=== PATIENT | male | born 1940 | race Caucasian/White ===

== ENCOUNTER 2016-04-11 11:06 | Observation (INO) | payer MEDICARE, BC ==
[2016-04-11 12:36] LABS: ABSOLUTE EOSINOPHILS # (AUTO) 0.1 10^3/uL (0.0-0.6); ABSOLUTE LYMPHOCYTES (AUTO) 0.9 10^3/uL (0.5-4.7); ABSOLUTE MONOCYTES (AUTO) 0.4 10^3/uL (0.1-1.4); ABSOLUTE NEUT (AUTO) 7.4 10^3/uL (1.7-8.2); BASOPHILS % (AUTO) 0.4 % (0-2); EOSINOPHILS % (AUTO) 1.6 % (0-6); HEMATOCRIT 35.1 % (37.9-51.0); HEMOGLOBIN 12.1 g/dL (13.5-17.0); HGB HCT DIFFERENCE 1.2; LYMPHOCYTES % (AUTO) 10.6 % (13-45); MEAN CORPUSCULAR HEMOGLOBIN 33.1 pg (27.0-33.4); MEAN CORPUSCULAR HGB CONC 34.4 g/dL (32.0-36.0); MEAN CORPUSCULAR VOLUME 96 fl (80-97); MONOCYTES % (AUTO) 4.6 % (3-13); RED BLOOD COUNT 3.65 10^6/uL (4.35-5.55); RED CELL DISTRIBUTION WIDTH 14.1 % (11.5-14.0); SEGMENTED NEUTROPHILS % (AUTO) 82.8 % (42-78); WHITE BLOOD COUNT 8.9 10^3/uL (4.0-10.5)
[2016-04-11 12:39] LABS: VENOUS BLOOD BASE EXCESS -2.5 mmol/L; VENOUS BLOOD HCO3 23.7 mmol/L (20-32); VENOUS BLOOD PCO2 46.8 mmHg (35-63); VENOUS BLOOD PH 7.32 (7.30-7.42)
[2016-04-11] MEDS ORDERED: NORMAL SALINE 1000 ML 1,000 ML IV ONE (12:55)
[2016-04-11 13:01] LABS: ALANINE AMINOTRANSFERASE 23 U/L (21-72); ALBUMIN 3.6 g/dL (3.5-5.0); ALKALINE PHOSPHATASE 88 U/L (38-126); ANION GAP 14 (5-19); ASPARTATE AMINO TRANSFERASE 25 U/L (17-59); BILIRUBIN,TOTAL 0.5 mg/dL (0.2-1.3); BLOOD UREA NITROGEN 21 mg/dL (7-20); CALCIUM 9.8 mg/dL (8.4-10.2); CARBON DIOXIDE 22 mmol/L (22-30); CHLORIDE 106 mmol/L (98-107); CREATINE KINASE 54 U/L (55-170); CREATININE RESULT 1.11 mg/dL (0.52-1.25); GLUCOSE 161 mg/dL (75-110); POTASSIUM 4.3 mmol/L (3.6-5.0); SODIUM 142.4 mmol/L (137-145); TOTAL PROTEIN 7.1 g/dL (6.3-8.2)
[2016-04-11 13:25] LABS: TROPONIN I < 0.012 ng/mL
[2016-04-11 13:38] LABS: APPEARANCE,URINE CLOUDY; BILIRUBIN,URINE NEGATIVE (NEGATIVE); GLUCOSE, URINE NEGATIVE (NEGATIVE); KETONES,URINE NEGATIVE (NEGATIVE); LEUKOCYTE ESTERASE,URINE TRACE (NEGATIVE); NITRITE,URINE NEGATIVE (NEGATIVE); PROTEIN,URINE 100 mg/dL (NEGATIVE); URINE SPECIFIC GRAVITY 1.021; UROBILINOGEN,URINE NEGATIVE mg/dL (<2.0)
--- NOTE | 2016-04-11 13:46 | EKG REPORT ---
SEVERITY:- OTHERWISE NORMAL ECG - SINUS RHYTHM BORDERLINE LEFT AXIS DEVIATION : Confirmed by: Anabella Shi 11-Apr-2016 13:22:11
[2016-04-11 13:55] LABS: URINE BARBITURATES SCREEN NEGATIVE; URINE METHADONE SCREEN NEGATIVE; URINE PHENCYCLIDINE SCREEN NEGATIVE
[2016-04-11] MEDS ORDERED: CEFTRIAXONE 1 GM/D5W RTU 50 ML IV ONE (14:09)
[2016-04-11] MEDS ORDERED: NORMAL SALINE 1000 ML 1,000 ML IV PRN (15:19)
[2016-04-11] MEDS ORDERED: LABETALOL HCL INJ 20 MG/4 ML DISP.SYRIN IV PRN (15:19)
[2016-04-11] MEDS ORDERED: TRAMADOL HCL 50 MG TABLET PO PRN (15:19)
[2016-04-11] MEDS ORDERED: MAGNESIUM HYDROXIDE SUSP 30 ML UDCUP PO ONE (15:26)
[2016-04-11] MEDS ORDERED: ACETAMINOPHEN 325 MG TABLET PO PRN (15:26)
[2016-04-11] MEDS ORDERED: ONDANSETRON HCL INJ/PF 4 MG/2 ML SDV IV PRN (15:26)
[2016-04-11] MEDS ORDERED: METOPROLOL SUCCINATE 25 MG TAB.SR.24H PO ONE (16:00)
[2016-04-11] MEDS ORDERED: ASPIRIN 81 MG TABLET, ENT COATED PO ONE (16:00)
--- NOTE | 2016-04-11 16:16 | ER Document Report ---
ED General - General Chief Complaint: Fall Stated Complaint: FALL TRAVEL OUTSIDE OF THE [place] IN LAST 30 DAYS: No - HPI Patient complains to provider of: syncope seizure dehydration fall Notes: Patient coming in today for evaluation of a syncopal episode of fall and seizure. 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 Patient states today that he was walking out of the bathroom and he tripped and fell no loss of consciousness states remember hitting for however he was unable to get up with the assistance of his . EMS was called EMS states upon sitting patient obviously has syncopal episode. Patient to be up so was a brief been patient did have seizure-like activity 2. Patient was given Versed seizure activity was followed by a short period of confusion however patient is ANO 3 at this time. confirms that patient is on carbamazepine for his seizures. also conferred patient has not been eating or drinking appropriately for the last 3 days. - Related Data Allergies/Adverse Reactions: No Known Allergies Allergy (Unverified 02/08/12 21:15) Past Medical History - Social History Smoking Status: Unknown if Ever Smoked Family History: Reviewed & Not Pertinent - Past Medical History Cardiac Medical History: Reports: Hx Hypercholesterolemia, Hx Hypertension Malignancy Medical History: Reports Hx Prostate Cancer Past Surgical History: Reports: Hx Orthopedic Surgery - Immunizations Immunizations up to date: Yes Hx Diphtheria, Pertussis, Tetanus Vaccination: Yes Review of Systems - Review of Systems Constitutional: No symptoms reported EENT: No symptoms reported Cardiovascular: Syncope Respiratory: No symptoms reported Gastrointestinal: No symptoms reported Genitourinary: No symptoms reported Male Genitourinary: No symptoms reported Musculoskeletal: No symptoms reported Skin: No symptoms reported Hematologic/Lymphatic: No symptoms reported Neurological/Psychological: Seizure -: Yes All other systems reviewed and negative Physical Exam - Vital signs Vitals: Temp Pulse Resp BP Pulse Ox 97.2 F 94 18 143/81 H 97 04/11/16 11:15 04/11/16 11:15 04/11/16 11:15 04/11/16 11:15 04/11/16 11:15 Interpretation: Normal - General General appearance: Appears well, Alert - HEENT Head: Normocephalic, Atraumatic Eyes: Normal Pupils: PERRL - Respiratory Respiratory status: No respiratory distress Chest status: Nontender Breath sounds: Normal Chest palpation: Normal - Cardiovascular Rhythm: Regular Heart sounds: Normal auscultation Murmur: No - Abdominal Inspection: Normal Distension: No distension Bowel sounds: Normal Tenderness: Nontender Organomegaly: No organomegaly - Back Back: Normal, Nontender - Extremities General upper extremity: Normal inspection, Nontender, Normal color, Normal ROM , Normal temperature General lower extremity: Normal inspection, Nontender, Normal color, Normal ROM , Normal temperature, Normal weight bearing. No: Katja's sign - Neurological Neuro grossly intact: Yes Cognition: Normal Orientation: AAOx4 [place] Coma Scale Eye Opening: Spontaneous [place] Coma Scale Verbal: Oriented [place] Coma Scale Motor: Obeys Commands Alexis Coma Scale Total: 15 Speech: Normal Motor strength normal: LUE, RUE, LLE, RLE Sensory: Normal - Psychological Associated symptoms: Normal affect, Normal mood - Skin Skin Temperature: Warm Skin Moisture: Dry Skin Color: Normal Course - Re-evaluation Re-evalutation: 04/11/16 16:15 Patient's urine shows signs of infection we'll give her dose of Rocephin. Patient's orthostatics were positive with symptoms patient states upon standing still feeling weak in the feet. Discussion with hospitalist will admit patient for further evaluation - Vital Signs Vital signs: Temp Pulse Resp BP Pulse Ox 97.2 F 101 H 12 124/79 95 04/11/16 11:15 04/11/16 15:00 04/11/16 15:00 04/11/16 15:00 04/11/16 15:00 - Laboratory Result Diagrams: 04/11/16 12:10 04/11/16 12:10 Laboratory results interpreted by me: 04/11/16 04/11/16 04/11/16 12:10 12:10 12:10 RBC 3.65 L Hgb 12.1 L Hct 35.1 L RDW 14.1 H Seg Neutrophils % 82.8 H Lymphocytes % 10.6 L BUN 21 H Glucose 161 H Lactic Acid 4.5 H Ammonia Creatine Kinase 54 L Urine Protein Urine Blood Ur Leukocyte Esterase 04/11/16 04/11/16 12:10 13:15 RBC Hgb Hct RDW Seg Neutrophils % Lymphocytes % BUN Glucose Lactic Acid Ammonia < 8.7 L Creatine Kinase Urine Protein 100 H Urine Blood SMALL H Ur Leukocyte Esterase TRACE H Discharge - Discharge Clinical Impression: Seizure, Dehydration Syncope Qualifiers: Syncope type: unspecified Qualified Code(s): R55 - Syncope and collapse Condition: Good Disposition: ADMITTED INPATIENT Admitting Provider: [facility] Unit Admitted: [facility]U Referrals: TEJINDER LUKE MD [Primary Care Provider] - Follow up as needed
[2016-04-11 16:46] LABS: ALCOHOL < 10 mg/dL (NONE DETECTED); CARBAMAZEPINE < 2.4 ug/mL (4.0-12.0)
[2016-04-11 16:55] LABS: CREATINE KINASE MB 0.77 ng/mL (<4.55)
[2016-04-11 16:56] LABS: TROPONIN I < 0.012 ng/mL
[2016-04-11] MEDS ORDERED: (PENDING PHARMACY ID) (Enzalutamide [Xtandi] 160 MG) PO SCH (17:30)
[2016-04-11] MEDS ORDERED: (PENDING PHARMACY ID) (Carbamazepine [Carbamazepine Er] 200 MG) PO SCH (18:00)
[2016-04-11] MEDS ORDERED: DULOXETINE HCL 30 MG CAPSULE.DR PO ONE (18:30)
[2016-04-11] MEDS ORDERED: XTANDI 40 MG PO ONE ×2 (19:00→21:00)
[2016-04-11] MEDS: DOCUSATE SODIUM 100 MG CAPSULE PO SCH (19:46)
--- NOTE | 2016-04-11 19:56 | PDOC H&P ---
History of Present Illness Admission Date/PCP: TEJINDER LUKE History of Present Illness: TIMOTHY GARCIA is a 75 year old male with a history of prior TBI and subsequent seizure disorder who reports he went to. [employer] for work and when he was getting out of the bathroom his legs felt weak and he felt on the doorway. He reports that when EMS came up he had a seizure. Family reported transient facial weakness after seizure. He reports that yesterday he had a subjective fever but no chills. He has been constipated as of late. Patient is found to be orthostatic and have a urinary tract infection. He is referred to hospital service for evaluation for mentioned complaints. Past Medical History Cardiac Medical History: Reports: Hyperlipidema, Hypertension Neurological Medical History: Reports: Seizures, Other - History of TBI Endocrine Medical History: Reports: Obesity Malignancy Medical History: Reports: Other - Prostate cancer Traumatic Medical History: Reports: Traumatic Brain Injury Past Surgical History Past Surgical History: Back surgery 3, prostatectomy, craniotomy Past Surgical History: Reports: Orthopedic Surgery Social History Information Source: Patient Smoking Status: Never Smoker Frequency of Alcohol Use: None Hx Recreational Drug Use: No Hx Prescription Drug Abuse: No - Advance Directive Resuscitation Status: Full Code Surrogate healthcare decision maker:: , Nora Garcia Family History Family History: CAD - Mother postoperatively of acute [place], CVA, Other - Brother and father both dried of AAA's, one living brother with AAA Parental Family History Reviewed: Yes Children Family History Reviewed: Yes Sibling(s) Family History Reviewed.: Yes Medication/Allergy Home Medications: Amlodipine Besylate 5 mg PO BID 04/11/16 Aspirin 81 mg PO DAILY 04/11/16 Calcium Carbonate/Vitamin D3 [Calcium 500 + Vit D Caplet] 500 mg PO MO@1000 08/21 Carbamazepine [Carbamazepine ER] 200 mg PO BID 04/11/16 Cyanocobalamin (Vitamin B-12) [B-12] 500 mg PO DAILY 04/11/16 Duloxetine HCl 60 mg PO DAILY 04/11/16 Enzalutamide [Xtandi] 160 mg PO DAILY 04/11/16 Losartan Potassium 100 mg PO DAILY 04/11/16 Metoprolol Succinate 25 mg PO DAILY 04/11/16 Pravastatin Sodium 40 mg PO DAILY 04/11/16 Allergies/Adverse Reactions: No Known Allergies Allergy (Unverified 11/03/12 21:15) Review of Systems Constitutional: PRESENT: fever(s). ABSENT: anorexia, chills, fatigue, headache( s), night sweats, weight gain, weight loss Eyes: ABSENT: visual disturbances Ears: ABSENT: hearing changes Cardiovascular: ABSENT: chest pain, dyspnea on exertion, edema, orthropnea, palpitations Respiratory: ABSENT: cough, dyspnea, hemoptysis, sputum Gastrointestinal: PRESENT: constipation. ABSENT: abdominal pain, diarrhea, hematemesis, hematochezia, melena, nausea, vomiting Genitourinary: PRESENT: dysuria. ABSENT: difficulty urinating, hematuria Musculoskeletal: PRESENT: back pain - Chronic. ABSENT: joint swelling Integumentary: ABSENT: lesions, rash, wounds Neurological: PRESENT: convulsions. ABSENT: abnormal gait, abnormal speech, confusion, dizziness, focal weakness, syncope Psychiatric: ABSENT: anxiety, depression, homidical ideation, suicidal ideation Endocrine: ABSENT: cold intolerance, heat intolerance, polydipsia, polyuria Hematologic/Lymphatic: ABSENT: easy bleeding, easy bruising Physical Exam Vital Signs: Temp Pulse Resp BP Pulse Ox 97.2 F 101 H 12 124/79 95 04/11/16 11:15 04/11/16 15:00 04/11/16 15:00 04/11/16 15:00 04/11/16 15:00 General appearance: PRESENT: no acute distress, obese, well-developed, well- nourished Head exam: PRESENT: normocephalic Eye exam: PRESENT: conjunctiva pink, EOMI, nystagmus - Horizontal, PERRLA. ABSENT: conjunctival injection, scleral icterus Ear exam: PRESENT: normal external ear exam Mouth exam: PRESENT: moist, tongue midline Neck exam: PRESENT: full ROM. ABSENT: carotid bruit, JVD, lymphadenopathy, meningismus, tenderness, thyromegaly, tracheal deviation Respiratory exam: PRESENT: clear to auscultation jenelle, symmetrical, unlabored. ABSENT: crackles, rales, retraction, rhonchi, tachypnea, wheezes Cardiovascular exam: PRESENT: RRR, +S1, +S2, systolic murmur. ABSENT: clicks, diastolic murmur, gallop, rubs Pulses: PRESENT: normal dorsalis pedis pul Vascular exam: PRESENT: normal capillary refill GI/Abdominal exam: PRESENT: hypoactive bowel sounds, soft. ABSENT: distended, firm, guarding, mass, Medina's sign, organolmegaly, rebound, rigid, tenderness Rectal exam: PRESENT: deferred Extremities exam: PRESENT: full ROM. ABSENT: calf tenderness, clubbing, pedal edema Neurological exam: PRESENT: alert, awake, oriented to person, oriented to place , oriented to time, oriented to situation, CN II-XII grossly intact. ABSENT: motor sensory deficit Psychiatric exam: PRESENT: appropriate affect, normal mood. ABSENT: homicidal ideation, suicidal ideation Skin exam: PRESENT: dry, intact, warm. ABSENT: cyanosis, rash Results Laboratory Results: 04/11/16 12:10 04/11/16 12:10 04/11/16 04/11/16 04/11/16 12:10 12:10 12:10 WBC 8.9 RBC 3.65 L Hgb 12.1 L Hct 35.1 L MCV 96 MCH 33.1 MCHC 34.4 RDW 14.1 H Plt Count 190 Seg Neutrophils % 82.8 H Lymphocytes % 10.6 L Monocytes % 4.6 Eosinophils % 1.6 Basophils % 0.4 Absolute Neutrophils 7.4 Absolute Lymphocytes 0.9 Absolute Monocytes 0.4 Absolute Eosinophils 0.1 Absolute Basophils 0.0 VBG pH VBG pCO2 VBG HCO3 VBG Base Excess Sodium 142.4 Potassium 4.3 Chloride 106 Carbon Dioxide 22 Anion Gap 14 BUN 21 H Creatinine 1.11 Est GFR ( Amer) > 60 Est GFR (Non-Af Amer) > 60 Glucose 161 H Lactic Acid 4.5 H Calcium 9.8 Total Bilirubin 0.5 AST 25 ALT 23 Alkaline Phosphatase 88 Ammonia Total Protein 7.1 Albumin 3.6 Urine Color Urine Appearance Urine pH Ur Specific [place] Urine Protein Urine Glucose (UA) Urine Ketones Urine Blood Urine Nitrite Ur Leukocyte Esterase Urine WBC (Auto) Urine RBC (Auto) 04/11/16 04/11/16 04/11/16 12:10 12:10 13:15 WBC RBC Hgb Hct MCV MCH MCHC RDW Plt Count Seg Neutrophils % Lymphocytes % Monocytes % Eosinophils % Basophils % Absolute Neutrophils Absolute Lymphocytes Absolute Monocytes Absolute Eosinophils Absolute Basophils VBG pH 7.32 VBG pCO2 46.8 VBG HCO3 23.7 VBG Base Excess -2.5 Sodium Potassium Chloride Carbon Dioxide Anion Gap BUN Creatinine Est GFR ( Amer) Est GFR (Non-Af Amer) Glucose Lactic Acid Calcium Total Bilirubin AST ALT Alkaline Phosphatase Ammonia < 8.7 L Total Protein Albumin Urine Color DARK YELLOW Urine Appearance CLOUDY Urine pH 5.0 Ur Specific [place] 1.021 Urine Protein 100 H Urine Glucose (UA) NEGATIVE Urine Ketones NEGATIVE Urine Blood SMALL H Urine Nitrite NEGATIVE Ur Leukocyte Esterase TRACE H Urine WBC (Auto) 14 Urine RBC (Auto) 6 04/11/16 04/11/16 12:10 12:10 Creatine Kinase 54 L CK-MB (CK-2) 0.60 Troponin I < 0.012 Impressions: Chest X-Ray 04/11/16 00:00 IMPRESSION: NO ACUTE RADIOGRAPHIC FINDING IN THE CHEST. Head CT 04/11/16 00:00 IMPRESSION: No acute findings. 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 Place on carbamazepine and seizure precautions. Consider Dilantin or Keppra. (2) Dehydration Is this a current diagnosis for this admission?: YesPlan: Patient has received 1 L but appears to need at least one more. Will give patient IV fluids and encourage by mouth intake of fluid. (3) Hypertension Qualifiers: Hypertension type: essential hypertension Qualified Code(s): I10 - Essential (primary) hypertension Is this a current diagnosis for this admission?: YesPlan: Resume home medications but hold losartan at this time due to orthostasis. (4) History of prostate cancer Is this a current diagnosis for this admission?: YesPlan: We'll keep patient until we have a result on his urine culture. Patient has had prior prostatectomy. (5) Constipation Qualifiers: Constipation type: unspecified constipation type Qualified Code(s): K59.00 - Constipation, unspecified Is this a current diagnosis for this admission?: YesPlan: We'll give patient milk of magnesia, Colace and miralax. Titrate to effect (6) Hyperlipidemia Qualifiers: Hyperlipidemia type: unspecified Qualified Code(s): E78.5 - Hyperlipidemia, unspecified Is this a current diagnosis for this admission?: YesPlan: Check FLP and continue statin (7) Syncope Qualifiers: Syncope type: vasovagal syncope Qualified Code(s): R55 - Syncope and collapse Is this a current diagnosis for this admission?: YesPlan: Most likely represents vasovagal syncope due to dehydration and UTI. Patient is orthostatic. 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 However given patient's other risk factors which include hyperlipidemia and hypertension, will obtain MRI and carotid Doppler study. Mental examinations. PT OT consult. Continue to monitor on telemetry as I do believe patient likely has a prior history of atrial fibrillation. - Time Time Spent: 50 to 70 Minutes Medications reviewed and adjusted accordingly: Yes - Inpatient Certification Based on my medical assessment, after consideration of the patient's comorbidities, presenting symptoms, or acuity I expect that the services needed warrant INPATIENT care.: No I certify that my determination is in accordance with my understanding of Medicare's requirements for reasonable and necessary INPATIENT services [42 CFR 412.3e].: No Medical Necessity: Need For IV Fluids, Need For Continuous Telemetry Monitoring , Need for Neurological Checks Post Hospital Care: D/C Forensic Investigator Documentation
[2016-04-11] MEDS: AMLODIPINE BESYLATE 5 MG TABLET PO SCH (21:26)
[2016-04-11] MEDS: CARBAMAZEPINE 200 MG TAB.SR.12H PO SCH (21:32)
[2016-04-11] MEDS ORDERED: CARBAMAZEPINE 200 MG TABLET PO SCH (22:00)
[2016-04-11] MEDS ORDERED: ATORVASTATIN CALCIUM 40 MG TABLET PO SCH (22:00)
[2016-04-11 22:01] LABS: CREATINE KINASE MB 0.59 ng/mL (<4.55); TROPONIN I 0.012 ng/mL
[2016-04-12] MEDS ORDERED: AMLODIPINE BESYLATE 5 MG TABLET PO ONE (01:15)
[2016-04-12 04:13] LABS: ABSOLUTE EOSINOPHILS # (AUTO) 0.3 10^3/uL (0.0-0.6); ABSOLUTE LYMPHOCYTES (AUTO) 1.5 10^3/uL (0.5-4.7); ABSOLUTE MONOCYTES (AUTO) 0.7 10^3/uL (0.1-1.4); BASOPHILS % (AUTO) 0.3 % (0-2); EOSINOPHILS % (AUTO) 3.4 % (0-6); HEMOGLOBIN 10.8 g/dL (13.5-17.0); HGB HCT DIFFERENCE 0.4; LYMPHOCYTES % (AUTO) 17.7 % (13-45); MEAN CORPUSCULAR HEMOGLOBIN 32.4 pg (27.0-33.4); MEAN CORPUSCULAR HGB CONC 33.7 g/dL (32.0-36.0); MEAN CORPUSCULAR VOLUME 96 fl (80-97); MONOCYTES % (AUTO) 7.9 % (3-13); RED BLOOD COUNT 3.33 10^6/uL (4.35-5.55); RED CELL DISTRIBUTION WIDTH 13.8 % (11.5-14.0); SEGMENTED NEUTROPHILS % (AUTO) 70.7 % (42-78); WHITE BLOOD COUNT 8.5 10^3/uL (4.0-10.5)
[2016-04-12 04:39] LABS: ANION GAP 8 (5-19); BLOOD UREA NITROGEN 19 mg/dL (7-20); CALCIUM 9.2 mg/dL (8.4-10.2); CARBON DIOXIDE 28 mmol/L (22-30); CHLORIDE 107 mmol/L (98-107); CHOLESTEROL 218.52 mg/dL (0-200); CREATINE KINASE 64 U/L (55-170); CREATININE RESULT 1.01 mg/dL (0.52-1.25); Direct HDL 43 mg/dL (>40); GLUCOSE 104 mg/dL (75-110); POTASSIUM 4.3 mmol/L (3.6-5.0); SODIUM 142.6 mmol/L (137-145); TRIGLYCERIDES 188 mg/dL (<150)
[2016-04-12 04:50] LABS: CREATINE KINASE MB 0.67 ng/mL (<4.55); DIRECT LDL 123 mg/dL (<100); TROPONIN I 0.013 ng/mL
[2016-04-12 04:57] LABS: VLDL CHOLESTEROL 37.6 mg/dL (10-31)
[2016-04-12] MEDS: AMLODIPINE BESYLATE 5 MG TABLET PO SCH (09:50)
[2016-04-12] MEDS: DOCUSATE SODIUM 100 MG CAPSULE PO SCH (09:51)
[2016-04-12] MEDS: CARBAMAZEPINE 200 MG TAB.SR.12H PO SCH (09:51)
[2016-04-12] MEDS ORDERED: METOPROLOL SUCCINATE 25 MG TAB.SR.24H PO SCH (10:00)
[2016-04-12] MEDS ORDERED: LOSARTAN POTASSIUM 50 MG TABLET PO SCH (10:00)
[2016-04-12] MEDS ORDERED: ASPIRIN 81 MG TABLET, ENT COATED PO SCH (10:00)
[2016-04-12] MEDS ORDERED: (PENDING PHARMACY ID) (Duloxetine Hcl [Duloxetine Hcl] 60 MG) PO SCH (10:00)
[2016-04-12] MEDS ORDERED: CEFTRIAXONE 1 GM/D5W RTU 50 ML IV SCH (10:00)
[2016-04-12] MEDS ORDERED: DULOXETINE HCL 30 MG CAPSULE.DR PO SCH (10:00)
[2016-04-12] MEDS ORDERED: XTANDI 40 MG PO SCH (10:00)
[2016-04-12] MEDS ORDERED: CYANOCOBALAMIN (VITAMIN B-12) 1,000 MCG TABLET PO SCH (10:00)
[2016-04-12 11:47] VITALS: BP 143/81
[2016-04-12] MEDS ORDERED: MEGESTROL ACETATE SUSP 400 MG/10 ML UDCUP PO ONE (12:00)
[2016-04-13] MEDS ORDERED: MEGESTROL ACETATE SUSP 400 MG/10 ML UDCUP PO SCH (10:00)
--- NOTE | 2016-04-13 15:15 | PDOC DISCHARGE SUMMARY ---
General - Admit/Disc Date/PCP Admission Date/Primary Care Provider: 04/11/16 15:20 TEJINDER LUKE Discharge Date: 04/12/16 - Discharge Diagnosis (1) Seizure Is this a current diagnosis for this admission?: Yes (2) Dehydration Is this a current diagnosis for this admission?: Yes (3) Hypertension Is this a current diagnosis for this admission?: Yes (4) History of prostate cancer Is this a current diagnosis for this admission?: Yes (5) Constipation Is this a current diagnosis for this admission?: Yes (6) Hyperlipidemia Is this a current diagnosis for this admission?: Yes (7) Syncope Is this a current diagnosis for this admission?: Yes (8) Urinary tract infection Is this a current diagnosis for this admission?: Yes (9) TIA (transient ischemic attack) Is this a current diagnosis for this admission?: Yes - Additional Information Resuscitation Status: Full Code Discharge Diet: Cardiac Discharge Activity: Activity As Tolerated, Slowly Increase Activity, Walk Frequently Home Medications: Amlodipine Besylate 5 mg PO BID 04/11/16 Aspirin 81 mg PO DAILY 04/11/16 Calcium Carbonate/Vitamin D3 [Calcium 500 + Vit D Caplet] 500 mg PO MO@1000 08/21 Carbamazepine [Carbamazepine ER] 200 mg PO BID 04/11/16 Cyanocobalamin (Vitamin B-12) [B-12] 500 mg PO DAILY 04/11/16 Duloxetine HCl 60 mg PO DAILY 04/11/16 Enzalutamide [Xtandi] 160 mg PO DAILY 04/11/16 Losartan Potassium 100 mg PO DAILY 04/11/16 Pravastatin Sodium 40 mg PO DAILY 04/11/16 Docusate Sodium [Colace 100 mg Capsule] 100 mg PO BID #60 capsule 04/12/16 Levofloxacin [Levaquin 500 mg Tablet] 500 mg PO DAILY #4 tablet 04/12/16 Metoprolol Succinate [Toprol Xl 25 mg Tab.sr] 25 mg PO BID #60 tab.sr.24h Sennosides [Senna Laxative] 1 - 2 mg PO QHS #60 tablet 04/12/16 History of Present Illness History of Present Illness: TIMOTHY WALTERS is a 75 year old male with a history of prior TBI and subsequent seizure disorder who reports he went to[employer] for work and when he was getting out of the bathroom his legs felt weak and he felt on the doorway. He reports that when EMS came up he had a seizure. Family reported transient facial weakness after seizure. He reports that yesterday he had a subjective fever but no chills. He has been constipated as of late. Patient is found to be orthostatic and have a urinary tract infection. He is referred to hospital service for evaluation for mentioned complaints. Hospital Course Hospital Course: Patient was ruled out for acute CVA with serial CTs. 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 Patient was advised that this will need to be monitored by his vision impaired teacher. Patient does have intermittent episodes of A. fib none with RVR here in the hospital. Patient is not a candidate for anticoagulation secondary to previous intracranial hemorrhage. Patient admits to not taking his medication as instructed and his reports that he has had a very poor appetite and been very lethargic. We discussed taking medications appropriately and place patient on Megace. I did discuss with patient that his carbamazepine level was not detectable and he needed to take this medication to prevent seizures. Patient also had a seizure while on Xtandi and I discussed with him and his bringing this to the attention of their oncologist in light of its history with seizures. Patient was found to be orthostatic and had improved with hydration and the hospital. Patient was found have a slight UTI and culture was pending at the time of discharge. Patient was asymptomatic from this point of view. Patient did suffer from constipation which was improved. Patient was advised to follow bowel regimen which was set up for him, including increasing fiber and water and adding Colace and senna. Patient had no new complaints on day of discharge. All questions were answered to the best of my ability. Physical Exam Vital Signs: Temp Pulse Resp BP Pulse Ox 98.0 F 62 18 143/81 H 98 04/12/16 11:43 04/12/16 11:43 04/12/16 11:43 04/12/16 11:43 04/12/16 11:43 Intake & Output 04/12/16 04/13/16 04/14/16 06:59 06:59 06:59 Intake Total 1018 222 Output Total 575 1160 Balance 443 -938 Weight 76 kg Exam: General: Awake alert and oriented x3, no acute respiratory distress HEENT: AT/NC, PERRL, EOMI, oropharynx is moist, pink, no scleral icterus, no conjunctival injection Neck: No JVD, trachea midline Chest: Clear to auscultation bilaterally, no wheezes rhonchi or rales CV: Regular rate and rhythm, normal S1 and S2, no murmur, rub, or gallop Abdomen: Soft, nontender to palpation, nondistended, active bowel sounds; no rebound, rigidity, or guarding Extremities: No cyanosis, clubbing or edema Neuro: Cranial nerves II through XII are grossly intact without focal deficits; awake alert and oriented x3 Psych: Normal mood and affect Results Laboratory Results: 04/12/16 03:28 04/12/16 03:28 04/11/16 04/11/16 04/11/16 15:55 15:55 21:25 Creatine Kinase 48 L 41 L CK-MB (CK-2) 0.77 Troponin I < 0.012 04/11/16 04/12/16 04/12/16 21:25 03:28 03:28 Creatine Kinase 64 CK-MB (CK-2) 0.59 0.67 Troponin I 0.012 0.013 Impressions: Chest X-Ray 04/11/16 00:00 IMPRESSION: NO ACUTE RADIOGRAPHIC FINDING IN THE CHEST. Carotid Doppler Study 04/11/16 15:24 IMPRESSION: NO HEMODYNAMICALLY SIGNIFICANT STENOSIS. Head CT 04/12/16 00:00 IMPRESSION: No acute findings Qualifiers PATEINT BEING DISCHARGED WITH ANY OF THE FOLLOWING DIAGNOSIS?: No Plan Time Spent: Greater than 30 Minutes
[2016-04-15] MEDS ORDERED: VITAMIN D3 PO SCH (10:00)
[2016-04-15] MEDS ORDERED: CALCIUM CARBONATE 250 MG/VITAMIN D3 125 UNIT TABLET PO SCH (10:00)
[2016-04-15] MEDS ORDERED: [UNRECOGNIZED DRUG - OTHER] PO SCH (10:00)
[2016-04-15] MEDS ORDERED: CALCIUM CARBONATE PO SCH (10:00)
== END 2016-04-12 13:52 | disposition home or self-care (01) ==
LOC: ER 11:06 → EH 15:20 → UNDOADMOB 16:09 → EH 16:09 → 3N 17:36
PROVIDERS: ADMIT Family Medicine; ATTEND Family Medicine
DX: I69.398 Other sequelae of cerebral infarction (principal); R56.9 Unspecified convulsions; E86.0 Dehydration; R55 Syncope and collapse; I10 Essential (primary) hypertension; Z85.46 Personal history of malignant neoplasm of prostate; K59.00 Constipation, unspecified; E78.5 Hyperlipidemia, unspecified; N39.0 Urinary tract infection, site not specified; E66.9 Obesity, unspecified; Z68.30 Body mass index [BMI] 30.0-30.9, adult
CPT/HCPCS: 93005; 99285; 96361; 96365; 36415 ×2; 87040; 87086; 82553 ×2; 80307 ×2; 82140; 82550 ×2; 83605; 80156; 85025 ×2; 85610; 80048; 80053; 81001; 84484 ×2; 83036; 82803; 80061; 93880; 71010; 70450 ×2; 93010; 97163; 97167; G0378 ×3; A9270 ×14; J3490 ×2; J7030; J0696 ×2; G8978; G8979; G8987; G8988

== ENCOUNTER 2016-04-13 18:09 | Emergency (ER) | payer MEDICARE, BC ==
[2016-04-13] MEDS ORDERED: NORMAL SALINE 1000 ML 1,000 ML IV ONE (18:24)
--- NOTE | 2016-04-13 18:31 | ER Document Report ---
[id number] PRESSURE CONCERNS Mode of Arrival: Medic Information source: Patient, Emergency Med Personnel Notes: 75-year-old male presents with lightheadedness dizziness weakness this prior to arrival. Patient was seen by his primary care physician 3 days prior had his metoprolol increased, he had similar episode on the first day. Yesterday and again had that issue today. Denies any weakness numbness, denies any chest pain shortness of breath Patient found by EMS hypotensive was given a fluid bolus and notes significant improvement TRAVEL OUTSIDE OF THE [place] IN LAST 30 DAYS: No - HPI Onset: Just prior to arrival Onset/Duration: Sudden Quality of pain: No pain Severity: Moderate Pain Level: Denies Associated symptoms: Weakness Exacerbated by: Denies Relieved by: Denies Similar symptoms previously: Yes Recently seen / treated by doctor: No - Related Data Allergies/Adverse Reactions: Hectorigon Adverse Reaction (Severe, Uncoded 04/13/16 18:15) Hives Past Medical History - Social History Smoking Status: Never Smoker Cigarette use (# per day): No Chew tobacco use (# tins/day): No Smoking Education Provided: No Family History: CAD - Mother postoperatively of acute [place], CVA, Other - Brother and father both dried of AAA's, one living brother with AAA - Past Medical History Cardiac Medical History: Reports: Hx Hypercholesterolemia, Hx Hypertension Neurological Medical History: Reports: Hx Seizures Malignancy Medical History: Reports Hx Prostate Cancer Psychiatric Medical History: Denies: Hx Depression Traumatic Medical History: Reports: Hx Traumatic Brain Injury Past Surgical History: Reports: Hx Orthopedic Surgery - Immunizations Immunizations up to date: Yes Hx Diphtheria, Pertussis, Tetanus Vaccination: Yes Review of Systems - Review of Systems Notes: REVIEW OF SYSTEMS: CONSTITUTIONAL : Denies fever, chills, or sweats. Denies recent illness. EENT: Denies eye, ear, throat, or mouth pain or symptoms. Denies nasal or sinus congestion or discharge. Denies throat, tongue, or mouth swelling or difficulty swallowing. CARDIOVASCULAR: Denies chest pain. Denies palpitations or racing or irregular heart beat. Denies ankle edema. RESPIRATORY: Denies cough, cold, or chest congestion. Denies shortness of breath, difficulty breathing, or wheezing. GASTROINTESTINAL: Denies abdominal pain or distention. Denies nausea, vomiting , or diarrhea. Denies blood in vomitus, stools, or per rectum. Denies black, tarry stools. Denies constipation. GENITOURINARY: Denies difficulty urinating, painful urination, burning, frequency, blood in urine, or discharge. MUSCULOSKELETAL: Denies back or neck pain or stiffness. Denies joint pain or swelling. SKIN: Denies rash, lesions or sores. HEMATOLOGIC : Denies easy bruising or bleeding. LYMPHATIC: Denies swollen, enlarged glands. NEUROLOGICAL: Admits to dizziness lightheadedness weakness PSYCHIATRIC: Denies anxiety or stress. Denies depression, suicidal ideation, or homicidal ideation. ALL OTHER SYSTEMS REVIEWED AND NEGATIVE. Dictation was performed using [employer] voice recognition software PHYSICAL EXAMINATION: GENERAL: Well-appearing, well-nourished and in no acute distress. HEAD: Atraumatic, normocephalic. EYES: Pupils equal round and reactive to light, extraocular movements intact, sclera anicteric, conjunctiva are normal. ENT: Nares patent, oropharynx clear without exudates. Moist mucous membranes. NECK: Normal range of motion, supple without lymphadenopathy LUNGS: Breath sounds clear to auscultation bilaterally and equal. No wheezes rales or rhonchi. HEART: Regular rate and rhythm without murmurs ABDOMEN: Soft, nontender, nondistended abdomen. No guarding, no rebound. No masses appreciated. Musculoskeletal: Normal range of motion, no pitting or edema. No cyanosis. NEUROLOGICAL: Cranial nerves grossly intact. Normal speech, normal gait. Normal sensory, motor exams PSYCH: Normal mood, normal affect. SKIN: Warm, Dry, normal turgor, no rashes or lesions noted. Physical Exam - Vital signs Vitals: Resp 14 04/13/16 18:16 Course - Re-evaluation Re-evalutation: 04/13/16 18:31 Patient blood pressure is improved significantly with fluid bolus, I will wash patient emergency department and I have ordered lab work as well to rule out any other life-threatening issues but it appears to be secondary to his metoprolol causing hypotension 04/13/16 20:43 Patient is on losartan and amlodipine and metoprolol, I have asked the to check his blood pressure prior to taking any medications. I have instructed them to stop the metoprolol for next few days until they see the coil maker to reevaluate which medications he is was be on As I have reviewed the patient's previous presentations to the ED and I will discharge home at this time as he is stable and his blood pressure has improved significantly After performing a Medical Screening Examination, I estimate there is LOW risk for INTRACRANIAL HEMORRHAGE, ISCHEMIC CVA, MALIGNANT DYSRHYTHMIA, ACUTE CORONARY SYNDROME, MENINGITIS, PULMONARY EMBOLISM, or SEPSIS thus I consider the discharge disposition reasonable. The patient and I have discussed the diagnosis and risks, and we agree with discharging home with close follow-up with the understanding that symptoms and presentations can change. We also discussed returning to the Emergency Department immediately if new or worsening symptoms occur. We have discussed the symptoms which are most concerning (e.g., changing or worsening pain, weakness, vomiting, fever) that necessitate immediate return. - Vital Signs Vital signs: Temp Pulse Resp BP Pulse Ox 97.6 F 67 12 139/82 H 97 04/13/16 18:21 04/13/16 18:21 04/13/16 20:01 04/13/16 20:01 04/13/16 20:01 - Laboratory Result Diagrams: 04/13/16 18:30 04/13/16 18:30 Laboratory results interpreted by me: 04/13/16 04/13/16 18:30 18:30 RBC 3.49 L Hgb 11.5 L Hct 33.7 L BUN 22 H Albumin 3.4 L - Diagnostic Test Radiology reviewed: Image reviewed, Reports reviewed Discharge - Discharge Clinical Impression: Weakness Hypotension Qualifiers: Hypotension type: unspecified hypotension type Qualified Code(s): I95.9 - Hypotension, unspecified Condition: Stable Disposition: HOME, SELF-CARE Additional Instructions: Hypotension Your blood pressure is low. Low blood pressure can make you feel weak, lightheaded, and even make you pass out. Low blood pressure can be caused by dehydration or blood loss. Problems with the heart, kidneys, or blood vessels can cause hypotension. Certain medications can make your blood pressure abnormally low. Infection can lower blood pressure. In many cases, the person is totally healthy, but for unknown reasons, the blood pressure falls when they stand up. This is called benign orthostatic hypotension. The treatment of low blood pressure depends on the severity of the symptoms , and on the underlying cause. Sometimes it's not possible to identify a cause. At this time, it doesn't appear that the problem is serious enough to require hospitalization. Medicines that could be contributing to the problem can be withheld or reduced in dosage if your doctor approves. Get plenty of fluids. Eat a healthy diet. Be careful to stand up slowly. If you feel suddenly lightheaded or if your vision goes huang, sit or lie down at once. Don't drive or operate machinery until the symptoms are under control. Return or call the doctor if you develop fainting or severe dizziness, severe weakness, problems with vision, chest pain, shortness of breath, fever, or confusion. Referrals: TEJINDER LUKE MD [Primary Care Provider] - Follow up tomorrow
[2016-04-13 18:52] LABS: ABSOLUTE EOSINOPHILS # (AUTO) 0.1 10^3/uL (0.0-0.6); ABSOLUTE LYMPHOCYTES (AUTO) 1.3 10^3/uL (0.5-4.7); ABSOLUTE MONOCYTES (AUTO) 0.5 10^3/uL (0.1-1.4); ABSOLUTE NEUT (AUTO) 4.9 10^3/uL (1.7-8.2); BASOPHILS % (AUTO) 0.2 % (0-2); EOSINOPHILS % (AUTO) 1.8 % (0-6); HEMATOCRIT 33.7 % (37.9-51.0); HEMOGLOBIN 11.5 g/dL (13.5-17.0); HGB HCT DIFFERENCE 0.8; LYMPHOCYTES % (AUTO) 19.1 % (13-45); MEAN CORPUSCULAR HEMOGLOBIN 32.8 pg (27.0-33.4); MEAN CORPUSCULAR VOLUME 97 fl (80-97); MONOCYTES % (AUTO) 7.8 % (3-13); RED BLOOD COUNT 3.49 10^6/uL (4.35-5.55); SEGMENTED NEUTROPHILS % (AUTO) 71.1 % (42-78)
[2016-04-13 19:03] LABS: ALANINE AMINOTRANSFERASE 31 U/L (21-72); ALBUMIN 3.4 g/dL (3.5-5.0); ALKALINE PHOSPHATASE 85 U/L (38-126); ANION GAP 12 (5-19); ASPARTATE AMINO TRANSFERASE 21 U/L (17-59); BILIRUBIN,TOTAL 0.3 mg/dL (0.2-1.3); BLOOD UREA NITROGEN 22 mg/dL (7-20); CALCIUM 9.3 mg/dL (8.4-10.2); CARBON DIOXIDE 25 mmol/L (22-30); CHLORIDE 105 mmol/L (98-107); CREATINE KINASE 63 U/L (55-170); GLUCOSE 103 mg/dL (75-110); SODIUM 141.7 mmol/L (137-145); TOTAL PROTEIN 6.7 g/dL (6.3-8.2)
[2016-04-13 19:15] LABS: CREATINE KINASE MB 0.44 ng/mL (<4.55)
[2016-04-13 19:16] LABS: TROPONIN I < 0.012 ng/mL
[2016-04-13 21:22] VITALS: BP 142/71
--- NOTE | 2016-04-14 08:28 | EKG REPORT ---
SEVERITY:- BORDERLINE ECG - SINUS RHYTHM ATRIAL PREMATURE COMPLEX BORDERLINE LEFT AXIS DEVIATION BORDERLINE T ABNORMALITIES, INFERIOR LEADS : Confirmed by: Anabella Shi 14-Apr-2016 08:28:35
== END 2016-04-13 21:20 | disposition home or self-care (01) ==
LOC: ER 18:09
DX: R53.1 Weakness (principal); I95.9 Hypotension, unspecified; R42 Dizziness and giddiness; E78.00 Pure hypercholesterolemia, unspecified
CPT/HCPCS: 93005; 99285; 96360; 36415; 82553; 82550; 85025; 80053; 84484; 71010; 93010; J7030

== ENCOUNTER 2017-07-05 23:18 | Emergency (ER) | payer MEDICARE, BC ==
[2017-07-05 23:41] LABS: ABSOLUTE EOSINOPHILS # (AUTO) 0.3 10^3/uL (0.0-0.6); ABSOLUTE LYMPHOCYTES (AUTO) 2.1 10^3/uL (0.5-4.7); ABSOLUTE MONOCYTES (AUTO) 0.6 10^3/uL (0.1-1.4); ABSOLUTE NEUT (AUTO) 4.7 10^3/uL (1.7-8.2); BASOPHILS % (AUTO) 0.3 % (0-2); EOSINOPHILS % (AUTO) 3.6 % (0-6); HEMATOCRIT 35.6 % (37.9-51.0); LYMPHOCYTES % (AUTO) 27.1 % (13-45); MEAN CORPUSCULAR HEMOGLOBIN 32.6 pg (27.0-33.4); MEAN CORPUSCULAR HGB CONC 33.8 g/dL (32.0-36.0); MEAN CORPUSCULAR VOLUME 96 fl (80-97); MONOCYTES % (AUTO) 8.1 % (3-13); PLATELET COUNT 185 10^3/uL (150-450); RED BLOOD COUNT 3.69 10^6/uL (4.35-5.55); RED CELL DISTRIBUTION WIDTH 14.2 % (11.5-14.0); SEGMENTED NEUTROPHILS % (AUTO) 60.9 % (42-78); TOTAL CELLS COUNTED % (AUTO) 100 %; WHITE BLOOD COUNT 7.7 10^3/uL (4.0-10.5)
--- NOTE | 2017-07-05 23:45 | ER Document Report ---
ED General - General Stated Complaint: POSSIBLE SYNCOPY Time Seen by Provider: 07/05/17 23:31 Mode of Arrival: Medic Information source: Patient, Relative, Emergency Med Personnel TRAVEL OUTSIDE OF THE [place] IN LAST 30 DAYS: No - HPI Notes: Patient is a 76-year-old white male history of previous syncopal events presents to the emergency department with report of a witnessed syncopal event by family. Patient recalls EMS showing up and he had systolic blood pressure of 106 with a normal sinus rhythm of about 70, then in front of the EMS he dropped his blood pressure down to 77 systolic and is pulse rate went down to 38 and he had is another witnessed syncopal event. Patient was given atropine 0.5 mg IV and his blood pressure and pulse recovered and he quickly awakened. During the bradycardic hypotensive episode, the patient was observed initially to have a sinus bradycardia and then went to a idioventricular rhythm. The patient was incontinent during the event, but had no seizure activity and no postictal phase. Patient has a history of a previous syncopal event wh patient ere he fell on pavement 2013 and had a intracranial hemorrhage with subsequent seizures. Patient takes metoprolol XR 12.5 mg twice daily. The patient denies any recent medication changes. He states he has felt fine recently, denying any dysuria, chest pain, headache, numbness, weakness. He acknowledges having incontinence but he cannot recall it. Patient states he felt like he just went to sleep. No tongue biting. No fall or injury. Pt was in a chair during first syncopal event. According to the patient's , the patient has had 5 or 6 witnessed syncopal events over the last 2 years, and she has caught him several times. The patient usually refuses EMS transport with the previous syncopal events. [employer] Dr. Mina in [place]. Patient is also followed by Dr. Frankel for his Prostate Cancer. - Related Data Allergies/Adverse Reactions: Farigon Adverse Reaction (Severe, Uncoded 04/13/16 18:15) Hives Past Medical History - General Information source: Patient - Social History Smoking Status: Never Smoker Frequency of alcohol use: None Drug Abuse: None - Is Lives with: Family Family History: CAD - Mother postoperatively of acute [place], CVA, Other - Brother and father both dried of AAA's, one living brother with AAA - Past Medical History Cardiac Medical History: Reports: Hx Hypercholesterolemia, Hx Hypertension Neurological Medical History: Reports: Hx Seizures Malignancy Medical History: Reports Hx Prostate Cancer Psychiatric Medical History: Denies: Hx Depression Traumatic Medical History: Reports: Hx Traumatic Brain Injury Past Surgical History: Reports: Hx Orthopedic Surgery - Immunizations Immunizations up to date: Yes Hx Diphtheria, Pertussis, Tetanus Vaccination: Yes Review of Systems - Review of Systems Notes: REVIEW OF SYSTEMS: CONSTITUTIONAL : Denies fever, chills. Denies recent illness. Patient became diaphoretic during the event. EENT: Denies eye, ear, throat, or mouth pain or symptoms. Denies nasal or sinus congestion or discharge. Denies throat, tongue, or mouth swelling or difficulty swallowing. CARDIOVASCULAR: Denies chest pain. Denies palpitations or racing or irregular heart beat. Denies ankle edema. RESPIRATORY: Denies cough, cold, or chest congestion. Denies shortness of breath, difficulty breathing, or wheezing. GASTROINTESTINAL: Denies abdominal pain or distention. Denies nausea, vomiting , or diarrhea. Denies blood in vomitus, stools, or per rectum. Denies black, tarry stools. Denies constipation. GENITOURINARY: Denies difficulty urinating, painful urination, burning, frequency, blood in urine, or discharge. MUSCULOSKELETAL: Denies back or neck pain or stiffness. Denies joint pain or swelling. SKIN: Denies rash, lesions or sores. HEMATOLOGIC : Denies easy bruising or bleeding. LYMPHATIC: Denies swollen, enlarged glands. NEUROLOGICAL: patient recalls feeling lightheaded And sleepy. Denies headache. Denies weakness or paralysis or loss of use of either side. Denies problems with gait or speech. Denies sensory loss, numbness, or tingling. Denies seizures. PSYCHIATRIC: Denies anxiety or stress. Denies depression, suicidal ideation, or homicidal ideation. ALL OTHER SYSTEMS REVIEWED AND NEGATIVE. Dictation was performed using [employer] voice recognition software Physical Exam - Vital signs Vitals: Resp 16 07/05/17 23:21 - Notes Notes: PHYSICAL EXAMINATION: GENERAL: Diaphoretic, well-nourished and in no acute distress. HEAD: Atraumatic, normocephalic. EYES: Pupils equal round and reactive to light, extraocular movements intact, sclera anicteric, conjunctiva are normal. ENT: Nares patent, oropharynx clear without exudates. Moist mucous membranes. NECK: Normal range of motion, supple without lymphadenopathy. No gross carotid bruits. LUNGS: Breath sounds clear to auscultation bilaterally and equal. No wheezes rales or rhonchi. HEART: Regular rate and rhythm without murmurs ABDOMEN: Soft, nontender, nondistended abdomen. No guarding, no rebound. No masses appreciated. Musculoskeletal: Normal range of motion, no pitting or edema. No cyanosis. NEUROLOGICAL: Cranial nerves grossly intact. Normal speech, normal gait. Normal sensory, motor exams PSYCH: Normal mood, normal affect. SKIN: Cool, pale, diaphoretic, normal turgor, no rashes or lesions noted. Course - Re-evaluation Re-evalutation: 07/06/17 00:11 Patient maintained normal sinus rhythm with stable blood pressures and had no complaints. Discussion was undertaken with the patient's family and with the patient and they were in agreement with the patient being admitted for further evaluation and management most likely he would need a pacemaker to prevent subsequent bradycardic events. Discussion was undertaken with Dr. Arzola, covering for patient's regular kettle hand Dr. Hassan, and he accepted the patient in transfer to [facility]. No evidence for significant electrolyte imbalance or congestive heart failure or pneumonia or anemia or GI bleed or acute CT or ischemia. Troponin is negative. 07/06/17 03:53 Repeat exam, patient was stable for transfer to [facility]. Vital signs were stable and he was without complaint. No chest pain or difficulty breathing. Normal sinus rhythm rate 78. - Vital Signs Vital signs: Temp Pulse Resp BP Pulse Ox 97.7 F 14 175/91 H 100 07/05/17 23:45 07/06/17 00:01 07/06/17 00:01 07/06/17 00:01 - Laboratory Result Diagrams: 07/05/17 23:30 07/05/17 23:30 Laboratory results interpreted by me: 07/05/17 07/05/17 23:30 23:30 RBC 3.69 L Hgb 12.0 L Hct 35.6 L RDW 14.2 H Glucose 138 H ALT 13 L - EKG Interpretation by Ut EKG shows normal: Sinus rhythm Additional EKG results interpreted by me: 07/05/17 23:54 EKG as interpreted by me showed normal sinus rhythm heart rate of 83. There is no gross evidence for acute CT or ischemia there is normal [place] interval. There is a borderline prolonged QT interval 420. Critical Care Note - Critical Care Note Total time excluding time spent on procedures (mins): 48 Discharge - Discharge Clinical Impression: Bradycardia, Idioventricular rhythm Syncope Qualifiers: Syncope type: unspecified Qualified Code(s): R55 - Syncope and collapse Disposition: [facility] Referrals: TEJINDER LUKE MD [Primary Care Provider] - Follow up as needed
[2017-07-05 23:56] LABS: INTERNATIONAL RATION (INR) 0.98; PROTHROMBIN TIME 13.7 SEC (11.4-15.4)
[2017-07-06 00:09] LABS: ALANINE AMINOTRANSFERASE 13 U/L (21-72); ALKALINE PHOSPHATASE 115 U/L (38-126); ANION GAP 9 (5-19); ASPARTATE AMINO TRANSFERASE 23 U/L (17-59); BILIRUBIN,DIRECT 0.1 mg/dL (0.0-0.4); BILIRUBIN,TOTAL 0.2 mg/dL (0.2-1.3); BLOOD UREA NITROGEN 19 mg/dL (7-20); CALCIUM 9.2 mg/dL (8.4-10.2); CARBON DIOXIDE 28 mmol/L (22-30); CHLORIDE 105 mmol/L (98-107); GLUCOSE 138 mg/dL (75-110); POTASSIUM 4.1 mmol/L (3.6-5.0); SODIUM 141.6 mmol/L (137-145); TOTAL PROTEIN 6.9 g/dL (6.3-8.2)
[2017-07-06 00:25] LABS: FREE T4 (FREE THYROXINE) 0.84 ng/dL (0.78-2.19)
--- NOTE | 2017-07-06 00:29 | RADIOLOGY REPORT (SQ) ---
EXAM DESCRIPTION: CHEST SINGLE VIEW CLINICAL HISTORY: 76 years Male, syncope with bradycardia 7.7.17 NUMBER OF VIEWS/TECHNIQUE: 1/AP LIMITATIONS: None. FINDINGS: Normal lung volume, minimal left basilar atelectasis or scar, normal cardiac silhouette, and intact bony thorax. IMPRESSION: No acute cardiopulmonary findings.
[2017-07-06 00:39] LABS: THYROID STIMULATING HORMONE 5.93 uIU/mL (0.47-4.68)
[2017-07-06 05:26] VITALS: BP 138/75
--- NOTE | 2017-07-06 19:11 | EKG REPORT ---
SEVERITY:- BORDERLINE ECG - SINUS RHYTHM BORDERLINE LEFT AXIS DEVIATION BORDERLINE PROLONGED QT INTERVAL : Confirmed by: Tyler Whitley MD 06-Jul-2017 19:10:37
== END 2017-07-06 04:50 | disposition short-term general hospital (02) ==
LOC: ER 23:18
DX: R00.1 Bradycardia, unspecified (principal); R55 Syncope and collapse; R32 Unspecified urinary incontinence; R61 Generalized hyperhidrosis; R23.1 Pallor; Z79.899 Other long term (current) drug therapy; Z85.46 Personal history of malignant neoplasm of prostate; Z87.820 Personal history of traumatic brain injury; Z82.49 Family history of ischemic heart disease and other diseases of the circulatory system
CPT/HCPCS: 36415; 71045; 80053; 80156; 83735; 84439; 84443; 84484; 85025; 85610; 93005; 93010; 99291

== ENCOUNTER 2019-08-09 16:59 | Emergency (ER) | payer MEDICARE, BC ==
[2019-08-09] MEDS ORDERED: NORMAL SALINE 1000 ML 1,000 ML IV ONE (17:34)
--- NOTE | 2019-08-09 18:51 | RADIOLOGY REPORT (SQ) ---
EXAM DESCRIPTION: CT HEAD WITHOUT IMAGES COMPLETED DATE/TIME: 08/09/2019 6:36 pm REASON FOR STUDY: syncope COMPARISON: 04/12/2016. TECHNIQUE: Axial images acquired through the brain without intravenous contrast. Images reviewed wi th bone, brain and subdural windows. Additional sagittal and coronal reconstructions were generated. Images stored on PACS. All CT scanners at this facility use dose modulation, iterative reconstruction, and/or weight based d osing when appropriate to reduce radiation dose to as low as reasonably achievable (ALARA). [facility]: Dose Right [facility]: CareDose [facility]: Dose Right [facility]: Teradose 4D [facility]: [employer] RADIATION DOSE: CT Rad equipment meets quality standard of care and radiation dose reduction techniq ues were employed. CTDIvol: 53.2 mGy. DLP: 1017 mGy-cm. mGy. LIMITATIONS: None. FINDINGS: VENTRICLES: Normal size and contour. CEREBRUM: No masses. No hemorrhage. No midline shift. No evidence for acute infarction. Again seen is chronic encephalomalacia in the right and left frontal lobes. CEREBELLUM: No masses. No hemorrhage. No alteration of density. No evidence for acute infarction. EXTRAAXIAL SPACES: No fluid collections. No masses. ORBITS AND GLOBE: No intra- or extraconal masses. Normal contour of globe without masses. CALVARIUM: No fracture. PARANASAL SINUSES: No fluid or mucosal thickening. SOFT TISSUES: No mass or hematoma. OTHER: No other significant finding. 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 NO ACUTE FINDINGS. EVIDENCE OF ACUTE STROKE: NO. COMMENT: Quality ID # [id number]: Final reports with documentation of one or more dose reduction techniques (e.g., Automated exposure control, adjustment of the mA and/or kV according to patient size, use of iterative reconstruction technique) TECHNICAL DOCUMENTATION: JOB ID: [id number] 2010 [employer]- All Rights Reserved Reading location - IP/workstation name: [email or web address]
[2019-08-09 19:03] LABS: ABSOLUTE EOSINOPHILS # (AUTO) 0.1 10^3/uL (0.0-0.6); ABSOLUTE LYMPHOCYTES (AUTO) 2.2 10^3/uL (0.5-4.7); ABSOLUTE MONOCYTES (AUTO) 0.6 10^3/uL (0.1-1.4); BASOPHILS % (AUTO) 0.1 % (0-2); EOSINOPHILS % (AUTO) 1.3 % (0-6); HEMATOCRIT 36.8 % (37.9-51.0); HEMOGLOBIN 13.1 g/dL (13.5-17.0); LYMPHOCYTES % (AUTO) 19.8 % (13-45); MEAN CORPUSCULAR HEMOGLOBIN 32.9 pg (27.0-33.4); MEAN CORPUSCULAR HGB CONC 35.4 g/dL (32.0-36.0); MEAN CORPUSCULAR VOLUME 93 fl (80-97); MONOCYTES % (AUTO) 5.7 % (3-13); PLATELET COUNT 213 10^3/uL (150-450); RED BLOOD COUNT 3.96 10^6/uL (4.35-5.55); RED CELL DISTRIBUTION WIDTH 14.1 % (11.5-14.0); SEGMENTED NEUTROPHILS % (AUTO) 73.1 % (42-78); TOTAL CELLS COUNTED % (AUTO) 100 %; WHITE BLOOD COUNT 10.9 10^3/uL (4.0-10.5)
--- NOTE | 2019-08-09 19:11 | ER Document Report ---
ED Dizziness/Weakness - General Chief Complaint: Syncope Stated Complaint: POSSIBLE SYNCOPE Time Seen by Provider: 08/09/19 17:17 Primary Care Provider: TEJINDER LUKE MD [Primary Care Provider] - Follow up as needed Mode of Arrival: Medic Information source: Patient TRAVEL OUTSIDE OF THE [place] IN LAST 30 DAYS: No - HPI Notes: Patient presents with complaints of feeling lightheaded and passing out. Patient states that he got out of bed and went to the bathroom when he passed out while sitting on the toilet. He states that he remembers the ambulance being called and he could hear them talking but he was not able to see. He states once he was in the ambulance he appeared to feel better and the dizziness and vision changes were less. He states currently he still feels slightly lightheaded but has no vision changes. He denies any pain or shortness of breath at any time. No vomiting or diarrhea. He states he has had this episode once before but is unsure what the cause was. No recent vomiting or diarrhea. No cough cold or congestion. No chest pain. - Related Data Allergies/Adverse Reactions: Nelson Adverse Reaction (Severe, Uncoded 04/13/16 18:15) Hives Past Medical History - General Information source: Patient - Social History Smoking Status: Never Smoker Chew tobacco use (# tins/day): No Frequency of alcohol use: None Drug Abuse: None Family History: CAD - Mother postoperatively of acute [place], CVA, Other - Brother and father both dried of AAA's, one living brother with AAA Patient has homicidal ideation: No - Past Medical History Cardiac Medical History: Reports: Hx Hypercholesterolemia, Hx Hypertension Neurological Medical History: Reports: Hx Seizures Renal/ Medical History: Denies: Hx Peritoneal Dialysis Malignancy Medical History: Reports Hx Prostate Cancer Psychiatric Medical History: Denies: Hx Depression Traumatic Medical History: Reports: Hx Traumatic Brain Injury Past Surgical History: Reports: Hx Orthopedic Surgery - Immunizations Immunizations up to date: Yes Hx Diphtheria, Pertussis, Tetanus Vaccination: Yes Review of Systems - Review of Systems Constitutional: Malaise, Weakness. denies: Chills, Fever Cardiovascular: denies: Chest pain, Palpitations Respiratory: denies: Cough, Short of breath -: Yes All other systems reviewed and negative Physical Exam - Vital signs Vitals: Temp Pulse Resp BP Pulse Ox 97.7 F 70 22 H 155/81 H 98 08/09/19 17:12 08/09/19 17:12 08/09/19 17:12 08/09/19 17:12 08/09/19 17:12 Interpretation: Normal - General General appearance: Appears well, Alert - HEENT Head: Normocephalic, Atraumatic Eyes: Normal Pupils: PERRL - Respiratory Respiratory status: No respiratory distress Chest status: Nontender Breath sounds: Normal Chest palpation: Normal - Cardiovascular Rhythm: Regular Heart sounds: Normal auscultation Murmur: No - Abdominal Inspection: Normal Distension: No distension Bowel sounds: Normal Tenderness: Nontender Organomegaly: No organomegaly - Back Back: Normal, Nontender - Extremities General upper extremity: Normal inspection, Nontender, Normal color, Normal ROM, Normal temperature General lower extremity: Normal inspection, Nontender, Normal color, Normal ROM, Normal temperature, Normal weight bearing. No: Katja's sign - Neurological Neuro grossly intact: Yes Cognition: Normal Orientation: AAOx4 Alexis Coma Scale Eye Opening: Spontaneous Branch Coma Scale Verbal: Oriented Branch Coma Scale Motor: Obeys Commands Alexis Coma Scale Total: 15 Speech: Normal Motor strength normal: LUE, RUE, LLE, RLE Sensory: Normal - Psychological Associated symptoms: Normal affect, Normal mood - Skin Skin Temperature: Warm Skin Moisture: Dry Skin Color: Normal Course - Re-evaluation Re-evalutation: 08/09/19 20:24 Patient presents with syncope. He had a documented 22 beat run of V. tach here. Currently he is in sinus rhythm and asymptomatic. I have discussed the case with the hospitalist and with the recoating machine operator. They both feel that the patient requires cardiac catheterization and possible intervention that cannot be performed here. At this time I am attempting to transfer the patient to [facility]. - Vital Signs Vital signs: Temp Pulse Resp BP Pulse Ox 97.7 F 68 22 H 201/96 H 98 08/09/19 17:16 08/09/19 19:40 08/09/19 17:12 08/09/19 19:40 08/09/19 17:12 - Laboratory Result Diagrams: 08/09/19 18:51 08/09/19 18:51 Laboratory results interpreted by me: 08/09/19 18:51 WBC 10.9 H RBC 3.96 L Hgb 13.1 L Hct 36.8 L RDW 14.1 H - Diagnostic Test Radiology reviewed: Image reviewed, Reports reviewed - EKG Interpretation by Me EKG shows normal: Sinus rhythm Rate: Normal - 70 Rhythm: NSR [place]/QRS: Left axis deviation Critical Care Note - Critical Care Note Total time excluding time spent on procedures (mins): 45 Comments: I spent approximately 45 minutes of critical care time taking care of this patient's ventricular tachycardia and syncope. This time was spent reviewing old records. Spent reviewing imaging and x-rays. It was spent talking to multiple consultants. Discharge - Discharge Clinical Impression: Ventricular tachycardia, Syncope and collapse Condition: Serious Disposition: [facility] Referrals: TEJINDER LUKE MD [Primary Care Provider] - Follow up as needed
--- NOTE | 2019-08-09 19:13 | EKG REPORT ---
SEVERITY:- ABNORMAL ECG - ATRIAL-PACED COMPLEXES BORDERLINE LEFT AXIS DEVIATION : Confirmed by: Tyler Whitley MD 09-Aug-2019 19:12:35
[2019-08-09 19:20] LABS: ALBUMIN 3.8 g/dL (3.5-5.0); ALKALINE PHOSPHATASE 106 U/L (38-126); ASPARTATE AMINO TRANSFERASE 21 U/L (17-59); BILIRUBIN,TOTAL 0.5 mg/dL (0.2-1.3); BLOOD UREA NITROGEN 17 mg/dL (7-20); CALCIUM 9.4 mg/dL (8.4-10.2); GLUCOSE 95 mg/dL (75-110); TOTAL PROTEIN 7.1 g/dL (6.3-8.2)
[2019-08-09 19:35] LABS: CHLORIDE 104 mmol/L (98-107); POTASSIUM 3.7 mmol/L (3.6-5.0)
[2019-08-09 19:36] LABS: ANION GAP 6 (5-19); CARBON DIOXIDE 30 mmol/L (22-30)
[2019-08-09] MEDS ORDERED: METOPROLOL TARTRATE 25 MG TABLET PO ONE (19:39)
[2019-08-09 20:51] LABS: APPEARANCE,URINE CLEAR; BILIRUBIN,URINE NEGATIVE (NEGATIVE); COLOR,URINE STRAW; GLUCOSE, URINE NEGATIVE (NEGATIVE); KETONES,URINE NEGATIVE (NEGATIVE); LEUKOCYTE ESTERASE,URINE NEGATIVE (NEGATIVE); NITRITE,URINE NEGATIVE (NEGATIVE); PROTEIN,URINE NEGATIVE (NEGATIVE); UROBILINOGEN,URINE NEGATIVE mg/dL (<2.0)
[2019-08-09 22:05] VITALS: BP 151/98
== END 2019-08-09 22:45 | disposition short-term general hospital (02) ==
LOC: ER 16:59
DX: I47.2 Ventricular tachycardia (principal); R55 Syncope and collapse; R42 Dizziness and giddiness; R53.1 Weakness; E78.00 Pure hypercholesterolemia, unspecified; I10 Essential (primary) hypertension; Z85.46 Personal history of malignant neoplasm of prostate; Z87.820 Personal history of traumatic brain injury
CPT/HCPCS: 93005; 99285; 96360; 36415; 85025; 80053; 81001; 84484; 70450; 93010; J7030; A9270

== ENCOUNTER 2020-04-03 12:27 | Inpatient (IN) | payer MEDICARE, BC ==
--- NOTE | 2020-04-03 14:22 | ER Document Report ---
Entered by THEO ROSAS SCRIBE 04/03/20 [id number] Acting as scribe for:ROMEO MCCOLLUM MD ED General - General Chief Complaint: Fever Stated Complaint: FEVER, COUGH Time Seen by Provider: 04/03/20 13:52 Primary Care Provider: TEJINDER LUKE MD [Primary Care Provider] - Follow up as needed Mode of Arrival: Medic Information source: Patient, Relative - , Emergency Med Personnel Notes: This 79 year old male patient brought in by EMS presents to the ED today with complaint of nonproductive cough that developed x1.5 days ago. at bedside reports that she has been sick this last week, but the patient didn't begin to have symptoms until x1.5 days ago. She states that the patient felt warm this morning and his temperature was 102. Per nursing note, patient had a temperature of 101.2 with EMS and they administered Tylenol 975 mg. When he got here, his temperature was 99.1. Patient does not have any complaints at this time and stat es "I feel good." denies any recent travel or visitors, stating that the patient has not left the house in weeks. She mentions that the patient did have an appointment with his PCP Dr. Luke today, but she couldn't get him out of the bed by herself, so she called EMS. TRAVEL OUTSIDE OF THE [place] IN LAST 30 DAYS: No - Related Data Allergies/Adverse Reactions: Farigon Adverse Reaction (Severe, Uncoded 04/13/16 18:15) Hives Past Medical History - General Information source: Patient, Relative, [facility] Records - Social History Smoking Status: Former Smoker Cigarette use (# per day): No Chew tobacco use (# tins/day): No Smoking Education Provided: No Frequency of alcohol use: None Drug Abuse: None Occupation: Retired Lives with: Spouse/Significant other Family History: Reviewed & Not Pertinent, CAD - Mother postoperatively of acute [place], CVA, Other - Brother and father both dried of AAA's, one living brother with AAA Patient has homicidal ideation: No - Past Medical History Cardiac Medical History: Reports: Hx Hypercholesterolemia, Hx Hypertension Neurological Medical History: Reports: Hx Seizures Malignancy Medical History: Reports Hx Prostate Cancer Traumatic Medical History: Reports: 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 denies: Sputum Gastrointestinal: No symptoms reported Genitourinary: No symptoms reported Male Genitourinary: No symptoms reported Musculoskeletal: No symptoms reported Skin: No symptoms reported Hematologic/Lymphatic: No symptoms reported Neurological/Psychological: No symptoms reported -: Yes All other systems reviewed and negative Physical Exam - Vital signs Vitals: Temp 99.1 F 04/03/20 12:28 - General General appearance: Alert - and oriented In distress: None - HEENT Head: Normocephalic, Atraumatic Eyes: Normal Pupils: PERRL - Respiratory Respiratory status: No respiratory distress Chest status: Nontender Breath sounds: Rhonchi - Rhonchi when he takes a big breath and coughs Chest palpation: Normal - Cardiovascular Rhythm: Regular Heart sounds: Normal auscultation Murmur: No Friction rub: No Gallop: None auscultated - Abdominal Inspection: Other - There is an area of ecchymosis noted on the left side of the abdomen. reports that EMS had trouble getting the patient out of the bed. This is most likely from his skin rubbing against something. Distension: No distension Bowel sounds: Normal Tenderness: Nontender - Abdomen soft Organomegaly: No organomegaly - Extremities General upper extremity: Normal inspection General lower extremity: Normal inspection. No: Edema - Neurological Neuro grossly intact: Yes Orientation: AAOx4 [place] Coma Scale Eye Opening: Spontaneous Alexis Coma Scale Verbal: Oriented Alexis Coma Scale Motor: Obeys Commands [place] Coma Scale Total: 15 - Psychological Associated symptoms: Normal affect, Normal mood - Skin Skin Temperature: Warm Skin Moisture: Diaphoretic Skin Color: Normal Course - Re-evaluation Re-evalutation: 04/03/20 15:19 The patient was evaluated during the global COVID-19 pandemic and that diagnosis was suspected/considered upon their initial presentation. Their evaluation, treatment and testing was consistent with current guidelines for patients who present with complaints or symptoms that may be related to COVID-19. 04/03/20 17:13 The patient's D-dimer is elevated, he has fever and cough consistent with a viral illness. He will be tested for the Covid infection. - Vital Signs Vital signs: Temp Pulse Resp BP Pulse Ox 99.1 F 73 15 117/62 96 04/03/20 13:06 04/03/20 13:06 04/03/20 13:06 04/03/20 13:06 04/03/20 13:06 - Laboratory Results Result Diagrams: 04/03/20 15:00 04/03/20 15:00 Laboratory Results Interpreted: 04/03/20 04/03/20 04/03/20 15:00 15:00 15:00 WBC 3.3 L RBC 3.35 L Hgb 10.6 L Hct 30.5 L RDW 14.1 H Plt Count 117 L D-Dimer 1.45 H Potassium 3.0 L* Creatinine 1.28 H Est GFR (MDRD) Non-Af 54 L Glucose 113 H Albumin 3.2 L Urine Protein Urine Blood Urine Bilirubin Urine Urobilinogen 04/03/20 16:43 WBC RBC Hgb Hct RDW Plt Count D-Dimer Potassium Creatinine Est GFR (MDRD) Non-Af Glucose Albumin Urine Protein 100 H Urine Blood SMALL H Urine Bilirubin SMALL H Urine Urobilinogen 2.0 H Critical Laboratory Results Reviewed: Yes Attending or Supervising Physician who Reviewed Labs: ROMEO MCCOLLUM - Low potassium level - Radiology Results Radiology Results Interpreted: 04/03/20 15:15 Chest x-ray shows a left subclavian pacemaker, a loop recorder over the left chest, no acute cardiopulmonary process. Critical Radiology Results Reviewed: No Critical Results - EKG Interpretation by Nh EKG shows normal: [place], Intervals, QRS Complexes. abnormal: ST-T Waves - Diffuse borderline T abnormalities Dr. Chan Rate: Normal - 68 Rhythm: Other - Atrial paced complexes [place]/QRS: Left axis deviation When compared to previous EKG there are: No significant change - okay Discharge - Discharge Clinical Impression: Dehydration, Hypokalemia, Viral upper respiratory tract infection with cough, Generalized weakness Fever Qualifiers: Fever type: unspecified Qualified Code(s): R50.9 - Fever, unspecified Condition: Good Disposition: ADMITTED INPATIENT Admitting Provider: Aster (Hospitalist) Unit Admitted: IMCU Referrals: TEJINDER LUKE MD [Primary Care Provider] - Follow up as needed I personally performed the services described in the documentation, reviewed and edited the documentation which was dictated to the scribe in my presence, and it accurately records my words and actions.
--- NOTE | 2020-04-03 14:34 | RADIOLOGY REPORT (SQ) ---
EXAM DESCRIPTION: CHEST SINGLE VIEW IMAGES COMPLETED DATE/TIME: 04/03/2020 2:21 pm REASON FOR STUDY: Fever, cough, short of breath COMPARISON: 04/13/2016 EXAM PARAMETERS: NUMBER OF VIEWS: One view. TECHNIQUE: Single frontal radiographic view of the chest acquired. RADIATION DOSE: NA LIMITATIONS: None. FINDINGS: LUNGS AND PLEURA: No opacities, masses or pneumothorax. No pleural effusion. MEDIASTINUM AND HILAR STRUCTURES: No masses. Contour normal. HEART AND VASCULAR STRUCTURES: Heart normal in size. Normal vasculature. BONES: No acute findings. HARDWARE: Left-sided subclavian based cardiac pacer with leads overlying right atrium and right ventr icle. Loop recorder overlies left chest. OTHER: No other significant finding. IMPRESSION: No focal airspace disease or other evidence of acute intrathoracic process. TECHNICAL DOCUMENTATION: JOB ID: [id number] 2010 [employer]- All Rights Reserved Reading location - IP/workstation name: [email or web address]
[2020-04-03 15:19] LABS: VENOUS BLOOD BASE EXCESS -0.9 mmol/L; VENOUS BLOOD PCO2 40.8 mmHg (35-63); VENOUS BLOOD PH 7.39 (7.30-7.42)
[2020-04-03 15:21] LABS: ABSOLUTE LYMPHOCYTES (AUTO) 0.7 10^3/uL (0.5-4.7); ABSOLUTE MONOCYTES (AUTO) 0.2 10^3/uL (0.1-1.4); ABSOLUTE NEUT (AUTO) 2.3 10^3/uL (1.7-8.2); BASOPHILS % (AUTO) 0.1 % (0-2); EOSINOPHILS % (AUTO) 0.1 % (0-6); HEMATOCRIT 30.5 % (37.9-51.0); HEMOGLOBIN 10.6 g/dL (13.5-17.0); MEAN CORPUSCULAR HEMOGLOBIN 31.7 pg (27.0-33.4); MEAN CORPUSCULAR HGB CONC 34.8 g/dL (32.0-36.0); MEAN CORPUSCULAR VOLUME 91 fl (80-97); MONOCYTES % (AUTO) 6.2 % (3-13); PLATELET COUNT 117 10^3/uL (150-450); RED BLOOD COUNT 3.35 10^6/uL (4.35-5.55); RED CELL DISTRIBUTION WIDTH 14.1 % (11.5-14.0); SEGMENTED NEUTROPHILS % (AUTO) 70.6 % (42-78); TOTAL CELLS COUNTED % (AUTO) 100 %; WHITE BLOOD COUNT 3.3 10^3/uL (4.0-10.5)
[2020-04-03 15:38] LABS: ALBUMIN 3.2 g/dL (3.5-5.0); ALKALINE PHOSPHATASE 64 U/L (38-126); ANION GAP 8 (5-19); ASPARTATE AMINO TRANSFERASE 33 U/L (17-59); BILIRUBIN,DIRECT 0.2 mg/dL (0.0-0.4); BILIRUBIN,TOTAL 0.3 mg/dL (0.2-1.3); BLOOD UREA NITROGEN 17 mg/dL (7-20); CALCIUM 8.4 mg/dL (8.4-10.2); CARBON DIOXIDE 25 mmol/L (22-30); CHLORIDE 105 mmol/L (98-107); CREATINE KINASE 116 U/L (55-170); GLUCOSE 113 mg/dL (75-110); TOTAL PROTEIN 6.4 g/dL (6.3-8.2)
[2020-04-03] MEDS ORDERED: POTASSIUM CHLORIDE 20 MEQ PACKET PO ONE (15:55)
[2020-04-03] MEDS ORDERED: POTASSI CL 20 MEQ/50 ML RIDER 20 MEQ/50 ML RTUPB IV SCH (16:00)
[2020-04-03 16:31] LABS: A TYPE INFLUENZA AG NEGATIVE (NEGATIVE); B INFLUENZA AG NEGATIVE (NEGATIVE)
[2020-04-03 17:09] LABS: APPEARANCE,URINE CLOUDY; BILIRUBIN,URINE SMALL (NEGATIVE); GLUCOSE, URINE NEGATIVE (NEGATIVE); KETONES,URINE NEGATIVE (NEGATIVE); LEUKOCYTE ESTERASE,URINE NEGATIVE (NEGATIVE); NITRITE,URINE NEGATIVE (NEGATIVE); PROTEIN,URINE 100 mg/dL (NEGATIVE); URINE SPECIFIC GRAVITY 1.031
[2020-04-03 17:10] LABS: COLOR,URINE DARK YELLOW
[2020-04-03] MEDS ORDERED: RINGERS SOLUTION,LACTATED 1,000 ML IV ONE (17:12)
--- NOTE | 2020-04-03 18:48 | PDOC H&P ---
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 Most of the history taken from his because the patient has dementia from a head injury. According to the he started becoming weak and more lethargic 3 days prior with poor appetite. He has some minimal cough but no SOB. He developed a fever of 102 today and he was supposed to be taken to his PCP but he was very weak and could not get out of bed hence he was taken to the emergency room. In the ED, BP was 117/62, HR 77, RR 18, O2sat 96% on room air. CBC showed mild leukopenia. CMP showed a potassium of 3.0, crea of 1.28. CXR did not show any pneumonia. Rapid COVID test was positive. Patient was given LR bolus, potassium supplements and hospitalist service was called to admit the patient. I spoke to the patients and told her that he will be admitted to the COVID unit for observation and if he requires oxygen he will be started on remdesivir. However, she does not want to be away from him as she is concerned that he will get agitated and confused if she is not with him. She would like to take him home however she cannot take care of him by herself as she has no one to help her and she is old as well. Past Medical History Cardiac Medical History: Reports: Atrial Fibrillation, Hyperlipidema, Hypertension Pulmonary Medical History: Reports: Sleep Apnea EENT Medical History: Reports: None Neurological Medical History: Reports: Seizures Endocrine Medical History: Reports: None Renal/ Medical History: Reports: Nephrolithiasis Malignancy Medical History: Reports: Other - prostate cancer, bladder cancer Musculoskeltal Medical History: Reports: Arthritis Skin Medical History: Reports: None Psychiatric Medical History: Reports: None Denies: Depression Traumatic Medical History: Reports: Traumatic Brain Injury - With subdural hematoma Hematology: Reports: Anemia Infectious Medical History: Reports: None Past Surgical History Past Surgical History: Reports: Orthopedic Surgery, Pacemaker Social History Lives with: Spouse/Significant other Smoking Status: Former Smoker Frequency of Alcohol Use: None Hx Recreational Drug Use: No Drugs: None Hx Prescription Drug Abuse: No Family History Family History: Reviewed & Not Pertinent, CAD - Mother postoperatively of acute [place], CVA, Other - Brother and father both dried of AAA's, one living brother with AAA Parental Family History Reviewed: Yes Children Family History Reviewed: Yes Sibling(s) Family History Reviewed.: Yes Medication/Allergy Home Medications: Amlodipine Besylate 5 mg PO BID 04/11/16 Aspirin 81 mg PO DAILY 04/11/16 Calcium Carbonate/Vitamin D3 [Calcium 500 + Vit D Caplet] 500 mg PO MO@1000 04/11/16 Carbamazepine [Carbamazepine ER] 200 mg PO BID 04/11/16 Cyanocobalamin (Vitamin B-12) [B-12] 500 mg PO DAILY 04/11/16 Duloxetine HCl 60 mg PO DAILY 04/11/16 Enzalutamide [Xtandi] 160 mg PO DAILY 04/11/16 Losartan Potassium 100 mg PO DAILY 04/11/16 Pravastatin Sodium 40 mg PO DAILY 04/11/16 Docusate Sodium [Colace 100 mg Capsule] 100 mg PO BID #60 capsule 04/12/16 Levofloxacin [Levaquin 500 mg Tablet] 500 mg PO DAILY #4 tablet 04/12/16 Metoprolol Succinate [Toprol Xl 25 mg Tab.sr] 25 mg PO BID #60 tab.sr.24h 04/12/16 Sennosides [Senna Laxative] 1 - 2 mg PO QHS #60 tablet 04/12/16 Allergies/Adverse Reactions: Farigon Adverse Reaction (Severe, Uncoded 04/13/16 18:15) Hives Review of Systems ROS unobtainable: Due to mental status Physical Exam Vital Signs: Temp Pulse Resp BP Pulse Ox 99.1 F 73 15 117/62 96 04/03/20 13:06 04/03/20 13:06 04/03/20 13:06 04/03/20 13:06 04/03/20 13:06 Intake & Output 04/02/20 04/03/20 04/04/20 06:59 06:59 06:59 Intake Total 1000 Balance 1000 General appearance: PRESENT: no acute distress, cooperative, other - weak and frail looking Head exam: PRESENT: atraumatic, normocephalic Eye exam: PRESENT: EOMI, PERRLA Mouth exam: PRESENT: moist Neck exam: PRESENT: full ROM Respiratory exam: PRESENT: clear to auscultation jenelle, symmetrical, unlabored Cardiovascular exam: PRESENT: irregular rhythm, +S1, +S2 GI/Abdominal exam: PRESENT: normal bowel sounds, soft. ABSENT: rebound, tenderness Extremities exam: PRESENT: full ROM Musculoskeletal exam: PRESENT: full ROM Neurological exam: PRESENT: alert, awake. ABSENT: oriented to person, oriented to place, oriented to time Psychiatric exam: PRESENT: normal mood Skin exam: PRESENT: normal color Results Laboratory Results: 04/03/20 15:00 04/03/20 15:00 04/03/20 04/03/20 04/03/20 15:00 15:00 15:00 WBC 3.3 L RBC 3.35 L Hgb 10.6 L Hct 30.5 L MCV 91 MCH 31.7 MCHC 34.8 RDW 14.1 H Plt Count 117 L Seg Neutrophils % 70.6 VBG pH VBG pCO2 VBG HCO3 VBG Base Excess Sodium 137.9 Potassium 3.0 L* Chloride 105 Carbon Dioxide 25 Anion Gap 8 BUN 17 Creatinine 1.28 H Est GFR ( Amer) > 60 Glucose 113 H Lactic Acid 1.4 Calcium 8.4 Magnesium Total Bilirubin 0.3 AST 33 Alkaline Phosphatase 64 Total Protein 6.4 Albumin 3.2 L Urine Color Urine Appearance Urine pH Ur Specific [place] Urine Protein Urine Glucose (UA) Urine Ketones Urine Blood Urine Nitrite Ur Leukocyte Esterase Urine WBC (Auto) Urine RBC (Auto) 04/03/20 04/03/20 04/03/20 15:00 15:00 16:43 WBC RBC Hgb Hct MCV MCH MCHC RDW Plt Count Seg Neutrophils % VBG pH 7.39 VBG pCO2 40.8 VBG HCO3 24.0 VBG Base Excess -0.9 Sodium Potassium Chloride Carbon Dioxide Anion Gap BUN Creatinine Est GFR ( Amer) Glucose Lactic Acid Calcium Magnesium 2.0 Total Bilirubin AST Alkaline Phosphatase Total Protein Albumin Urine Color DARK YELLOW Urine Appearance CLOUDY Urine pH 5.0 Ur Specific [place] 1.031 Urine Protein 100 H Urine Glucose (UA) NEGATIVE Urine Ketones NEGATIVE Urine Blood SMALL H Urine Nitrite NEGATIVE Ur Leukocyte Esterase NEGATIVE Urine WBC (Auto) 5 Urine RBC (Auto) 4 04/03/20 04/03/20 15:00 15:00 Creatine Kinase 116 Troponin I 0.035 Impressions: Chest X-Ray 04/03/20 13:56 IMPRESSION: No focal airspace disease or other evidence of acute intrathoracic process. Assessment and Plan - Diagnosis (1) COVID-19 virus detected Is this a current diagnosis for this admission?: Yes Plan: - came in due to fever and generalized weakness, minimal cough, no SOB - not requiring O2 - CXR normal - does not qualify for remdesivir - will give ivermectin and dexa 6 mg IV now - admit for obs if still not requiring O2 then can discharge tomorrow on with prescriptions for 2nd dose of ivermectin 12 mg, prednisone 40 mg for 2 weeks, vitamin c, zinc, vitamin d and follow up with PCP - I do not think he needs abx as he does not have any pneumonia (2) Hypokalemia Is this a current diagnosis for this admission?: Yes Plan: - given 40 meq PO in the ED - will continue to monitor (3) Dementia Qualifiers: Dementia type: other frontotemporal dementia Dementia behavioral disturbance: without behavioral disturbance Qualified Code(s): G31.09 - Other frontotemporal dementia; F02.80 - Dementia in other diseases classified elsewhere without behavioral disturbance Is this a current diagnosis for this admission?: Yes Plan: -after a Traumatic brain injury in 2013 - memory issues mainly, minimal behavioral changes - on duloxetine, donepizil (4) Fever Qualifiers: Fever type: unspecified Qualified Code(s): R50.9 - Fever, unspecified Is this a current diagnosis for this admission?: Yes Plan: - 2/2 COVID infection (5) Generalized weakness Is this a current diagnosis for this admission?: Yes Plan: - 2/2 COVID infection (6) History of prostate cancer Is this a current diagnosis for this admission?: Yes Plan: - on prednisone chronically and zytiga (7) Hyperlipidemia Qualifiers: Hyperlipidemia type: unspecified Qualified Code(s): E78.5 - Hyperlipidemia, unspecified Is this a current diagnosis for this admission?: Yes Plan: - on pravastatin (8) Seizure Is this a current diagnosis for this admission?: Yes Plan: - no recent episode - on carbamazepine - Plan Summary Summary: Patient came in due to fever and weakness no SOB, not requiring O2. The is hesitant to admit him because she does not want him to be alone and confused in the COVID unit, however she is also elderly and she is not sure if she can take care of him at home. I have ordered ivermectin and dexa to be given. - Time Time Spent with patient: 35 or more minutes Medications reviewed and adjusted accordingly: Yes Anticipated Discharge Disposition: Home, Self Care Anticipated Discharge Timeframe: tbd
[2020-04-03] MEDS ORDERED: DEXTROSE 5%-LACTATED RINGERS 1,000 ML IV PRN (18:49)
[2020-04-03] MEDS ORDERED: IPRATROPIUM/ALBUTEROL 0.5-2.5 MG/3 ML AMPUL NEB PRN (19:13)
[2020-04-03] MEDS ORDERED: ONDANSETRON HCL INJ/PF 4 MG/2 ML SDV IV PRN (19:13)
[2020-04-03] MEDS ORDERED: IVERMECTIN 3 MG TABLET PO ONE (19:30)
[2020-04-03] MEDS ORDERED: MELATONIN 5 MG TABLET PO ONE (20:00)
[2020-04-03] MEDS ORDERED: NORMAL SALINE 250 ML IV PRN (20:43)
[2020-04-03] MEDS: DEXAMETHASONE SOD PHOS INJ 10 MG/1 ML VIAL IV SCH (21:11)
--- NOTE | 2020-04-03 22:07 | RADIOLOGY REPORT (SQ) ---
US UPPER EXTREMITY VEINS HISTORY: Arm pain and swelling. COMPARISON: None. TECHNIQUE: Grayscale, color Doppler, and spectral Doppler images of the bilateral upper extremities were performed. FINDINGS: The internal jugular, subclavian, axillary, brachial, basilic, and cephalic veins are patent and compressible. Normal color Doppler blood flow and augmentation in the aforementioned veins. The distal veins are also patent. IMPRESSION: No evidence of deep venous thrombosis in the bilateral upper extremities.
[2020-04-04 06:50] LABS: ABSOLUTE LYMPHOCYTES (AUTO) 0.7 10^3/uL (0.5-4.7); ABSOLUTE MONOCYTES (AUTO) 0.2 10^3/uL (0.1-1.4); ABSOLUTE NEUT (AUTO) 2.3 10^3/uL (1.7-8.2); BASOPHILS % (AUTO) 0.1 % (0-2); HEMOGLOBIN 11.6 g/dL (13.5-17.0); LYMPHOCYTES % (AUTO) 22.2 % (13-45); MEAN CORPUSCULAR HEMOGLOBIN 32.1 pg (27.0-33.4); MEAN CORPUSCULAR VOLUME 92 fl (80-97); MONOCYTES % (AUTO) 6.1 % (3-13); PLATELET COUNT 115 10^3/uL (150-450); RED CELL DISTRIBUTION WIDTH 14.4 % (11.5-14.0); SEGMENTED NEUTROPHILS % (AUTO) 71.6 % (42-78); TOTAL CELLS COUNTED % (AUTO) 100 %; WHITE BLOOD COUNT 3.2 10^3/uL (4.0-10.5)
[2020-04-04 07:11] LABS: ALBUMIN 3.4 g/dL (3.5-5.0); ALKALINE PHOSPHATASE 75 U/L (38-126); ANION GAP 6 (5-19); ASPARTATE AMINO TRANSFERASE 37 U/L (17-59); BILIRUBIN,DIRECT 0.2 mg/dL (0.0-0.4); BILIRUBIN,TOTAL 0.4 mg/dL (0.2-1.3); BLOOD UREA NITROGEN 17 mg/dL (7-20); CALCIUM 8.6 mg/dL (8.4-10.2); CARBON DIOXIDE 28 mmol/L (22-30); CHLORIDE 106 mmol/L (98-107); GLUCOSE 105 mg/dL (75-110); TOTAL PROTEIN 6.7 g/dL (6.3-8.2)
[2020-04-04 07:55] LABS: POTASSIUM 4.4 mmol/L (3.6-5.0)
--- NOTE | 2020-04-04 09:07 | EKG REPORT ---
SEVERITY:- ABNORMAL ECG - ATRIAL-PACED COMPLEXES BORDERLINE LEFT AXIS DEVIATION CONSIDER POSTERIOR INFARCT BORDERLINE T ABNORMALITIES, DIFFUSE LEADS : Confirmed by: Francois Pyle MD 04-Apr-2020 09:06:46
[2020-04-04] MEDS ORDERED: CHOLECALCIFEROL (D3) 400 UNIT TABLET PO SCH (10:00)
[2020-04-04] MEDS: ENOXAPARIN SODIUM INJ 40 MG/0.4 ML DISP.SYRIN SUBCUT SCH (10:44)
[2020-04-04] MEDS: ASCORBIC ACID 500 MG TABLET PO SCH ×2 (10:44→18:12)
[2020-04-04] MEDS: ZINC SULFATE 220 MG CAPSULE PO SCH (10:44)
[2020-04-04] MEDS: DEXAMETHASONE SOD PHOS INJ 10 MG/1 ML VIAL IV SCH (10:44)
--- NOTE | 2020-04-04 15:29 | PDOC PROGRESS REPORT ---
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 Most of the history taken from his because the patient has dementia from a head injury. According to the he started becoming weak and more lethargic 3 days prior with poor appetite. He has some minimal cough but no SOB. He developed a fever of 102 today and he was supposed to be taken to his PCP but he was very weak and could not get out of bed hence he was taken to the emergency room. In the ED, BP was 117/62, HR 77, RR 18, O2sat 96% on room air. CBC showed mild leukopenia. CMP showed a potassium of 3.0, crea of 1.28. CXR did not show any pneumonia. Rapid COVID test was positive. Patient was given LR bolus, potassium supplements and hospitalist service was called to admit the patient. I spoke to the patients and told her that he will be admitted to the COVID unit for observation and if he requires oxygen he will be started on remdesivir. However, she does not want to be away from him as she is concerned that he will get agitated and confused if she is not with him. She would like to take him home however she cannot take care of him by herself as she has no one to help her and she is old as well. 04/04/2075-42-vswl-old male with history of A. fib with pacemaker, dementia, seizure disorder, prostate cancer, bladder cancer depression hyperlipidemia, hypertension admitted for fever found to have COVID-19 positive. Pulse ox is 97% to 98% room air. Patient's is hesitant to take him home because she is also feeling sick and probably has a Covid. Reason For Visit: COVID VIRUS INFECTION Physical Exam Vital Signs: Temp Pulse Resp BP Pulse Ox 99.1 F 73 19 129/79 H 93 04/03/20 13:06 04/03/20 13:06 04/04/20 12:01 04/04/20 12:01 04/04/20 12:01 Intake & Output 04/03/20 04/04/20 04/05/20 06:59 06:59 06:59 Intake Total 1000 Balance 1000 General appearance: PRESENT: no acute distress, cooperative, well-developed Head exam: PRESENT: atraumatic Eye exam: PRESENT: PERRLA Mouth exam: PRESENT: moist, tongue midline Teeth exam: PRESENT: poor dentation Neck exam: ABSENT: carotid bruit, JVD, lymphadenopathy, thyromegaly Respiratory exam: PRESENT: decreased breath sounds Cardiovascular exam: PRESENT: RRR. ABSENT: diastolic murmur, rubs, systolic murmur GI/Abdominal exam: PRESENT: normal bowel sounds, soft. ABSENT: distended, guarding, mass, organolmegaly, rebound, tenderness Rectal exam: PRESENT: deferred Extremities exam: PRESENT: full ROM. ABSENT: calf tenderness, clubbing, pedal edema Neurological exam: PRESENT: alert, awake, oriented to person, oriented to place, oriented to time, oriented to situation, CN II-XII grossly intact. ABSENT: motor sensory deficit Psychiatric exam: PRESENT: appropriate affect, normal mood. ABSENT: homicidal ideation, suicidal ideation Results Laboratory Results: 04/04/20 06:35 04/04/20 06:35 04/03/20 04/03/20 04/03/20 15:00 15:00 15:00 WBC RBC Hgb Hct MCV MCH MCHC RDW Plt Count Seg Neutrophils % Sodium 137.9 Potassium 3.0 L* Chloride 105 Carbon Dioxide 25 Anion Gap 8 BUN 17 Creatinine 1.28 H Est GFR ( Amer) > 60 Glucose 113 H Lactic Acid 1.4 Calcium 8.4 Magnesium 2.0 Total Bilirubin 0.3 AST 33 Alkaline Phosphatase 64 Total Protein 6.4 Albumin 3.2 L Urine Color Urine Appearance Urine pH Ur Specific Aspen Urine Protein Urine Glucose (UA) Urine Ketones Urine Blood Urine Nitrite Ur Leukocyte Esterase Urine WBC (Auto) Urine RBC (Auto) Blood Type 04/03/20 04/03/20 04/04/20 16:43 21:16 06:35 WBC 3.2 L RBC 3.60 L Hgb 11.6 L Hct 33.0 L MCV 92 MCH 32.1 MCHC 35.0 RDW 14.4 H Plt Count 115 L Seg Neutrophils % 71.6 Sodium Potassium Chloride Carbon Dioxide Anion Gap BUN Creatinine Est GFR ( Amer) Glucose Lactic Acid Calcium Magnesium Total Bilirubin AST Alkaline Phosphatase Total Protein Albumin Urine Color DARK YELLOW Urine Appearance CLOUDY Urine pH 5.0 Ur Specific Aspen 1.031 Urine Protein 100 H Urine Glucose (UA) NEGATIVE Urine Ketones NEGATIVE Urine Blood SMALL H Urine Nitrite NEGATIVE Ur Leukocyte Esterase NEGATIVE Urine WBC (Auto) 5 Urine RBC (Auto) 4 Blood Type A POSITIVE 04/04/20 06:35 WBC RBC Hgb Hct MCV MCH MCHC RDW Plt Count Seg Neutrophils % Sodium 140.3 Potassium 4.4 D Chloride 106 Carbon Dioxide 28 Anion Gap 6 BUN 17 Creatinine 1.06 Est GFR ( Amer) > 60 Glucose 105 Lactic Acid Calcium 8.6 Magnesium Total Bilirubin 0.4 AST 37 Alkaline Phosphatase 75 Total Protein 6.7 Albumin 3.4 L Urine Color Urine Appearance Urine pH Ur Specific Aspen Urine Protein Urine Glucose (UA) Urine Ketones Urine Blood Urine Nitrite Ur Leukocyte Esterase Urine WBC (Auto) Urine RBC (Auto) Blood Type 04/03/20 04/03/20 15:00 15:00 Creatine Kinase 116 Troponin I 0.035 Impressions: Venous Doppler Study 04/03/20 00:00 IMPRESSION: No evidence of deep venous thrombosis in the bilateral upper extremities. Chest X-Ray 04/03/20 13:56 IMPRESSION: No focal airspace disease or other evidence of acute intrathoracic process. Assessment and Plan - Diagnosis (1) COVID-19 virus detected Is this a current diagnosis for this admission?: Yes Plan: - came in due to fever and generalized weakness, minimal cough, no SOB - not requiring O2 - CXR normal - does not qualify for remdesivir - will give ivermectin and dexa 6 mg IV now - admit for obs if still not requiring O2 then can discharge tomorrow on with prescriptions for 2nd dose of ivermectin 12 mg, prednisone 40 mg for 2 weeks, vitamin c, zinc, vitamin d and follow up with PCP - I do not think he needs abx as he does not have any pneumonia 04/04/[id number] positive. Not requiring oxygen supplementation. Chest x- ray was normal. Patient is going to receive dexamethasone, did not see any reason to have a convulsant plasma for this patient. Patient may be able to go home tomorrow. Plan is to discharge him with home health tomorrow. 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 - memory issues mainly, minimal behavioral changes - on duloxetine, donepizil (3) Fever Qualifiers: Fever type: unspecified Qualified Code(s): R50.9 - Fever, unspecified Is this a current diagnosis for this admission?: Yes Plan: - 2/2 COVID infection (4) Generalized weakness Is this a current diagnosis for this admission?: Yes Plan: - 2/2 COVID infection (5) History of prostate cancer Is this a current diagnosis for this admission?: No Plan: - on prednisone chronically and zytiga (6) Hypertension Qualifiers: Hypertension type: essential hypertension Qualified Code(s): I10 - Essential (primary) hypertension Is this a current diagnosis for this admission?: No Plan: 04/04/2020-patient blood pressure today's 145/99. Stable. Plan is to resume his home medications. (7) Seizure Is this a current diagnosis for this admission?: No Plan: - no recent episode - on carbamazepine - Plan Summary Summary: Patient came in due to fever and weakness no SOB, not requiring O2. The is hesitant to admit him because she does not want him to be alone and confused in the COVID unit, however she is also elderly and she is not sure if she can take care of him at home. I have ordered ivermectin and dexa to be given. - Time Anticipated Discharge Disposition: Home with Home Health Anticipated Discharge Timeframe: within 24 hours
[2020-04-04] MEDS ORDERED: FERROUS GLUCONATE 324 MG PO SCH (18:00)
[2020-04-04] MEDS ORDERED: CARBAMAZEPINE 200 MG PO SCH (18:00)
[2020-04-04] MEDS: DOCUSATE SODIUM 100 MG CAPSULE PO SCH (18:12)
[2020-04-04] MEDS: FLUTICASONE NASAL SPRAY 50 MCG/SPRY 120 SPRAY/16 GM NASL SCH (21:31)
[2020-04-04] MEDS: ATORVASTATIN CALCIUM 10 MG TABLET PO SCH (21:31)
[2020-04-04] MEDS: CARBAMAZEPINE 200 MG TAB.SR.12H PO SCH (21:31)
[2020-04-05 05:06] LABS: ABSOLUTE LYMPHOCYTES (AUTO) 1.5 10^3/uL (0.5-4.7); ABSOLUTE MONOCYTES (AUTO) 0.2 10^3/uL (0.1-1.4); ABSOLUTE NEUT (AUTO) 3.6 10^3/uL (1.7-8.2); BASOPHILS % (AUTO) 0.1 % (0-2); EOSINOPHILS % (AUTO) 0.2 % (0-6); HEMATOCRIT 29.8 % (37.9-51.0); HEMOGLOBIN 10.6 g/dL (13.5-17.0); LYMPHOCYTES % (AUTO) 28.6 % (13-45); MEAN CORPUSCULAR HEMOGLOBIN 32.2 pg (27.0-33.4); MEAN CORPUSCULAR HGB CONC 35.8 g/dL (32.0-36.0); MEAN CORPUSCULAR VOLUME 90 fl (80-97); PLATELET COUNT 104 10^3/uL (150-450); RED CELL DISTRIBUTION WIDTH 14.2 % (11.5-14.0); SEGMENTED NEUTROPHILS % (AUTO) 68.1 % (42-78); TOTAL CELLS COUNTED % (AUTO) 100 %; WHITE BLOOD COUNT 5.3 10^3/uL (4.0-10.5)
[2020-04-05 05:27] LABS: ALKALINE PHOSPHATASE 68 U/L (38-126); ANION GAP 6 (5-19); ASPARTATE AMINO TRANSFERASE 31 U/L (17-59); BILIRUBIN,DIRECT 0.2 mg/dL (0.0-0.4); BILIRUBIN,TOTAL 0.5 mg/dL (0.2-1.3); BLOOD UREA NITROGEN 14 mg/dL (7-20); CALCIUM 8.2 mg/dL (8.4-10.2); CARBON DIOXIDE 28 mmol/L (22-30); CHLORIDE 103 mmol/L (98-107); GLUCOSE 94 mg/dL (75-110); TOTAL PROTEIN 6.1 g/dL (6.3-8.2)
[2020-04-05 06:12] LABS: POTASSIUM 3.2 mmol/L (3.6-5.0)
[2020-04-05] MEDS ORDERED: POTASSIUM CHLORIDE 10 MEQ TABLET.ER PO ONE (08:00)
[2020-04-05] MEDS: ENOXAPARIN SODIUM INJ 40 MG/0.4 ML DISP.SYRIN SUBCUT SCH (09:46)
[2020-04-05] MEDS: CALCIUM CARBONATE 600 MG/VITAMIN D3 400 UNIT TABLET PO SCH (09:46)
[2020-04-05] MEDS: CARBAMAZEPINE 200 MG TAB.SR.12H PO SCH ×2 (09:46→22:31)
[2020-04-05] MEDS: CITALOPRAM HYDROBROMIDE 20 MG TABLET PO SCH (09:47)
[2020-04-05] MEDS: CHOLECALCIFEROL (D3) 1,000 UNIT (25 MCG) TABLET PO SCH (09:47)
[2020-04-05] MEDS: ACETAMINOPHEN 325 MG TABLET PO PRN (09:47)
[2020-04-05] MEDS: ASPIRIN 81 MG TABLET, CHEWABLE PO SCH (09:47)
[2020-04-05] MEDS: DONEPEZIL HCL 5 MG TABLET PO SCH (09:53)
[2020-04-05] MEDS: ZINC SULFATE 220 MG CAPSULE PO SCH (09:53)
[2020-04-05] MEDS: ASCORBIC ACID 500 MG TABLET PO SCH ×2 (09:53→18:26)
[2020-04-05] MEDS: CYANOCOBALAMIN (VITAMIN B-12) 1,000 MCG TABLET PO SCH (09:53)
[2020-04-05] MEDS: DULOXETINE HCL 30 MG CAPSULE.DR PO SCH (09:53)
[2020-04-05] MEDS: DOCUSATE SODIUM 100 MG CAPSULE PO SCH ×2 (09:53→18:26)
[2020-04-05] MEDS: FLUTICASONE NASAL SPRAY 50 MCG/SPRY 120 SPRAY/16 GM NASL SCH ×2 (09:54→22:22)
[2020-04-05] MEDS: DEXAMETHASONE SOD PHOS INJ 10 MG/1 ML VIAL IV SCH (09:54)
[2020-04-05] MEDS ORDERED: ABIRATERONE ACETATE 500 MG PO SCH (10:00)
[2020-04-05] MEDS ORDERED: (PENDING PHARMACY ID) (Pravastatin Sodium [Pravastatin Sodium] 40 MG Tablet) PO SCH (10:00)
[2020-04-05] MEDS ORDERED: DULOXETINE HCL 30 MG CAPSULE.DR PO SCH (10:00)
[2020-04-05] MEDS ORDERED: (PENDING PHARMACY ID) (Duloxetine Hcl [Duloxetine Hcl] 60 MG Capsule.Dr) PO SCH (10:00)
[2020-04-05] MEDS ORDERED: CITALOPRAM HYDROBROMIDE 10 MG PO SCH (10:00)
--- NOTE | 2020-04-05 15:08 | PDOC DISCHARGE SUMMARY ---
Impression - Admit/DC Date/PCP Admission Date/Primary Care Provider: 04/03/20 17:47 TEJINDER LUKE MD Discharge Date: 04/05/20 - Discharge Diagnosis (1) COVID-19 virus detected Is this a current diagnosis for this admission?: Yes (2) Dementia Is this a current diagnosis for this admission?: No (3) Fever Is this a current diagnosis for this admission?: Yes (4) Generalized weakness Is this a current diagnosis for this admission?: Yes (5) History of prostate cancer Is this a current diagnosis for this admission?: No (6) Hypertension Is this a current diagnosis for this admission?: No (7) Seizure Is this a current diagnosis for this admission?: No - Assessment Summary: Patient came in due to fever and weakness no SOB, not requiring O2. The is hesitant to admit him because she does not want him to be alone and confused in the COVID unit, however she is also elderly and she is not sure if she can take care of him at home. I have ordered ivermectin and dexa to be given. (1) COVID-19 virus detected Is this a current diagnosis for this admission?: Yes Plan: - came in due to fever and generalized weakness, minimal cough, no SOB - not requiring O2 - CXR normal - does not qualify for remdesivir - will give ivermectin and dexa 6 mg IV now - admit for obs if still not requiring O2 then can discharge tomorrow on with prescriptions for 2nd dose of ivermectin 12 mg, prednisone 40 mg for 2 weeks, vitamin c, zinc, vitamin d and follow up with PCP - I do not think he needs abx as he does not have any pneumonia 04/04/[id number] positive. Not requiring oxygen supplementation. Chest x- ray was normal. Patient is going to receive dexamethasone, did not see any reason to have a convulsant plasma for this patient. Patient may be able to go home tomorrow. Plan is to discharge him with home health tomorrow. 04/05/2020-patient was positive for COVID-19. Pulse ox is 92 to 94% room air. Chest x-ray was normal. No acute events during the hospital stay. Patient is stable to go home today and do the self quarantine. 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 (3) Fever Qualifiers: Fever type: unspecified Qualified Code(s): R50.9 - Fever, unspecified Is this a current diagnosis for this admission?: Yes Plan: - 2/2 COVID infection 04/05/2020-patient came with fever which was resolved. Blood cultures are negative. Not hypoxic. (4) Generalized weakness Is this a current diagnosis for this admission?: Yes Plan: - 2/2 COVID infection (5) History of prostate cancer Is this a current diagnosis for this admission?: No Plan: - on prednisone chronically and zytiga (6) Hypertension Qualifiers: Hypertension type: essential hypertension Qualified Code(s): I10 - Essential (primary) hypertension Is this a current diagnosis for this admission?: No Plan: 04/04/2020-patient blood pressure today's 145/99. Stable. Plan is to resume his home medications. 04/05/2020-blood pressure is 155/87. Stable. (7) Seizure Is this a current diagnosis for this admission?: No Plan: - no recent episode - on carbamazepine - Additional Information Discharge Diet: Cardiac Discharge Activity: Activity As Tolerated Referrals: SHRUTHI LUKE MD [NO LOCAL MD] - 05/03/20 11:15 am Prescriptions: Ascorbic Acid [Vitamin C 500 mg Tablet] 500 mg PO BID 30 Days #60 tablet Zinc Sulfate [Zinc-220 Capsule] 220 mg PO DAILY 30 Days #30 capsule Home Medications: Aspirin 81 mg PO DAILY 04/11/16 Carbamazepine [Carbamazepine ER] 200 mg PO BID 04/11/16 Cyanocobalamin (Vitamin B-12) [B-12] 500 mcg PO DAILY 04/11/16 Duloxetine HCl 60 mg PO DAILY 04/11/16 Pravastatin Sodium 40 mg PO DAILY 04/11/16 Docusate Sodium [Colace 100 mg Capsule] 100 mg PO BID #60 capsule 04/12/16 Abiraterone Acetate [Zytiga] 1,000 mg PO DAILY 04/03/20 Acetaminophen [Tylenol 325 mg Tablet] 650 mg PO Q6HP PRN 04/03/20 Calcium Carbonate/Vitamin D3 [Calcium 600-Vit D3 400 Tablet] 1 each PO DAILY 04/03/20 Cholecalciferol (Vitamin D3) [Vitamin D3 1000 Unit Tablet] 2,000 unit PO DAILY 04/03/20 Citalopram Hydrobromide [Citalopram HBr] 10 mg PO DAILY 04/03/20 Donepezil HCl [Aricept] 5 mg PO DAILY 04/03/20 Duloxetine HCl [Cymbalta 30 mg Capsule.dr] 30 mg PO DAILY 04/03/20 Epinephrine [Epipen 2-Felipe] 0.3 mg IM ASDIR PRN 04/03/20 Ferrous Gluconate 324 mg PO BID 04/03/20 Fluticasone Propionate [Flonase Nasal Brenham 50 Mcg/Brenham 16 gm] 1 spray NASL Q12 04/03/20 Leuprolide Acetate [Eligard] 45 mg SQ ASDIR PRN 04/03/20 Prednisone [Deltasone 5 mg Tablet] 5 mg PO BID 04/03/20 Ascorbic Acid [Vitamin C 500 mg Tablet] 500 mg PO BID 30 Days #60 tablet 04/05/20 Zinc Sulfate [Zinc-220 Capsule] 220 mg PO DAILY 30 Days #30 capsule 04/05/20 History of Present Illiness History of Present Illness: TIMOTHY WALTERS is a 79 year old male 79 year old male, PMH of Av with a pacemaker, dementia from frontal lobe injury, seizure disorder, prostate cancer, bladder cancer, depression, HLD, HTN who was brought to the ED due to weakness and fever. Most of the history taken from his because the patient has dementia from a head injury. According to the he started becoming weak and more lethargic 3 days prior with poor appetite. He has some minimal cough but no SOB. He developed a fever of 102 today and he was supposed to be taken to his PCP but he was very weak and could not get out of bed hence he was taken to the emergency room. In the ED, BP was 117/62, HR 77, RR 18, O2sat 96% on room air. CBC showed mild leukopenia. CMP showed a potassium of 3.0, crea of 1.28. CXR did not show any pneumonia. Rapid COVID test was positive. Patient was given LR bolus, potassium supplements and hospitalist service was called to admit the patient. I spoke to the patients and told her that he will be admitted to the COVID unit for observation and if he requires oxygen he will be started on remdesivir. However, she does not want to be away from him as she is concerned that he will get agitated and confused if she is not with him. She would like to take him home however she cannot take care of him by herself as she has no one to help her and she is old as well. Hospital Course Hospital Course: 79 year old male, PMH of A.fib with a pacemaker, dementia from frontal lobe injury, seizure disorder, prostate cancer, bladder cancer, depression, HLD, HTN who was brought to the ED due to weakness and fever. Most of the history taken from his because the patient has dementia from a head injury. According to the he started becoming weak and more lethargic 3 days prior with poor appetite. He has some minimal cough but no SOB. He developed a fever of 102 today and he was supposed to be taken to his PCP but he was very weak and could not get out of bed hence he was taken to the emergency room. In the ED, BP was 117/62, HR 77, RR 18, O2sat 96% on room air. CBC showed mild leukopenia. CMP showed a potassium of 3.0, crea of 1.28. CXR did not show any pneumonia. Rapid COVID test was positive. Patient was given LR bolus, potassium supplements and hospitalist service was called to admit the patient. I spoke to the patients and told her that he will be admitted to the COVID unit for observation and if he requires oxygen he will be started on remdesivir. However, she does not want to be away from him as she is concerned that he will get agitated and confused if she is not with him. She would like to take him home however she cannot take care of him by herself as she has no one to help her and she is old as well. 04/04/2005-73-rfjr-old male with history of A. fib with pacemaker, dementia, seizure disorder, prostate cancer, bladder cancer depression hyperlipidemia, hypertension admitted for fever found to have COVID-19 positive. Pulse ox is 97% to 98% room air. Patient's is hesitant to take him home because she is also feeling sick and probably has a Covid. 04/05/2020-no acute events in the last 24 hours. Patient is afebrile. Pulse ox is 92% room air. Comfortably in the bed not in distress. Patient is stable to go home due to self quarantine at home. Family is notified. Physical Exam Vital Signs: Temp Pulse Resp BP Pulse Ox 98.9 F 81 18 143/99 H 92 04/05/20 14:31 04/05/20 14:31 04/05/20 14:31 04/05/20 14:31 04/05/20 14:31 Intake & Output 04/04/20 04/05/20 04/06/20 06:59 06:59 06:59 Intake Total 1000 0 Output Total 100 Balance 1000 -100 Weight 74.7 kg General appearance: PRESENT: no acute distress, cooperative Eye exam: PRESENT: PERRLA Mouth exam: PRESENT: moist, tongue midline Teeth exam: PRESENT: poor dentation Neck exam: ABSENT: carotid bruit, JVD, lymphadenopathy, thyromegaly Respiratory exam: PRESENT: decreased breath sounds Cardiovascular exam: PRESENT: RRR. ABSENT: diastolic murmur, rubs, systolic murmur GI/Abdominal exam: PRESENT: normal bowel sounds, soft. ABSENT: distended, guarding, mass, organolmegaly, rebound, tenderness Rectal exam: PRESENT: deferred Extremities exam: PRESENT: full ROM. ABSENT: calf tenderness, clubbing, pedal edema Neurological exam: PRESENT: alert, awake, oriented to person, oriented to place, oriented to time, oriented to situation, CN II-XII grossly intact. ABSENT: motor sensory deficit Psychiatric exam: PRESENT: appropriate affect, normal mood. ABSENT: homicidal ideation, suicidal ideation Results Laboratory Results: WBC 5.3 10^3/uL (4.0-10.5) 04/05/20 04:33 RBC 3.30 10^6/uL (4.35-5.55) L 04/05/20 04:33 Hgb 10.6 g/dL (13.5-17.0) L 04/05/20 04:33 Hct 29.8 % (37.9-51.0) L 04/05/20 04:33 MCV 90 fl (80-97) 04/05/20 04:33 MCH 32.2 pg (27.0-33.4) 04/05/20 04:33 MCHC 35.8 g/dL (32.0-36.0) 04/05/20 04:33 RDW 14.2 % (11.5-14.0) H 04/05/20 04:33 Plt Count 104 10^3/uL (150-450) L 04/05/20 04:33 Lymph % (Auto) 28.6 % (13-45) 04/05/20 04:33 [place] % (Auto) 3.0 % (3-13) 04/05/20 04:33 Eos % (Auto) 0.2 % (0-6) 04/05/20 04:33 Baso % (Auto) 0.1 % (0-2) 04/05/20 04:33 Absolute Neuts (auto) 3.6 10^3/uL (1.7-8.2) 04/05/20 04:33 Absolute Lymphs (auto) 1.5 10^3/uL (0.5-4.7) 04/05/20 04:33 Absolute Monos (auto) 0.2 10^3/uL (0.1-1.4) 04/05/20 04:33 Absolute Eos (auto) 0.0 10^3/uL (0.0-0.6) 04/05/20 04:33 Absolute Basos (auto) 0.0 10^3/uL (0.0-0.2) 04/05/20 04:33 Seg Neutrophils % 68.1 % (42-78) 04/05/20 04:33 D-Dimer 1.45 ug/mL (0.00-0.50) H 04/03/20 15:00 VBG pH 7.39 (7.30-7.42) 04/03/20 15:00 VBG pCO2 40.8 mmHg (35-63) 04/03/20 15:00 VBG HCO3 24.0 mmol/L (20-32) 04/03/20 15:00 VBG Base Excess -0.9 mmol/L 04/03/20 15:00 Sodium 136.7 mmol/L (137-145) L 04/05/20 04:33 Potassium 3.2 mmol/L (3.6-5.0) L D 04/05/20 04:33 Chloride 103 mmol/L (98-107) 04/05/20 04:33 Carbon Dioxide 28 mmol/L (22-30) 04/05/20 04:33 Anion Gap 6 (5-19) 04/05/20 04:33 BUN 14 mg/dL (7-20) 04/05/20 04:33 Creatinine 0.95 mg/dL (0.52-1.25) 04/05/20 04:33 Est GFR ( Amer) > 60 (>60) 04/05/20 04:33 Est GFR (MDRD) Non-Af > 60 (>60) 04/05/20 04:33 Glucose 94 mg/dL (75-110) 04/05/20 04:33 Lactic Acid 1.4 mmol/L (0.7-2.1) 04/03/20 15:00 Calcium 8.2 mg/dL (8.4-10.2) L 04/05/20 04:33 Magnesium 1.8 mg/dL (1.6-2.3) 04/05/20 04:33 Total Bilirubin 0.5 mg/dL (0.2-1.3) 04/05/20 04:33 Direct Bilirubin 0.2 mg/dL (0.0-0.4) 04/05/20 04:33 Neonat Total Bilirubin Not Reportable 04/05/20 04:33 Neonat Direct Bilirubin Not Reportable 04/05/20 04:33 Neonat Indirect Bili Not Reportable 04/05/20 04:33 AST 31 U/L (17-59) 04/05/20 04:33 ALT 9 U/L (<50) 04/05/20 04:33 Alkaline Phosphatase 68 U/L (38-126) 04/05/20 04:33 Creatine Kinase 116 U/L (55-170) 04/03/20 15:00 Troponin I 0.035 ng/mL 04/03/20 15:00 Total Protein 6.1 g/dL (6.3-8.2) L 04/05/20 04:33 Albumin 3.0 g/dL (3.5-5.0) L 04/05/20 04:33 Urine Color DARK YELLOW 04/03/20 16:43 Urine Appearance CLOUDY 04/03/20 16:43 Urine pH 5.0 (5.0-9.0) 04/03/20 16:43 Ur Specific Thompson 1.031 04/03/20 16:43 Urine Protein 100 mg/dL (NEGATIVE) H 04/03/20 16:43 Urine Glucose (UA) NEGATIVE mg/dL (NEGATIVE) 04/03/20 16:43 Urine Ketones NEGATIVE mg/dL (NEGATIVE) 04/03/20 16:43 Urine Blood SMALL (NEGATIVE) H 04/03/20 16:43 Urine Nitrite NEGATIVE (NEGATIVE) 04/03/20 16:43 Urine Bilirubin SMALL (NEGATIVE) H 04/03/20 16:43 Urine Urobilinogen 2.0 mg/dL (<2.0) H 04/03/20 16:43 Ur Leukocyte Esterase NEGATIVE (NEGATIVE) 04/03/20 16:43 Urine WBC (Auto) 5 /HPF 04/03/20 16:43 Urine RBC (Auto) 4 /HPF 04/03/20 16:43 Squamous Epi Cells Auto 1 /HPF 04/03/20 16:43 Urine Mucus (Auto) MOD /LPF 04/03/20 16:43 Urine Ascorbic Acid NEGATIVE (NEGATIVE) 04/03/20 16:43 COVID-19 Source Cancelled 04/03/20 15:30 COVID-19 (SHERLY) Cancelled 04/03/20 15:30 Influenza A (Rapid) NEGATIVE (NEGATIVE) 04/03/20 15:30 Influenza A (RT-PCR) NEGATIVE (NEGATIVE) 04/03/20 15:30 Influenza B (Rapid) NEGATIVE (NEGATIVE) 04/03/20 15:30 Influenza B (RT-PCR) NEGATIVE (NEGATIVE) 04/03/20 15:30 RSV (RT-PCR) NEGATIVE (NEGATIVE) 04/03/20 15:30 SARS-CoV-2 Rap RNA(RT-PCR) POSITIVE (NEGATIVE) 04/03/20 15:30 Blood Type A POSITIVE 04/03/20 21:16 04/03/20 15:00 Troponin I 0.035 Impressions: Venous Doppler Study 04/03/20 00:00 IMPRESSION: No evidence of deep venous thrombosis in the bilateral upper extremities. Chest X-Ray 04/03/20 13:56 IMPRESSION: No focal airspace disease or other evidence of acute intrathoracic process. Plan Time Spent: Greater than 30 Minutes Stroke Is this a Stroke Patient?: No Acute Heart Failure Is this a Heart Failure Patient?: No
[2020-04-05] MEDS: ATORVASTATIN CALCIUM 10 MG TABLET PO SCH (22:21)
[2020-04-05] MEDS ORDERED: CARBAMAZEPINE SUSP 200 MG/10 ML UDCUP PO ONE (22:40)
[2020-04-06] MEDS: DULOXETINE HCL 30 MG CAPSULE.DR PO SCH (09:12)
[2020-04-06] MEDS: DONEPEZIL HCL 5 MG TABLET PO SCH (09:13)
[2020-04-06] MEDS: CALCIUM CARBONATE 600 MG/VITAMIN D3 400 UNIT TABLET PO SCH (09:13)
[2020-04-06] MEDS: CHOLECALCIFEROL (D3) 1,000 UNIT (25 MCG) TABLET PO SCH (09:14)
[2020-04-06] MEDS: CITALOPRAM HYDROBROMIDE 20 MG TABLET PO SCH (09:15)
[2020-04-06] MEDS: CYANOCOBALAMIN (VITAMIN B-12) 1,000 MCG TABLET PO SCH (09:15)
[2020-04-06] MEDS: DEXAMETHASONE SOD PHOS INJ 10 MG/1 ML VIAL IV SCH (09:16)
[2020-04-06] MEDS: ASCORBIC ACID 500 MG TABLET PO SCH ×2 (09:16→17:47)
[2020-04-06] MEDS: DOCUSATE SODIUM 100 MG CAPSULE PO SCH ×2 (09:16→17:47)
[2020-04-06] MEDS: ASPIRIN 81 MG TABLET, CHEWABLE PO SCH (09:16)
[2020-04-06] MEDS: ZINC SULFATE 220 MG CAPSULE PO SCH (09:16)
[2020-04-06] MEDS: ENOXAPARIN SODIUM INJ 40 MG/0.4 ML DISP.SYRIN SUBCUT SCH (09:17)
[2020-04-06] MEDS: FLUTICASONE NASAL SPRAY 50 MCG/SPRY 120 SPRAY/16 GM NASL SCH ×2 (09:17→22:24)
[2020-04-06] MEDS: CARBAMAZEPINE SUSP 200 MG/10 ML UDCUP PO SCH ×3 (09:18→22:29)
--- NOTE | 2020-04-06 09:35 | PDOC PROGRESS REPORT ---
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 Most of the history taken from his because the patient has dementia from a head injury. According to the he started becoming weak and more lethargic 3 days prior with poor appetite. He has some minimal cough but no SOB. He developed a fever of 102 today and he was supposed to be taken to his PCP but he was very weak and could not get out of bed hence he was taken to the emergency room. In the ED, BP was 117/62, HR 77, RR 18, O2sat 96% on room air. CBC showed mild leukopenia. CMP showed a potassium of 3.0, crea of 1.28. CXR did not show any pneumonia. Rapid COVID test was positive. Patient was given LR bolus, potassium supplements and hospitalist service was called to admit the patient. I spoke to the patients and told her that he will be admitted to the COVID unit for observation and if he requires oxygen he will be started on remdesivir. However, she does not want to be away from him as she is concerned that he will get agitated and confused if she is not with him. She would like to take him home however she cannot take care of him by herself as she has no one to help her and she is old as well. 04/04/2073-59-ctxe-old male with history of A. fib with pacemaker, dementia, seizure disorder, prostate cancer, bladder cancer depression hyperlipidemia, hypertension admitted for fever found to have COVID-19 positive. Pulse ox is 97% to 98% room air. Patient's is hesitant to take him home because she is also feeling sick and probably has a Covid. 04/06/2066-48-qwdt-old male admitted with COVID-19 pneumonia pulse ox is 92% room air. Comfortably in the bed communicating well. He also history of A. fib, has a pacemaker, history of dementia, seizure disorder, prostate cancer, bladder cancer. manager risk talking to the family members and i also spoke to the son, he is not agreement in taking his dad home. manager risk is going to get in touch with APS services. Reason For Visit: COVID VIRUS INFECTION Physical Exam Vital Signs: Temp Pulse Resp BP Pulse Ox 99.1 F 72 20 165/76 H 92 04/06/20 03:37 04/06/20 03:37 04/06/20 03:37 04/06/20 03:37 04/06/20 03:37 Intake & Output 04/05/20 04/06/20 04/07/20 06:59 06:59 06:59 Intake Total 0 774 Output Total 100 Balance -100 774 Weight 74.7 kg 70 kg General appearance: PRESENT: no acute distress, cooperative, well-developed Head exam: PRESENT: atraumatic Eye exam: PRESENT: conjunctiva pale, PERRLA Mouth exam: PRESENT: moist, tongue midline Teeth exam: PRESENT: poor dentation Neck exam: ABSENT: carotid bruit, JVD, lymphadenopathy, thyromegaly Respiratory exam: PRESENT: decreased breath sounds Cardiovascular exam: PRESENT: RRR. ABSENT: diastolic murmur, rubs, systolic murmur Pulses: PRESENT: normal dorsalis pedis pul Vascular exam: PRESENT: normal capillary refill GI/Abdominal exam: PRESENT: normal bowel sounds, soft. ABSENT: distended, guarding, mass, organolmegaly, rebound, tenderness Rectal exam: PRESENT: deferred Extremities exam: PRESENT: full ROM. ABSENT: calf tenderness, clubbing, pedal edema Neurological exam: PRESENT: alert, awake, oriented to person, oriented to place, oriented to time, oriented to situation, CN II-XII grossly intact. ABSENT: motor sensory deficit Psychiatric exam: PRESENT: appropriate affect, normal mood. ABSENT: homicidal ideation, suicidal ideation Results Laboratory Results: 04/05/20 04:33 04/05/20 04:33 04/03/20 04/03/20 15:00 15:00 Creatine Kinase 116 Troponin I 0.035 Impressions: Venous Doppler Study 04/03/20 00:00 IMPRESSION: No evidence of deep venous thrombosis in the bilateral upper extremities. Chest X-Ray 04/03/20 13:56 IMPRESSION: No focal airspace disease or other evidence of acute intrathoracic process. Assessment and Plan - Diagnosis (1) COVID-19 virus detected Is this a current diagnosis for this admission?: Yes Plan: - came in due to fever and generalized weakness, minimal cough, no SOB - not requiring O2 - CXR normal - does not qualify for remdesivir - will give ivermectin and dexa 6 mg IV now - admit for obs if still not requiring O2 then can discharge tomorrow on with prescriptions for 2nd dose of ivermectin 12 mg, prednisone 40 mg for 2 weeks, vitamin c, zinc, vitamin d and follow up with PCP - I do not think he needs abx as he does not have any pneumonia 04/04/[id number]-27 positive. Not requiring oxygen supplementation. Chest x-ray was normal. Patient is going to receive dexamethasone, did not see any reason to have a convulsant plasma for this patient. Patient may be able to go home tomorrow. Plan is to discharge him with home health tomorrow. 04/06/20-patient is COVID-19 positive. Pulse ox is 92% room air. Stable. To continue dexamethasone at this time. 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 T-max is 98.4. (4) Generalized weakness Is this a current diagnosis for this admission?: Yes Plan: - 2/2 COVID infection 04/06/2020-plan is to discharge him home with home health. (5) History of prostate cancer Is this a current diagnosis for this admission?: No Plan: - on prednisone chronically and zytiga (6) Hypertension Qualifiers: Hypertension type: essential hypertension Qualified Code(s): I10 - Essential (primary) hypertension Is this a current diagnosis for this admission?: No Plan: 04/04/2020-patient blood pressure today's 145/99. Stable. Plan is to resume his home medications. (7) Seizure Is this a current diagnosis for this admission?: No Plan: - no recent episode - on carbamazepine - Plan Summary Summary: Patient came in due to fever and weakness no SOB, not requiring O2. The is hesitant to admit him because she does not want him to be alone and confused in the COVID unit, however she is also elderly and she is not sure if she can take care of him at home. I have ordered ivermectin and dexa to be given. (1) COVID-19 virus detected Is this a current diagnosis for this admission?: Yes Plan: - came in due to fever and generalized weakness, minimal cough, no SOB - not requiring O2 - CXR normal - does not qualify for remdesivir - will give ivermectin and dexa 6 mg IV now - admit for obs if still not requiring O2 then can discharge tomorrow on with prescriptions for 2nd dose of ivermectin 12 mg, prednisone 40 mg for 2 weeks, vitamin c, zinc, vitamin d and follow up with PCP - I do not think he needs abx as he does not have any pneumonia 04/04/[id number] positive. Not requiring oxygen supplementation. Chest x- ray was normal. Patient is going to receive dexamethasone, did not see any reason to have a convulsant plasma for this patient. Patient may be able to go home tomorrow. Plan is to discharge him with home health tomorrow. 04/05/2020-patient was positive for COVID-19. Pulse ox is 92 to 94% room air. Chest x-ray was normal. No acute events during the hospital stay. Patient is stable to go home today and do the self quarantine. 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 (3) Fever Qualifiers: Fever type: unspecified Qualified Code(s): R50.9 - Fever, unspecified Is this a current diagnosis for this admission?: Yes Plan: - 2/2 COVID infection 04/05/2020-patient came with fever which was resolved. Blood cultures are negative. Not hypoxic. (4) Generalized weakness Is this a current diagnosis for this admission?: Yes Plan: - 2/2 COVID infection (5) History of prostate cancer Is this a current diagnosis for this admission?: No Plan: - on prednisone chronically and zytiga (6) Hypertension Qualifiers: Hypertension type: essential hypertension Qualified Code(s): I10 - Essential (primary) hypertension Is this a current diagnosis for this admission?: No Plan: 04/04/2020-patient blood pressure today's 145/99. Stable. Plan is to resume his home medications. 04/05/2020-blood pressure is 155/87. Stable. (7) Seizure Is this a current diagnosis for this admission?: No Plan: - no recent episode - on carbamazepine - Time Anticipated Discharge Disposition: Home with Home Health Anticipated Discharge Timeframe: within 24 hours
[2020-04-06] MEDS: ATORVASTATIN CALCIUM 10 MG TABLET PO SCH ×2 (22:24→22:29)
[2020-04-07 04:45] LABS: ABSOLUTE LYMPHOCYTES (AUTO) 0.9 10^3/uL (0.5-4.7); ABSOLUTE MONOCYTES (AUTO) 0.1 10^3/uL (0.1-1.4); ABSOLUTE NEUT (AUTO) 3.7 10^3/uL (1.7-8.2); BASOPHILS % (AUTO) 0.1 % (0-2); EOSINOPHILS % (AUTO) 0.2 % (0-6); HEMATOCRIT 30.8 % (37.9-51.0); LYMPHOCYTES % (AUTO) 19.1 % (13-45); MEAN CORPUSCULAR HEMOGLOBIN 31.6 pg (27.0-33.4); MEAN CORPUSCULAR HGB CONC 35.6 g/dL (32.0-36.0); MEAN CORPUSCULAR VOLUME 89 fl (80-97); MONOCYTES % (AUTO) 2.9 % (3-13); PLATELET COUNT 124 10^3/uL (150-450); RED BLOOD COUNT 3.47 10^6/uL (4.35-5.55); RED CELL DISTRIBUTION WIDTH 14.3 % (11.5-14.0); SEGMENTED NEUTROPHILS % (AUTO) 77.7 % (42-78); TOTAL CELLS COUNTED % (AUTO) 100 %; WHITE BLOOD COUNT 4.8 10^3/uL (4.0-10.5)
[2020-04-07 05:09] LABS: ALBUMIN 3.1 g/dL (3.5-5.0); ALKALINE PHOSPHATASE 69 U/L (38-126); ANION GAP 8 (5-19); ASPARTATE AMINO TRANSFERASE 38 U/L (17-59); BILIRUBIN,DIRECT 0.3 mg/dL (0.0-0.4); BILIRUBIN,TOTAL 0.5 mg/dL (0.2-1.3); BLOOD UREA NITROGEN 19 mg/dL (7-20); CALCIUM 8.4 mg/dL (8.4-10.2); CARBON DIOXIDE 28 mmol/L (22-30); CHLORIDE 101 mmol/L (98-107); GLUCOSE 89 mg/dL (75-110); POTASSIUM 3.6 mmol/L (3.6-5.0); TOTAL PROTEIN 6.4 g/dL (6.3-8.2)
[2020-04-07] MEDS: ACETAMINOPHEN 325 MG TABLET PO PRN (08:09)
--- NOTE | 2020-04-07 10:16 | PDOC PROGRESS REPORT ---
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 Most of the history taken from his because the patient has dementia from a head injury. According to the he started becoming weak and more lethargic 3 days prior with poor appetite. He has some minimal cough but no SOB. He developed a fever of 102 today and he was supposed to be taken to his PCP but he was very weak and could not get out of bed hence he was taken to the emergency room. In the ED, BP was 117/62, HR 77, RR 18, O2sat 96% on room air. CBC showed mild leukopenia. CMP showed a potassium of 3.0, crea of 1.28. CXR did not show any pneumonia. Rapid COVID test was positive. Patient was given LR bolus, potassium supplements and hospitalist service was called to admit the patient. I spoke to the patients and told her that he will be admitted to the COVID unit for observation and if he requires oxygen he will be started on remdesivir. However, she does not want to be away from him as she is concerned that he will get agitated and confused if she is not with him. She would like to take him home however she cannot take care of him by herself as she has no one to help her and she is old as well. 04/04/2016-23-huqf-old male with history of A. fib with pacemaker, dementia, seizure disorder, prostate cancer, bladder cancer depression hyperlipidemia, hypertension admitted for fever found to have COVID-19 positive. Pulse ox is 97% to 98% room air. Patient's is hesitant to take him home because she is also feeling sick and probably has a Covid. 04/06/2003-91-llrk-old male admitted with COVID-19 pneumonia pulse ox is 92% room air. Comfortably in the bed communicating well. He also history of A. fib, has a pacemaker, history of dementia, seizure disorder, prostate cancer, bladder cancer. 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 marketing production manager is going to get in touch with APS services. 04/07/[id number]-iwps-old male admitted with COVID-19 pneumonia comfortably in the bed pulse ox is 92% room air. Plan is to continue the present management. Bl ood cultures are negative. Requested the nurse to closely monitor the mental status because the patient was little bit confused this morning. Reason For Visit: COVID VIRUS INFECTION Physical Exam Vital Signs: Temp Pulse Resp BP Pulse Ox 101.6 F H 94 26 H 149/80 H 87 L 04/07/20 07:35 04/07/20 07:35 04/07/20 07:35 04/07/20 07:35 04/07/20 07:35 Intake & Output 04/06/20 04/07/20 04/08/20 06:59 06:59 06:59 Intake Total 774 370 Balance 774 370 Weight 70 kg 69.1 kg General appearance: PRESENT: no acute distress, cooperative, disheveled Head exam: PRESENT: normocephalic Eye exam: PRESENT: PERRLA Mouth exam: PRESENT: moist, tongue midline Teeth exam: PRESENT: poor dentation Neck exam: ABSENT: carotid bruit, JVD, lymphadenopathy, thyromegaly Respiratory exam: PRESENT: decreased breath sounds GI/Abdominal exam: PRESENT: normal bowel sounds, soft. ABSENT: distended, guarding, mass, organolmegaly, rebound, tenderness Rectal exam: PRESENT: deferred Extremities exam: PRESENT: full ROM. ABSENT: calf tenderness, clubbing, pedal edema Neurological exam: PRESENT: alert, awake Psychiatric exam: PRESENT: appropriate affect, normal mood. ABSENT: homicidal ideation, suicidal ideation Skin exam: PRESENT: dry, intact, warm. ABSENT: cyanosis, rash Results Laboratory Results: 04/07/20 04:19 04/07/20 04:19 04/07/20 04/07/20 04:19 04:19 WBC 4.8 RBC 3.47 L Hgb 11.0 L Hct 30.8 L MCV 89 MCH 31.6 MCHC 35.6 RDW 14.3 H Plt Count 124 L Seg Neutrophils % 77.7 Sodium 136.8 L Potassium 3.6 Chloride 101 Carbon Dioxide 28 Anion Gap 8 BUN 19 Creatinine 1.08 Est GFR ( Amer) > 60 Glucose 89 Calcium 8.4 Magnesium 1.8 Total Bilirubin 0.5 AST 38 Alkaline Phosphatase 69 Total Protein 6.4 Albumin 3.1 L 04/03/20 04/03/20 15:00 15:00 Creatine Kinase 116 Troponin I 0.035 Impressions: Venous Doppler Study 04/03/20 00:00 IMPRESSION: No evidence of deep venous thrombosis in the bilateral upper extremities. Chest X-Ray 04/03/20 13:56 IMPRESSION: No focal airspace disease or other evidence of acute intrathoracic process. Assessment and Plan - Diagnosis (1) COVID-19 virus detected Is this a current diagnosis for this admission?: Yes Plan: - came in due to fever and generalized weakness, minimal cough, no SOB - not requiring O2 - CXR normal - does not qualify for remdesivir - will give ivermectin and dexa 6 mg IV now - admit for obs if still not requiring O2 then can discharge tomorrow on with prescriptions for 2nd dose of ivermectin 12 mg, prednisone 40 mg for 2 weeks, vitamin c, zinc, vitamin d and follow up with PCP - I do not think he needs abx as he does not have any pneumonia 04/04/[id number]-80 positive. Not requiring oxygen supplementation. Chest x- ray was normal. Patient is going to receive dexamethasone, did not see any reason to have a convulsant plasma for this patient. Patient may be able to go home tomorrow. Plan is to discharge him with home health tomorrow. 04/06/20-patient is COVID-19 positive. Pulse ox is 92% room air. Stable. To c ontinue dexamethasone at this time. 04/07/2020-patient is COVID-19 positive. Pulse ox is 92% on room air. To continue dexamethasone at this time. 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 T-max is 98.4. 04/07/2020-patient has a fever of 101.6. To do the chest x-ray and repeat blood cultures, urine culture. (4) Generalized weakness Is this a current diagnosis for this admission?: Yes Plan: - 2/2 COVID infection 04/06/2020-plan is to discharge him home with home health. (5) History of prostate cancer Is this a current diagnosis for this admission?: No Plan: - on prednisone chronically and zytiga (6) Hypertension Qualifiers: Hypertension type: essential hypertension Qualified Code(s): I10 - Essential (primary) hypertension Is this a current diagnosis for this admission?: No Plan: 04/04/2020-patient blood pressure today's 145/99. Stable. Plan is to resume his home medications. (7) Seizure Is this a current diagnosis for this admission?: No Plan: - no recent episode - on carbamazepine - Plan Summary Summary: Patient came in due to fever and weakness no SOB, not requiring O2. The is hesitant to admit him because she does not want him to be alone and confused in the COVID unit, however she is also elderly and she is not sure if she can take care of him at home. I have ordered ivermectin and dexa to be given. (1) COVID-19 virus detected Is this a current diagnosis for this admission?: Yes Plan: - came in due to fever and generalized weakness, minimal cough, no SOB - not requiring O2 - CXR normal - does not qualify for remdesivir - will give ivermectin and dexa 6 mg IV now - admit for obs if still not requiring O2 then can discharge tomorrow on with prescriptions for 2nd dose of ivermectin 12 mg, prednisone 40 mg for 2 weeks, vitamin c, zinc, vitamin d and follow up with PCP - I do not think he needs abx as he does not have any pneumonia 04/04/[id number] positive. Not requiring oxygen supplementation. Chest x- ray was normal. Patient is going to receive dexamethasone, did not see any reason to have a convulsant plasma for this patient. Patient may be able to go home tomorrow. Plan is to discharge him with home health tomorrow. 04/05/2020-patient was positive for COVID-19. Pulse ox is 92 to 94% room air. Chest x-ray was normal. No acute events during the hospital stay. Patient is stable to go home today and do the self quarantine. 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 (3) Fever Qualifiers: Fever type: unspecified Qualified Code(s): R50.9 - Fever, unspecified Is this a current diagnosis for this admission?: Yes Plan: - 2/2 COVID infection 04/05/2020-patient came with fever which was resolved. Blood cultures are negative. Not hypoxic. (4) Generalized weakness Is this a current diagnosis for this admission?: Yes Plan: - 2/2 COVID infection (5) History of prostate cancer Is this a current diagnosis for this admission?: No Plan: - on prednisone chronically and zytiga (6) Hypertension Qualifiers: Hypertension type: essential hypertension Qualified Code(s): I10 - Essential (primary) hypertension Is this a current diagnosis for this admission?: No Plan: 04/04/2020-patient blood pressure today's 145/99. Stable. Plan is to resume his home medications. 04/05/2020-blood pressure is 155/87. Stable. (7) Seizure Is this a current diagnosis for this admission?: No Plan: - no recent episode - on carbamazepine - Time Anticipated Discharge Disposition: Home with Home Health Anticipated Discharge Timeframe: within 48 hours
[2020-04-07] MEDS ORDERED: PIPERACILLIN/TAZOBACTAM 3.375 GM VIAL IV SCH (10:30)
[2020-04-07] MEDS: ENOXAPARIN SODIUM INJ 40 MG/0.4 ML DISP.SYRIN SUBCUT SCH (11:40)
[2020-04-07] MEDS: CALCIUM CARBONATE 600 MG/VITAMIN D3 400 UNIT TABLET PO SCH (11:41)
[2020-04-07] MEDS: CHOLECALCIFEROL (D3) 1,000 UNIT (25 MCG) TABLET PO SCH (11:42)
[2020-04-07] MEDS: ASCORBIC ACID 500 MG TABLET PO SCH ×2 (11:42→17:56)
[2020-04-07] MEDS: CYANOCOBALAMIN (VITAMIN B-12) 1,000 MCG TABLET PO SCH (11:42)
[2020-04-07] MEDS: ZINC SULFATE 220 MG CAPSULE PO SCH (11:42)
[2020-04-07] MEDS: DULOXETINE HCL 30 MG CAPSULE.DR PO SCH (11:42)
[2020-04-07] MEDS: DEXAMETHASONE SOD PHOS INJ 10 MG/1 ML VIAL IV SCH (11:43)
[2020-04-07] MEDS: DONEPEZIL HCL 5 MG TABLET PO SCH (11:43)
[2020-04-07] MEDS: ASPIRIN 81 MG TABLET, CHEWABLE PO SCH (11:43)
[2020-04-07] MEDS: CITALOPRAM HYDROBROMIDE 20 MG TABLET PO SCH (11:43)
[2020-04-07] MEDS: DOCUSATE SODIUM 100 MG CAPSULE PO SCH ×2 (11:43→17:56)
[2020-04-07] MEDS: CARBAMAZEPINE SUSP 200 MG/10 ML UDCUP PO SCH ×2 (11:44→21:34)
[2020-04-07] MEDS: FLUTICASONE NASAL SPRAY 50 MCG/SPRY 120 SPRAY/16 GM NASL SCH ×2 (12:09→21:40)
[2020-04-07] MEDS: PIPERACILLIN SODIUM/TAZOBACTAM 3.375 GM in NORMAL SALINE 100 ML IV SCH ×2 (15:09→18:01)
[2020-04-07] MEDS: ATORVASTATIN CALCIUM 10 MG TABLET PO SCH (21:34)
[2020-04-08] MEDS: PIPERACILLIN SODIUM/TAZOBACTAM 3.375 GM in NORMAL SALINE 100 ML IV SCH ×3 (01:27→17:25)
[2020-04-08] MEDS ORDERED: IVERMECTIN 3 MG TABLET PO ONE (11:00)
[2020-04-08] MEDS: CARBAMAZEPINE SUSP 200 MG/10 ML UDCUP PO SCH ×2 (11:45→21:32)
[2020-04-08] MEDS: ENOXAPARIN SODIUM INJ 40 MG/0.4 ML DISP.SYRIN SUBCUT SCH (11:45)
[2020-04-08] MEDS: ZINC SULFATE 220 MG CAPSULE PO SCH (11:46)
[2020-04-08] MEDS: CITALOPRAM HYDROBROMIDE 20 MG TABLET PO SCH (11:46)
[2020-04-08] MEDS: ASCORBIC ACID 500 MG TABLET PO SCH ×2 (11:47→17:24)
[2020-04-08] MEDS: CALCIUM CARBONATE 600 MG/VITAMIN D3 400 UNIT TABLET PO SCH (11:47)
[2020-04-08] MEDS: DEXAMETHASONE SOD PHOS INJ 10 MG/1 ML VIAL IV SCH (11:47)
[2020-04-08] MEDS: ASPIRIN 81 MG TABLET, CHEWABLE PO SCH (11:47)
[2020-04-08] MEDS: CYANOCOBALAMIN (VITAMIN B-12) 1,000 MCG TABLET PO SCH (11:48)
[2020-04-08] MEDS: DOCUSATE SODIUM 100 MG CAPSULE PO SCH ×2 (11:48→17:25)
[2020-04-08] MEDS: CHOLECALCIFEROL (D3) 1,000 UNIT (25 MCG) TABLET PO SCH (11:48)
[2020-04-08] MEDS: DULOXETINE HCL 30 MG CAPSULE.DR PO SCH (11:48)
[2020-04-08] MEDS: DONEPEZIL HCL 5 MG TABLET PO SCH (11:48)
[2020-04-08] MEDS: FLUTICASONE NASAL SPRAY 50 MCG/SPRY 120 SPRAY/16 GM NASL SCH ×2 (12:22→21:33)
--- NOTE | 2020-04-08 17:24 | PDOC PROGRESS REPORT ---
Subjective Date:: 04/08/20 Subjective:: No adverse events overnight. No new complaints. Vital signs been stable. He i s on 2 L and looks very comfortable with an SPO2 in the low 90s. Reason For Visit: COVID 19 VIRUS INFECTION Physical Exam Vital Signs: Temp Pulse Resp BP Pulse Ox 98.8 F 89 22 H 133/83 H 95 04/08/20 11:33 04/08/20 14:00 04/08/20 11:33 04/08/20 11:33 04/08/20 11:33 Intake & Output 04/07/20 04/08/20 04/09/20 06:59 06:59 06:59 Intake Total 370 720 Balance 370 720 Weight 69.1 kg 69.1 kg General appearance: PRESENT: no acute distress, cooperative, disheveled Respiratory exam: PRESENT: decreased breath sounds GI/Abdominal exam: PRESENT: normal bowel sounds, soft. ABSENT: distended, guarding, mass, organolmegaly, rebound, tenderness Extremities exam: PRESENT: full ROM. ABSENT: calf tenderness, clubbing, pedal edema Neurological exam: PRESENT: alert, awake Psychiatric exam: PRESENT: appropriate affect, normal mood. Skin exam: PRESENT: dry, intact, warm. ABSENT: cyanosis, rash Results Laboratory Results: 04/07/20 04:19 04/07/20 04:19 04/03/20 16:11 Blood Blood Culture - Final NO GROWTH IN 5 DAYS 04/03/20 15:00 Blood Blood Culture - Final NO GROWTH IN 5 DAYS 04/03/20 04/03/20 15:00 15:00 Creatine Kinase 116 Troponin I 0.035 Impressions: Venous Doppler Study 04/03/20 00:00 IMPRESSION: No evidence of deep venous thrombosis in the bilateral upper extremities. Chest X-Ray 04/03/20 13:56 IMPRESSION: No focal airspace disease or other evidence of acute intrathoracic process. Assessment and Plan - Diagnosis (1) Acute hypoxemic respiratory failure Is this a current diagnosis for this admission?: Yes (2) Pneumonia due to COVID-19 virus Is this a current diagnosis for this admission?: Yes (3) Dehydration Is this a current diagnosis for this admission?: Yes (4) Dementia Qualifiers: Dementia type: other frontotemporal dementia Dementia behavioral disturbance: without behavioral disturbance Qualified Code(s): G31.09 - Other frontotemporal dementia; F02.80 - Dementia in other diseases classified elsewhere without behavioral disturbance Is this a current diagnosis for this admission?: Yes - Plan Summary Summary: He was already on all of the other stuff on the MATH+ protocol, so I added ivermectin. He is stable on 2 L per nasal cannula. His family was not comfortable with the idea of bringing him home. Case management has been consulted. - Time Time Spent with patient: 15-24 minutes Anticipated Discharge Disposition: Unknown Anticipated Discharge Timeframe: Unknown
[2020-04-08] MEDS: ATORVASTATIN CALCIUM 10 MG TABLET PO SCH (21:32)
[2020-04-09] MEDS: PIPERACILLIN SODIUM/TAZOBACTAM 3.375 GM in NORMAL SALINE 100 ML IV SCH ×3 (01:04→18:50)
[2020-04-09] MEDS: ACETAMINOPHEN 325 MG TABLET PO PRN (05:31)
[2020-04-09] MEDS: METHYLPREDNISOLONE INJ 40 MG/1 ML SDV IV SCH ×2 (10:21→22:36)
[2020-04-09] MEDS: DOCUSATE SODIUM 100 MG CAPSULE PO SCH ×2 (10:21→18:50)
[2020-04-09] MEDS: DULOXETINE HCL 30 MG CAPSULE.DR PO SCH (10:21)
[2020-04-09] MEDS: DONEPEZIL HCL 5 MG TABLET PO SCH (10:22)
[2020-04-09] MEDS: CYANOCOBALAMIN (VITAMIN B-12) 1,000 MCG TABLET PO SCH (10:22)
[2020-04-09] MEDS: ZINC SULFATE 220 MG CAPSULE PO SCH (10:22)
[2020-04-09] MEDS: CHOLECALCIFEROL (D3) 1,000 UNIT (25 MCG) TABLET PO SCH (10:22)
[2020-04-09] MEDS: ASPIRIN 81 MG TABLET, CHEWABLE PO SCH (10:23)
[2020-04-09] MEDS: ASCORBIC ACID 500 MG TABLET PO SCH ×2 (10:23→18:50)
[2020-04-09] MEDS: CALCIUM CARBONATE 600 MG/VITAMIN D3 400 UNIT TABLET PO SCH (10:23)
[2020-04-09] MEDS: CITALOPRAM HYDROBROMIDE 20 MG TABLET PO SCH (10:23)
[2020-04-09] MEDS: CARBAMAZEPINE SUSP 200 MG/10 ML UDCUP PO SCH ×2 (10:24→22:36)
[2020-04-09] MEDS: FLUTICASONE NASAL SPRAY 50 MCG/SPRY 120 SPRAY/16 GM NASL SCH ×2 (10:25→22:37)
[2020-04-09] MEDS: ENOXAPARIN SODIUM INJ 40 MG/0.4 ML DISP.SYRIN SUBCUT SCH (10:28)
--- NOTE | 2020-04-09 16:03 | PDOC PROGRESS REPORT ---
Subjective Date:: 04/09/20 Subjective:: No adverse events overnight. No new complaints. He had another fever this morn ing. His oxygen saturations are excellent, he is in the low 90s on 1.5 L per nasal cannula. No complaints of cough or shortness of breath. Appetite has not been very good. Reason For Visit: COVID 19 VIRUS INFECTION Physical Exam Vital Signs: Temp Pulse Resp BP Pulse Ox 100.5 F H 76 21 H 128/64 H 91 L 04/09/20 11:12 04/09/20 11:12 04/09/20 11:12 04/09/20 11:12 04/09/20 11:12 Intake & Output 04/08/20 04/09/20 04/10/20 06:59 06:59 06:59 Intake Total 720 60 Balance 720 60 Weight 69.1 kg 69 kg General appearance: PRESENT: no acute distress, cooperative, disheveled Respiratory exam: PRESENT: decreased breath sounds GI/Abdominal exam: PRESENT: normal bowel sounds, soft. ABSENT: distended, guarding, mass, organolmegaly, rebound, tenderness Extremities exam: PRESENT: full ROM. ABSENT: calf tenderness, clubbing, pedal edema Neurological exam: PRESENT: alert, awake Psychiatric exam: PRESENT: appropriate affect, normal mood. Skin exam: PRESENT: dry, intact, warm. ABSENT: cyanosis, rash Results Laboratory Results: 04/07/20 04:19 04/07/20 04:19 04/03/20 16:11 Blood Blood Culture - Final NO GROWTH IN 5 DAYS 04/03/20 15:00 Blood Blood Culture - Final NO GROWTH IN 5 DAYS 04/03/20 04/03/20 15:00 15:00 Creatine Kinase 116 Troponin I 0.035 Impressions: Venous Doppler Study 04/03/20 00:00 IMPRESSION: No evidence of deep venous thrombosis in the bilateral upper extremities. Chest X-Ray 04/03/20 13:56 IMPRESSION: No focal airspace disease or other evidence of acute intrathoracic process. Assessment and Plan - Diagnosis (1) Acute hypoxemic respiratory failure Is this a current diagnosis for this admission?: Yes (2) Pneumonia due to COVID-19 virus Is this a current diagnosis for this admission?: Yes (3) Dehydration Is this a current diagnosis for this admission?: Yes (4) Dementia Qualifiers: Dementia type: other frontotemporal dementia Dementia behavioral disturb ance: without behavioral disturbance Qualified Code(s): G31.09 - Other frontotemporal dementia; F02.80 - Dementia in other diseases classified elsewhere without behavioral disturbance Is this a current diagnosis for this admission?: Yes - Plan Summary Summary: He was already on all of the other stuff on the MATH+ protocol, so I added ivermectin. He gets his second dose tomorrow. He is stable on 1.5 L per nasal cannula, will continue to wean as tolerated. We will continue to monitor his temperature curve. He is just having intermittent fevers at this time, no other obvious source of infection is noted. His family was not comfortable with the idea of bringing him home. Case management has been consulted. - Time Time Spent with patient: 15-24 minutes Anticipated Discharge Disposition: Unknown Anticipated Discharge Timeframe: Unknown
[2020-04-09] MEDS: ATORVASTATIN CALCIUM 10 MG TABLET PO SCH (22:36)
[2020-04-10] MEDS: PIPERACILLIN SODIUM/TAZOBACTAM 3.375 GM in NORMAL SALINE 100 ML IV SCH ×3 (02:53→18:07)
[2020-04-10] MEDS ORDERED: IVERMECTIN 3 MG TABLET PO ONE (10:00)
[2020-04-10] MEDS: DONEPEZIL HCL 5 MG TABLET PO SCH (10:50)
[2020-04-10] MEDS: CHOLECALCIFEROL (D3) 1,000 UNIT (25 MCG) TABLET PO SCH (10:50)
[2020-04-10] MEDS: DOCUSATE SODIUM 100 MG CAPSULE PO SCH ×2 (10:50→18:07)
[2020-04-10] MEDS: DULOXETINE HCL 30 MG CAPSULE.DR PO SCH (10:50)
[2020-04-10] MEDS: ASPIRIN 81 MG TABLET, CHEWABLE PO SCH (10:50)
[2020-04-10] MEDS: CYANOCOBALAMIN (VITAMIN B-12) 1,000 MCG TABLET PO SCH (10:51)
[2020-04-10] MEDS: CITALOPRAM HYDROBROMIDE 20 MG TABLET PO SCH (10:51)
[2020-04-10] MEDS: ASCORBIC ACID 500 MG TABLET PO SCH ×2 (10:51→18:07)
[2020-04-10] MEDS: ENOXAPARIN SODIUM INJ 40 MG/0.4 ML DISP.SYRIN SUBCUT SCH (10:51)
[2020-04-10] MEDS: CALCIUM CARBONATE 600 MG/VITAMIN D3 400 UNIT TABLET PO SCH (10:51)
[2020-04-10] MEDS: ZINC SULFATE 220 MG CAPSULE PO SCH (10:51)
[2020-04-10] MEDS: METHYLPREDNISOLONE INJ 40 MG/1 ML SDV IV SCH ×2 (10:51→22:43)
[2020-04-10] MEDS: FLUTICASONE NASAL SPRAY 50 MCG/SPRY 120 SPRAY/16 GM NASL SCH ×2 (10:52→22:43)
[2020-04-10] MEDS: CARBAMAZEPINE SUSP 200 MG/10 ML UDCUP PO SCH ×2 (10:53→22:43)
--- NOTE | 2020-04-10 16:00 | PDOC PROGRESS REPORT ---
Subjective Date:: 04/10/20 Subjective:: No adverse events overnight. He has had a couple of low-grade fevers. Still no t eating very much. Vital signs been stable. I asked him if he wanted to get out of bed today and he said no. Reason For Visit: COVID 19 VIRUS INFECTION Physical Exam Vital Signs: Temp Pulse Resp BP Pulse Ox 100.5 F H 70 18 131/63 H 88 L 04/10/20 11:40 04/10/20 14:00 04/10/20 11:40 04/10/20 11:40 04/10/20 11:40 Intake & Output 04/09/20 04/10/20 04/11/20 06:59 06:59 06:59 Intake Total 60 857 Balance 60 857 Weight 69 kg 68.8 kg 68.8 kg General appearance: PRESENT: no acute distress, cooperative, disheveled Respiratory exam: PRESENT: decreased breath sounds GI/Abdominal exam: PRESENT: normal bowel sounds, soft. ABSENT: distended, guarding, mass, organolmegaly, rebound, tenderness Extremities exam: PRESENT: full ROM. ABSENT: calf tenderness, clubbing, pedal edema Neurological exam: PRESENT: alert, awake Psychiatric exam: PRESENT: appropriate affect, normal mood. Skin exam: PRESENT: dry, intact, warm. ABSENT: cyanosis, rash Results Laboratory Results: 04/07/20 04:19 04/07/20 04:19 04/03/20 04/03/20 15:00 15:00 Creatine Kinase 116 Troponin I 0.035 Impressions: Venous Doppler Study 04/03/20 00:00 IMPRESSION: No evidence of deep venous thrombosis in the bilateral upper extremities. Chest X-Ray 04/03/20 13:56 IMPRESSION: No focal airspace disease or other evidence of acute intrathoracic process. Assessment and Plan - Diagnosis (1) Acute hypoxemic respiratory failure Is this a current diagnosis for this admission?: Yes (2) Pneumonia due to COVID-19 virus Is this a current diagnosis for this admission?: Yes (3) Dehydration Is this a current diagnosis for this admission?: Yes (4) Dementia Qualifiers: Dementia type: other frontotemporal dementia Dementia behavioral disturbance: without behavioral disturbance Qualified Code(s): G31.09 - Other frontotemporal dementia; F02.80 - Dementia in other diseases classified elsewhere without behavioral disturbance Is this a current diagnosis for this admission?: Yes - Plan Summary Summary: He was already on all of the other stuff on the MATH+ protocol, so I added iverm ectin. He got his second dose today. He is stable on 1.5 L per nasal cannula, will continue to wean as tolerated. We will continue to monitor his temperature curve. He is just having intermittent fevers at this time, no other obvious source of infection is noted. His family was not comfortable with the idea of bringing him home. Case management has been consulted. No changes to his plan today. - Time Time Spent with patient: 15-24 minutes Anticipated Discharge Disposition: Unknown Anticipated Discharge Timeframe: Unknown
[2020-04-10] MEDS: ATORVASTATIN CALCIUM 10 MG TABLET PO SCH (22:43)
[2020-04-11] MEDS: PIPERACILLIN SODIUM/TAZOBACTAM 3.375 GM in NORMAL SALINE 100 ML IV SCH ×3 (04:59→17:30)
[2020-04-11] MEDS: DOCUSATE SODIUM 100 MG CAPSULE PO SCH ×3 (09:48→17:30)
[2020-04-11] MEDS: CHOLECALCIFEROL (D3) 1,000 UNIT (25 MCG) TABLET PO SCH ×2 (09:48→10:55)
[2020-04-11] MEDS: CYANOCOBALAMIN (VITAMIN B-12) 1,000 MCG TABLET PO SCH (09:48)
[2020-04-11] MEDS: CALCIUM CARBONATE 600 MG/VITAMIN D3 400 UNIT TABLET PO SCH ×2 (09:49→10:54)
[2020-04-11] MEDS: ASPIRIN 81 MG TABLET, CHEWABLE PO SCH (09:49)
[2020-04-11] MEDS: DONEPEZIL HCL 5 MG TABLET PO SCH (09:49)
[2020-04-11] MEDS: FLUTICASONE NASAL SPRAY 50 MCG/SPRY 120 SPRAY/16 GM NASL SCH ×3 (09:49→22:42)
[2020-04-11] MEDS: ASCORBIC ACID 500 MG TABLET PO SCH ×3 (09:49→17:30)
[2020-04-11] MEDS: METHYLPREDNISOLONE INJ 40 MG/1 ML SDV IV SCH (09:49)
[2020-04-11] MEDS: CITALOPRAM HYDROBROMIDE 20 MG TABLET PO SCH (09:49)
[2020-04-11] MEDS: DULOXETINE HCL 30 MG CAPSULE.DR PO SCH ×2 (09:49→10:54)
[2020-04-11] MEDS: ZINC SULFATE 220 MG CAPSULE PO SCH (09:50)
[2020-04-11] MEDS: CARBAMAZEPINE SUSP 200 MG/10 ML UDCUP PO SCH ×3 (09:50→22:42)
[2020-04-11] MEDS: ENOXAPARIN SODIUM INJ 40 MG/0.4 ML DISP.SYRIN SUBCUT SCH (09:51)
--- NOTE | 2020-04-11 16:01 | PDOC PROGRESS REPORT ---
Subjective Date:: 04/11/20 Subjective:: He was put on a mask last night, ostensibly because he was mouth breathing. Thi s morning we were having trouble getting his oxygen levels back up and so he was temporarily put on nonrebreather and his saturations have recovered. At no point has he looked like he was in any sort of distress. He has been afebrile for over 24 hours. Reason For Visit: COVID 19 VIRUS INFECTION Physical Exam Vital Signs: Temp Pulse Resp BP Pulse Ox 99.3 F 81 22 H 154/77 H 97 04/11/20 13:12 04/11/20 13:12 04/11/20 13:12 04/11/20 13:12 04/11/20 13:12 Intake & Output 04/10/20 04/11/20 04/12/20 06:59 06:59 06:59 Intake Total 857 440 Balance 857 440 Weight 68.8 kg 68.9 kg General appearance: PRESENT: no acute distress, cooperative, disheveled Respiratory exam: PRESENT: decreased breath sounds GI/Abdominal exam: PRESENT: normal bowel sounds, soft. ABSENT: distended, guarding, mass, organolmegaly, rebound, tenderness Extremities exam: PRESENT: full ROM. ABSENT: calf tenderness, clubbing, pedal edema Neurological exam: PRESENT: alert, awake Psychiatric exam: PRESENT: appropriate affect, normal mood. Skin exam: PRESENT: dry, intact, warm. ABSENT: cyanosis, rash Results Laboratory Results: 04/07/20 04:19 04/07/20 04:19 04/03/20 04/03/20 15:00 15:00 Creatine Kinase 116 Troponin I 0.035 Impressions: Venous Doppler Study 04/03/20 00:00 IMPRESSION: No evidence of deep venous thrombosis in the bilateral upper extremities. Chest X-Ray 04/03/20 13:56 IMPRESSION: No focal airspace disease or other evidence of acute intrathoracic process. Assessment and Plan - Diagnosis (1) Acute hypoxemic respiratory failure Is this a current diagnosis for this admission?: Yes (2) Pneumonia due to COVID-19 virus Is this a current diagnosis for this admission?: Yes (3) Dehydration Is this a current diagnosis for this admission?: Yes (4) Dementia Qualifiers: Dementia type: other frontotemporal dementia Dementia behavioral disturbance: without behavioral disturbance Qualified Code(s): G31.09 - Other frontotemporal dementia; F02.80 - Dementia in other diseases classified elsewhere without behavioral disturbance Is this a current diagnosis for this admission?: Yes - Plan Summary Summary: He was already on all of the other stuff on the MATH+ protocol, so I added ivermectin. He has received 2 doses of ivermectin. He had been stable on a very low dose of oxygen on the nasal cannula that has been temporarily put back up to nonrebreather until we can transition him back to the nasal cannula. We will continue to monitor his temperature curve, but it seems to have improved. No other obvious source of infection is noted. I have increased his steroids in response to his respiratory status. Case management is working on placement. That will probably be a challenge considering his coronavirus infection. - Time Time Spent with patient: 15-24 minutes Anticipated Discharge Disposition: [facility] Anticipated Discharge Timeframe: Unknown
[2020-04-11] MEDS ORDERED: METHYLPREDNISOLONE INJ 40 MG/1 ML SDV IV SCH (22:00)
[2020-04-11] MEDS: ATORVASTATIN CALCIUM 10 MG TABLET PO SCH (22:42)
[2020-04-11] MEDS: METHYLPREDNISOLONE INJ 125 MG/2 ML SDV IV SCH (22:42)
[2020-04-12] MEDS: PIPERACILLIN SODIUM/TAZOBACTAM 3.375 GM in NORMAL SALINE 100 ML IV SCH ×3 (01:09→19:02)
[2020-04-12] MEDS: ACETAMINOPHEN 325 MG TABLET PO PRN (01:09)
--- NOTE | 2020-04-12 10:09 | RADIOLOGY REPORT (SQ) ---
EXAM DESCRIPTION: CHEST SINGLE VIEW IMAGES COMPLETED DATE/TIME: 04/12/2020 9:51 am REASON FOR STUDY: hypoxia COMPARISON: 04/03/2020 EXAM PARAMETERS: NUMBER OF VIEWS: One view. TECHNIQUE: Single frontal radiographic view of the chest acquired. RADIATION DOSE: NA LIMITATIONS: None. FINDINGS: LUNGS AND PLEURA: Interval development of patchy airspace opacities demonstrating a predom inantly peripheral distribution. Likely small bilateral pleural effusions. No pneumothorax. MEDIASTINUM AND HILAR STRUCTURES: No masses. Contour normal. HEART AND VASCULAR STRUCTURES: Heart normal in size. Normal vasculature. BONES: No acute findings. HARDWARE: Transvenous pacer and loop recorder, stable. OTHER: No other significant finding. IMPRESSION: Interval development of patchy airspace opacities suggests developing multi lobar pneumo carlos. Given distribution, recommend consideration for atypical etiologies to include viral/COVID in t reatment planning. TECHNICAL DOCUMENTATION: JOB ID: [id number] 2010 [employer]- All Rights Reserved Reading location - IP/workstation name: [email or web address]
[2020-04-12] MEDS: DOCUSATE SODIUM 100 MG CAPSULE PO SCH ×2 (11:18→11:30)
[2020-04-12] MEDS: CALCIUM CARBONATE 600 MG/VITAMIN D3 400 UNIT TABLET PO SCH ×2 (11:18→11:30)
[2020-04-12] MEDS: CHOLECALCIFEROL (D3) 1,000 UNIT (25 MCG) TABLET PO SCH ×2 (11:18)
[2020-04-12] MEDS: CITALOPRAM HYDROBROMIDE 20 MG TABLET PO SCH (11:18)
[2020-04-12] MEDS: ASCORBIC ACID 500 MG TABLET PO SCH ×2 (11:18)
[2020-04-12] MEDS: DULOXETINE HCL 30 MG CAPSULE.DR PO SCH (11:18)
[2020-04-12] MEDS: CYANOCOBALAMIN (VITAMIN B-12) 1,000 MCG TABLET PO SCH ×2 (11:20→11:30)
[2020-04-12] MEDS: ASPIRIN 81 MG TABLET, CHEWABLE PO SCH ×2 (11:22→11:30)
[2020-04-12] MEDS: DONEPEZIL HCL 5 MG TABLET PO SCH ×2 (11:22→11:30)
[2020-04-12] MEDS: METHYLPREDNISOLONE INJ 125 MG/2 ML SDV IV SCH ×2 (11:22→21:43)
[2020-04-12] MEDS: ENOXAPARIN SODIUM INJ 40 MG/0.4 ML DISP.SYRIN SUBCUT SCH (11:24)
[2020-04-12] MEDS: CARBAMAZEPINE SUSP 200 MG/10 ML UDCUP PO SCH (11:30)
[2020-04-12] MEDS: FLUTICASONE NASAL SPRAY 50 MCG/SPRY 120 SPRAY/16 GM NASL SCH ×2 (11:34→21:42)
[2020-04-12] MEDS: ZINC SULFATE 220 MG CAPSULE PO SCH (13:16)
--- NOTE | 2020-04-12 16:01 | PDOC PROGRESS REPORT ---
Subjective Date:: 04/12/20 Subjective:: No adverse events overnight. This morning while he was taking his pills he was choked and aspirated. His oxygen saturations drop but he did not like he was in any sort of respiratory distress. Nonrebreather was put back on him but his saturation still would not come up. Then he spontaneously had several hard coughs and his oxygen saturations improved back up in the low 90s and he looks comfortable. BiPAP was already ordered and we decided to put him on that for about half an hour and then reassess. He has been doing fine since then. He is on a nasal cannula at 12 L with an Oxymizer at this time. Reason For Visit: COVID 19 VIRUS INFECTION Physical Exam Vital Signs: Temp Pulse Resp BP Pulse Ox 97.7 F 95 26 H 165/98 H 94 04/12/20 07:56 04/12/20 12:13 04/12/20 12:13 04/12/20 07:56 04/12/20 13:27 Intake & Output 04/11/20 04/12/20 04/13/20 06:59 06:59 06:59 Intake Total 440 300 Balance 440 300 Weight 68.9 kg 67.9 kg General appearance: PRESENT: no acute distress, cooperative, disheveled Respiratory exam: PRESENT: decreased breath sounds GI/Abdominal exam: PRESENT: normal bowel sounds, soft. ABSENT: distended, guarding, mass, organolmegaly, rebound, tenderness Extremities exam: PRESENT: full ROM. ABSENT: calf tenderness, clubbing, pedal edema Neurological exam: PRESENT: alert, awake Psychiatric exam: PRESENT: appropriate affect, normal mood. Skin exam: PRESENT: dry, intact, warm. ABSENT: cyanosis, rash Results Laboratory Results: 04/07/20 04:19 04/07/20 04:19 04/07/20 11:24 Blood Blood Culture - Final NO GROWTH IN 5 DAYS 04/07/20 11:19 Blood Blood Culture - Final NO GROWTH IN 5 DAYS 04/03/20 04/03/20 15:00 15:00 Creatine Kinase 116 Troponin I 0.035 Impressions: Venous Doppler Study 04/03/20 00:00 IMPRESSION: No evidence of deep venous thrombosis in the bilateral upper extremities. Chest X-Ray 04/12/20 00:00 IMPRESSION: Interval development of patchy airspace opacities suggests developing multi lobar pneumonia. Given distribution, recommend consideration for atypical etiologies to include viral/COVID in treatment planning. Assessment and Plan - Diagnosis (1) Acute hypoxemic respiratory failure Is this a current diagnosis for this admission?: Yes (2) Pneumonia due to COVID-19 virus Is this a current diagnosis for this admission?: Yes (3) Dehydration Is this a current diagnosis for this admission?: Yes (4) Dementia Qualifiers: Dementia type: other frontotemporal dementia Dementia behavioral disturbance: without behavioral disturbance Qualified Code(s): G31.09 - Other frontotemporal dementia; F02.80 - Dementia in other diseases classified elsewhere without behavioral disturbance Is this a current diagnosis for this admission?: Yes - Plan Summary Summary: He was already on all of the other stuff on the MATH+ protocol, so I added ivermectin. He has received 2 doses of ivermectin. Fevers have resolved. Continue IV steroids. Considering he was on a nonrebreather yesterday, he is actually improved in the sense that he is now on 12 L on Oxymizer, despite the setback that he had this morning when he aspirated. Case management is working on placement. That will probably be a challenge considering his coronavirus infection. - Time Time Spent with patient: 25-34 minutes An[facility]ated [facility] Anticipated Discharge Timeframe: Unknown
[2020-04-13] MEDS: PIPERACILLIN SODIUM/TAZOBACTAM 3.375 GM in NORMAL SALINE 100 ML IV SCH ×3 (01:39→17:22)
[2020-04-13] MEDS: ENOXAPARIN SODIUM INJ 40 MG/0.4 ML DISP.SYRIN SUBCUT SCH (11:43)
[2020-04-13] MEDS: METHYLPREDNISOLONE INJ 125 MG/2 ML SDV IV SCH ×2 (11:44→22:36)
[2020-04-13] MEDS: FLUTICASONE NASAL SPRAY 50 MCG/SPRY 120 SPRAY/16 GM NASL SCH ×2 (11:45→22:42)
--- NOTE | 2020-04-13 17:16 | PDOC PROGRESS REPORT ---
Subjective Date:: 04/13/20 Subjective:: No adverse events overnight. Winds up needing either a nonrebreather or CPAP. He does not have a strong voluntary cough, but can cough involuntarily. When he coughed really hard and voluntarily yesterday his oxygen saturations improved. He does not take very deep breaths, even on CPAP. He slides down in the bed and his spine winds up in a flexed position and he makes no attempt to move himself up. He did fairly well for speech therapy today. Reason For Visit: COVID 19 VIRUS INFECTION Physical Exam Vital Signs: Temp Pulse Resp BP Pulse Ox 98.7 F 80 23 H 160/82 H 94 04/13/20 08:13 04/13/20 08:13 04/13/20 15:54 04/13/20 08:13 04/13/20 15:54 Intake & Output 04/12/20 04/13/20 04/14/20 06:59 06:59 06:59 Intake Total 300 0 Balance 300 0 Weight 67.9 kg 66.4 kg General appearance: PRESENT: no acute distress, cooperative, disheveled Respiratory exam: PRESENT: decreased breath sounds GI/Abdominal exam: PRESENT: normal bowel sounds, soft. ABSENT: distended, gua rding, mass, organolmegaly, rebound, tenderness Extremities exam: PRESENT: full ROM. ABSENT: calf tenderness, clubbing, pedal edema Neurological exam: PRESENT: alert, awake Psychiatric exam: PRESENT: appropriate affect, normal mood. Skin exam: PRESENT: dry, intact, warm. ABSENT: cyanosis, rash Results Laboratory Results: 04/07/20 04:19 04/07/20 04:19 04/03/20 04/03/20 15:00 15:00 Creatine Kinase 116 Troponin I 0.035 Impressions: Venous Doppler Study 04/03/20 00:00 IMPRESSION: No evidence of deep venous thrombosis in the bilateral upper extremities. Chest X-Ray 04/12/20 00:00 IMPRESSION: Interval development of patchy airspace opacities suggests developing multi lobar pneumonia. Given distribution, recommend consideration for atypical etiologies to include viral/COVID in treatment planning. Assessment and Plan - Diagnosis (1) Acute hypoxemic respiratory failure Is this a current diagnosis for this admission?: Yes (2) Pneumonia due to COVID-19 virus Is this a current diagnosis for this admission?: Yes (3) Dehydration Is this a current diagnosis for this admission?: Yes (4) Dementia Qualifiers: Dementia type: other frontotemporal dementia Dementia behavioral disturbance: without behavioral disturbance Qualified Code(s): G31.09 - Other frontotemporal dementia; F02.80 - Dementia in other diseases classified elsewhere without behavioral disturbance Is this a current diagnosis for this admission?: Yes - Plan Summary Summary: He has received 2 doses of ivermectin. Fevers have resolved. Continue IV steroids, but I am not convinced that further increasing his steroids are going to help him. Since he aspirated and decompensated, he has not rebounded to his previous level. Case management is working on placement. That will probably be a challenge considering his coronavirus infection. He does not seem to have the will to want to get better. I will attempt to contact his son this evening to discuss this matter. - Time Time Spent with patient: 15-24 minutes Anticipated Discharge Disposition: Unknown Anticipated Discharge Timeframe: Unknown
--- NOTE | 2020-04-13 18:42 | ADVANCED CARE ---
- Diagnosis (1) Acute hypoxemic respiratory failure Diagnosis Current: Yes (2) Pneumonia due to COVID-19 virus Diagnosis Current: Yes (3) Dehydration Diagnosis Current: Yes (4) Dementia Diagnosis Current: Yes Resuscitation Status: Full Code Discussion: I talked to the patient's and son on the phone for approximately 35 minutes. I discussed the case in depth and my concern over the patient's poor prognosis and his deterioration in overall general decline. They have elected to keep him as a full code. Time Spent: 35 minutes
[2020-04-13 20:16] LABS: ARTERIAL BLOOD BASE EXCESS 3.5 mmol/L; ARTERIAL BLOOD H2CO3 1.14 mmol/L (1.05-1.35); ARTERIAL BLOOD HCO3 27.2 mmol/L (20-24); ARTERIAL BLOOD O2 SATURATION 99.7 % (94-98); ARTERIAL BLOOD PCO2 37.8 mmHg (35-45); ARTERIAL BLOOD PH 7.48 (7.35-7.45); ARTERIAL BLOOD PO2 273.6 mmHg (80-100); ARTERIAL BLOOD TOTAL CO2 28.4 mmol/L (23-27)
[2020-04-13 20:35] LABS: ARTERIAL BLOOD FIO2 100%
[2020-04-13] MEDS: CARBAMAZEPINE SUSP 200 MG/10 ML UDCUP PO SCH (22:35)
[2020-04-13] MEDS: ATORVASTATIN CALCIUM 10 MG TABLET PO SCH (22:36)
[2020-04-14] MEDS: PIPERACILLIN SODIUM/TAZOBACTAM 3.375 GM in NORMAL SALINE 100 ML IV SCH ×2 (02:05→10:27)
[2020-04-14] MEDS: METHYLPREDNISOLONE INJ 125 MG/2 ML SDV IV SCH ×2 (10:14→21:49)
[2020-04-14] MEDS: FLUTICASONE NASAL SPRAY 50 MCG/SPRY 120 SPRAY/16 GM NASL SCH ×2 (10:15→22:13)
[2020-04-14] MEDS: CITALOPRAM HYDROBROMIDE 20 MG TABLET PO SCH ×2 (10:15→13:39)
[2020-04-14] MEDS: DULOXETINE HCL 30 MG CAPSULE.DR PO SCH ×2 (10:15→13:39)
[2020-04-14] MEDS: ASPIRIN 81 MG TABLET, CHEWABLE PO SCH ×2 (10:15→13:39)
[2020-04-14] MEDS: DONEPEZIL HCL 5 MG TABLET PO SCH (10:15)
[2020-04-14] MEDS: CALCIUM CARBONATE 600 MG/VITAMIN D3 400 UNIT TABLET PO SCH ×2 (10:15→13:39)
[2020-04-14] MEDS: CHOLECALCIFEROL (D3) 1,000 UNIT (25 MCG) TABLET PO SCH ×2 (10:16→13:39)
[2020-04-14] MEDS: CARBAMAZEPINE SUSP 200 MG/10 ML UDCUP PO SCH ×2 (10:16→21:50)
[2020-04-14] MEDS: CYANOCOBALAMIN (VITAMIN B-12) 1,000 MCG TABLET PO SCH ×2 (10:26→13:39)
[2020-04-14] MEDS: ENOXAPARIN SODIUM INJ 40 MG/0.4 ML DISP.SYRIN SUBCUT SCH (10:26)
[2020-04-14] MEDS: ZINC SULFATE 220 MG CAPSULE PO SCH (10:27)
--- NOTE | 2020-04-14 12:53 | PDOC PROGRESS REPORT ---
Subjective Date:: 04/14/20 Subjective:: The patient's blood pressure is increased. He thinks he may have been on antihypertensive medication but cannot remember what he was on. Otherwise he remains on CPAP his current FiO2 is 50%. Reason For Visit: COVID 19 VIRUS INFECTION Physical Exam Vital Signs: Temp Pulse Resp BP Pulse Ox 97.5 F 87 22 H 186/91 H 93 04/14/20 07:50 04/14/20 11:01 04/14/20 11:01 04/14/20 07:50 04/14/20 11:01 Intake & Output 04/13/20 04/14/20 04/15/20 06:59 06:59 06:59 Intake Total 0 0 Balance 0 0 Weight 66.4 kg 88.1 kg General appearance: PRESENT: no acute distress, cooperative, well-developed Head exam: PRESENT: atraumatic, normocephalic Ear exam: PRESENT: normal external ear exam. ABSENT: bleeding, drainage Mouth exam: PRESENT: moist, tongue midline Respiratory exam: PRESENT: clear to auscultation jenelle, decreased breath sounds - Low-volume inspiratory phase, symmetrical, unlabored. ABSENT: accessory muscle use, chest wall tenderness, prolonged expiratory phas, rales, rhonchi, tachypnea, wheezes Cardiovascular exam: PRESENT: RRR, +S1, +S2, systolic murmur - 2/6. ABSENT: bradycardia, diastolic murmur, irregular rhythm, tachycardia GI/Abdominal exam: PRESENT: normal bowel sounds, soft. ABSENT: distended, tenderness Rectal exam: PRESENT: deferred Gentrourinary exam: ABSENT: indwelling catheter Extremities exam: ABSENT: pedal edema Musculoskeletal exam: PRESENT: normal inspection. ABSENT: deformity, dislocation Neurological exam: PRESENT: awake. ABSENT: alert - Somewhat sluggish as I just woke him from sleeping Psychiatric exam: PRESENT: flat affect. ABSENT: agitated, anxious Focused psych exam: ABSENT: delusional, paranoid, restlessness Skin exam: PRESENT: dry, normal color, warm. ABSENT: rash Results Laboratory Results: 04/07/20 04:19 04/07/20 04:19 04/13/20 19:55 Carbonic Acid 1.14 HCO3/H2CO3 Ratio 23:1 ABG pH 7.48 H ABG pCO2 37.8 ABG pO2 273.6 H ABG HCO3 27.2 H ABG O2 Saturation 99.7 H ABG Base Excess 3.5 FiO2 100% 04/03/20 04/03/20 15:00 15:00 Creatine Kinase 116 Troponin I 0.035 Impressions: Venous Doppler Study 04/03/20 00:00 IMPRESSION: No evidence of deep venous thrombosis in the bilateral upper extremities. Chest X-Ray 04/12/20 00:00 IMPRESSION: Interval development of patchy airspace opacities suggests developing multi lobar pneumonia. Given distribution, recommend consideration for atypical etiologies to include viral/COVID in treatment planning. Assessment and Plan - Diagnosis (1) Acute hypoxemic respiratory failure Is this a current diagnosis for this admission?: Yes (2) Pneumonia due to COVID-19 virus Is this a current diagnosis for this admission?: Yes (3) Dehydration Is this a current diagnosis for this admission?: Yes (4) Dementia Qualifiers: Dementia type: other frontotemporal dementia Dementia behavioral disturbance: without behavioral disturbance Qualified Code(s): G31.09 - Other frontotemporal dementia; F02.80 - Dementia in other diseases classified elsewhere without behavioral disturbance Is this a current diagnosis for this admission?: Yes (5) Hypertension Qualifiers: Hypertension type: essential hypertension Qualified Code(s): I10 - Essential (primary) hypertension Is this a current diagnosis for this admission?: Yes (6) Anxiety and depression Is this a current diagnosis for this admission?: Yes (7) History of prostate cancer Is this a current diagnosis for this admission?: Yes - Plan Summary Summary: (1) Acute hypoxemic respiratory failure (2) Pneumonia due to COVID-19 virus (3) Dehydration (4) Dementia (5) Hypertension (6) Dysphagia (7) Anxiety/Depression (8) Hx Prostate Cancer 04/13/2020 He has received 2 doses of ivermectin. Fevers have resolved. Continue IV steroids, but I am not convinced that further increasing his steroids are going to help him. Since he aspirated and decompensated, he has not rebounded to his previous level. Case management is working on placement. That will probably be a challenge considering his coronavirus infection. He does not seem to have the will to want to get better. I will attempt to contact his son this evening to discuss this matter. 04/14/2020 Respiratory failure due to [id number] is down to 50%. He appears stable at this time. Still quite sleepy and fatigued. Hypertension-the patient has no history of hypertension. Blood pressure systolic was in the 180s earlier today. I did call [facility] pharmacy in [place] and spoke to the patient's and they do not report any evidence of antihypertensive medications in the past. I will start the patient on lisinopril initially and adjust medications based on his blood pressure. His did state that his pressure can fluctuate. Dehydration-BUN and creatinine are back to normal. Will monitor his intake and if necessary resume IV fluids. Dysphagia-the patient was cleared for thin liquids with soft mechanical diet and cut meats. Nursing reports that he was coughing on thin liquids earlier and so I put him back to nectar thick liquids temporarily. Dementia-continue Aricept Anxiety depression-continue duloxetine, Tegretol and citalopram. History prostate cancer-continue leuprolide Recheck labs tomorrow. Continue to taper oxygen as tolerated. Did have a chance to speak to the patient's as above. He is certainly stable. There was no decline since yesterday. Reviewed the hypertension diagnosis as above. She in fact has had Covid pneumonia herself and understands the likely lengthy recovery. - Time Time Spent with patient: 25-34 minutes Medications reviewed and adjusted accordingly: Yes Anticipated Discharge Disposition: Unknown Anticipated Discharge Timeframe: Unknown
[2020-04-14] MEDS: LISINOPRIL 5 MG TABLET PO SCH ×2 (17:53→21:49)
[2020-04-14] MEDS: ATORVASTATIN CALCIUM 10 MG TABLET PO SCH (21:50)
[2020-04-15 04:59] LABS: HEMATOCRIT 31.2 % (37.9-51.0); HEMOGLOBIN 10.4 g/dL (13.5-17.0); MEAN CORPUSCULAR HEMOGLOBIN 30.1 pg (27.0-33.4); MEAN CORPUSCULAR HGB CONC 33.4 g/dL (32.0-36.0); MEAN CORPUSCULAR VOLUME 90 fl (80-97); PLATELET COUNT 248 10^3/uL (150-450); RED BLOOD COUNT 3.46 10^6/uL (4.35-5.55); RED CELL DISTRIBUTION WIDTH 14.4 % (11.5-14.0)
[2020-04-15 05:24] LABS: ALBUMIN 3.1 g/dL (3.5-5.0); ALKALINE PHOSPHATASE 67 U/L (38-126); ANION GAP 7 (5-19); ASPARTATE AMINO TRANSFERASE 45 U/L (17-59); BILIRUBIN,DIRECT 0.5 mg/dL (0.0-0.4); BILIRUBIN,TOTAL 0.6 mg/dL (0.2-1.3); BLOOD UREA NITROGEN 34 mg/dL (7-20); C-REACTIVE PROTEIN 67.5 mg/L (<10.0); CALCIUM 9.1 mg/dL (8.4-10.2); CARBON DIOXIDE 31 mmol/L (22-30); CHLORIDE 109 mmol/L (98-107); GLUCOSE 135 mg/dL (75-110); POTASSIUM 3.6 mmol/L (3.6-5.0); TOTAL PROTEIN 6.8 g/dL (6.3-8.2)
[2020-04-15 05:39] LABS: ABSOLUTE LYMPHOCYTES# (MANUAL) 0.7 10^3/uL (0.5-4.7); ABSOLUTE MONOCYTES # (MANUAL) 0.2 10^3/uL (0.1-1.4); BASOPHILS % (MANUAL) 0 % (0-2); EOSINOPHILS % (MANUAL) 0 % (0-6); LYMPHOCYTES % (MANUAL) 8 % (13-45); MONOCYTES % (MANUAL) 2 % (3-13); SEGMENTED NEUTROPHILS % (MAN) 90 % (42-78); TOTAL CELLS COUNTED 100
[2020-04-15 05:40] LABS: ANISOCYTOSIS SLIGHT; OVALOCYTES 1+; PLATELET COMMENT ADEQUATE; POIKILOCYTOSIS SLIGHT; TEAR DROP CELLS SLIGHT; TOXIC GRANULATION 1+
[2020-04-15] MEDS: ENOXAPARIN SODIUM INJ 40 MG/0.4 ML DISP.SYRIN SUBCUT SCH (09:55)
[2020-04-15] MEDS: FLUTICASONE NASAL SPRAY 50 MCG/SPRY 120 SPRAY/16 GM NASL SCH ×2 (09:55→21:46)
[2020-04-15] MEDS: DULOXETINE HCL 30 MG CAPSULE.DR PO SCH (09:56)
[2020-04-15] MEDS: CITALOPRAM HYDROBROMIDE 20 MG TABLET PO SCH (09:56)
[2020-04-15] MEDS: METHYLPREDNISOLONE INJ 125 MG/2 ML SDV IV SCH ×2 (09:56→21:45)
[2020-04-15] MEDS: CHOLECALCIFEROL (D3) 1,000 UNIT (25 MCG) TABLET PO SCH (09:56)
[2020-04-15] MEDS: DONEPEZIL HCL 5 MG TABLET PO SCH (09:56)
[2020-04-15] MEDS: CARBAMAZEPINE SUSP 200 MG/10 ML UDCUP PO SCH ×2 (09:56→21:46)
[2020-04-15] MEDS: ASPIRIN 81 MG TABLET, CHEWABLE PO SCH (09:56)
[2020-04-15] MEDS: CYANOCOBALAMIN (VITAMIN B-12) 1,000 MCG TABLET PO SCH (09:57)
[2020-04-15] MEDS: CALCIUM CARBONATE 600 MG/VITAMIN D3 400 UNIT TABLET PO SCH (09:57)
[2020-04-15] MEDS: ASCORBIC ACID 500 MG TABLET PO SCH ×2 (09:57→17:39)
[2020-04-15] MEDS: LISINOPRIL 5 MG TABLET PO SCH ×2 (09:58→21:45)
[2020-04-15] MEDS: ZINC SULFATE 220 MG CAPSULE PO SCH (09:59)
--- NOTE | 2020-04-15 14:24 | PDOC PROGRESS REPORT ---
Subjective Date:: 04/15/20 Subjective:: Patient remains on CPAP with an FiO2 of 50%. He thinks that he may be feeling better. Reason For Visit: COVID 19 VIRUS INFECTION Physical Exam Vital Signs: Temp Pulse Resp BP Pulse Ox 97.3 F 79 16 168/92 H 95 04/15/20 07:30 04/15/20 07:30 04/15/20 11:15 04/15/20 07:30 04/15/20 11:15 Intake & Output 04/14/20 04/15/20 04/16/20 06:59 06:59 06:59 Intake Total 0 120 Balance 0 120 Weight 88.1 kg 87.7 kg General appearance: PRESENT: cooperative, mild distress, well-developed, other - CPAP mask in place Head exam: PRESENT: atraumatic, normocephalic Ear exam: PRESENT: normal external ear exam. ABSENT: bleeding, drainage Mouth exam: PRESENT: other - CPAP mask in place Respiratory exam: PRESENT: rales - Left upper lobe, symmetrical. ABSENT: accessory muscle use, rhonchi, tachypnea, wheezes Cardiovascular exam: PRESENT: RRR - With occasional irregular beats, +S1, +S2. ABSENT: bradycardia, diastolic murmur, irregular rhythm, systolic murmur, tachycardia GI/Abdominal exam: PRESENT: normal bowel sounds, soft. ABSENT: distended, guarding, tenderness Rectal exam: PRESENT: deferred Gentrourinary exam: ABSENT: indwelling catheter Extremities exam: ABSENT: pedal edema Musculoskeletal exam: PRESENT: normal inspection. ABSENT: deformity, dislocation Neurological exam: PRESENT: alert, awake, oriented to person, oriented to place. ABSENT: altered Psychiatric exam: PRESENT: flat affect. ABSENT: agitated, anxious Focused psych exam: ABSENT: delusional, paranoid, restlessness Skin exam: PRESENT: dry, normal color, warm. ABSENT: rash Results Laboratory Results: 04/15/20 04:22 04/15/20 04:22 04/14/20 04/15/20 04/15/20 14:06 04:22 04:22 WBC 9.0 RBC 3.46 L Hgb 10.4 L Hct 31.2 L MCV 90 MCH 30.1 MCHC 33.4 RDW 14.4 H Plt Count 248 Seg Neutrophils % Not Reportable Sodium 147.4 H Potassium 3.6 Chloride 109 H Carbon Dioxide 31 H Anion Gap 7 BUN 34 H Creatinine 0.96 Est GFR ( Amer) > 60 Glucose 135 H Calcium 9.1 Ferritin 669.00 H Total Bilirubin 0.6 AST 45 Alkaline Phosphatase 67 C-Reactive Protein 67.5 H Total Protein 6.8 Albumin 3.1 L 04/03/20 04/03/20 15:00 15:00 Creatine Kinase 116 Troponin I 0.035 Impressions: Venous Doppler Study 04/03/20 00:00 IMPRESSION: No evidence of deep venous thrombosis in the bilateral upper extremities. Chest X-Ray 04/12/20 00:00 IMPRESSION: Interval development of patchy airspace opacities suggests developing multi lobar pneumonia. Given distribution, recommend consideration for atypical etiologies to include viral/COVID in treatment planning. Assessment and Plan - Diagnosis (1) Acute hypoxemic respiratory failure Is this a current diagnosis for this admission?: Yes (2) Pneumonia due to COVID-19 virus Is this a current diagnosis for this admission?: Yes (3) Dehydration Is this a current diagnosis for this admission?: Yes (4) Dementia Qualifiers: Dementia type: other frontotemporal dementia Dementia behavioral disturbance: without behavioral disturbance Qualified Code(s): G31.09 - Other frontotemporal dementia; F02.80 - Dementia in other diseases classified elsewhere without behavioral disturbance Is this a current diagnosis for this admission?: Yes (5) Hypertension Qualifiers: Hypertension type: essential hypertension Qualified Code(s): I10 - Essential (primary) hypertension Is this a current diagnosis for this admission?: Yes (6) Anxiety and depression Is this a current diagnosis for this admission?: Yes (7) History of prostate cancer Is this a current diagnosis for this admission?: Yes - Plan Summary Summary: (1) Acute hypoxemic respiratory failure (2) Pneumonia due to COVID-19 virus (3) Dehydration (4) Dementia (5) Hypertension (6) Dysphagia (7) Anxiety/Depression (8) Hx Prostate Cancer 04/13/2020 He has received 2 doses of ivermectin. Fevers have resolved. Continue IV steroids, but I am not convinced that further increasing his steroids are going to help him. Since he aspirated and decompensated, he has not rebounded to his previous level. Case management is working on placement. That will probably be a challenge considering his coronavirus infection. He does not seem to have the will to want to get better. I will attempt to contact his son this evening to discuss this matter. 04/14/2020 Respiratory failure due to [id number] is down to 50%. He appears stable at this time. Still quite sleepy and fatigued. Hypertension-the patient has no history of hypertension. Blood pressure systolic was in the 180s earlier today. I did call [facility] pharmacy in [place] and spoke to the patient's and they do not report any evidence of antihypertensive medications in the past. I will start the patient on lisinopril initially and adjust medications based on his blood pressure. His did state that his pressure can fluctuate. Dehydration-BUN and creatinine are back to normal. Will monitor his intake and if necessary resume IV fluids. Dysphagia-the patient was cleared for thin liquids with soft mechanical diet and cut meats. Nursing reports that he was coughing on thin liquids earlier and so I put him back to nectar thick liquids temporarily. Dementia-continue Aricept Anxiety depression-continue duloxetine, Tegretol and citalopram. History prostate cancer-continue leuprolide Recheck labs tomorrow. Continue to taper oxygen as tolerated. Did have a chance to speak to the patient's as above. He is certainly stable. There was no decline since yesterday. Reviewed the hypertension diagnosis as above. She in fact has had Covid pneumonia herself and understands the likely lengthy recovery. 04/15/2020 Acute hypoxemic respiratory failure with COVID-19 pneumonia-patient still on CPAP almost continuously with FiO2 50%. Currently on Solu-Medrol 80 mg twice a day. Continues with vitamins and supplements. Consider increased dose of steroids. Hypertension-started the patient on lisinopril 5 mg every 12. Blood pressure still high today but I expect the lisinopril to start working later today or tomorrow. Continue to monitor on telemetry. Dehydration-the patient's BUN and creatinine have gone up since his last blood work. I will start lactated Ringer's solution and monitor metabolic panel. Dysphagia-still occasionally having trouble with thin liquids. Dementia-continue Aricept Depression-continue antidepressant regimen History of prostate cancer-no acute intervention at this time - Time Time Spent with patient: 15-24 minutes Medications reviewed and adjusted accordingly: Yes Anticipated Discharge Disposition: Home with Home Health Anticipated Discharge Timeframe: Unknown
[2020-04-15] MEDS: ENOXAPARIN SODIUM INJ 100 MG/1 ML DISP.SYRIN SUBCUT SCH (21:45)
[2020-04-15] MEDS: ATORVASTATIN CALCIUM 10 MG TABLET PO SCH (21:45)
[2020-04-16 05:40] LABS: HEMOGLOBIN 9.9 g/dL (13.5-17.0); MEAN CORPUSCULAR HEMOGLOBIN 30.3 pg (27.0-33.4); MEAN CORPUSCULAR VOLUME 89 fl (80-97); PLATELET COUNT 222 10^3/uL (150-450); RED BLOOD COUNT 3.25 10^6/uL (4.35-5.55); RED CELL DISTRIBUTION WIDTH 14.3 % (11.5-14.0); WHITE BLOOD COUNT 6.6 10^3/uL (4.0-10.5)
[2020-04-16 06:21] LABS: BLOOD UREA NITROGEN 33 mg/dL (7-20); CALCIUM 8.8 mg/dL (8.4-10.2); CARBON DIOXIDE 30 mmol/L (22-30); CHLORIDE 112 mmol/L (98-107); GLUCOSE 149 mg/dL (75-110); POTASSIUM 3.5 mmol/L (3.6-5.0)
[2020-04-16 06:50] LABS: ANION GAP 4 (5-19)
[2020-04-16 06:58] LABS: ABSOLUTE LYMPHOCYTES# (MANUAL) 0.5 10^3/uL (0.5-4.7); ABSOLUTE MONOCYTES # (MANUAL) 0.2 10^3/uL (0.1-1.4); ANISOCYTOSIS SLIGHT; BASOPHILS % (MANUAL) 0 % (0-2); EOSINOPHILS % (MANUAL) 0 % (0-6); LYMPHOCYTES % (MANUAL) 7 % (13-45); MONOCYTES % (MANUAL) 3 % (3-13); PLATELET COMMENT ADEQUATE; SEGMENTED NEUTROPHILS % (MAN) 90 % (42-78); TOTAL CELLS COUNTED 100
[2020-04-16 07:00] LABS: OVALOCYTES SLIGHT
[2020-04-16] MEDS: CHOLECALCIFEROL (D3) 1,000 UNIT (25 MCG) TABLET PO SCH (10:00)
[2020-04-16] MEDS: DULOXETINE HCL 30 MG CAPSULE.DR PO SCH (10:00)
[2020-04-16] MEDS: CYANOCOBALAMIN (VITAMIN B-12) 1,000 MCG TABLET PO SCH (10:00)
[2020-04-16] MEDS: ENOXAPARIN SODIUM INJ 100 MG/1 ML DISP.SYRIN SUBCUT SCH ×2 (10:00→21:27)
[2020-04-16] MEDS: ASPIRIN 81 MG TABLET, CHEWABLE PO SCH (10:00)
[2020-04-16] MEDS: ASCORBIC ACID 500 MG TABLET PO SCH ×2 (10:00→17:56)
[2020-04-16] MEDS: CALCIUM CARBONATE 600 MG/VITAMIN D3 400 UNIT TABLET PO SCH (10:00)
[2020-04-16] MEDS: FLUTICASONE NASAL SPRAY 50 MCG/SPRY 120 SPRAY/16 GM NASL SCH ×2 (10:00→21:36)
[2020-04-16] MEDS: ZINC SULFATE 220 MG CAPSULE PO SCH (10:00)
[2020-04-16] MEDS: DONEPEZIL HCL 5 MG TABLET PO SCH (10:00)
[2020-04-16] MEDS: CITALOPRAM HYDROBROMIDE 20 MG TABLET PO SCH (10:00)
[2020-04-16] MEDS: LISINOPRIL 5 MG TABLET PO SCH ×2 (10:00→21:31)
[2020-04-16] MEDS: CARBAMAZEPINE SUSP 200 MG/10 ML UDCUP PO SCH ×2 (10:00→21:27)
[2020-04-16] MEDS: RINGERS SOLUTION,LACTATED 1,000 ML IV PRN ×2 (11:00→19:50)
[2020-04-16] MEDS ORDERED: NORMAL SALINE 250 ML IV PRN (11:18)
--- NOTE | 2020-04-16 11:27 | PDOC PROGRESS REPORT ---
Subjective Date:: 04/16/20 Subjective:: Patient is still on BiPAP continuously. His saturations have been okay and we w ill do short trials of nasal cannula with an Oxymizer. Because of his sleep apnea he will still need CPAP at night. Once again he reports that he is not feeling much better today. Reason For Visit: COVID 19 VIRUS INFECTION Physical Exam Vital Signs: Temp Pulse Resp BP Pulse Ox 98.1 F 74 18 164/81 H 100 04/16/20 08:22 04/16/20 08:00 04/16/20 08:00 04/16/20 08:00 04/16/20 08:00 Intake & Output 04/15/20 04/16/20 04/17/20 06:59 06:59 06:59 Intake Total 120 290 Balance 120 290 Weight 87.7 kg 86.6 kg General appearance: PRESENT: mild distress, well-developed Head exam: PRESENT: atraumatic, normocephalic Respiratory exam: PRESENT: prolonged expiratory phas - Limited inspiratory phase, rales - Bilateral bases, symmetrical, unlabored. ABSENT: chest wall tenderness, rhonchi, tachypnea, wheezes Cardiovascular exam: PRESENT: RRR, +S1, +S2. ABSENT: bradycardia, diastolic murmur, irregular rhythm, systolic murmur, tachycardia GI/Abdominal exam: PRESENT: normal bowel sounds, soft. ABSENT: distended, guarding, tenderness Rectal exam: PRESENT: deferred Extremities exam: ABSENT: pedal edema Musculoskeletal exam: PRESENT: normal inspection. ABSENT: deformity, dislocation Neurological exam: PRESENT: awake, oriented to person, oriented to place, oriented to time, oriented to situation. ABSENT: alert - I woke him from his nap and he is groggy. Psychiatric exam: PRESENT: flat affect. ABSENT: agitated, anxious Focused psych exam: ABSENT: delusional, paranoid, restlessness Skin exam: PRESENT: dry, normal color, warm. ABSENT: rash Results Laboratory Results: 04/16/20 04:45 04/16/20 04:45 04/16/20 04/16/20 04:45 04:45 WBC 6.6 RBC 3.25 L Hgb 9.9 L Hct 29.0 L MCV 89 MCH 30.3 MCHC 34.0 RDW 14.3 H Plt Count 222 Seg Neutrophils % Not Reportable Sodium 146.2 H Potassium 3.5 L Chloride 112 H Carbon Dioxide 30 Anion Gap 4 L BUN 33 H Creatinine 0.79 Est GFR ( Amer) > 60 Glucose 149 H Calcium 8.8 Magnesium 2.3 04/03/20 04/03/20 15:00 15:00 Creatine Kinase 116 Troponin I 0.035 Impressions: Venous Doppler Study 04/03/20 00:00 IMPRESSION: No evidence of deep venous thrombosis in the bilateral upper extremities. Chest X-Ray 04/12/20 00:00 IMPRESSION: Interval development of patchy airspace opacities suggests developing multi lobar pneumonia. Given distribution, recommend consideration for atypical etiologies to include viral/COVID in treatment planning. Assessment and Plan - Diagnosis (1) Acute hypoxemic respiratory failure Is this a current diagnosis for this admission?: Yes (2) Pneumonia due to COVID-19 virus Is this a current diagnosis for this admission?: Yes (3) Dehydration Is this a current diagnosis for this admission?: Yes (4) Dementia Qualifiers: Dementia type: other frontotemporal dementia Dementia behavioral disturbance: without behavioral disturbance Qualified Code(s): G31.09 - Other frontotemporal dementia; F02.80 - Dementia in other diseases classified elsewhere without behavioral disturbance Is this a current diagnosis for this admission?: Yes (5) Hypertension Qualifiers: Hypertension type: essential hypertension Qualified Code(s): I10 - Essential (primary) hypertension Is this a current diagnosis for this admission?: Yes (6) Anxiety and depression Is this a current diagnosis for this admission?: Yes (7) History of prostate cancer Is this a current diagnosis for this admission?: Yes - Plan Summary Summary: (1) Acute hypoxemic respiratory failure (2) Pneumonia due to COVID-19 virus (3) Dehydration (4) Dementia (5) Hypertension (6) Dysphagia (7) Anxiety/Depression (8) Hx Prostate Cancer 04/13/2020 He has received 2 doses of ivermectin. Fevers have resolved. Continue IV steroids, but I am not convinced that further increasing his steroids are going to help him. Since he aspirated and decompensated, he has not rebounded to his previous level. Case management is working on placement. That will probably be a challenge considering his coronavirus infection. He does not seem to have the will to want to get better. I will attempt to contact his son this evening to discuss this matter. 04/14/2020 Respiratory failure due to [id number] is down to 50%. He appears stable at this time. Still quite sleepy and fatigued. Hypertension-the patient has no history of hypertension. Blood pressure systolic was in the 180s earlier today. I did call [facility] pharmacy in [place] and spoke to the patient's and they do not report any evidence of antihypertensive medications in the past. I will start the patient on lisinopril initially and adjust medications based on his blood pressure. His did state that his pressure can fluctuate. Dehydration-BUN and creatinine are back to normal. Will monitor his intake and if necessary resume IV fluids. Dysphagia-the patient was cleared for thin liquids with soft mechanical diet and cut meats. Nursing reports that he was coughing on thin liquids earlier and so I put him back to nectar thick liquids temporarily. Dementia-continue Aricept Anxiety depression-continue duloxetine, Tegretol and citalopram. History prostate cancer-continue leuprolide Recheck labs tomorrow. Continue to taper oxygen as tolerated. Did have a chance to speak to the patient's as above. He is certainly stable. There was no decline since yesterday. Reviewed the hypertension diagnosis as above. She in fact has had Covid pneumonia herself and understands the likely lengthy recovery. 04/15/2020 Acute hypoxemic respiratory failure with COVID-19 pneumonia-patient still on CPAP almost continuously with FiO2 50%. Currently on Solu-Medrol 80 mg twice a day. Continues with vitamins and supplements. Consider increased dose of steroids. Hypertension-started the patient on lisinopril 5 mg every 12. Blood pressure still high today but I expect the lisinopril to start working later today or tomorrow. Continue to monitor on telemetry. Dehydration-the patient's BUN and creatinine have gone up since his last blood work. I will start lactated Ringer's solution and monitor metabolic panel. Dysphagia-still occasionally having trouble with thin liquids. Dementia-continue Aricept Depression-continue antidepressant regimen History of prostate cancer-no acute intervention at this time 04/16/2020 No significant improvement in general. Hypoxemic respiratory failure due to Covid pneumonia-I have changed his steroids to 80 mg every 8 from every 12. I also have ordered 1 unit of convalescent plasma. Hopefully these changes will improve his condition. Also we are going to institute short trials of nasal cannula. We will start at mealtime and hopefully he will be able to eat more as he has expressed hunger. Hypertension - blood pressure is not significantly improved yet. We will give the lisinopril 5 mg twice daily dosing another day. If no better consider increasing lisinopril or changing to amlodipine. Dehydration-continue lactated Ringer's solution. Monitor for improvement in BUN. Dysphagia-continue mechanical soft nectar thick diet. Possibly if he is on nasal cannula for meals he might be able to go back to thin liquids. Dementia with depression-continue current regimen - Time Time Spent with patient: 15-24 minutes Medications reviewed and adjusted accordingly: Yes Anticipated Discharge Disposition: Unknown Anticipated Discharge Timeframe: Unknown
[2020-04-16] MEDS ORDERED: SODIUM CHLORIDE NASAL SPRAY 44 ML NASL PRN (11:49)
[2020-04-16] MEDS: GUAIFENESIN/D-METHORPHAN (200-20 MG) SYRUP 10 ML PO PRN (13:45)
[2020-04-16] MEDS: METHYLPREDNISOLONE INJ 125 MG/2 ML SDV IV SCH ×2 (14:00→21:30)
--- NOTE | 2020-04-16 18:19 | RADIOLOGY REPORT (SQ) ---
EXAM DESCRIPTION: KUB/ABDOMEN (SINGLE VIEW) IMAGES COMPLETED DATE/TIME: 04/16/2020 5:03 pm REASON FOR STUDY: Abdominal pain D46.4 REFRACTORY ANEMIA, UNSPECIFIED R50.9 FEVER, UNSPECIFIED COMPARISON: None. NUMBER OF VIEWS: One view. TECHNIQUE: Supine radiographic image of the abdomen acquired. LIMITATIONS: None. FINDINGS: BOWEL GAS PATTERN: Scattered non-dilated small bowel loops. No obstructive pattern. CALCIFICATIONS: No suspicious calcifications. SOFT TISSUES: No gross mass or suggestion of organomegaly. HARDWARE: None in the abdomen.. BONES: No acute fracture. No worrisome bone lesions. OTHER: No other significant finding. IMPRESSION: NON-SPECIFIC BOWEL GAS PATTERN WITHOUT EVIDENCE FOR OBSTRUCTION. TECHNICAL DOCUMENTATION: JOB ID: [id number] 2010 [employer]- All Rights Reserved Reading location - IP/workstation name: [email or web address]
[2020-04-16] MEDS ORDERED: BISACODYL 10 MG SUPP.RECT PR ONE (18:51)
[2020-04-16] MEDS: ATORVASTATIN CALCIUM 10 MG TABLET PO SCH (21:31)
[2020-04-17 05:20] LABS: HEMATOCRIT 25.8 % (37.9-51.0); HEMOGLOBIN 8.9 g/dL (13.5-17.0); MEAN CORPUSCULAR HEMOGLOBIN 31.2 pg (27.0-33.4); MEAN CORPUSCULAR HGB CONC 34.6 g/dL (32.0-36.0); MEAN CORPUSCULAR VOLUME 90 fl (80-97); PLATELET COUNT 189 10^3/uL (150-450); RED BLOOD COUNT 2.86 10^6/uL (4.35-5.55); RED CELL DISTRIBUTION WIDTH 14.4 % (11.5-14.0); WHITE BLOOD COUNT 6.7 10^3/uL (4.0-10.5)
[2020-04-17] MEDS: METHYLPREDNISOLONE INJ 125 MG/2 ML SDV IV SCH ×4 (05:42→21:18)
[2020-04-17 05:54] LABS: BLOOD UREA NITROGEN 28 mg/dL (7-20); C-REACTIVE PROTEIN 83.2 mg/L (<10.0); CALCIUM 8.3 mg/dL (8.4-10.2); GLUCOSE 132 mg/dL (75-110); POTASSIUM 3.5 mmol/L (3.6-5.0)
[2020-04-17 05:57] LABS: CARBON DIOXIDE 36 mmol/L (22-30); CHLORIDE 110 mmol/L (98-107)
[2020-04-17 06:02] LABS: ANION GAP 0 (5-19)
[2020-04-17] MEDS: METOCLOPRAMIDE HCL INJ/PF 10 MG/2 ML SDV IV SCH ×3 (08:14→16:12)
[2020-04-17] MEDS: ENOXAPARIN SODIUM INJ 100 MG/1 ML DISP.SYRIN SUBCUT SCH ×2 (09:36→21:17)
[2020-04-17] MEDS: ZINC SULFATE 220 MG CAPSULE PO SCH (09:37)
[2020-04-17] MEDS: CALCIUM CARBONATE 600 MG/VITAMIN D3 400 UNIT TABLET PO SCH (09:37)
[2020-04-17] MEDS: ASCORBIC ACID 500 MG TABLET PO SCH ×2 (09:37→17:16)
[2020-04-17] MEDS: CITALOPRAM HYDROBROMIDE 20 MG TABLET PO SCH (09:37)
[2020-04-17] MEDS: LISINOPRIL 5 MG TABLET PO SCH (09:37)
[2020-04-17] MEDS: ASPIRIN 81 MG TABLET, CHEWABLE PO SCH (09:38)
[2020-04-17] MEDS: CHOLECALCIFEROL (D3) 1,000 UNIT (25 MCG) TABLET PO SCH (09:38)
[2020-04-17] MEDS: CYANOCOBALAMIN (VITAMIN B-12) 1,000 MCG TABLET PO SCH (09:38)
[2020-04-17] MEDS: DULOXETINE HCL 30 MG CAPSULE.DR PO SCH (09:38)
[2020-04-17] MEDS: CARBAMAZEPINE SUSP 200 MG/10 ML UDCUP PO SCH ×2 (09:48→21:20)
[2020-04-17] MEDS: GUAIFENESIN/D-METHORPHAN (200-20 MG) SYRUP 10 ML PO PRN (09:48)
[2020-04-17] MEDS: DONEPEZIL HCL 5 MG TABLET PO SCH (09:48)
[2020-04-17] MEDS: FLUTICASONE NASAL SPRAY 50 MCG/SPRY 120 SPRAY/16 GM NASL SCH ×2 (10:11→21:19)
--- NOTE | 2020-04-17 13:52 | PDOC PROGRESS REPORT ---
Subjective Date:: 04/17/20 Subjective:: The patient was awakened from sleep. At this time the convalescent plasma is infusing. He is still requiring nectar thick liquids as he coughs with thin liquids intermittently. Serum potassium has been borderline low as well as serum sodium being elevated. Reason For Visit: COVID 19 VIRUS INFECTION Physical Exam Vital Signs: Temp Pulse Resp BP Pulse Ox 99.1 F 84 19 127/68 H 94 04/17/20 13:15 04/17/20 13:15 04/17/20 13:15 04/17/20 13:15 04/17/20 13:15 Intake & Output 04/16/20 04/17/20 04/18/20 06:59 06:59 06:59 Intake Total 290 1663 0 Output Total 475 Balance 290 1188 0 Weight 86.6 kg 87.7 kg General appearance: PRESENT: mild distress, well-developed Head exam: PRESENT: atraumatic, normocephalic Respiratory exam: PRESENT: rales - Faint diffuse, symmetrical, tachypnea. ABSENT: accessory muscle use, rhonchi, wheezes Cardiovascular exam: PRESENT: RRR, +S1, +S2. ABSENT: bradycardia, diastolic murmur, irregular rhythm, systolic murmur, tachycardia GI/Abdominal exam: PRESENT: normal bowel sounds, soft. ABSENT: tenderness Rectal exam: PRESENT: deferred Gentrourinary exam: PRESENT: indwelling catheter Neurological exam: PRESENT: awake, oriented to person, oriented to place. ABSENT: alert - Lethargic Psychiatric exam: PRESENT: flat affect. ABSENT: agitated, anxious Results Laboratory Results: 04/17/20 05:02 04/17/20 05:02 04/16/20 04/17/20 04/17/20 16:15 05:02 05:02 WBC 6.7 RBC 2.86 L Hgb 8.9 L Hct 25.8 L MCV 90 MCH 31.2 MCHC 34.6 RDW 14.4 H Plt Count 189 Sodium 146.0 H Potassium 3.5 L Chloride 110 H Carbon Dioxide 36 H Anion Gap 0 L BUN 28 H Creatinine 0.88 Est GFR ( Amer) > 60 Glucose 132 H Calcium 8.3 L Magnesium 2.0 Ferritin 414.00 C-Reactive Protein 83.2 H Blood Type A POSITIVE 12/28/20 12/28/20 15:00 15:00 Creatine Kinase 116 Troponin I 0.035 Impressions: Venous Doppler Study 04/03/20 00:00 IMPRESSION: No evidence of deep venous thrombosis in the bilateral upper extremities. Chest X-Ray 04/12/20 00:00 IMPRESSION: Interval development of patchy airspace opacities suggests developing multi lobar pneumonia. Given distribution, recommend consideration for atypical etiologies to include viral/COVID in treatment planning. KUB X-Ray 04/16/20 00:00 IMPRESSION: NON-SPECIFIC BOWEL GAS PATTERN WITHOUT EVIDENCE FOR OBSTRUCTION. Assessment and Plan - Diagnosis (1) Acute hypoxemic respiratory failure Is this a current diagnosis for this admission?: Yes (2) Pneumonia due to COVID-19 virus Is this a current diagnosis for this admission?: Yes (3) Dehydration Is this a current diagnosis for this admission?: Yes (4) Dementia Qualifiers: Dementia type: other frontotemporal dementia Dementia behavioral disturbance: without behavioral disturbance Qualified Code(s): G31.09 - Other frontotemporal dementia; F02.80 - Dementia in other diseases classified elsewhere without behavioral disturbance Is this a current diagnosis for this admission?: Yes (5) Hypertension Qualifiers: Hypertension type: essential hypertension Qualified Code(s): I10 - Essential (primary) hypertension Is this a current diagnosis for this admission?: Yes (6) Anxiety and depression Is this a current diagnosis for this admission?: Yes (7) History of prostate cancer Is this a current diagnosis for this admission?: Yes (8) Nausea and vomiting Qualifiers: Vomiting type: unspecified Vomiting Intractability: non-intractable Qualified Code(s): R11.2 - Nausea with vomiting, unspecified Is this a current diagnosis for this admission?: Yes - Plan Summary Summary: (1) Acute hypoxemic respiratory failure (2) Pneumonia due to COVID-19 virus (3) Dehydration (4) Dementia (5) Hypertension (6) Dysphagia (7) Anxiety/Depression (8) Hx Prostate Cancer (9) Nausea and vomiting 04/13/2020 He has received 2 doses of ivermectin. Fevers have resolved. Continue IV steroids, but I am not convinced that further increasing his steroids are going to help him. Since he aspirated and decompensated, he has not rebounded to his previous level. Case management is working on placement. That will probably be a challenge considering his coronavirus infection. He does not seem to have the will to want to get better. I will attempt to contact his son this evening to discuss this matter. 04/14/2020 Respiratory failure due to [id number] is down to 50%. He appears stable at this time. Still quite sleepy and fatigued. Hypertension-the patient has no history of hypertension. Blood pressure systolic was in the 180s earlier today. I did call [facility] pharmacy in [place] and spoke to the patient's and they do not report any evidence of antihypertensive medications in the past. I will start the patient on lisinopril initially and adjust medications based on his blood pressure. His did state that his pressure can fluctuate. Dehydration-BUN and creatinine are back to normal. Will monitor his intake and if necessary resume IV fluids. Dysphagia-the patient was cleared for thin liquids with soft mechanical diet and cut meats. Nursing reports that he was coughing on thin liquids earlier and so I put him back to nectar thick liquids temporarily. Dementia-continue Aricept Anxiety depression-continue duloxetine, Tegretol and citalopram. History prostate cancer-continue leuprolide Recheck labs tomorrow. Continue to taper oxygen as tolerated. Did have a chance to speak to the patient's as above. He is certainly stable. There was no decline since yesterday. Reviewed the hypertension diagnosis as above. She in fact has had Covid pneumonia herself and understands the likely lengthy recovery. 04/15/2020 Acute hypoxemic respiratory failure with COVID-19 pneumonia-patient still on CPAP almost continuously with FiO2 50%. Currently on Solu-Medrol 80 mg twice a day. Continues with vitamins and supplements. Consider increased dose of steroids. Hypertension-started the patient on lisinopril 5 mg every 12. Blood pressure still high today but I expect the lisinopril to start working later today or tomorrow. Continue to monitor on telemetry. Dehydration-the patient's BUN and creatinine have gone up since his last blood work. I will start lactated Ringer's solution and monitor metabolic panel. Dysphagia-still occasionally having trouble with thin liquids. Dementia-continue Aricept Depression-continue antidepressant regimen History of prostate cancer-no acute intervention at this time 04/16/2020 No significant improvement in general. Hypoxemic respiratory failure due to Covid pneumonia-I have changed his steroids to 80 mg every 8 from every 12. I also have ordered 1 unit of convalescent plasma. Hopefully these changes will improve his condition. Also we are going to institute short trials of nasal cannula. We will start at mealtime and hopefully he will be able to eat more as he has expressed hunger. Hypertension - blood pressure is not significantly improved yet. We will give the lisinopril 5 mg twice daily dosing another day. If no better consider increasing lisinopril or changing to amlodipine. Dehydration-continue lactated Ringer's solution. Monitor for improvement in BUN. Dysphagia-continue mechanical soft nectar thick diet. Possibly if he is on nasal cannula for meals he might be able to go back to thin liquids. Dementia with depression-continue current regimen Nausea and vomiting-patient has not had a significant bowel movement in several days. He has vomited several times. It is imperative that we be able to use BiPAP consistently. KUB x-ray showed nonspecific gas pattern. No obstruction. Will trial several doses of Reglan and give a Dulcolax suppository. I feel comfortable that with his bowels working more consistently the vomiting will desist. 04/17/2020 Hypoxic respiratory failure-still BiPAP dependent. Recent increase in his steroids has not had a significant effect. He is currently getting his convalescent plasma. May not see any change until tomorrow. Dysphagia-continue nectar thick at this time Dehydration-we will change to half-normal saline with 20 mEq of potassium diet as his sodium is just above the normal range and his potassium is borderline low. Hypertension-we will increase the lisinopril to 10 mg every 12 as his blood pressures have still not improved. Nausea and vomiting-the metoclopramide appears to be working. No complaints of nausea or vomiting today. Still has not had a significant bowel movement. - Time Time Spent with patient: 15-24 minutes Medications reviewed and adjusted accordingly: Yes Anticipated Discharge Disposition: Unknown Anticipated Discharge Timeframe: Unknown
[2020-04-17] MEDS: LISINOPRIL 10 MG TABLET PO SCH (21:18)
[2020-04-17] MEDS: ATORVASTATIN CALCIUM 10 MG TABLET PO SCH (21:19)
[2020-04-17] MEDS: POTASSI CL 20 MEQ/1/2NS 1L 20 MEQ/1,000 ML RTUINJ IV PRN (21:20)
[2020-04-18 05:35] LABS: HEMATOCRIT 25.2 % (37.9-51.0); HEMOGLOBIN 8.7 g/dL (13.5-17.0); MEAN CORPUSCULAR HGB CONC 34.4 g/dL (32.0-36.0); MEAN CORPUSCULAR VOLUME 90 fl (80-97); PLATELET COUNT 173 10^3/uL (150-450); RED CELL DISTRIBUTION WIDTH 14.5 % (11.5-14.0); WHITE BLOOD COUNT 7.4 10^3/uL (4.0-10.5)
[2020-04-18 05:53] LABS: ALBUMIN 2.5 g/dL (3.5-5.0); ALKALINE PHOSPHATASE 72 U/L (38-126); ASPARTATE AMINO TRANSFERASE 27 U/L (17-59); BILIRUBIN,DIRECT 0.2 mg/dL (0.0-0.4); BILIRUBIN,TOTAL 0.3 mg/dL (0.2-1.3); BLOOD UREA NITROGEN 23 mg/dL (7-20); C-REACTIVE PROTEIN 57.3 mg/L (<10.0); CALCIUM 8.6 mg/dL (8.4-10.2); GLUCOSE 130 mg/dL (75-110); POTASSIUM 3.9 mmol/L (3.6-5.0); TOTAL PROTEIN 5.7 g/dL (6.3-8.2)
[2020-04-18 05:57] LABS: CARBON DIOXIDE 33 mmol/L (22-30); CHLORIDE 110 mmol/L (98-107)
[2020-04-18 06:09] LABS: ANION GAP 1 (5-19)
[2020-04-18] MEDS: METHYLPREDNISOLONE INJ 125 MG/2 ML SDV IV SCH ×3 (06:23→22:59)
[2020-04-18 06:28] LABS: ABSOLUTE LYMPHOCYTES# (MANUAL) 0.4 10^3/uL (0.5-4.7); ABSOLUTE MONOCYTES # (MANUAL) 0.1 10^3/uL (0.1-1.4); BASOPHILS % (MANUAL) 0 % (0-2); EOSINOPHILS % (MANUAL) 0 % (0-6); LYMPHOCYTES % (MANUAL) 6 % (13-45); MONOCYTES % (MANUAL) 2 % (3-13); SEGMENTED NEUTROPHILS % (MAN) 92 % (42-78); TOTAL CELLS COUNTED 100
[2020-04-18 06:30] LABS: ANISOCYTOSIS SLIGHT; OVALOCYTES SLIGHT
[2020-04-18 06:31] LABS: PLATELET COMMENT ADEQUATE
[2020-04-18] MEDS: SENNOSIDES/DOCUSATE 8.6-50 MG 1 EACH TABLET PO SCH ×3 (09:31→19:52)
[2020-04-18] MEDS: ZINC SULFATE 220 MG CAPSULE PO SCH (09:31)
[2020-04-18] MEDS: CITALOPRAM HYDROBROMIDE 20 MG TABLET PO SCH (09:31)
[2020-04-18] MEDS: ASPIRIN 81 MG TABLET, CHEWABLE PO SCH (09:31)
[2020-04-18] MEDS: DULOXETINE HCL 30 MG CAPSULE.DR PO SCH (09:31)
[2020-04-18] MEDS: CALCIUM CARBONATE 600 MG/VITAMIN D3 400 UNIT TABLET PO SCH (09:31)
[2020-04-18] MEDS: DONEPEZIL HCL 5 MG TABLET PO SCH (09:33)
[2020-04-18] MEDS: CHOLECALCIFEROL (D3) 1,000 UNIT (25 MCG) TABLET PO SCH (09:33)
[2020-04-18] MEDS: CYANOCOBALAMIN (VITAMIN B-12) 1,000 MCG TABLET PO SCH (09:33)
[2020-04-18] MEDS: ASCORBIC ACID 500 MG TABLET PO SCH ×2 (09:33→17:56)
[2020-04-18] MEDS: CARBAMAZEPINE SUSP 200 MG/10 ML UDCUP PO SCH ×2 (09:34→23:00)
[2020-04-18] MEDS: LISINOPRIL 10 MG TABLET PO SCH ×2 (09:34→22:59)
[2020-04-18] MEDS: ENOXAPARIN SODIUM INJ 100 MG/1 ML DISP.SYRIN SUBCUT SCH ×2 (09:41→23:00)
[2020-04-18] MEDS: POTASSI CL 20 MEQ/1/2NS 1L 20 MEQ/1,000 ML RTUINJ IV PRN ×2 (09:55→18:15)
[2020-04-18] MEDS: FLUTICASONE NASAL SPRAY 50 MCG/SPRY 120 SPRAY/16 GM NASL SCH ×2 (10:00→23:00)
--- NOTE | 2020-04-18 19:02 | PDOC PROGRESS REPORT ---
Subjective Date:: 04/18/20 Subjective:: Disoriented/confused. ROS unobtainable. BIPAP FiO2 has been steadily weaned from 80% to 55% so far today and he is doing well, saturations remain >95%. Reason For Visit: COVID 19 VIRUS INFECTION Physical Exam Vital Signs: Temp Pulse Resp BP Pulse Ox 98.3 F 79 21 H 178/108 H 98 04/18/20 08:18 04/18/20 14:00 04/18/20 18:13 04/18/20 08:18 04/18/20 18:13 Intake & Output 04/17/20 04/18/20 04/19/20 06:59 06:59 06:59 Intake Total 1433 436 7533 Output Total 475 1 Balance 9186 972 9940 Weight 87.7 kg 88.5 kg General appearance: PRESENT: no acute distress, cooperative Eye exam: ABSENT: scleral icterus Mouth exam: PRESENT: dry mucosa Throat exam: ABSENT: post pharyngeal erythema Neck exam: ABSENT: JVD Respiratory exam: PRESENT: rhonchi, tachypnea, wheezes. ABSENT: crackles Cardiovascular exam: PRESENT: RRR GI/Abdominal exam: PRESENT: normal bowel sounds, soft. ABSENT: tenderness Neurological exam: PRESENT: altered Psychiatric exam: PRESENT: flat affect Skin exam: ABSENT: rash Results Laboratory Results: 04/18/20 05:02 04/18/20 05:02 04/18/20 04/18/20 05:02 05:02 WBC 7.4 RBC 2.80 L Hgb 8.7 L Hct 25.2 L MCV 90 MCH 31.0 MCHC 34.4 RDW 14.5 H Plt Count 173 Seg Neutrophils % Not Reportable Sodium 143.9 Potassium 3.9 Chloride 110 H Carbon Dioxide 33 H Anion Gap 1 L BUN 23 H Creatinine 0.74 Est GFR ( Amer) > 60 Glucose 130 H Calcium 8.6 Magnesium 2.0 Ferritin 363.00 Total Bilirubin 0.3 AST 27 Alkaline Phosphatase 72 C-Reactive Protein 57.3 H Total Protein 5.7 L Albumin 2.5 L 04/03/20 04/03/20 15:00 15:00 Creatine Kinase 116 Troponin I 0.035 Impressions: Venous Doppler Study 04/03/20 00:00 IMPRESSION: No evidence of deep venous thrombosis in the bilateral upper extremities. Chest X-Ray 04/12/20 00:00 IMPRESSION: Interval development of patchy airspace opacities suggests developing multi lobar pneumonia. Given distribution, recommend consideration for atypical etiologies to include viral/COVID in treatment planning. KUB X-Ray 04/16/20 00:00 IMPRESSION: NON-SPECIFIC BOWEL GAS PATTERN WITHOUT EVIDENCE FOR OBSTRUCTION. Assessment and Plan - Diagnosis (1) Pneumonia due to COVID-19 virus Is this a current diagnosis for this admission?: Yes (2) Acute hypoxemic respiratory failure Is this a current diagnosis for this admission?: Yes (3) Dementia Qualifiers: Dementia type: other frontotemporal dementia Dementia behavioral disturbance: without behavioral disturbance Qualified Code(s): G31.09 - Other frontotemporal dementia; F02.80 - Dementia in other diseases classified elsewhere without behavioral disturbance Is this a current diagnosis for this admission?: Yes (4) Generalized weakness Is this a current diagnosis for this admission?: Yes (5) Viral upper respiratory tract infection with cough Is this a current diagnosis for this admission?: Yes (6) Constipation Qualifiers: Constipation type: unspecified constipation type Qualified Code(s): K59.00 - Constipation, unspecified Is this a current diagnosis for this admission?: Yes (7) History of prostate cancer Is this a current diagnosis for this admission?: Yes (8) Hyperlipidemia Qualifiers: Hyperlipidemia type: unspecified Qualified Code(s): E78.5 - Hyperlipidemia, unspecified Is this a current diagnosis for this admission?: Yes (9) Hypertension Qualifiers: Hypertension type: essential hypertension Qualified Code(s): I10 - Es sential (primary) hypertension Is this a current diagnosis for this admission?: Yes (10) Dysphagia Is this a current diagnosis for this admission?: Yes - Plan Summary Summary: Acute hypoxemic respiratory failure Pneumonia due to COVID-19 virus s/p 2 doses of ivermectin, high dose steroids, and convalescent plasma Fevers have resolved D-dimer is trending down, but remains elevated, so he is on therapeutic Lovenox dose continue to wean down O2 as tolerated PRN goal >92% Labile BP very sensitive to medication adjustments Dehydration resolved with IV fluids Dysphagia: due to dementia and possibly worsened with in-hospital delirium the patient was cleared for thin liquids with soft mechanical diet and cut meats would benefit from ongoing ON AIR TALENT as outpatient Dementia-continue Aricept Anxiety depression-continue duloxetine, Tegretol and citalopram History prostate cancer-continue leuprolide Nausea and vomiting-was felt to be due to constipation. instituted bowel regimen and reglan. - Time Time Spent with patient: 35 or more minutes Anticipated Discharge Disposition: [facility] Facility Anticipated Discharge Timeframe: within 48 hours
[2020-04-18] MEDS ORDERED: BISACODYL 5 MG TABEC PO ONE (19:04)
[2020-04-18] MEDS: ATORVASTATIN CALCIUM 10 MG TABLET PO SCH (22:59)
[2020-04-18] MEDS: AMLODIPINE BESYLATE 5 MG TABLET PO SCH (22:59)
[2020-04-19] MEDS: POTASSI CL 20 MEQ/1/2NS 1L 20 MEQ/1,000 ML RTUINJ IV PRN ×2 (04:22→13:33)
[2020-04-19] MEDS: METHYLPREDNISOLONE INJ 125 MG/2 ML SDV IV SCH ×3 (06:16→22:27)
[2020-04-19 06:27] LABS: HEMATOCRIT 26.1 % (37.9-51.0); MEAN CORPUSCULAR HEMOGLOBIN 31.3 pg (27.0-33.4); MEAN CORPUSCULAR HGB CONC 34.6 g/dL (32.0-36.0); MEAN CORPUSCULAR VOLUME 90 fl (80-97); PLATELET COUNT 169 10^3/uL (150-450); RED BLOOD COUNT 2.89 10^6/uL (4.35-5.55); RED CELL DISTRIBUTION WIDTH 14.3 % (11.5-14.0); WHITE BLOOD COUNT 8.9 10^3/uL (4.0-10.5)
[2020-04-19 06:42] LABS: ANION GAP 7 (5-19); BLOOD UREA NITROGEN 19 mg/dL (7-20); CALCIUM 7.8 mg/dL (8.4-10.2); CARBON DIOXIDE 27 mmol/L (22-30); CHLORIDE 106 mmol/L (98-107); GLUCOSE 119 mg/dL (75-110); POTASSIUM 4.3 mmol/L (3.6-5.0)
[2020-04-19] MEDS: ENOXAPARIN SODIUM INJ 100 MG/1 ML DISP.SYRIN SUBCUT SCH ×2 (10:03→22:29)
[2020-04-19] MEDS: CYANOCOBALAMIN (VITAMIN B-12) 1,000 MCG TABLET PO SCH (10:04)
[2020-04-19] MEDS: ASPIRIN 81 MG TABLET, CHEWABLE PO SCH (10:04)
[2020-04-19] MEDS: SENNOSIDES/DOCUSATE 8.6-50 MG 1 EACH TABLET PO SCH ×2 (10:04→17:50)
[2020-04-19] MEDS: DULOXETINE HCL 30 MG CAPSULE.DR PO SCH (10:04)
[2020-04-19] MEDS: CHOLECALCIFEROL (D3) 1,000 UNIT (25 MCG) TABLET PO SCH (10:05)
[2020-04-19] MEDS: CALCIUM CARBONATE 600 MG/VITAMIN D3 400 UNIT TABLET PO SCH (10:09)
[2020-04-19] MEDS: LISINOPRIL 10 MG TABLET PO SCH ×2 (10:10→22:28)
[2020-04-19] MEDS: CITALOPRAM HYDROBROMIDE 20 MG TABLET PO SCH (10:10)
[2020-04-19] MEDS: DONEPEZIL HCL 5 MG TABLET PO SCH (10:11)
[2020-04-19] MEDS: ASCORBIC ACID 500 MG TABLET PO SCH ×2 (10:11→17:50)
[2020-04-19] MEDS: ZINC SULFATE 220 MG CAPSULE PO SCH (10:12)
[2020-04-19] MEDS: FLUTICASONE NASAL SPRAY 50 MCG/SPRY 120 SPRAY/16 GM NASL SCH ×2 (10:14→22:40)
[2020-04-19] MEDS: CARBAMAZEPINE SUSP 200 MG/10 ML UDCUP PO SCH ×2 (10:14→22:30)
--- NOTE | 2020-04-19 18:39 | PDOC PROGRESS REPORT ---
Subjective Date:: 04/19/20 Subjective:: NAEO. He is much more awake, alert today. Oxygen is being weaned down. He is off CPAP and doing well on 12 L O2. Reason For Visit: COVID 19 VIRUS INFECTION Physical Exam Vital Signs: Temp Pulse Resp BP Pulse Ox 98.3 F 84 22 H 164/87 H 88 L 04/19/20 12:33 04/19/20 14:00 04/19/20 12:33 04/19/20 12:33 04/19/20 12:33 Intake & Output 04/18/20 04/19/20 04/20/20 06:59 06:59 06:59 Intake Total 361 2933 918 Output Total 1 Balance 360 2933 918 Weight 88.5 kg 79.6 kg General appearance: PRESENT: no acute distress, cooperative Eye exam: ABSENT: scleral icterus Throat exam: ABSENT: post pharyngeal erythema Neck exam: ABSENT: JVD Respiratory exam: PRESENT: rhonchi, tachypnea. ABSENT: crackles, wheezes Cardiovascular exam: PRESENT: RRR GI/Abdominal exam: PRESENT: normal bowel sounds, soft. ABSENT: tenderness Extremities exam: ABSENT: pedal edema Neurological exam: PRESENT: alert, awake, oriented to person, oriented to place. ABSENT: oriented to time, oriented to situation Psychiatric exam: PRESENT: appropriate affect Skin exam: ABSENT: jaundice Results Laboratory Results: 04/19/20 04:54 04/19/20 04:54 04/19/20 04/19/20 04:54 04:54 WBC 8.9 RBC 2.89 L Hgb 9.0 L Hct 26.1 L MCV 90 MCH 31.3 MCHC 34.6 RDW 14.3 H Plt Count 169 Sodium 139.6 Potassium 4.3 Chloride 106 Carbon Dioxide 27 Anion Gap 7 BUN 19 Creatinine 0.67 Est GFR ( Amer) > 60 Glucose 119 H Calcium 7.8 L 04/03/20 04/03/20 15:00 15:00 Creatine Kinase 116 Troponin I 0.035 Impressions: Venous Doppler Study 04/03/20 00:00 IMPRESSION: No evidence of deep venous thrombosis in the bilateral upper extremities. Chest X-Ray 04/12/20 00:00 IMPRESSION: Interval development of patchy airspace opacities suggests developing multi lobar pneumonia. Given distribution, recommend consideration for atypical etiologies to include viral/COVID in treatment planning. KUB X-Ray 04/16/20 00:00 IMPRESSION: NON-SPECIFIC BOWEL GAS PATTERN WITHOUT EVIDENCE FOR OBSTRUCTION. Assessment and Plan - Diagnosis (1) Pneumonia due to COVID-19 virus Is this a current diagnosis for this admission?: Yes (2) Acute hypoxemic respiratory failure Is this a current diagnosis for this admission?: Yes (3) Dementia Qualifiers: Dementia type: other frontotemporal dementia Dementia behavioral disturbance: without behavioral disturbance Qualified Code(s): G31.09 - Other frontotemporal dementia; F02.80 - Dementia in other diseases classified elsewhere without behavioral disturbance Is this a current diagnosis for this admission?: Yes (4) Generalized weakness Is this a current diagnosis for this admission?: Yes (5) Viral upper respiratory tract infection with cough Is this a current diagnosis for this admission?: Yes (6) Constipation Qualifiers: Constipation type: unspecified constipation type Qualified Code(s): K59.00 - Constipation, unspecified Is this a current diagnosis for this admission?: Yes (7) History of prostate cancer Is this a current diagnosis for this admission?: Yes (8) Hyperlipidemia Qualifiers: Hyperlipidemia type: unspecified Qualified Code(s): E78.5 - Hyperlipidemia, unspecified Is this a current diagnosis for this admission?: Yes (9) Hypertension Qualifiers: Hypertension type: essential hypertension Qualified Code(s): I10 - Essential (primary) hypertension Is this a current diagnosis for this admission?: Yes (10) Dysphagia Is this a current diagnosis for this admission?: Yes - Plan Summary Summary: Acute hypoxemic respiratory failure Pneumonia due to COVID-19 virus s/p 2 doses of ivermectin, high dose steroids, and convalescent plasma Fevers have resolved and oxygen needs are decreasing steadily D-dimer is trending down, but remains elevated, so he is on therapeutic Lovenox dose continue to wean down O2 as tolerated PRN goal >92% Labile BP very sensitive to medication adjustments Dehydration resolved with IV fluids Dysphagia: due to dementia and possibly worsened with in-hospital delirium 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 Instituted bowel regimen and reglan. Now resolved. - Time Time Spent with patient: 35 or more minutes [facility]ticipated [facility] Anticipated Discharge Timeframe: within 72 hours
[2020-04-19] MEDS: AMLODIPINE BESYLATE 5 MG TABLET PO SCH (22:29)
[2020-04-19] MEDS: ATORVASTATIN CALCIUM 10 MG TABLET PO SCH (22:29)
[2020-04-20] MEDS: POTASSI CL 20 MEQ/1/2NS 1L 20 MEQ/1,000 ML RTUINJ IV PRN ×2 (04:37→17:30)
[2020-04-20 05:22] LABS: BLOOD UREA NITROGEN 18 mg/dL (7-20); CALCIUM 8.5 mg/dL (8.4-10.2); GLUCOSE 129 mg/dL (75-110); HEMATOCRIT 26.9 % (37.9-51.0); HEMOGLOBIN 9.2 g/dL (13.5-17.0); MEAN CORPUSCULAR HEMOGLOBIN 30.3 pg (27.0-33.4); MEAN CORPUSCULAR VOLUME 89 fl (80-97); PLATELET COUNT 155 10^3/uL (150-450); POTASSIUM 4.5 mmol/L (3.6-5.0); RED BLOOD COUNT 3.02 10^6/uL (4.35-5.55); RED CELL DISTRIBUTION WIDTH 14.5 % (11.5-14.0)
[2020-04-20] MEDS: METHYLPREDNISOLONE INJ 125 MG/2 ML SDV IV SCH ×3 (05:22→21:38)
[2020-04-20 05:29] LABS: CARBON DIOXIDE 32 mmol/L (22-30); CHLORIDE 102 mmol/L (98-107)
[2020-04-20 05:35] LABS: ANION GAP 1 (5-19)
[2020-04-20] MEDS: CARBAMAZEPINE SUSP 200 MG/10 ML UDCUP PO SCH ×2 (09:58→21:39)
[2020-04-20] MEDS: CYANOCOBALAMIN (VITAMIN B-12) 1,000 MCG TABLET PO SCH (09:59)
[2020-04-20] MEDS: DULOXETINE HCL 30 MG CAPSULE.DR PO SCH (09:59)
[2020-04-20] MEDS: ZINC SULFATE 220 MG CAPSULE PO SCH (09:59)
[2020-04-20] MEDS: SENNOSIDES/DOCUSATE 8.6-50 MG 1 EACH TABLET PO SCH ×2 (09:59→17:30)
[2020-04-20] MEDS: LISINOPRIL 10 MG TABLET PO SCH ×2 (10:00→21:37)
[2020-04-20] MEDS: CITALOPRAM HYDROBROMIDE 20 MG TABLET PO SCH (10:00)
[2020-04-20] MEDS: ASPIRIN 81 MG TABLET, CHEWABLE PO SCH (10:00)
[2020-04-20] MEDS: DONEPEZIL HCL 5 MG TABLET PO SCH (10:00)
[2020-04-20] MEDS: ASCORBIC ACID 500 MG TABLET PO SCH ×2 (10:00→17:29)
[2020-04-20] MEDS: CALCIUM CARBONATE 600 MG/VITAMIN D3 400 UNIT TABLET PO SCH (10:00)
[2020-04-20] MEDS: CHOLECALCIFEROL (D3) 1,000 UNIT (25 MCG) TABLET PO SCH (10:00)
[2020-04-20] MEDS: ENOXAPARIN SODIUM INJ 100 MG/1 ML DISP.SYRIN SUBCUT SCH ×2 (10:00→21:40)
[2020-04-20] MEDS: FLUTICASONE NASAL SPRAY 50 MCG/SPRY 120 SPRAY/16 GM NASL SCH ×2 (10:04→21:41)
[2020-04-20] MEDS ORDERED: ONDANSETRON HCL INJ/PF 4 MG/2 ML SDV IV PRN (13:30)
--- NOTE | 2020-04-20 14:15 | ST Inp Modified Barium Swallow ---
Medical Diagnosis - Medical Diagnoses Medical Diagnosis Description & ICD-10 Code(s): acute respiratory failure, pneumonia due to COVID-19 - ICD-10 Tx Diagnosis Coding (1) Dysphagia ICD-10 Code(s): R13.10 - DYSPHAGIA, UNSPECIFIED ST [place] [facility] [place] General Date: 04/20/20 Date of Onset: 04/12/20 - History Medical History: per EMR: patient admitted 04/03/20 with fever and weakness, found to have COVID-19. Prior medical history includes atrial fibrillation, dementia, frontal lobe injury 2013, seizure disorder, prostate cancer, bladder cancer, depression, HLD, HTN. Nursing note from 04/12/20 reports that the patient choked with pills with prolonged coughing and O2 drop. Patient also failed a nursing swallow screen performed around the same time. Chest x-ray does show multi-lobar pneumonia, atypical and likely due to COVID-19. Patient seen at bedside by speech pathology, inconsistent s/s of aspiration seen with PO, especially thin liquids. Medications: Medications Reviewed Allergies: Refer to medical record - Subjective Current Nutritional Means: PO Current PO Diet: Mechanical- ground, Thickened liquids - nectar Current Symptoms: Coughing, Pneumonia Pain: Patient reports, 0/5 - Objective Assessment: Upright, Left Lateral - Food Trials Food Trials Used: Thin liquids, [place] thick liquids, Pureed, Regular - Assessment Labial Function: Within Normal Limits Lingual Function: Within Normal Limits Mandibular Function: Within Normal Limits Dentition: Partial - dentures not present for study Velo-Pharyngeal Function: Unremarkable - Pharyngeal Stage Initiation of Pharyngeal Stage: Delayed Decreased Laryngeal Elevation: No Reduced Pressure Generation: No Reduced Tongue Base Retraction: No Pre-Swallowing Pooling in Valleculae: Moderate Pre-Swallowing Pooling in Pyriforms: Moderate Reduced Thyro-Hyiod Approximation: No Reduced Epiglottic Excursion: No Reduced Pharyngeal Peristalsis: No Post Swallow Residuals in Valleculae: Mild Post Swallow Residuals in Pyriforms: None - Esophageal Stage Cricophageal Function: Normal - Impression/Summary Laryngeal Penetration: Yes - penetration seen with thin and nectar liquids, silent, and cleared after the swallow Tracheal Aspiration: yes - aspiration seen on 2/6 thin liquid trials, silent x1 and with cough reflex x1, both presentations were with a straw Patient Presents With: Pharyngeal stage dysph. - mild to moderate Risk of Aspiration: Moderate - Recommendations Solid Diet Recommendations: Mechanical Soft Liquid Diet Recommendations: [place]-Thick Strict Aspitarion Precautions: Yes Dysphagia Therapy with MORNING SHOW PRODUCER: Yes Recommended Techniques: Fully Upright During Meal, Small Bites and Sips Other Recommendations: Recommend continuing dysphagia therapy. Aspiration was seen x2 with thin liquids using straw sips, not seen with cup sips. However, patient's underlying COVID-19 places him at higher respiratory risk. Primary reason for aspiration appeared to be delayed swallow initiation, as bolus was fully in pharynx for up to 2 seconds prior to swallow initiation with straw sips. - Time Total Time: 30 Total Timed Minutes: 30
--- NOTE | 2020-04-20 14:36 | ADVANCED CARE ---
- Diagnosis (1) Pneumonia due to COVID-19 virus Diagnosis Current: Yes (2) Acute hypoxemic respiratory failure Diagnosis Current: Yes (3) Dementia Diagnosis Current: Yes (4) Viral upper respiratory tract infection with cough Diagnosis Current: Yes (5) Generalized weakness Diagnosis Current: Yes (6) Constipation Diagnosis Current: Yes (7) History of prostate cancer Diagnosis Current: Yes (8) Hyperlipidemia Diagnosis Current: Yes (9) Hypertension Diagnosis Current: Yes (10) Dysphagia Diagnosis Current: Yes Attendance: Mrs. Nora Garcia () Resuscitation Status: Do Not Resuscitate Discussion: Discussed patient's baseline dementia and physical debility. states that, at baseline, he was quite weak, only being able to walk at most from the bedroom to the bathroom with a cane. At baseline, he is frequently disoriented and has known dementia. We discussed his long and difficult hospital course. He has been here for over 2 weeks now and is still requiring 15L O2 during the day and CPAP at night. He is unable to eat/drink without aspirating. He is at high risk for rapid respiratory decompensation due to aspiration pneumonia. Mrs. Garcia states that they have filled out a living will and Mr. Garcia has said that he does not want extraordinary measures or to be kept alive on "life support." We discussed what resuscitation and intubation would entail, and Mrs. Garcia was adamant that he would not have wanted CPR or intubation. She would like to change code status to DNR/DNI, but would like to continue to do all the medical interventions that we are currently pursuing, including NIPPV if he should need it. She hopes that he will be able to eventually go to a SNF and then return home. Time Spent: >30 minutes
--- NOTE | 2020-04-20 14:39 | PDOC PROGRESS REPORT ---
Subjective Date:: 04/20/20 Subjective:: NAEO. He remains on 15L O2 during the day and CPAP at night. Reason For Visit: COVID 19 VIRUS INFECTION Physical Exam Vital Signs: Temp Pulse Resp BP Pulse Ox 98.5 F 86 18 170/84 H 100 04/20/20 11:26 04/20/20 11:26 04/20/20 11:26 04/20/20 11:26 04/20/20 13:29 Intake & Output 04/19/20 04/20/20 04/21/20 06:59 06:59 06:59 Intake Total 2933 2138 30 Balance 2933 2138 30 Weight 79.6 kg 80.1 kg General appearance: PRESENT: no acute distress, cooperative, obese Eye exam: ABSENT: scleral icterus Mouth exam: PRESENT: moist Throat exam: ABSENT: post pharyngeal erythema Neck exam: ABSENT: JVD Respiratory exam: PRESENT: rhonchi, tachypnea Cardiovascular exam: PRESENT: RRR GI/Abdominal exam: PRESENT: normal bowel sounds, soft. ABSENT: tenderness Extremities exam: ABSENT: pedal edema Neurological exam: PRESENT: altered, awake Psychiatric exam: PRESENT: flat affect Skin exam: ABSENT: jaundice, rash Results Laboratory Results: 04/20/20 04:49 04/20/20 04:49 04/20/20 04/20/20 04:49 04:49 WBC 9.0 RBC 3.02 L Hgb 9.2 L Hct 26.9 L MCV 89 MCH 30.3 MCHC 34.0 RDW 14.5 H Plt Count 155 Sodium 135.0 L Potassium 4.5 Chloride 102 Carbon Dioxide 32 H Anion Gap 1 L BUN 18 Creatinine 0.76 Est GFR ( Amer) > 60 Glucose 129 H Calcium 8.5 04/03/20 04/03/20 15:00 15:00 Creatine Kinase 116 Troponin I 0.035 Impressions: Venous Doppler Study 04/03/20 00:00 IMPRESSION: No evidence of deep venous thrombosis in the bilateral upper extremities. Chest X-Ray 04/12/20 00:00 IMPRESSION: Interval development of patchy airspace opacities suggests developing multi lobar pneumonia. Given distribution, recommend consideration for atypical etiologies to include viral/COVID in treatment planning. KUB X-Ray 04/16/20 00:00 IMPRESSION: NON-SPECIFIC BOWEL GAS PATTERN WITHOUT EVIDENCE FOR OBSTRUCTION. Assessment and Plan - Diagnosis (1) Pneumonia due to COVID-19 virus Is this a current diagnosis for this admission?: Yes (2) Acute hypoxemic respiratory failure Is this a current diagnosis for this admission?: Yes (3) Dementia Qualifiers: Dementia type: other frontotemporal dementia Dementia behavioral disturbance: without behavioral disturbance Qualified Code(s): G31.09 - Other frontotemporal dementia; F02.80 - Dementia in other diseases classified elsewhere without behavioral disturbance Is this a current diagnosis for this admission?: Yes (4) Viral upper respiratory tract infection with cough Is this a current diagnosis for this admission?: Yes (5) Generalized weakness Is this a current diagnosis for this admission?: Yes (6) Constipation Qualifiers: Constipation type: unspecified constipation type Qualified Code(s): K59.00 - Constipation, unspecified Is this a current diagnosis for this admission?: Yes (7) History of prostate cancer Is this a current diagnosis for this admission?: Yes (8) Hyperlipidemia Qualifiers: Hyperlipidemia type: unspecified Qualified Code(s): E78.5 - Hyperlipidemia, unspecified Is this a current diagnosis for this admission?: Yes (9) Hypertension Qualifiers: Hypertension type: essential hypertension Qualified Code(s): I10 - Essential (primary) hypertension Is this a current diagnosis for this admission?: Yes (10) Dysphagia Is this a current diagnosis for this admission?: Yes - Plan Summary Summary: Acute hypoxemic respiratory failure Pneumonia due to COVID-19 virus s/p 2 doses of ivermectin, high dose steroids, and convalescent plasma Fevers have resolved and oxygen needs are stable D-dimer is trending down, but remains elevated, so he is on therapeutic Lovenox dose continue to wean down O2 as tolerated PRN goal >92% Labile BP-very sensitive to medication adjustments Dehydration-resolved with IV fluids Dysphagia-due to dementia and possibly worsened with in-hospital delirium. 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 Remains on nectar thick liquids as he failed MBBS on 04/20/2020. Dementia-continue Aricept Anxiety depression-continue duloxetine, Tegretol and citalopram History prostate cancer-continue leuprolide Nausea and vomiting-was felt to be due to constipation. Instituted bowel regimen and reglan. Now resolved. Constipation-resolved with bowel regimen. - Time Time Spent with patient: 35 or more minutes Anticipated Discharge Disposition: Senior Living Facility Anticipated Discharge Timeframe: unknown
--- NOTE | 2020-04-20 15:51 | RADIOLOGY REPORT (SQ) ---
EXAM DESCRIPTION: COOKIE SWALLOW IMAGES COMPLETED DATE/TIME: 04/20/2020 2:21 pm REASON FOR STUDY: s/s of aspiration D46.4 REFRACTORY ANEMIA, UNSPECIFIED R50.9 FEVER, UNSPECIFIED COMPARISON: None. TECHNIQUE: Videofluoroscopic swallowing examination was performed in conjunction with speech patholo gy. Videofluoroscopic imaging was obtained and reviewed and these are the findings: RADIATION DOSE: Fluoro time 3.09 minutes 2 images saved to PACS. LIMITATIONS: None FINDINGS: The patient was brought into the fluoro room and placed upright on a modified barium swall ow chair. The patient was then given multiple consistencies mixed with barium to swallow under live fluoroscopic video guidance. According to the Speech Pathologist there was intermittent tracheal asp iration seen with thin barium. Laryngeal penetration was seen with nectar thick consistency. Pureed and cookie consistencies were swallowed without incident. Please refer to the speech pathology repor t further details. IMPRESSION: INTERMITTENT TRACHEAL ASPIRATION WITH THIN BARIUM. LARYNGEAL PENETRATION WITH NECTAR TH ICK CONSISTENCY. PLEASE SEE SPEECH PATHOLOGIST REPORT FOR OTHER FINDINGS AND RECOMMENDATIONS. COMMENT: NONE Quality ID [id number]: Final reports for procedures using fluoroscopy that document radiation exposure lianne rodrigo, or exposure time and number of fluorographic images (if radiation exposure indices are not avail able) TECHNICAL DOCUMENTATION: JOB ID: [id number] 2010 [employer]- All Rights Reserved Reading location - IP/workstation name: [email or web address]
[2020-04-20] MEDS: ATORVASTATIN CALCIUM 10 MG TABLET PO SCH (21:37)
[2020-04-20] MEDS: AMLODIPINE BESYLATE 5 MG TABLET PO SCH (21:37)
[2020-04-21 05:29] LABS: MEAN CORPUSCULAR HEMOGLOBIN 30.7 pg (27.0-33.4); MEAN CORPUSCULAR HGB CONC 34.5 g/dL (32.0-36.0); MEAN CORPUSCULAR VOLUME 89 fl (80-97); PLATELET COUNT 156 10^3/uL (150-450); RED BLOOD COUNT 2.93 10^6/uL (4.35-5.55); RED CELL DISTRIBUTION WIDTH 14.3 % (11.5-14.0); WHITE BLOOD COUNT 8.1 10^3/uL (4.0-10.5)
[2020-04-21] MEDS: POTASSI CL 20 MEQ/1/2NS 1L 20 MEQ/1,000 ML RTUINJ IV PRN ×2 (05:32→16:19)
[2020-04-21] MEDS: METHYLPREDNISOLONE INJ 125 MG/2 ML SDV IV SCH ×3 (05:33→21:31)
[2020-04-21 05:47] LABS: BLOOD UREA NITROGEN 15 mg/dL (7-20); CALCIUM 8.3 mg/dL (8.4-10.2); GLUCOSE 121 mg/dL (75-110); POTASSIUM 4.1 mmol/L (3.6-5.0)
[2020-04-21 05:52] LABS: CARBON DIOXIDE 30 mmol/L (22-30); CHLORIDE 102 mmol/L (98-107)
[2020-04-21 06:00] LABS: ANION GAP 3 (5-19)
[2020-04-21] MEDS: ZINC SULFATE 220 MG CAPSULE PO SCH (09:20)
[2020-04-21] MEDS: SENNOSIDES/DOCUSATE 8.6-50 MG 1 EACH TABLET PO SCH ×2 (09:20→17:07)
[2020-04-21] MEDS: ASPIRIN 81 MG TABLET, CHEWABLE PO SCH (09:20)
[2020-04-21] MEDS: DULOXETINE HCL 30 MG CAPSULE.DR PO SCH (09:20)
[2020-04-21] MEDS: CALCIUM CARBONATE 600 MG/VITAMIN D3 400 UNIT TABLET PO SCH (09:20)
[2020-04-21] MEDS: DONEPEZIL HCL 5 MG TABLET PO SCH (09:20)
[2020-04-21] MEDS: LISINOPRIL 10 MG TABLET PO SCH ×2 (09:20→21:31)
[2020-04-21] MEDS: CHOLECALCIFEROL (D3) 1,000 UNIT (25 MCG) TABLET PO SCH (09:20)
[2020-04-21] MEDS: CYANOCOBALAMIN (VITAMIN B-12) 1,000 MCG TABLET PO SCH (09:21)
[2020-04-21] MEDS: ASCORBIC ACID 500 MG TABLET PO SCH ×2 (09:21→17:07)
[2020-04-21] MEDS: CITALOPRAM HYDROBROMIDE 20 MG TABLET PO SCH (09:21)
[2020-04-21] MEDS: CARBAMAZEPINE SUSP 200 MG/10 ML UDCUP PO SCH ×2 (09:21→21:32)
[2020-04-21] MEDS: ENOXAPARIN SODIUM INJ 100 MG/1 ML DISP.SYRIN SUBCUT SCH ×2 (09:22→21:30)
[2020-04-21] MEDS: FLUTICASONE NASAL SPRAY 50 MCG/SPRY 120 SPRAY/16 GM NASL SCH ×2 (09:22→21:39)
--- NOTE | 2020-04-21 17:58 | PDOC PROGRESS REPORT ---
Subjective Date:: 04/21/20 Subjective:: NAEO. Doing well today, oxygen is being steadily weaned down. Reason For Visit: COVID 19 VIRUS INFECTION Physical Exam Vital Signs: Temp Pulse Resp BP Pulse Ox 97.6 F 78 17 160/90 H 91 L 04/21/20 07:52 04/21/20 14:00 04/21/20 09:02 04/21/20 07:52 04/21/20 13:30 Intake & Output 04/20/20 04/21/20 04/22/20 06:59 06:59 06:59 Intake Total 2138 2148 1000 Balance 2137 2148 1000 Weight 80.1 kg 89.6 kg General appearance: PRESENT: no acute distress, cooperative Eye exam: ABSENT: scleral icterus Mouth exam: PRESENT: moist Throat exam: ABSENT: post pharyngeal erythema Neck exam: ABSENT: JVD Respiratory exam: PRESENT: rhonchi, unlabored. ABSENT: crackles Extremities exam: ABSENT: pedal edema Neurological exam: PRESENT: alert, awake Psychiatric exam: PRESENT: appropriate affect Skin exam: ABSENT: jaundice Results Laboratory Results: 04/21/20 05:08 04/21/20 05:08 04/21/20 04/21/20 05:08 05:08 WBC 8.1 RBC 2.93 L Hgb 9.0 L Hct 26.0 L MCV 89 MCH 30.7 MCHC 34.5 RDW 14.3 H Plt Count 156 Sodium 134.7 L Potassium 4.1 Chloride 102 Carbon Dioxide 30 Anion Gap 3 L BUN 15 Creatinine 0.71 Est GFR ( Amer) > 60 Glucose 121 H Calcium 8.3 L 04/03/20 04/03/20 15:00 15:00 Creatine Kinase 116 Troponin I 0.035 Impressions: Venous Doppler Study 04/03/20 00:00 IMPRESSION: No evidence of deep venous thrombosis in the bilateral upper extremities. Chest X-Ray 04/12/20 00:00 IMPRESSION: Interval development of patchy airspace opacities suggests developing multi lobar pneumonia. Given distribution, recommend consideration for atypical etiologies to include viral/COVID in treatment planning. KUB X-Ray 04/16/20 00:00 IMPRESSION: NON-SPECIFIC BOWEL GAS PATTERN WITHOUT EVIDENCE FOR OBSTRUCTION. Modified Barium Swallow 04/20/20 00:00 IMPRESSION: INTERMITTENT TRACHEAL ASPIRATION WITH THIN BARIUM. LARYNGEAL P ENETRATION WITH NECTAR THICK CONSISTENCY. PLEASE SEE SPEECH PATHOLOGIST REPORT FOR OTHER FINDINGS AND RECOMMENDATIONS. Assessment and Plan - Diagnosis (1) Pneumonia due to COVID-19 virus Is this a current diagnosis for this admission?: Yes (2) Acute hypoxemic respiratory failure Is this a current diagnosis for this admission?: Yes (3) Dementia Qualifiers: Dementia type: other frontotemporal dementia Dementia behavioral disturbance: without behavioral disturbance Qualified Code(s): G31.09 - Other frontotemporal dementia; F02.80 - Dementia in other diseases classified e lsewhere without behavioral disturbance Is this a current diagnosis for this admission?: Yes (4) Viral upper respiratory tract infection with cough Is this a current diagnosis for this admission?: Yes (5) Generalized weakness Is this a current diagnosis for this admission?: Yes (6) Constipation Qualifiers: Constipation type: unspecified constipation type Qualified Code(s): K59.00 - Constipation, unspecified Is this a current diagnosis for this admission?: Yes (7) History of prostate cancer Is this a current diagnosis for this admission?: Yes (8) Hyperlipidemia Qualifiers: Hyperlipidemia type: unspecified Qualified Code(s): E78.5 - Hyperlipidemia, unspecified Is this a current diagnosis for this admission?: Yes (9) Hypertension Qualifiers: Hypertension type: essential hypertension Qualified Code(s): I10 - Essential (primary) hypertension Is this a current diagnosis for this admission?: Yes (10) Dysphagia Is this a current diagnosis for this admission?: Yes (11) VLADISLAV (obstructive sleep apnea) Is this a current diagnosis for this admission?: Yes - Plan Summary Summary: Acute hypoxemic respiratory failure Pneumonia due to COVID-19 virus s/p 2 doses of ivermectin, high dose steroids, and convalescent plasma Fevers have resolved and oxygen needs are decreasing steadily D-dimer is trending down, but remains elevated, so he is on therapeutic Lovenox dose continue to wean down O2 as tolerated PRN goal >92% VLADISLAV-continue CPAP when sleeping Labile BP-very sensitive to medication adjustments Dehydration-resolved with IV fluids Dysphagia-due to dementia and possibly worsened with in-hospital delirium. 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 Remains on nectar thick liquids as he failed MBBS on 04/20/2020. Dementia-continue Aricept Anxiety depression-continue duloxetine, Tegretol and citalopram History prostate cancer-continue leuprolide Nausea and vomiting-was felt to be due to constipation. Instituted bowel regimen and reglan. Now resolved. Constipation-resolved with bowel regimen. - Time Time Spent with patient: 35 or more minutes Anticipated Discharge Disposition: [facility] Facility Anticipated Discharge Timeframe: within 48 hours
[2020-04-21] MEDS: ACETAMINOPHEN 325 MG TABLET PO PRN (21:30)
[2020-04-21] MEDS: AMLODIPINE BESYLATE 5 MG TABLET PO SCH (21:30)
[2020-04-21] MEDS: ATORVASTATIN CALCIUM 10 MG TABLET PO SCH (21:30)
[2020-04-22 05:40] LABS: ANION GAP 7 (5-19); BLOOD UREA NITROGEN 15 mg/dL (7-20); CALCIUM 8.5 mg/dL (8.4-10.2); CARBON DIOXIDE 28 mmol/L (22-30); CHLORIDE 101 mmol/L (98-107); GLUCOSE 123 mg/dL (75-110); POTASSIUM 4.4 mmol/L (3.6-5.0)
[2020-04-22] MEDS: METHYLPREDNISOLONE INJ 125 MG/2 ML SDV IV SCH ×3 (06:08→21:59)
[2020-04-22] MEDS: POTASSI CL 20 MEQ/1/2NS 1L 20 MEQ/1,000 ML RTUINJ IV PRN (06:08)
[2020-04-22 06:14] LABS: HEMATOCRIT 30.2 % (37.9-51.0); HEMOGLOBIN 10.4 g/dL (13.5-17.0); MEAN CORPUSCULAR HEMOGLOBIN 30.8 pg (27.0-33.4); MEAN CORPUSCULAR HGB CONC 34.6 g/dL (32.0-36.0); MEAN CORPUSCULAR VOLUME 89 fl (80-97); PLATELET COUNT 151 10^3/uL (150-450); RED BLOOD COUNT 3.39 10^6/uL (4.35-5.55); RED CELL DISTRIBUTION WIDTH 14.3 % (11.5-14.0); WHITE BLOOD COUNT 7.3 10^3/uL (4.0-10.5)
[2020-04-22] MEDS: CYANOCOBALAMIN (VITAMIN B-12) 1,000 MCG TABLET PO SCH (09:09)
[2020-04-22] MEDS: SENNOSIDES/DOCUSATE 8.6-50 MG 1 EACH TABLET PO SCH ×2 (09:09→17:30)
[2020-04-22] MEDS: ASPIRIN 81 MG TABLET, CHEWABLE PO SCH (09:09)
[2020-04-22] MEDS: ZINC SULFATE 220 MG CAPSULE PO SCH (09:10)
[2020-04-22] MEDS: LISINOPRIL 10 MG TABLET PO SCH ×2 (09:10→21:58)
[2020-04-22] MEDS: ASCORBIC ACID 500 MG TABLET PO SCH ×2 (09:10→17:30)
[2020-04-22] MEDS: DULOXETINE HCL 30 MG CAPSULE.DR PO SCH (09:10)
[2020-04-22] MEDS: CITALOPRAM HYDROBROMIDE 20 MG TABLET PO SCH (09:11)
[2020-04-22] MEDS: DONEPEZIL HCL 5 MG TABLET PO SCH (09:11)
[2020-04-22] MEDS: CHOLECALCIFEROL (D3) 1,000 UNIT (25 MCG) TABLET PO SCH (09:11)
[2020-04-22] MEDS: ENOXAPARIN SODIUM INJ 100 MG/1 ML DISP.SYRIN SUBCUT SCH ×2 (09:11→22:00)
[2020-04-22] MEDS: CARBAMAZEPINE SUSP 200 MG/10 ML UDCUP PO SCH ×2 (09:12→21:58)
[2020-04-22] MEDS: FLUTICASONE NASAL SPRAY 50 MCG/SPRY 120 SPRAY/16 GM NASL SCH ×2 (09:12→22:20)
[2020-04-22] MEDS: CALCIUM CARBONATE 600 MG/VITAMIN D3 400 UNIT TABLET PO SCH (09:13)
--- NOTE | 2020-04-22 12:31 | PDOC PROGRESS REPORT ---
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 Most of the history taken from his because the patient has dementia from a head injury. According to the he started becoming weak and more lethargic 3 days prior with poor appetite. He has some minimal cough but no SOB. He developed a fever of 102 today and he was supposed to be taken to his PCP but he was very weak and could not get out of bed hence he was taken to the emergency room. In the ED, BP was 117/62, HR 77, RR 18, O2sat 96% on room air. CBC showed mild leukopenia. CMP showed a potassium of 3 .0, crea of 1.28. CXR did not show any pneumonia. Rapid COVID test was positive. Patient was given LR bolus, potassium supplements and hospitalist service was called to admit the patient. I spoke to the patients and told her that he will be admitted to the COVID unit for observation and if he requires oxygen he will be started on remdesivir. However, she does not want to be away from him as she is concerned that he will get agitated and confused if she is not with him. She would like to take him home however she cannot take care of him by herself as she has no one to help her and she is old as well. 04/22/2020. No acute events overnight. Patient resting in bed, on supplemental oxygen, alert and oriented, pleasant and cooperative with physical examination. Complaining of generalized weakness, easily gets winded upon exertion, denies any fever, chills, nausea, vomiting. Reason For Visit: COVID 19 VIRUS INFECTION Physical Exam Vital Signs: Temp Pulse Resp BP Pulse Ox 98.1 F 78 20 125/64 95 04/22/20 11:44 04/22/20 11:44 04/22/20 11:44 04/22/20 11:44 04/22/20 11:44 Intake & Output 04/21/20 04/22/20 04/23/20 06:59 06:59 06:59 Intake Total 2148 2240 Balance 2148 2240 Weight 89.6 kg 88.7 kg 88.7 kg General appearance: PRESENT: no acute distress, well-developed, well-nourished Head exam: PRESENT: atraumatic, normocephalic Neck exam: ABSENT: carotid bruit, JVD, lymphadenopathy, thyromegaly Respiratory exam: PRESENT: clear to auscultation ejnelle. ABSENT: rales, rhonchi, wheezes Cardiovascular exam: PRESENT: RRR. ABSENT: diastolic murmur, rubs, systolic murmur Extremities exam: PRESENT: full ROM. ABSENT: calf tenderness, clubbing, pedal edema Neurological exam: PRESENT: alert, awake, oriented to person, oriented to place, CN II-XII grossly intact. ABSENT: motor sensory deficit Results Laboratory Results: 04/22/20 04:48 04/22/20 04:48 04/22/20 04/22/20 04:48 04:48 WBC 7.3 RBC 3.39 L Hgb 10.4 L Hct 30.2 L MCV 89 MCH 30.8 MCHC 34.6 RDW 14.3 H Plt Count 151 Sodium 135.6 L Potassium 4.4 Chloride 101 Carbon Dioxide 28 Anion Gap 7 BUN 15 Creatinine 0.70 Est GFR ( Amer) > 60 Glucose 123 H Calcium 8.5 04/03/20 04/03/20 15:00 15:00 Creatine Kinase 116 Troponin I 0.035 Impressions: Venous Doppler Study 04/03/20 00:00 IMPRESSION: No evidence of deep venous thrombosis in the bilateral upper extremities. Chest X-Ray 04/12/20 00:00 IMPRESSION: Interval development of patchy airspace opacities suggests developing multi lobar pneumonia. Given distribution, recommend consideration for atypical etiologies to include viral/COVID in treatment planning. KUB X-Ray 04/16/20 00:00 IMPRESSION: NON-SPECIFIC BOWEL GAS PATTERN WITHOUT EVIDENCE FOR OBSTRUCTION. Modified Barium Swallow 04/20/20 00:00 IMPRESSION: INTERMITTENT TRACHEAL ASPIRATION WITH THIN BARIUM. LARYNGEAL PENETRATION WITH NECTAR THICK CONSISTENCY. PLEASE SEE SPEECH PATHOLOGIST REPORT FOR OTHER FINDINGS AND RECOMMENDATIONS. Assessment and Plan - Diagnosis (1) Acute hypoxemic respiratory failure Is this a current diagnosis for this admission?: Yes Plan: Due to COVID-19 pneumonia. Oxygen demand decreasing, currently on Oxymizer 7 L. s/p 2 doses of ivermectin, high dose steroids, and convalescent plasma Fevers have resolved and oxygen needs are decreasing steadily D-dimer is trending down, but remains elevated, so he is on therapeutic Lovenox dose Continue to wean down O2 as tolerated PRN goal >92% At baseline patient uses supplemental oxygen 2 L per nasal cannula. (2) Pneumonia due to COVID-19 virus Is this a current diagnosis for this admission?: Yes Plan: Plan as per #1. (3) Constipation Qualifiers: Constipation type: unspecified constipation type Qualified Code(s): K59.00 - Constipation, unspecified Is this a current diagnosis for this admission?: Yes Plan: Had one bowel movement yesterday. Continue current bowel regimen. (4) Dehydration Is this a current diagnosis for this admission?: Yes Plan: Euvolemic. Monitor volume status. Encourage p.o. intake. (5) Dementia Qualifiers: Dementia type: other frontotemporal dementia Dementia behavioral disturbance: without behavioral disturbance Qualified Code(s): G31.09 - Other frontotemporal dementia; F02.80 - Dementia in other diseases classified elsewhere without behavioral disturbance Is this a current diagnosis for this admission?: Yes Plan: Alert and oriented, pleasant, cooperative with physical examination. 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 Supportive measures. (6) Dysphagia Is this a current diagnosis for this admission?: Yes Plan: Due to dementia and possibly worsened with in-hospital delirium. 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 Continue on nectar thick liquids as he failed MBBS on 04/20/2020. Aspiration precautions. (7) Generalized weakness Is this a current diagnosis for this admission?: Yes Plan: Due to COVID-19 pneumonia. PT/OT. Outpatient PT. (8) History of prostate cancer Is this a current diagnosis for this admission?: Yes Plan: Resume home meds. Outpatient PCP and oncology follow-up. (9) Hyperlipidemia Qualifiers: Hyperlipidemia type: unspecified Qualified Code(s): E78.5 - Hyperlipidemia, unspecified Is this a current diagnosis for this admission?: Yes Plan: Continue statins. (10) Hypertension Qualifiers: Hypertension type: essential hypertension Qualified Code(s): I10 - Essential (primary) hypertension Is this a current diagnosis for this admission?: Yes Plan: Euvolemic. Normotensive. Continue current meds. Adjust meds as needed. Monitor vitals. - Plan Summary Summary: Acute hypoxemic respiratory failure Pneumonia due to COVID-19 virus s/p 2 doses of ivermectin, high dose steroids, and convalescent plasma Fevers have resolved and oxygen needs are decreasing steadily D-dimer is trending down, but remains elevated, so he is on therapeutic Lovenox dose continue to wean down O2 as tolerated PRN goal >92% VLADISLAV-continue CPAP when sleeping Labile BP-very sensitive to medication adjustments Dehydration-resolved with IV fluids Dysphagia-due to dementia and possibly worsened with in-hospital delirium. 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 Remains on nectar thick liquids as he failed MBBS on 04/20/2020. Dementia-continue Aricept Anxiety depression-continue duloxetine, Tegretol and citalopram History prostate cancer-continue leuprolide Nausea and vomiting-was felt to be due to constipation. Instituted bowel regimen and reglan. Now resolved. Constipation-resolved with bowel regimen. - Time Time Spent with patient: 35 or more minutes Medications reviewed and adjusted accordingly: Yes Anticipated Discharge Disposition: Home with Home Health Anticipated Discharge Timeframe: within 48 hours
[2020-04-22] MEDS ORDERED: LABETALOL HCL INJ 20 MG/4 ML DISP.SYRIN IV PRN (18:19)
[2020-04-22] MEDS: ATORVASTATIN CALCIUM 10 MG TABLET PO SCH (21:58)
[2020-04-22] MEDS: AMLODIPINE BESYLATE 5 MG TABLET PO SCH (21:59)
[2020-04-23] MEDS: METHYLPREDNISOLONE INJ 125 MG/2 ML SDV IV SCH ×3 (05:00→21:09)
[2020-04-23 06:36] LABS: HEMATOCRIT 25.9 % (37.9-51.0); HEMOGLOBIN 8.9 g/dL (13.5-17.0); MEAN CORPUSCULAR HEMOGLOBIN 30.4 pg (27.0-33.4); MEAN CORPUSCULAR HGB CONC 34.5 g/dL (32.0-36.0); MEAN CORPUSCULAR VOLUME 88 fl (80-97); PLATELET COUNT 142 10^3/uL (150-450); RED BLOOD COUNT 2.95 10^6/uL (4.35-5.55); RED CELL DISTRIBUTION WIDTH 14.7 % (11.5-14.0)
[2020-04-23 07:09] LABS: BLOOD UREA NITROGEN 16 mg/dL (7-20); CALCIUM 8.3 mg/dL (8.4-10.2); CARBON DIOXIDE 29 mmol/L (22-30); CHLORIDE 102 mmol/L (98-107); GLUCOSE 110 mg/dL (75-110)
[2020-04-23 07:23] LABS: ANION GAP 3 (5-19)
[2020-04-23] MEDS: CITALOPRAM HYDROBROMIDE 20 MG TABLET PO SCH (10:16)
[2020-04-23] MEDS: SENNOSIDES/DOCUSATE 8.6-50 MG 1 EACH TABLET PO SCH ×2 (10:16→17:18)
[2020-04-23] MEDS: ZINC SULFATE 220 MG CAPSULE PO SCH (10:16)
[2020-04-23] MEDS: ASPIRIN 81 MG TABLET, CHEWABLE PO SCH (10:16)
[2020-04-23] MEDS: CALCIUM CARBONATE 600 MG/VITAMIN D3 400 UNIT TABLET PO SCH (10:16)
[2020-04-23] MEDS: CARBAMAZEPINE SUSP 200 MG/10 ML UDCUP PO SCH ×2 (10:16→21:08)
[2020-04-23] MEDS: CHOLECALCIFEROL (D3) 1,000 UNIT (25 MCG) TABLET PO SCH (10:16)
[2020-04-23] MEDS: CYANOCOBALAMIN (VITAMIN B-12) 1,000 MCG TABLET PO SCH (10:16)
[2020-04-23] MEDS: ASCORBIC ACID 500 MG TABLET PO SCH ×2 (10:16→17:18)
[2020-04-23] MEDS: DULOXETINE HCL 30 MG CAPSULE.DR PO SCH (10:17)
[2020-04-23] MEDS: FLUTICASONE NASAL SPRAY 50 MCG/SPRY 120 SPRAY/16 GM NASL SCH ×2 (10:17→21:12)
[2020-04-23] MEDS: DONEPEZIL HCL 5 MG TABLET PO SCH (10:17)
[2020-04-23] MEDS: LISINOPRIL 10 MG TABLET PO SCH ×2 (10:17→21:08)
[2020-04-23] MEDS: ENOXAPARIN SODIUM INJ 100 MG/1 ML DISP.SYRIN SUBCUT SCH (10:18)
--- NOTE | 2020-04-23 11:37 | PDOC PROGRESS REPORT ---
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 Most of the history taken from his because the patient has dementia from a head injury. According to the he started becoming weak and more lethargic 3 days prior with poor appetite. He has some minimal cough but no SOB. He developed a fever of 102 today and he was supposed to be taken to his PCP but he was very weak and could not get out of bed hence he was taken to the emergency room. In the ED, BP was 117/62, HR 77, RR 18, O2sat 96% on room air. CBC showed mild leukopenia. CMP showed a potassium of 3 .0, crea of 1.28. CXR did not show any pneumonia. Rapid COVID test was positive. Patient was given LR bolus, potassium supplements and hospitalist service was called to admit the patient. I spoke to the patients and told her that he will be admitted to the COVID unit for observation and if he requires oxygen he will be started on remdesivir. However, she does not want to be away from him as she is concerned that he will get agitated and confused if she is not with him. She would like to take him home however she cannot take care of him by herself as she has no one to help her and she is old as well. 04/22/2020. No acute events overnight. Patient resting in bed, on supplemental oxygen, alert and oriented, pleasant and cooperative with physical examination. Complaining of generalized weakness, easily gets winded upon exertion, denies any fever, chills, nausea, vomiting. 04/23/2020. No acute events overnight. Saw patient this morning, while wearing his BiPAP, complaining of generalized weakness, alert and oriented, denies any fever, chills, nausea, vomiting. Patient still on high oxygen demand, pending transfer to SNF. Reason For Visit: COVID 19 VIRUS INFECTION Physical Exam Vital Signs: Temp Pulse Resp BP Pulse Ox 98.6 F 84 20 123/54 L 94 04/23/20 08:54 04/23/20 08:54 04/23/20 08:54 04/23/20 08:54 04/23/20 08:54 Intake & Output 04/22/20 04/23/20 04/24/20 06:59 06:59 06:59 Intake Total 2240 653 Balance 2240 653 Weight 88.7 kg 88.3 kg General appearance: PRESENT: no acute distress, well-developed, well-nourished Head exam: PRESENT: atraumatic, normocephalic Respiratory exam: PRESENT: decreased breath sounds. ABSENT: rales, rhonchi, wheezes Cardiovascular exam: PRESENT: RRR. ABSENT: diastolic murmur, rubs, systolic murmur GI/Abdominal exam: PRESENT: normal bowel sounds, soft. ABSENT: distended, guarding, mass, organolmegaly, rebound, tenderness Neurological exam: PRESENT: alert, awake, oriented to person, oriented to place, CN II-XII grossly intact. ABSENT: motor sensory deficit Results Laboratory Results: 04/23/20 06:15 04/23/20 06:15 04/23/20 04/23/20 06:15 06:15 WBC 8.0 RBC 2.95 L Hgb 8.9 L Hct 25.9 L MCV 88 MCH 30.4 MCHC 34.5 RDW 14.7 H Plt Count 142 L Sodium 133.7 L Potassium 4.0 Chloride 102 Carbon Dioxide 29 Anion Gap 3 L BUN 16 Creatinine 0.80 Est GFR ( Amer) > 60 Glucose 110 Calcium 8.3 L 04/03/20 04/03/20 15:00 15:00 Creatine Kinase 116 Troponin I 0.035 Impressions: Venous Doppler Study 04/03/20 00:00 IMPRESSION: No evidence of deep venous thrombosis in the bilateral upper extremities. Chest X-Ray 04/12/20 00:00 IMPRESSION: Interval development of patchy airspace opacities suggests developing multi lobar pneumonia. Given distribution, recommend consideration for atypical etiologies to include viral/COVID in treatment planning. KUB X-Ray 04/16/20 00:00 IMPRESSION: NON-SPECIFIC BOWEL GAS PATTERN WITHOUT EVIDENCE FOR OBSTRUCTION. Modified Barium Swallow 04/20/20 00:00 IMPRESSION: INTERMITTENT TRACHEAL ASPIRATION WITH THIN BARIUM. LARYNGEAL PENETRATION WITH NECTAR THICK CONSISTENCY. PLEASE SEE SPEECH PATHOLOGIST REPORT FOR OTHER FINDINGS AND RECOMMENDATIONS. Assessment and Plan - Diagnosis (1) Acute hypoxemic respiratory failure Is this a current diagnosis for this admission?: Yes Plan: Due to COVID-19 pneumonia. Oxygen demand decreasing, currently on Oxymizer 7 L. s/p 2 doses of ivermectin, high dose steroids, and convalescent plasma Fevers have resolved and oxygen needs are decreasing steadily D-dimer is trending down, but remains elevated, so he is on therapeutic Lovenox dose Continue to wean down O2 as tolerated PRN goal >92% At baseline patient uses supplemental oxygen 2 L per nasal cannula. (2) Pneumonia due to COVID-19 virus Is this a current diagnosis for this admission?: Yes Plan: Plan as per #1. (3) Constipation Qualifiers: Constipation type: unspecified constipation type Qualified Code(s): K59.00 - Constipation, unspecified Is this a current diagnosis for this admission?: Yes Plan: Had one bowel movement yesterday. Continue current bowel regimen. (4) Dehydration Is this a current diagnosis for this admission?: Yes Plan: Euvolemic. Monitor volume status. Encourage p.o. intake. (5) Dementia Qualifiers: Dementia type: other frontotemporal dementia Dementia behavioral disturbance: without behavioral disturbance Qualified Code(s): G31.09 - Other frontotemporal dementia; F02.80 - Dementia in other diseases classified els ewhere without behavioral disturbance Is this a current diagnosis for this admission?: Yes Plan: Alert and oriented, pleasant, cooperative with physical examination. 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 Supportive measures. (6) Dysphagia Is this a current diagnosis for this admission?: Yes Plan: Due to dementia and possibly worsened with in-hospital delirium. 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 Continue on nectar thick liquids as he failed MBBS on 04/20/2020. Aspiration precautions. (7) Generalized weakness Is this a current diagnosis for this admission?: Yes Plan: Due to COVID-19 pneumonia. PT/OT. Pending transfer to SNF. (8) History of prostate cancer Is this a current diagnosis for this admission?: Yes Plan: Resume home meds. Outpatient PCP and oncology follow-up. (9) Hyperlipidemia Qualifiers: Hyperlipidemia type: unspecified Qualified Code(s): E78.5 - Hyperlipidemia, unspecified Is this a current diagnosis for this admission?: Yes Plan: Continue statins. (10) Hypertension Qualifiers: Hypertension type: essential hypertension Qualified Code(s): I10 - Essential (primary) hypertension Is this a current diagnosis for this admission?: Yes Plan: Euvolemic. Normotensive. Continue current meds. Adjust meds as needed. Monitor vitals. - Plan Summary Summary: Acute hypoxemic respiratory failure Pneumonia due to COVID-19 virus s/p 2 doses of ivermectin, high dose steroids, and convalescent plasma Fevers have resolved and oxygen needs are decreasing steadily D-dimer is trending down, but remains elevated, so he is on therapeutic Lovenox dose continue to wean down O2 as tolerated PRN goal >92% VLADISLAV-continue CPAP when sleeping Labile BP-very sensitive to medication adjustments Dehydration-resolved with IV fluids Dysphagia-due to dementia and possibly worsened with in-hospital delirium. 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 Remains on nectar thick liquids as he failed MBBS on 04/20/2020. Dementia-continue Aricept Anxiety depression-continue duloxetine, Tegretol and citalopram History prostate cancer-continue leuprolide Nausea and vomiting-was felt to be due to constipation. Instituted bowel regimen and reglan. Now resolved. Constipation-resolved with bowel regimen. - Time Time Spent with patient: 25-34 minutes [facility] Anticipated Discharge Timeframe: when bed available
[2020-04-23] MEDS: ATORVASTATIN CALCIUM 10 MG TABLET PO SCH (21:08)
[2020-04-24] MEDS: METHYLPREDNISOLONE INJ 125 MG/2 ML SDV IV SCH ×3 (05:05→21:12)
[2020-04-24 07:32] LABS: HEMATOCRIT 27.3 % (37.9-51.0); HEMOGLOBIN 9.4 g/dL (13.5-17.0); MEAN CORPUSCULAR HEMOGLOBIN 30.7 pg (27.0-33.4); MEAN CORPUSCULAR HGB CONC 34.6 g/dL (32.0-36.0); MEAN CORPUSCULAR VOLUME 89 fl (80-97); PLATELET COUNT 152 10^3/uL (150-450); RED BLOOD COUNT 3.07 10^6/uL (4.35-5.55); RED CELL DISTRIBUTION WIDTH 14.7 % (11.5-14.0); WHITE BLOOD COUNT 9.7 10^3/uL (4.0-10.5)
[2020-04-24 07:58] LABS: BLOOD UREA NITROGEN 17 mg/dL (7-20); CALCIUM 8.4 mg/dL (8.4-10.2); CHLORIDE 101 mmol/L (98-107); GLUCOSE 115 mg/dL (75-110); POTASSIUM 4.2 mmol/L (3.6-5.0)
[2020-04-24 08:03] LABS: CARBON DIOXIDE 31 mmol/L (22-30)
[2020-04-24 08:22] LABS: ANION GAP 1 (5-19)
[2020-04-24] MEDS: SENNOSIDES/DOCUSATE 8.6-50 MG 1 EACH TABLET PO SCH ×2 (10:35→17:46)
[2020-04-24] MEDS: ASPIRIN 81 MG TABLET, CHEWABLE PO SCH (10:35)
[2020-04-24] MEDS: LISINOPRIL 10 MG TABLET PO SCH ×2 (10:35→21:12)
[2020-04-24] MEDS: DONEPEZIL HCL 5 MG TABLET PO SCH (10:35)
[2020-04-24] MEDS: CALCIUM CARBONATE 600 MG/VITAMIN D3 400 UNIT TABLET PO SCH (10:35)
[2020-04-24] MEDS: DULOXETINE HCL 30 MG CAPSULE.DR PO SCH (10:35)
[2020-04-24] MEDS: ASCORBIC ACID 500 MG TABLET PO SCH ×2 (10:35→17:46)
[2020-04-24] MEDS: CYANOCOBALAMIN (VITAMIN B-12) 1,000 MCG TABLET PO SCH (10:35)
[2020-04-24] MEDS: ZINC SULFATE 220 MG CAPSULE PO SCH (10:36)
[2020-04-24] MEDS: ENOXAPARIN SODIUM INJ 60 MG/0.6 ML DISP.SYRIN SUBCUT SCH (10:36)
[2020-04-24] MEDS: FLUTICASONE NASAL SPRAY 50 MCG/SPRY 120 SPRAY/16 GM NASL SCH ×2 (10:36→21:13)
[2020-04-24] MEDS: CITALOPRAM HYDROBROMIDE 20 MG TABLET PO SCH (10:36)
[2020-04-24] MEDS: CHOLECALCIFEROL (D3) 1,000 UNIT (25 MCG) TABLET PO SCH (10:36)
[2020-04-24] MEDS: CARBAMAZEPINE SUSP 200 MG/10 ML UDCUP PO SCH ×2 (10:36→21:12)
--- NOTE | 2020-04-24 11:05 | PDOC PROGRESS REPORT ---
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 Most of the history taken from his because the patient has dementia from a head injury. According to the he started becoming weak and more lethargic 3 days prior with poor appetite. He has some minimal cough but no SOB. He developed a fever of 102 today and he was supposed to be taken to his PCP but he was very weak and could not get out of bed hence he was taken to the emergency room. In the ED, BP was 117/62, HR 77, RR 18, O2sat 96% on room air. CBC showed mild leukopenia. CMP showed a potassium of 3 .0, crea of 1.28. CXR did not show any pneumonia. Rapid COVID test was positive. Patient was given LR bolus, potassium supplements and hospitalist service was called to admit the patient. I spoke to the patients and told her that he will be admitted to the COVID unit for observation and if he requires oxygen he will be started on remdesivir. However, she does not want to be away from him as she is concerned that he will get agitated and confused if she is not with him. She would like to take him home however she cannot take care of him by herself as she has no one to help her and she is old as well. 04/22/2020. No acute events overnight. Patient resting in bed, on supplemental oxygen, alert and oriented, pleasant and cooperative with physical examination. Complaining of generalized weakness, easily gets winded upon exertion, denies any fever, chills, nausea, vomiting. 04/23/2020. No acute events overnight. Saw patient this morning, while wearing his BiPAP, complaining of generalized weakness, alert and oriented, denies any fever, chills, nausea, vomiting. Patient still on high oxygen demand, pending transfer to SNF. 04/24/2020. No acute events overnight, still on Oxymizer at 15 L, complains of generalized weakness, refusing to have physical therapy otherwise awake and alert, does not appear to be in any apparent distress, pleasant and cooperative with physical examination. Reason For Visit: COVID 19 VIRUS INFECTION Physical Exam Vital Signs: Temp Pulse Resp BP Pulse Ox 98.5 F 80 24 H 133/85 H 98 04/24/20 07:51 04/24/20 07:51 04/24/20 07:51 04/24/20 07:51 04/24/20 07:51 Intake & Output 04/23/20 04/24/20 04/25/20 06:59 06:59 06:59 Intake Total 653 855 Balance 653 855 Weight 88.3 kg 87.8 kg General appearance: PRESENT: no acute distress, mild distress, other - Appears weak Head exam: PRESENT: atraumatic, normocephalic Respiratory exam: PRESENT: clear to auscultation jenelle. ABSENT: rales, rhonchi, wheezes Cardiovascular exam: PRESENT: RRR. ABSENT: diastolic murmur, rubs, systolic murmur GI/Abdominal exam: PRESENT: normal bowel sounds, soft. ABSENT: distended, guarding, mass, organolmegaly, rebound, tenderness Neurological exam: PRESENT: alert, awake, oriented to person, oriented to place, CN II-XII grossly intact. ABSENT: motor sensory deficit Results Laboratory Results: 04/24/20 07:20 04/24/20 07:20 04/24/20 04/24/20 07:20 07:20 WBC 9.7 RBC 3.07 L Hgb 9.4 L Hct 27.3 L MCV 89 MCH 30.7 MCHC 34.6 RDW 14.7 H Plt Count 152 Sodium 133.2 L Potassium 4.2 Chloride 101 Carbon Dioxide 31 H Anion Gap 1 L BUN 17 Creatinine 0.70 Est GFR ( Amer) > 60 Glucose 115 H Calcium 8.4 04/03/20 04/03/20 15:00 15:00 Creatine Kinase 116 Troponin I 0.035 Impressions: Venous Doppler Study 04/03/20 00:00 IMPRESSION: No evidence of deep venous thrombosis in the bilateral upper extremities. Chest X-Ray 04/12/20 00:00 IMPRESSION: Interval development of patchy airspace opacities suggests developing multi lobar pneumonia. Given distribution, recommend consideration for atypical etiologies to include viral/COVID in treatment planning. KUB X-Ray 04/16/20 00:00 IMPRESSION: NON-SPECIFIC BOWEL GAS PATTERN WITHOUT EVIDENCE FOR OBSTRUCTION. Modified Barium Swallow 04/20/20 00:00 IMPRESSION: INTERMITTENT TRACHEAL ASPIRATION WITH THIN BARIUM. LARYNGEAL PENETRATION WITH NECTAR THICK CONSISTENCY. PLEASE SEE SPEECH PATHOLOGIST REPORT FOR OTHER FINDINGS AND RECOMMENDATIONS. Assessment and Plan - Diagnosis (1) Acute hypoxemic respiratory failure Is this a current diagnosis for this admission?: Yes Plan: Due to COVID-19 pneumonia. Oxygen demand decreasing, currently on Oxymizer 15 L. s/p 2 doses of ivermectin, high dose steroids, and convalescent plasma Fevers have resolved and oxygen needs are decreasing steadily D-dimer is trending down, but remains elevated, so he is on therapeutic Lovenox dose Continue to wean down O2 as tolerated PRN goal >92% At baseline patient uses supplemental oxygen 2 L per nasal cannula. (2) Pneumonia due to COVID-19 virus Is this a current diagnosis for this admission?: Yes Plan: Plan as per #1. (3) Constipation Qualifiers: Constipation type: unspecified constipation type Qualified Code(s): K59.00 - Constipation, unspecified Is this a current diagnosis for this admission?: Yes Plan: Resolved. Continue current bowel regimen. (4) Dehydration Is this a current diagnosis for this admission?: Yes Plan: Euvolemic. Monitor volume status. Encourage p.o. intake. (5) Dementia Qualifiers: Dementia type: other frontotemporal dementia Dementia behavioral disturbance: without behavioral disturbance Qualified Code(s): G31.09 - Other frontotemporal dementia; F02.80 - Dementia in other diseases classified elsewhere without behavioral disturbance Is this a current diagnosis for this admission?: Yes Plan: Alert and oriented, pleasant, cooperative with physical examination. 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 Supportive measures. (6) Dysphagia Is this a current diagnosis for this admission?: Yes Plan: Due to dementia and possibly worsened with in-hospital delirium. 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 Continue on nectar thick liquids as he failed MBBS on 04/20/2020. Aspiration precautions. (7) Generalized weakness Is this a current diagnosis for this admission?: Yes Plan: Due to COVID-19 pneumonia. Refusing physical therapy. Encouraged to continue PT/OT. Pending transfer to SNF. (8) History of prostate cancer Is this a current diagnosis for this admission?: Yes Plan: Resume home meds. Outpatient PCP and oncology follow-up. (9) Hyperlipidemia Qualifiers: Hyperlipidemia type: unspecified Qualified Code(s): E78.5 - Hyperlipidemia, unspecified Is this a current diagnosis for this admission?: Yes Plan: Continue statins. (10) Hypertension Qualifiers: Hypertension type: essential hypertension Qualified Code(s): I10 - Essential (primary) hypertension Is this a current diagnosis for this admission?: Yes Plan: Euvolemic. Normotensive. Continue current meds. Adjust meds as needed. Monitor vitals. - Plan Summary Summary: Acute hypoxemic respiratory failure Pneumonia due to COVID-19 virus s/p 2 doses of ivermectin, high dose steroids, and convalescent plasma Fevers have resolved and oxygen needs are decreasing steadily D-dimer is trending down, but remains elevated, so he is on therapeutic Lovenox dose continue to wean down O2 as tolerated PRN goal >92% VLADISLAV-continue CPAP when sleeping Labile BP-very sensitive to medication adjustments Dehydration-resolved with IV fluids Dysphagia-due to dementia and possibly worsened with in-hospital delirium. 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 Remains on nectar thick liquids as he failed MBBS on 04/20/2020. Dementia-continue Aricept Anxiety depression-continue duloxetine, Tegretol and citalopram History prostate cancer-continue leuprolide Nausea and vomiting-was felt to be due to constipation. Instituted bowel regimen and reglan. Now resolved. Constipation-resolved with bowel regimen. - Time Time Spent with patient: 35 or more minutes Anticipated Discharge Disposition: [facility] Facility Anticipated Discharge Timeframe: when bed available
[2020-04-24] MEDS: ATORVASTATIN CALCIUM 10 MG TABLET PO SCH (21:12)
[2020-04-25] MEDS: METHYLPREDNISOLONE INJ 125 MG/2 ML SDV IV SCH (06:02)
--- NOTE | 2020-04-25 10:25 | PDOC PROGRESS REPORT ---
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 Most of the history taken from his because the patient has dementia from a head injury. According to the he started becoming weak and more lethargic 3 days prior with poor appetite. He has some minimal cough but no SOB. He developed a fever of 102 today and he was supposed to be taken to his PCP but he was very weak and could not get out of bed hence he was taken to the emergency room. In the ED, BP was 117/62, HR 77, RR 18, O2sat 96% on room air. CBC showed mild leukopenia. CMP showed a potassium of 3 .0, crea of 1.28. CXR did not show any pneumonia. Rapid COVID test was positive. Patient was given LR bolus, potassium supplements and hospitalist service was called to admit the patient. I spoke to the patients and told her that he will be admitted to the COVID unit for observation and if he requires oxygen he will be started on remdesivir. However, she does not want to be away from him as she is concerned that he will get agitated and confused if she is not with him. She would like to take him home however she cannot take care of him by herself as she has no one to help her and she is old as well. 04/22/2020. No acute events overnight. Patient resting in bed, on supplemental oxygen, alert and oriented, pleasant and cooperative with physical examination. Complaining of generalized weakness, easily gets winded upon exertion, denies any fever, chills, nausea, vomiting. 04/23/2020. No acute events overnight. Saw patient this morning, while wearing his BiPAP, complaining of generalized weakness, alert and oriented, denies any fever, chills, nausea, vomiting. Patient still on high oxygen demand, pending transfer to SNF. 04/24/2020. No acute events overnight, still on Oxymizer at 15 L, complains of generalized weakness, refusing to have physical therapy otherwise awake and alert, does not appear to be in any apparent distress, pleasant and cooperative with physical examination. 04/25/2020. No acute events overnight. Patient alert and oriented in no apparent distress, stating that he is feeling better than yesterday, oxygen demand is steadily going down, hopefully patient can be weaned down where he can be transferred to rehab where he can continue his rehab. Denies any fever, chills, nausea, vomiting. P.o. tolerant. Having normal bowel movements. Reason For Visit: COVID 19 VIRUS INFECTION Physical Exam Vital Signs: Temp Pulse Resp BP Pulse Ox 97.9 F 91 18 137/86 H 95 04/25/20 08:19 04/25/20 08:19 04/25/20 08:19 04/25/20 08:19 04/25/20 08:19 Intake & Output 04/24/20 04/25/20 04/26/20 06:59 06:59 06:59 Intake Total 855 357 Balance 855 357 Weight 87.8 kg 87 kg General appearance: PRESENT: no acute distress, well-developed, well-nourished, other - Appears very weak. Head exam: PRESENT: atraumatic, normocephalic Respiratory exam: PRESENT: clear to auscultation jenelle. ABSENT: rales, rhonchi, wheezes Cardiovascular exam: PRESENT: RRR. ABSENT: diastolic murmur, rubs, systolic murmur GI/Abdominal exam: PRESENT: normal bowel sounds, soft. ABSENT: distended, guarding, mass, organolmegaly, rebound, tenderness Neurological exam: PRESENT: alert, awake, oriented to person, oriented to place, CN II-XII grossly intact. ABSENT: motor sensory deficit Results Laboratory Results: 04/24/20 07:20 04/24/20 07:20 04/03/20 04/03/20 15:00 15:00 Creatine Kinase 116 Troponin I 0.035 Impressions: Venous Doppler Study 04/03/20 00:00 IMPRESSION: No evidence of deep venous thrombosis in the bilateral upper extremities. Chest X-Ray 04/12/20 00:00 IMPRESSION: Interval development of patchy airspace opacities suggests developing multi lobar pneumonia. Given distribution, recommend consideration for atypical etiologies to include viral/COVID in treatment planning. KUB X-Ray 04/16/20 00:00 IMPRESSION: NON-SPECIFIC BOWEL GAS PATTERN WITHOUT EVIDENCE FOR OBSTRUCTION. Modified Barium Swallow 04/20/20 00:00 IMPRESSION: INTERMITTENT TRACHEAL ASPIRATION WITH THIN BARIUM. LARYNGEAL PENETRATION WITH NECTAR THICK CONSISTENCY. PLEASE SEE SPEECH PATHOLOGIST REPORT FOR OTHER FINDINGS AND RECOMMENDATIONS. Assessment and Plan - Diagnosis (1) Acute hypoxemic respiratory failure Is this a current diagnosis for this admission?: Yes Plan: Due to COVID-19 pneumonia. Oxygen demand decreasing, currently on Oxymizer 12 L. s/p 2 doses of ivermectin, high dose steroids, and convalescent plasma Fevers have resolved and oxygen needs are decreasing steadily D-dimer is trending down, but remains elevated, so he is on therapeutic Lovenox dose Continue to wean down O2 as tolerated PRN goal >92% At baseline patient uses supplemental oxygen 2 L per nasal cannula. Plan is to wean down oxygen as tolerated and hopefully patient can be transferred to SNF. (2) Pneumonia due to COVID-19 virus Is this a current diagnosis for this admission?: Yes Plan: Plan as per #1. (3) Constipation Qualifiers: Constipation type: unspecified constipation type Qualified Code(s): K59.00 - Constipation, unspecified Is this a current diagnosis for this admission?: Yes Plan: Resolved. Continue current bowel regimen. (4) Dehydration Is this a current diagnosis for this admission?: Yes Plan: Euvolemic. Monitor volume status. Encourage p.o. intake. (5) Dementia Qualifiers: Dementia type: other frontotemporal dementia Dementia behavioral disturbance: without behavioral disturbance Qualified Code(s): G31.09 - Other frontotemporal dementia; F02.80 - Dementia in other diseases classified elsewhere without behavioral disturbance Is this a current diagnosis for this admission?: Yes Plan: Alert and oriented, pleasant, cooperative with physical examination. 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 Supportive measures. (6) Dysphagia Is this a current diagnosis for this admission?: Yes Plan: Due to dementia and possibly worsened with in-hospital delirium. 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 Continue on nectar thick liquids as he failed MBBS on 04/20/2020. Aspiration precautions. (7) Generalized weakness Is this a current diagnosis for this admission?: Yes Plan: Due to COVID-19 pneumonia. Refusing physical therapy. Encouraged to continue PT/OT. Pending transfer to SNF. (8) History of prostate cancer Is this a current diagnosis for this admission?: Yes Plan: Resume home meds. Outpatient PCP and oncology follow-up. (9) Hyperlipidemia Qualifiers: Hyperlipidemia type: unspecified Qualified Code(s): E78.5 - Hyperlipidemia, unspecified Is this a current diagnosis for this admission?: Yes Plan: Continue statins. (10) Hypertension Qualifiers: Hypertension type: essential hypertension Qualified Code(s): I10 - Essential (primary) hypertension Is this a current diagnosis for this admission?: Yes Plan: Euvolemic. Normotensive. Continue current meds. Adjust meds as needed. Monitor vitals. - Plan Summary Summary: Acute hypoxemic respiratory failure Pneumonia due to COVID-19 virus s/p 2 doses of ivermectin, high dose steroids, and convalescent plasma Fevers have resolved and oxygen needs are decreasing steadily D-dimer is trending down, but remains elevated, so he is on therapeutic Lovenox dose continue to wean down O2 as tolerated PRN goal >92% VLADISLAV-continue CPAP when sleeping Labile BP-very sensitive to medication adjustments Dehydration-resolved with IV fluids Dysphagia-due to dementia and possibly worsened with in-hospital delirium. 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 Remains on nectar thick liquids as he failed MBBS on 04/20/2020. Dementia-continue Aricept Anxiety depression-continue duloxetine, Tegretol and citalopram History prostate cancer-continue leuprolide Nausea and vomiting-was felt to be due to constipation. Instituted bowel regimen and reglan. Now resolved. Constipation-resolved with bowel regimen. - Time Time Spent with patient: 35 or more minutes Anticipated Discharge Disposition: Residential Facility Anticipated Discharge Timeframe: within 24 hours
[2020-04-25] MEDS: ASPIRIN 81 MG TABLET, CHEWABLE PO SCH (10:27)
[2020-04-25] MEDS: ASCORBIC ACID 500 MG TABLET PO SCH ×2 (10:27→17:41)
[2020-04-25] MEDS: CALCIUM CARBONATE 600 MG/VITAMIN D3 400 UNIT TABLET PO SCH (10:27)
[2020-04-25] MEDS: DONEPEZIL HCL 5 MG TABLET PO SCH (10:27)
[2020-04-25] MEDS: ZINC SULFATE 220 MG CAPSULE PO SCH (10:27)
[2020-04-25] MEDS: SENNOSIDES/DOCUSATE 8.6-50 MG 1 EACH TABLET PO SCH ×2 (10:27→17:41)
[2020-04-25] MEDS: LISINOPRIL 10 MG TABLET PO SCH ×2 (10:27→22:54)
[2020-04-25] MEDS: ENOXAPARIN SODIUM INJ 60 MG/0.6 ML DISP.SYRIN SUBCUT SCH (10:28)
[2020-04-25] MEDS: DULOXETINE HCL 30 MG CAPSULE.DR PO SCH (10:28)
[2020-04-25] MEDS: CITALOPRAM HYDROBROMIDE 20 MG TABLET PO SCH (10:28)
[2020-04-25] MEDS: CYANOCOBALAMIN (VITAMIN B-12) 1,000 MCG TABLET PO SCH (10:29)
[2020-04-25] MEDS: CARBAMAZEPINE SUSP 200 MG/10 ML UDCUP PO SCH ×2 (10:29→22:52)
[2020-04-25] MEDS: CHOLECALCIFEROL (D3) 1,000 UNIT (25 MCG) TABLET PO SCH (10:30)
[2020-04-25] MEDS: FLUTICASONE NASAL SPRAY 50 MCG/SPRY 120 SPRAY/16 GM NASL SCH ×2 (10:50→23:12)
--- NOTE | 2020-04-25 14:48 | ST Inp Modified Barium Swallow ---
Medical Diagnosis - Medical Diagnoses Medical Diagnosis Description & ICD-10 Code(s): acute respiratory failure, pneumonia due to COVID-19 - ICD-10 Tx Diagnosis Coding (1) Dysphagia ICD-10 Code(s): R13.10 - DYSPHAGIA, UNSPECIFIED ST Inpatient MBS - General Date: 04/25/20 Date of Onset: 04/18/20 - History Medical History: Patient had prior MBSS on 04/20/20, aspiration was seen on thin liquids x2. Patient has been participating with dysphagia therapy and demonstrating improved function at bedside, follow up MBSS indicated prior to di et upgrade. Medications: Medications Reviewed Allergies: Refer to medical record - Subjective Current Nutritional Means: PO Current PO Diet: Mechanical- ground, Thickened liquids - nectar Current Symptoms: Coughing, Pneumonia Pain: Patient reports, 0/5 - Objective Assessment: Upright, Left Lateral - Food Trials Food Trials Used: Thin liquids, [place] thick liquids, Pureed The Patient: Was Able to Self Feed - Assessment Labial Function: Within Normal Limits Lingual Function: Within Normal Limits Mandibular Function: Within Normal Limits Dentition: Partial Velo-Pharyngeal Function: Unremarkable Laryngeal Function: hoarse - Pharyngeal Stage Initiation of Pharyngeal Stage: Delayed - mild Decreased Laryngeal Elevation: No Reduced Velo-Pharyngeal Closure: no Reduced Pressure Generation: Yes - mild Pre-Swallowing Pooling in Valleculae: Moderate Pre-Swallowing Pooling in Pyriforms: Mild Reduced Thyro-Hyiod Approximation: Yes Reduced Epiglottic Excursion: No Multiple Swallows With: Cleared w/ Dry Swallow Post Swallow Residuals in Valleculae: Mild Post Swallow Residuals in Pyriforms: None - Impression/Summary Laryngeal Penetration: Yes - penetration on the swallow with thin liquids, after the swallow from valleculae with nectar liquids. All penetration was silent. Tracheal Aspiration: yes - aspiration seen x1 with residuals from nectar thick liquid after the swallow, cough reflex seen Effective Clearing: partial clearing Patient Presents With: Pharyngeal stage dysph. - mild Risk of Aspiration: Mild Risk Due To: While patient is at a mild aspiraiton risk, underlying respiratory status places him at higher risk of complications from aspiration. - Recommendations Solid Diet Recommendations: Mechanical Soft, Chopped Meat Liquid Diet Recommendations: Thin Strict Aspitarion Precautions: Yes Dysphagia Therapy with TYPESETTER APPRENTICE: Yes Recommended Techniques: Fully Upright During Meal, Small Bites and Sips, Alternate Bites/Sips Supervision: Distant Other Recommendations: Improved performance from last MBSS. Recommend continuing dysphagia therapy 2-3 times per week to address pharyngeal phase deficits. - Time Total Time: 30 Total Timed Minutes: 30
[2020-04-25] MEDS: METHYLPREDNISOLONE INJ 40 MG/1 ML SDV IV SCH ×2 (15:25→22:54)
--- NOTE | 2020-04-25 15:49 | RADIOLOGY REPORT (SQ) ---
EXAM DESCRIPTION: COOKIE SWALLOW IMAGES COMPLETED DATE/TIME: 04/25/2020 2:37 pm REASON FOR STUDY: potential diet upgrade, hx of silent aspiration D46.4 REFRACTORY ANEMIA, UNSPECIF IED COVID 19, follow-up COMPARISON: Modified barium swallow, cookie swallow 04/20/2020 TECHNIQUE: Videofluoroscopic swallowing examination was performed in conjunction with speech patholo gy. Videofluoroscopic imaging was obtained and reviewed and these are the findings: RADIATION DOSE: 2.6 minutes of fluoroscopy was used. 2 images saved to PACS. LIMITATIONS: None FINDINGS: The patient was brought into the fluoro room and placed upright on a modified barium swall ow chair. The patient was then given multiple consistencies mixed with barium to swallow under live fluoroscopic video guidance. According to the Speech Pathologist there was laryngeal penetration and trace aspiration of thin and nectar thick liquid. Improved from previous study. IMPRESSION: LARYNGEAL PENETRATION AND TRACE ASPIRATION OF THIN AND NECTAR THICK LIQUIDS. THIS HAS I MPROVED FROM PREVIOUS STUDY. PLEASE SEE SPEECH PATHOLOGIST REPORT FOR OTHER FINDINGS AND RECOMMENDATI ONS. COMMENT: Quality ID [id number]: Final reports for procedures using fluoroscopy that document radiation exp osure indices, or exposure time and number of fluorographic images (if radiation exposure indices are not available) TECHNICAL DOCUMENTATION: JOB ID: [id number] 2010 [employer]- All Rights Reserved Reading location - IP/workstation name: [email or web address] [id number]
[2020-04-25] MEDS: ATORVASTATIN CALCIUM 10 MG TABLET PO SCH (22:55)
[2020-04-26 05:39] LABS: HEMATOCRIT 26.2 % (37.9-51.0); HEMOGLOBIN 9.1 g/dL (13.5-17.0); MEAN CORPUSCULAR HEMOGLOBIN 31.4 pg (27.0-33.4); MEAN CORPUSCULAR HGB CONC 34.9 g/dL (32.0-36.0); MEAN CORPUSCULAR VOLUME 90 fl (80-97); PLATELET COUNT 171 10^3/uL (150-450); RED BLOOD COUNT 2.91 10^6/uL (4.35-5.55); RED CELL DISTRIBUTION WIDTH 14.6 % (11.5-14.0)
[2020-04-26] MEDS: METHYLPREDNISOLONE INJ 40 MG/1 ML SDV IV SCH ×3 (05:57→21:36)
[2020-04-26] MEDS: DONEPEZIL HCL 5 MG TABLET PO SCH (09:38)
[2020-04-26] MEDS: CITALOPRAM HYDROBROMIDE 20 MG TABLET PO SCH (09:38)
[2020-04-26] MEDS: CALCIUM CARBONATE 600 MG/VITAMIN D3 400 UNIT TABLET PO SCH (09:39)
[2020-04-26] MEDS: SENNOSIDES/DOCUSATE 8.6-50 MG 1 EACH TABLET PO SCH ×2 (09:39→17:34)
[2020-04-26] MEDS: LISINOPRIL 10 MG TABLET PO SCH (09:39)
[2020-04-26] MEDS: ASCORBIC ACID 500 MG TABLET PO SCH ×2 (09:39→17:34)
[2020-04-26] MEDS: ZINC SULFATE 220 MG CAPSULE PO SCH (09:39)
[2020-04-26] MEDS: DULOXETINE HCL 30 MG CAPSULE.DR PO SCH (09:39)
[2020-04-26] MEDS: CYANOCOBALAMIN (VITAMIN B-12) 1,000 MCG TABLET PO SCH (09:39)
[2020-04-26] MEDS: ASPIRIN 81 MG TABLET, CHEWABLE PO SCH (09:39)
[2020-04-26] MEDS: CHOLECALCIFEROL (D3) 1,000 UNIT (25 MCG) TABLET PO SCH (09:39)
[2020-04-26] MEDS ORDERED: ENOXAPARIN SODIUM INJ 60 MG/0.6 ML DISP.SYRIN SUBCUT ONE (09:40)
[2020-04-26] MEDS: FLUTICASONE NASAL SPRAY 50 MCG/SPRY 120 SPRAY/16 GM NASL SCH ×2 (09:43→21:37)
[2020-04-26] MEDS: CARBAMAZEPINE SUSP 200 MG/10 ML UDCUP PO SCH ×2 (09:43→21:36)
[2020-04-26] MEDS: ENOXAPARIN SODIUM INJ 60 MG/0.6 ML DISP.SYRIN SUBCUT SCH (10:02)
--- NOTE | 2020-04-26 10:11 | PDOC PROGRESS REPORT ---
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 Most of the history taken from his because the patient has dementia from a head injury. According to the he started becoming weak and more lethargic 3 days prior with poor appetite. He has some minimal cough but no SOB. He developed a fever of 102 today and he was supposed to be taken to his PCP but he was very weak and could not get out of bed hence he was taken to the emergency room. In the ED, BP was 117/62, HR 77, RR 18, O2sat 96% on room air. CBC showed mild leukopenia. CMP showed a potassium of 3 .0, crea of 1.28. CXR did not show any pneumonia. Rapid COVID test was positive. Patient was given LR bolus, potassium supplements and hospitalist service was called to admit the patient. I spoke to the patients and told her that he will be admitted to the COVID unit for observation and if he requires oxygen he will be started on remdesivir. However, she does not want to be away from him as she is concerned that he will get agitated and confused if she is not with him. She would like to take him home however she cannot take care of him by herself as she has no one to help her and she is old as well. 04/22/2020. No acute events overnight. Patient resting in bed, on supplemental oxygen, alert and oriented, pleasant and cooperative with physical examination. Complaining of generalized weakness, easily gets winded upon exertion, denies any fever, chills, nausea, vomiting. 04/23/2020. No acute events overnight. Saw patient this morning, while wearing his BiPAP, complaining of generalized weakness, alert and oriented, denies any fever, chills, nausea, vomiting. Patient still on high oxygen demand, pending transfer to SNF. 04/24/2020. No acute events overnight, still on Oxymizer at 15 L, complains of generalized weakness, refusing to have physical therapy otherwise awake and alert, does not appear to be in any apparent distress, pleasant and cooperative with physical examination. 04/25/2020. No acute events overnight. Patient alert and oriented in no apparent distress, stating that he is feeling better than yesterday, oxygen demand is steadily going down, hopefully patient can be weaned down where he can be transferred to rehab where he can continue his rehab. Denies any fever, chills, nausea, vomiting. P.o. tolerant. Having normal bowel movements. 04/26/2020. No acute events overnight. Patient oxygen demand is decreasing, he could potentially be discharged to SNF when possible, patient has been refusing physical therapy stating that he is too weak, I have encouraged him to participate in his physical therapy to recover some strength. Patient denies any fever, chills, nausea, vomiting, diarrhea, constipation or any urinary symptoms. Reason For Visit: COVID 19 VIRUS INFECTION Physical Exam Vital Signs: Temp Pulse Resp BP Pulse Ox 99.0 F 82 18 97/54 L 93 04/26/20 03:53 04/26/20 07:00 04/26/20 03:53 04/26/20 03:53 04/26/20 03:53 Intake & Output 04/25/20 04/26/20 04/27/20 06:59 06:59 06:59 Intake Total 357 120 Balance 357 120 Weight 87 kg 86.6 kg General appearance: PRESENT: no acute distress, other - Appears very weak and withdrawn Respiratory exam: PRESENT: clear to auscultation jenelle. ABSENT: rales, rhonchi, wheezes Cardiovascular exam: PRESENT: RRR. ABSENT: diastolic murmur, rubs, systolic murmur GI/Abdominal exam: PRESENT: normal bowel sounds, soft. ABSENT: distended, guarding, mass, organolmegaly, rebound, tenderness Neurological exam: PRESENT: alert, awake, oriented to person, oriented to place, CN II-XII grossly intact. ABSENT: motor sensory deficit Results Laboratory Results: 04/26/20 04:45 04/24/20 07:20 04/26/20 04:45 WBC 10.0 RBC 2.91 L Hgb 9.1 L Hct 26.2 L MCV 90 MCH 31.4 MCHC 34.9 RDW 14.6 H Plt Count 171 04/03/20 04/03/20 15:00 15:00 Creatine Kinase 116 Troponin I 0.035 Impressions: Venous Doppler Study 04/03/20 00:00 IMPRESSION: No evidence of deep venous thrombosis in the bilateral upper extremities. Chest X-Ray 04/12/20 00:00 IMPRESSION: Interval development of patchy airspace opacities suggests developing multi lobar pneumonia. Given distribution, recommend consideration for atypical etiologies to include viral/COVID in treatment planning. KUB X-Ray 04/16/20 00:00 IMPRESSION: NON-SPECIFIC BOWEL GAS PATTERN WITHOUT EVIDENCE FOR OBSTRUCTION. Modified Barium Swallow 04/25/20 00:00 IMPRESSION: LARYNGEAL PENETRATION AND TRACE ASPIRATION OF THIN AND NECTAR THICK LIQUIDS. THIS HAS IMPROVED FROM PREVIOUS STUDY. PLEASE SEE SPEECH PATHOLOGIST REPORT FOR OTHER FINDINGS AND RECOMMENDATIONS. Assessment and Plan - Diagnosis (1) Acute hypoxemic respiratory failure Is this a current diagnosis for this admission?: Yes Plan: Due to COVID-19 pneumonia. Much improved currently on Oxymizer 7 L. s/p 2 doses of ivermectin, high dose steroids, and convalescent plasma Fevers have resolved and oxygen needs are decreasing steadily D-dimer is trending down, but remains elevated, so he is on therapeutic Lovenox dose Continue to wean down O2 as tolerated PRN goal >92% At baseline patient uses supplemental oxygen 2 L per nasal cannula. Pending transfer to rehab. (2) Pneumonia due to COVID-19 virus Is this a current diagnosis for this admission?: Yes Plan: Plan as per #1. (3) Constipation Qualifiers: Constipation type: unspecified constipation type Qualified Code(s): K59.00 - Constipation, unspecified Is this a current diagnosis for this admission?: Yes Plan: Resolved. Continue current bowel regimen. (4) Dehydration Is this a current diagnosis for this admission?: Yes Plan: Euvolemic. Monitor volume status. Encourage p.o. intake. (5) Dementia Qualifiers: Dementia type: other frontotemporal dementia Dementia behavioral disturbance: without behavioral disturbance Qualified Code(s): G31.09 - Other frontotemporal dementia; F02.80 - Dementia in other diseases classified elsewhere without behavioral disturbance Is this a current diagnosis for this admission?: Yes Plan: Alert and oriented, pleasant, cooperative with physical examination. 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 Supportive measures. (6) Dysphagia Is this a current diagnosis for this admission?: Yes Plan: Due to dementia and possibly worsened with in-hospital delirium. Improving. Has been followed by speech therapy. 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 Speech therapy on board, recommendations noted. Aspiration precautions. (7) Generalized weakness Is this a current diagnosis for this admission?: Yes Plan: Due to COVID-19 pneumonia. Refusing physical therapy. Encouraged to continue PT/OT. Pending transfer to SNF. (8) History of prostate cancer Is this a current diagnosis for this admission?: Yes Plan: Resume home meds. Outpatient PCP and oncology follow-up. (9) Hyperlipidemia Qualifiers: Hyperlipidemia type: unspecified Qualified Code(s): E78.5 - Hyperlipidemia, unspecified Is this a current diagnosis for this admission?: Yes Plan: Continue statins. (10) Hypertension Qualifiers: Hypertension type: essential hypertension Qualified Code(s): I10 - Essential (primary) hypertension Is this a current diagnosis for this admission?: Yes Plan: Euvolemic. Normotensive. Continue current meds. Adjust meds as needed. Monitor vitals. - Plan Summary Summary: Acute hypoxemic respiratory failure Pneumonia due to COVID-19 virus s/p 2 doses of ivermectin, high dose steroids, and convalescent plasma Fevers have resolved and oxygen needs are decreasing steadily D-dimer is trending down, but remains elevated, so he is on therapeutic Lovenox dose continue to wean down O2 as tolerated PRN goal >92% VLADISLAV-continue CPAP when sleeping Labile BP-very sensitive to medication adjustments Dehydration-resolved with IV fluids Dysphagia-due to dementia and possibly worsened with in-hospital delirium. 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 Remains on nectar thick liquids as he failed MBBS on 04/20/2020. Dementia-continue Aricept Anxiety depression-continue duloxetine, Tegretol and citalopram History prostate cancer-continue leuprolide Nausea and vomiting-was felt to be due to constipation. Instituted bowel regimen and reglan. Now resolved. Constipation-resolved with bowel regimen. - Time Time Spent with patient: 35 or more minutes Anticipated [facility] Anticipated Discharge Timeframe: when bed available
[2020-04-26] MEDS: ATORVASTATIN CALCIUM 10 MG TABLET PO SCH (21:36)
[2020-04-27 07:07] LABS: APPEARANCE,URINE SLIGHTLY-CLOUDY; BILIRUBIN,URINE NEGATIVE (NEGATIVE); COLOR,URINE YELLOW; GLUCOSE, URINE NEGATIVE (NEGATIVE); KETONES,URINE NEGATIVE (NEGATIVE); LEUKOCYTE ESTERASE,URINE NEGATIVE (NEGATIVE); NITRITE,URINE POSITIVE (NEGATIVE); PROTEIN,URINE NEGATIVE (NEGATIVE); URINE SPECIFIC GRAVITY 1.016; UROBILINOGEN,URINE NEGATIVE mg/dL (<2.0)
[2020-04-27] MEDS: DULOXETINE HCL 30 MG CAPSULE.DR PO SCH (09:35)
[2020-04-27] MEDS: CALCIUM CARBONATE 600 MG/VITAMIN D3 400 UNIT TABLET PO SCH (09:35)
[2020-04-27] MEDS: SENNOSIDES/DOCUSATE 8.6-50 MG 1 EACH TABLET PO SCH ×2 (09:35→17:05)
[2020-04-27] MEDS: ZINC SULFATE 220 MG CAPSULE PO SCH (09:36)
[2020-04-27] MEDS: CHOLECALCIFEROL (D3) 1,000 UNIT (25 MCG) TABLET PO SCH (09:36)
[2020-04-27] MEDS: CYANOCOBALAMIN (VITAMIN B-12) 1,000 MCG TABLET PO SCH (09:36)
[2020-04-27] MEDS: DONEPEZIL HCL 5 MG TABLET PO SCH (09:36)
[2020-04-27] MEDS: ASPIRIN 81 MG TABLET, CHEWABLE PO SCH (09:36)
[2020-04-27] MEDS: ASCORBIC ACID 500 MG TABLET PO SCH ×2 (09:37→17:05)
[2020-04-27] MEDS: CITALOPRAM HYDROBROMIDE 20 MG TABLET PO SCH (09:37)
[2020-04-27] MEDS: METHYLPREDNISOLONE INJ 40 MG/1 ML SDV IV SCH (09:37)
[2020-04-27] MEDS: ENOXAPARIN SODIUM INJ 60 MG/0.6 ML DISP.SYRIN SUBCUT SCH (09:40)
[2020-04-27] MEDS: FLUTICASONE NASAL SPRAY 50 MCG/SPRY 120 SPRAY/16 GM NASL SCH ×2 (09:40→22:07)
[2020-04-27] MEDS: CARBAMAZEPINE SUSP 200 MG/10 ML UDCUP PO SCH ×2 (09:43→22:07)
[2020-04-27] MEDS ORDERED: LISINOPRIL 10 MG TABLET PO SCH (10:00)
--- NOTE | 2020-04-27 15:38 | PDOC PROGRESS REPORT ---
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 Most of the history taken from his because the patient has dementia from a head injury. According to the he started becoming weak and more lethargic 3 days prior with poor appetite. He has some minimal cough but no SOB. He developed a fever of 102 today and he was supposed to be taken to his PCP but he was very weak and could not get out of bed hence he was taken to the emergency room. In the ED, BP was 117/62, HR 77, RR 18, O2sat 96% on room air. CBC showed mild leukopenia. CMP showed a potassium of 3 .0, crea of 1.28. CXR did not show any pneumonia. Rapid COVID test was positive. Patient was given LR bolus, potassium supplements and hospitalist service was called to admit the patient. I spoke to the patients and told her that he will be admitted to the COVID unit for observation and if he requires oxygen he will be started on remdesivir. However, she does not want to be away from him as she is concerned that he will get agitated and confused if she is not with him. She would like to take him home however she cannot take care of him by herself as she has no one to help her and she is old as well. 04/22/2020. No acute events overnight. Patient resting in bed, on supplemental oxygen, alert and oriented, pleasant and cooperative with physical examination. Complaining of generalized weakness, easily gets winded upon exertion, denies any fever, chills, nausea, vomiting. 04/23/2020. No acute events overnight. Saw patient this morning, while wearing his BiPAP, complaining of generalized weakness, alert and oriented, denies any fever, chills, nausea, vomiting. Patient still on high oxygen demand, pending transfer to SNF. 04/24/2020. No acute events overnight, still on Oxymizer at 15 L, complains of generalized weakness, refusing to have physical therapy otherwise awake and alert, does not appear to be in any apparent distress, pleasant and cooperative with physical examination. 04/25/2020. No acute events overnight. Patient alert and oriented in no apparent distress, stating that he is feeling better than yesterday, oxygen demand is steadily going down, hopefully patient can be weaned down where he can be transferred to rehab where he can continue his rehab. Denies any fever, chills, nausea, vomiting. P.o. tolerant. Having normal bowel movements. 04/26/2020. No acute events overnight. Patient oxygen demand is decreasing, he could potentially be discharged to SNF when possible, patient has been refusing physical therapy stating that he is too weak, I have encouraged him to participate in his physical therapy to recover some strength. Patient denies any fever, chills, nausea, vomiting, diarrhea, constipation or any urinary symptoms. 04/27/2020. No acute events overnight, patient complaining of severe fatigue weakness, has been refusing physical therapy and refusing to even sit in the recliner, patient looks very withdrawn and sad stating that the reason he is refusing to get out of bed and do physical therapy is because he feels like he has no energy, otherwise denies any fever, chills, nausea, vomiting. Pending transfer to rehab. Reason For Visit: COVID 19 VIRUS INFECTION Physical Exam Vital Signs: Temp Pulse Resp BP Pulse Ox 98.6 F 84 18 130/60 H 96 04/27/20 08:21 04/27/20 14:00 04/27/20 08:21 04/27/20 08:21 04/27/20 11:53 Intake & Output 04/26/20 04/27/20 04/28/20 06:59 06:59 06:59 Intake Total 120 1072 Output Total 150 Balance 120 922 Weight 86.6 kg 86.4 kg Results Laboratory Results: 04/26/20 04:45 04/24/20 07:20 04/27/20 06:10 Urine Color YELLOW Urine Appearance SLIGHTLY-CLOUDY Urine pH 5.0 Ur Specific [place] 1.016 Urine Protein NEGATIVE Urine Glucose (UA) NEGATIVE Urine Ketones NEGATIVE Urine Blood NEGATIVE Urine Nitrite POSITIVE H Ur Leukocyte Esterase NEGATIVE Urine WBC (Auto) 4 Urine RBC (Auto) 1 04/03/20 04/03/20 15:00 15:00 Creatine Kinase 116 Troponin I 0.035 Impressions: Venous Doppler Study 04/03/20 00:00 IMPRESSION: No evidence of deep venous thrombosis in the bilateral upper extremities. Chest X-Ray 04/12/20 00:00 IMPRESSION: Interval development of patchy airspace opacities suggests developing multi lobar pneumonia. Given distribution, recommend consideration for atypical etiologies to include viral/COVID in treatment planning. KUB X-Ray 04/16/20 00:00 IMPRESSION: NON-SPECIFIC BOWEL GAS PATTERN WITHOUT EVIDENCE FOR OBSTRUCTION. Modified Barium Swallow 04/25/20 00:00 IMPRESSION: LARYNGEAL PENETRATION AND TRACE ASPIRATION OF THIN AND NECTAR THICK LIQUIDS. THIS HAS IMPROVED FROM PREVIOUS STUDY. PLEASE SEE SPEECH PATHOLOGIST REPORT FOR OTHER FINDINGS AND RECOMMENDATIONS. Assessment and Plan - Diagnosis (1) Acute hypoxemic respiratory failure Is this a current diagnosis for this admission?: Yes Plan: Due to COVID-19 pneumonia. Much improved currently on Oxymizer 7 L. s/p 2 doses of ivermectin, high dose steroids, and convalescent plasma Fevers have resolved and oxygen needs are decreasing steadily D-dimer is trending down, but remains elevated, so he is on therapeutic Lovenox dose Continue to wean down O2 as tolerated PRN goal >92% At baseline patient uses supplemental oxygen 2 L per nasal cannula. Pending transfer to rehab. (2) Generalized weakness Is this a current diagnosis for this admission?: Yes Plan: Worsening. Most likely due to COVID-19 pneumonia and prolonged hospitalization. Refusing physical therapy or getting out of the bed. Patient was strongly encouraged to cooperate with PT, or at least sit in his recliner otherwise to prevent getting weaker, decubitus ulcers and possibly h ospital-acquired pneumonia. Patient voiced understanding and stated that he will try to cooperate with PT OT. Continue encouraging to get out of the bed with assist, continue PT/OT, continue fall and aspiration precaution. Pending transfer to SNF. (3) Pneumonia due to COVID-19 virus Is this a current diagnosis for this admission?: Yes Plan: Plan as per #1. (4) Constipation Qualifiers: Constipation type: unspecified constipation type Qualified Code(s): K59.00 - Constipation, unspecified Is this a current diagnosis for this admission?: Yes Plan: Resolved. Continue current bowel regimen. (5) Dehydration Is this a current diagnosis for this admission?: Yes Plan: Euvolemic. Monitor volume status. Encourage p.o. intake. (6) Dementia Qualifiers: Dementia type: other frontotemporal dementia Dementia behavioral disturbance: without behavioral disturbance Qualified Code(s): G31.09 - Other frontotemporal dementia; F02.80 - Dementia in other diseases classified elsewhere without behavioral disturbance Is this a current diagnosis for this admission?: Yes Plan: Alert and oriented, pleasant, cooperative with physical examination. 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 Supportive measures. (7) Dysphagia Is this a current diagnosis for this admission?: Yes Plan: Due to dementia and possibly worsened with in-hospital delirium. Improving. Has been followed by speech therapy. 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 Speech therapy on board, recommendations noted. Aspiration precautions. (8) History of prostate cancer Is this a current diagnosis for this admission?: Yes Plan: Resume home meds. Outpatient PCP and oncology follow-up. (9) Hyperlipidemia Qualifiers: Hyperlipidemia type: unspecified Qualified Code(s): E78.5 - Hyperlipidemia, unspecified Is this a current diagnosis for this admission?: Yes Plan: Continue statins. (10) Hypertension Qualifiers: Hypertension type: essential hypertension Qualified Code(s): I10 - Essential (primary) hypertension Is this a current diagnosis for this admission?: Yes Plan: Euvolemic. Normotensive. Continue current meds. Adjust meds as needed. Monitor vitals. (11) Anxiety and depression Is this a current diagnosis for this admission?: Yes Plan: History of depression anxiety likely worsened due to acute illness. Denies any suicidal or homicidal ideations. Already on duloxetine and Celexa. Continue current medications. Hopefully patient gets better once he is moved to rehab. Outpatient PCP and psychiatry follow-up. - Plan Summary Summary: Acute hypoxemic respiratory failure Pneumonia due to COVID-19 virus s/p 2 doses of ivermectin, high dose steroids, and convalescent plasma Fevers have resolved and oxygen needs are decreasing steadily D-dimer is trending down, but remains elevated, so he is on therapeutic Lovenox dose continue to wean down O2 as tolerated PRN goal >92% VLADISLAV-continue CPAP when sleeping Labile BP-very sensitive to medication adjustments Dehydration-resolved with IV fluids Dysphagia-due to dementia and possibly worsened with in-hospital delirium. 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 Remains on nectar thick liquids as he failed MBBS on 04/20/2020. Dementia-continue Aricept Anxiety depression-continue duloxetine, Tegretol and citalopram History prostate cancer-continue leuprolide Nausea and vomiting-was felt to be due to constipation. Instituted bowel regimen and reglan. Now resolved. Constipation-resolved with bowel regimen. - Time Time Spent with patient: 35 or more minutes Anticipated [facility]charge [facility]position[facility] Anticipated Discharge Timeframe: when bed available
[2020-04-27] MEDS: ATORVASTATIN CALCIUM 10 MG TABLET PO SCH (22:07)
[2020-04-28 05:06] LABS: HEMATOCRIT 26.3 % (37.9-51.0); HEMOGLOBIN 8.9 g/dL (13.5-17.0); MEAN CORPUSCULAR HEMOGLOBIN 30.5 pg (27.0-33.4); MEAN CORPUSCULAR HGB CONC 33.9 g/dL (32.0-36.0); MEAN CORPUSCULAR VOLUME 90 fl (80-97); PLATELET COUNT 182 10^3/uL (150-450); RED BLOOD COUNT 2.92 10^6/uL (4.35-5.55); WHITE BLOOD COUNT 9.8 10^3/uL (4.0-10.5)
[2020-04-28] MEDS ORDERED: DEXTROSE 5%-NORMAL SALINE 1,000 ML IV PRN (09:42)
[2020-04-28] MEDS: ASPIRIN 81 MG TABLET, CHEWABLE PO SCH (10:21)
[2020-04-28] MEDS: CALCIUM CARBONATE 600 MG/VITAMIN D3 400 UNIT TABLET PO SCH (10:21)
[2020-04-28] MEDS: CHOLECALCIFEROL (D3) 1,000 UNIT (25 MCG) TABLET PO SCH (10:21)
[2020-04-28] MEDS: DONEPEZIL HCL 5 MG TABLET PO SCH (10:21)
[2020-04-28] MEDS: ASCORBIC ACID 500 MG TABLET PO SCH ×2 (10:21→18:39)
[2020-04-28] MEDS: ZINC SULFATE 220 MG CAPSULE PO SCH (10:21)
[2020-04-28] MEDS: DOCUSATE SODIUM 100 MG/10 ML UDC PO SCH ×2 (10:22→18:39)
[2020-04-28] MEDS: CYANOCOBALAMIN (VITAMIN B-12) 1,000 MCG TABLET PO SCH (10:22)
[2020-04-28] MEDS: CITALOPRAM HYDROBROMIDE 20 MG TABLET PO SCH (10:22)
[2020-04-28] MEDS: DULOXETINE HCL 30 MG CAPSULE.DR PO SCH (10:25)
[2020-04-28] MEDS: MEGESTROL ACETATE 20 MG TABLET PO SCH (10:25)
[2020-04-28] MEDS: CARBAMAZEPINE SUSP 200 MG/10 ML UDCUP PO SCH ×2 (10:25→21:24)
[2020-04-28] MEDS: ENOXAPARIN SODIUM INJ 40 MG/0.4 ML DISP.SYRIN SUBCUT SCH (10:26)
[2020-04-28] MEDS: LISINOPRIL 10 MG TABLET PO SCH (10:26)
[2020-04-28] MEDS: FLUTICASONE NASAL SPRAY 50 MCG/SPRY 120 SPRAY/16 GM NASL SCH ×2 (10:26→21:25)
--- NOTE | 2020-04-28 10:41 | PDOC PROGRESS REPORT ---
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 Most of the history taken from his because the patient has dementia from a head injury. According to the he started becoming weak and more lethargic 3 days prior with poor appetite. He has some minimal cough but no SOB. He developed a fever of 102 today and he was supposed to be taken to his PCP but he was very weak and could not get out of bed hence he was taken to the emergency room. In the ED, BP was 117/62, HR 77, RR 18, O2sat 96% on room air. CBC showed mild leukopenia. CMP showed a potassium of 3 .0, crea of 1.28. CXR did not show any pneumonia. Rapid COVID test was positive. Patient was given LR bolus, potassium supplements and hospitalist service was called to admit the patient. I spoke to the patients and told her that he will be admitted to the COVID unit for observation and if he requires oxygen he will be started on remdesivir. However, she does not want to be away from him as she is concerned that he will get agitated and confused if she is not with him. She would like to take him home however she cannot take care of him by herself as she has no one to help her and she is old as well. 04/22/2020. No acute events overnight. Patient resting in bed, on supplemental oxygen, alert and oriented, pleasant and cooperative with physical examination. Complaining of generalized weakness, easily gets winded upon exertion, denies any fever, chills, nausea, vomiting. 04/23/2020. No acute events overnight. Saw patient this morning, while wearing his BiPAP, complaining of generalized weakness, alert and oriented, denies any fever, chills, nausea, vomiting. Patient still on high oxygen demand, pending transfer to SNF. 04/24/2020. No acute events overnight, still on Oxymizer at 15 L, complains of generalized weakness, refusing to have physical therapy otherwise awake and alert, does not appear to be in any apparent distress, pleasant and cooperative with physical examination. 04/25/2020. No acute events overnight. Patient alert and oriented in no apparent distress, stating that he is feeling better than yesterday, oxygen demand is steadily going down, hopefully patient can be weaned down where he can be transferred to rehab where he can continue his rehab. Denies any fever, chills, nausea, vomiting. P.o. tolerant. Having normal bowel movements. 04/26/2020. No acute events overnight. Patient oxygen demand is decreasing, he could potentially be discharged to SNF when possible, patient has been refusing physical therapy stating that he is too weak, I have encouraged him to participate in his physical therapy to recover some strength. Patient denies any fever, chills, nausea, vomiting, diarrhea, constipation or any urinary symptoms. 04/27/2020. No acute events overnight, patient complaining of severe fatigue weakness, has been refusing physical therapy and refusing to even sit in the recliner, patient looks very withdrawn and sad stating that the reason he is refusing to get out of bed and do physical therapy is because he feels like he has no energy, otherwise denies any fever, chills, nausea, vomiting. Pending transfer to rehab. 04/26/2020. No acute events overnight, patient still sleeps a lot, refused to get out of bed, has low appetite, and is stating that he is very depressed and has no energy to get out of bed, patient is strongly encouraged to get out of the bed at sit in his recliner much as possible and also cooperate with physical therapy, patient voiced understanding, patient is p.o. tolerant, denies any chest pain, nausea, vomiting diarrhea or constipation. Called his for update unfortunately no answer. Left a voicemail. Reason For Visit: COVID 19 VIRUS INFECTION Physical Exam Vital Signs: Temp Pulse Resp BP Pulse Ox 98.5 F 88 24 H 87/49 L 96 04/28/20 08:31 04/28/20 08:31 04/28/20 08:31 04/28/20 08:31 04/28/20 08:31 Intake & Output 04/27/20 04/28/20 04/29/20 06:59 06:59 06:59 Intake Total 1072 735 Output Total 150 Balance 922 735 Weight 86.4 kg 85.2 kg General appearance: PRESENT: no acute distress, well-developed, well-nourished, other - Appears very weak, withdrawn and sad. Head exam: PRESENT: atraumatic, normocephalic Respiratory exam: PRESENT: clear to auscultation jenelle. ABSENT: rales, rhonchi, wheezes Cardiovascular exam: PRESENT: RRR. ABSENT: diastolic murmur, rubs, systolic murmur GI/Abdominal exam: PRESENT: normal bowel sounds, soft. ABSENT: distended, guarding, mass, organolmegaly, rebound, tenderness Extremities exam: PRESENT: full ROM. ABSENT: calf tenderness, clubbing, pedal edema Neurological exam: PRESENT: alert, awake, oriented to person, oriented to place, CN II-XII grossly intact. ABSENT: motor sensory deficit Results Laboratory Results: 04/28/20 04:32 04/24/20 07:20 04/28/20 04:32 WBC 9.8 RBC 2.92 L Hgb 8.9 L Hct 26.3 L MCV 90 MCH 30.5 MCHC 33.9 RDW 15.0 H Plt Count 182 04/03/20 04/03/20 15:00 15:00 Creatine Kinase 116 Troponin I 0.035 Impressions: Venous Doppler Study 04/03/20 00:00 IMPRESSION: No evidence of deep venous thrombosis in the bilateral upper extremities. Chest X-Ray 04/12/20 00:00 IMPRESSION: Interval development of patchy airspace opacities suggests developing multi lobar pneumonia. Given distribution, recommend consideration for atypical etiologies to include viral/COVID in treatment planning. KUB X-Ray 04/16/20 00:00 IMPRESSION: NON-SPECIFIC BOWEL GAS PATTERN WITHOUT EVIDENCE FOR OBSTRUCTION. Modified Barium Swallow 04/25/20 00:00 IMPRESSION: LARYNGEAL PENETRATION AND TRACE ASPIRATION OF THIN AND NECTAR THICK LIQUIDS. THIS HAS IMPROVED FROM PREVIOUS STUDY. PLEASE SEE SPEECH PATHOLOGIST REPORT FOR OTHER FINDINGS AND RECOMMENDATIONS. Assessment and Plan - Diagnosis (1) Acute hypoxemic respiratory failure Is this a current diagnosis for this admission?: Yes Plan: Due to COVID-19 pneumonia. Currently on 5 to 7 L Oxymizer SPO2 WNL. Patient easily desaturates upon exertion. Has received 2 doses of ivermectin, high dose steroids, and convalescent plasma on this admission. Continue to wean down O2 as tolerated PRN goal >92% At baseline patient uses supplemental oxygen 2 L per nasal cannula. Pending transfer to rehab. (2) Anxiety and depression Is this a current diagnosis for this admission?: Yes Plan: History of depression anxiety likely worsened due to acute illness. Denies any suicidal or homicidal ideations. Patient reports loss of energy and motivation and decreased appetite. Already on duloxetine and Celexa. Continue duloxetine, will switch Celexa to venlafaxine. Hopefully patient gets better once he is moved to rehab. Outpatient PCP and psychiatry follow-up. (3) Failure to thrive in adult Is this a current diagnosis for this admission?: Yes Plan: Patient reports very low energy, low appetite, and depression. Patient may have had this problem before admission likely worsened due to acute illness and prolonged hospitalization. Continue Megace to stimulate appetite, registered dietitian and speech therapy on board. Continue PT OT. (4) Generalized weakness Is this a current diagnosis for this admission?: Yes Plan: Worsening. Most likely due to COVID-19 pneumonia and prolonged hospitalization. Refusing physical therapy or getting out of the bed. Patient was strongly encouraged to cooperate with PT, or at least sit in his recliner otherwise to prevent getting weaker, decubitus ulcers and possibly hospital-acquired pneumonia. Patient voiced understanding and stated that he will try to cooperate with PT OT. Continue encouraging to get out of the bed with assist, continue PT/OT, continue fall and aspiration precaution. Pending transfer to SNF. (5) Pneumonia due to COVID-19 virus Is this a current diagnosis for this admission?: Yes Plan: Plan as per #1. (6) Constipation Qualifiers: Constipation type: unspecified constipation type Qualified Code(s): K59.00 - Constipation, unspecified Is this a current diagnosis for this admission?: Yes Plan: Resolved. Continue current bowel regimen. (7) Dehydration Is this a current diagnosis for this admission?: Yes Plan: Euvolemic. Monitor volume status. Encourage p.o. intake. (8) Dementia Qualifiers: Dementia type: other frontotemporal dementia Dementia behavioral disturbance: without behavioral disturbance Qualified Code(s): G31.09 - Other frontotemporal dementia; F02.80 - Dementia in other diseases classified elsewhere without behavioral disturbance Is this a current diagnosis for this admission?: Yes Plan: Alert and oriented, pleasant, cooperative with physical examination. 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 Supportive measures. (9) Dysphagia Is this a current diagnosis for this admission?: Yes Plan: Due to dementia and possibly worsened with in-hospital delirium. Improving. Has been followed by speech therapy. 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 Speech therapy on board, recommendations noted. Aspiration precautions. (10) History of prostate cancer Is this a current diagnosis for this admission?: Yes Plan: Resume home meds. Outpatient PCP and oncology follow-up. (11) Hyperlipidemia Qualifiers: Hyperlipidemia type: unspecified Qualified Code(s): E78.5 - Hyperlipidemia, unspecified Is this a current diagnosis for this admission?: Yes Plan: Continue statins. (12) Hypertension Qualifiers: Hypertension type: essential hypertension Qualified Code(s): I10 - Essential (primary) hypertension Is this a current diagnosis for this admission?: Yes Plan: Euvolemic. Normotensive. Continue current meds. Adjust meds as needed. Monitor vitals. - Plan Summary Summary: Acute hypoxemic respiratory failure Pneumonia due to COVID-19 virus s/p 2 doses of ivermectin, high dose steroids, and convalescent plasma Fevers have resolved and oxygen needs are decreasing steadily D-dimer is trending down, but remains elevated, so he is on therapeutic Lovenox dose continue to wean down O2 as tolerated PRN goal >92% VLADISLAV-continue CPAP when sleeping Labile BP-very sensitive to medication adjustments Dehydration-resolved with IV fluids Dysphagia-due to dementia and possibly worsened with in-hospital delirium. 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 Remains on nectar thick liquids as he failed MBBS on 04/20/2020. Dementia-continue Aricept Anxiety depression-continue duloxetine, Tegretol and citalopram History prostate cancer-continue leuprolide Nausea and vomiting-was felt to be due to constipation. Instituted bowel regimen and reglan. Now resolved. Constipation-resolved with bowel regimen. - Time Time Spent with patient: 35 or more minutes Anticipated Discharge Disposition: Long Term Facility Anticipated Discharge Timeframe: when bed available
[2020-04-28] MEDS: VENLAFAXINE HCL 75 MG CAP.SR.24H PO SCH (11:41)
[2020-04-28] MEDS: DEXTROSE 5%-NORMAL SALINE 1,000 ML IV PRN (12:11)
[2020-04-28] MEDS ORDERED: VANCOMYCIN HCL 0 MG in DEXTROSE 5%-WATER 250 ML IV NR (14:30)
--- NOTE | 2020-04-28 15:03 | RADIOLOGY REPORT (SQ) ---
EXAM DESCRIPTION: CHEST SINGLE VIEW IMAGES COMPLETED DATE/TIME: 04/28/2020 2:51 pm REASON FOR STUDY: fever COMPARISON: AP view of the chest from 04/12/2020. EXAM PARAMETERS: NUMBER OF VIEWS: One view. TECHNIQUE: An AP view of the chest was obtained. RADIATION DOSE: NA LIMITATIONS: None. FINDINGS: LUNGS AND PLEURA: Patchy bilateral multifocal parenchymal opacities that have increased si nce the radiograph from 04/12/2020 (in particular in the inferior aspect of the left lung). There is n o pneumothorax. The left lateral costophrenic sulcus is blunted. MEDIASTINUM AND HILAR STRUCTURES: Stable mediastinal and hilar contours. HEART AND VASCULAR STRUCTURES: Stable cardiac silhouette. BONES: No acute findings. HARDWARE: Intact left subclavian vein approach transvenous pacemaker and implantable loop recorder. OTHER: No other finding. IMPRESSION: Increased patchy bilateral multifocal parenchymal opacities. TECHNICAL DOCUMENTATION: JOB ID: [id number] 2010 [employer]- All Rights Reserved Reading location - IP/workstation name: [email or web address]
[2020-04-28] MEDS ORDERED: IPRATROPIUM/ALBUTEROL 0.5-2.5 MG/3 ML AMPUL NEB ONE (16:10)
[2020-04-28] MEDS: IPRATROPIUM/ALBUTEROL 0.5-2.5 MG/3 ML AMPUL NEB SCH ×2 (16:32→20:10)
[2020-04-28] MEDS: VANCOMYCIN HCL 1,250 MG in DEXTROSE 5%-WATER 250 ML IV SCH (18:39)
[2020-04-28] MEDS: CEFEPIME 1 GM/D5W RTU 1 GM/50 ML RTUPB IV SCH (21:24)
[2020-04-28] MEDS: ATORVASTATIN CALCIUM 10 MG TABLET PO SCH (21:24)
[2020-04-29] MEDS: DEXTROSE 5%-NORMAL SALINE 1,000 ML IV PRN ×3 (01:00→22:44)
[2020-04-29] MEDS: IPRATROPIUM/ALBUTEROL 0.5-2.5 MG/3 ML AMPUL NEB SCH ×4 (01:37→20:24)
[2020-04-29 05:41] LABS: ABSOLUTE BASOPHILS # (AUTO) 0.1 10^3/uL (0.0-0.2); ABSOLUTE EOSINOPHILS # (AUTO) 0.2 10^3/uL (0.0-0.6); ABSOLUTE LYMPHOCYTES (AUTO) 0.9 10^3/uL (0.5-4.7); ABSOLUTE MONOCYTES (AUTO) 0.4 10^3/uL (0.1-1.4); ABSOLUTE NEUT (AUTO) 6.9 10^3/uL (1.7-8.2); BASOPHILS % (AUTO) 0.6 % (0-2); EOSINOPHILS % (AUTO) 2.1 % (0-6); HEMATOCRIT 23.9 % (37.9-51.0); HEMOGLOBIN 8.1 g/dL (13.5-17.0); LYMPHOCYTES % (AUTO) 10.8 % (13-45); MEAN CORPUSCULAR HEMOGLOBIN 30.9 pg (27.0-33.4); MEAN CORPUSCULAR HGB CONC 34.1 g/dL (32.0-36.0); MEAN CORPUSCULAR VOLUME 91 fl (80-97); MONOCYTES % (AUTO) 5.2 % (3-13); PLATELET COUNT 149 10^3/uL (150-450); RED BLOOD COUNT 2.63 10^6/uL (4.35-5.55); RED CELL DISTRIBUTION WIDTH 15.4 % (11.5-14.0); SEGMENTED NEUTROPHILS % (AUTO) 81.3 % (42-78); TOTAL CELLS COUNTED % (AUTO) 100 %; WHITE BLOOD COUNT 8.5 10^3/uL (4.0-10.5)
[2020-04-29 05:48] LABS: BLOOD UREA NITROGEN 19 mg/dL (7-20); CALCIUM 7.8 mg/dL (8.4-10.2); GLUCOSE 117 mg/dL (75-110); POTASSIUM 3.9 mmol/L (3.6-5.0)
[2020-04-29 05:55] LABS: CARBON DIOXIDE 29 mmol/L (22-30); CHLORIDE 100 mmol/L (98-107)
[2020-04-29 05:56] LABS: ANION GAP 3 (5-19)
[2020-04-29] MEDS: LISINOPRIL 10 MG TABLET PO SCH (10:02)
[2020-04-29] MEDS: DOCUSATE SODIUM 100 MG/10 ML UDC PO SCH ×2 (10:02→18:07)
[2020-04-29] MEDS: CEFEPIME 1 GM/D5W RTU 1 GM/50 ML RTUPB IV SCH ×2 (10:03→21:12)
[2020-04-29] MEDS: CYANOCOBALAMIN (VITAMIN B-12) 1,000 MCG TABLET PO SCH (10:04)
[2020-04-29] MEDS: CHOLECALCIFEROL (D3) 1,000 UNIT (25 MCG) TABLET PO SCH (10:04)
[2020-04-29] MEDS: ZINC SULFATE 220 MG CAPSULE PO SCH (10:05)
[2020-04-29] MEDS: CALCIUM CARBONATE 600 MG/VITAMIN D3 400 UNIT TABLET PO SCH (10:05)
[2020-04-29] MEDS: DULOXETINE HCL 30 MG CAPSULE.DR PO SCH (10:05)
[2020-04-29] MEDS: ASCORBIC ACID 500 MG TABLET PO SCH ×2 (10:05→18:06)
[2020-04-29] MEDS: ASPIRIN 81 MG TABLET, CHEWABLE PO SCH (10:05)
[2020-04-29] MEDS: VENLAFAXINE HCL 75 MG CAP.SR.24H PO SCH (10:05)
[2020-04-29] MEDS: DONEPEZIL HCL 5 MG TABLET PO SCH (10:05)
[2020-04-29] MEDS: MEGESTROL ACETATE 20 MG TABLET PO SCH (10:06)
[2020-04-29] MEDS: ENOXAPARIN SODIUM INJ 40 MG/0.4 ML DISP.SYRIN SUBCUT SCH (10:06)
[2020-04-29] MEDS: CARBAMAZEPINE SUSP 200 MG/10 ML UDCUP PO SCH ×2 (10:06→21:12)
[2020-04-29] MEDS: FLUTICASONE NASAL SPRAY 50 MCG/SPRY 120 SPRAY/16 GM NASL SCH ×2 (10:06→21:13)
--- NOTE | 2020-04-29 11:17 | PDOC PROGRESS REPORT ---
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 Most of the history taken from his because the patient has dementia from a head injury. According to the he started becoming weak and more lethargic 3 days prior with poor appetite. He has some minimal cough but no SOB. He developed a fever of 102 today and he was supposed to be taken to his PCP but he was very weak and could not get out of bed hence he was taken to the emergency room. In the ED, BP was 117/62, HR 77, RR 18, O2sat 96% on room air. CBC showed mild leukopenia. CMP showed a potassium of 3 .0, crea of 1.28. CXR did not show any pneumonia. Rapid COVID test was positive. Patient was given LR bolus, potassium supplements and hospitalist service was called to admit the patient. I spoke to the patients and told her that he will be admitted to the COVID unit for observation and if he requires oxygen he will be started on remdesivir. However, she does not want to be away from him as she is concerned that he will get agitated and confused if she is not with him. She would like to take him home however she cannot take care of him by herself as she has no one to help her and she is old as well. 04/22/2020. No acute events overnight. Patient resting in bed, on supplemental oxygen, alert and oriented, pleasant and cooperative with physical examination. Complaining of generalized weakness, easily gets winded upon exertion, denies any fever, chills, nausea, vomiting. 04/23/2020. No acute events overnight. Saw patient this morning, while wearing his BiPAP, complaining of generalized weakness, alert and oriented, denies any fever, chills, nausea, vomiting. Patient still on high oxygen demand, pending transfer to SNF. 04/24/2020. No acute events overnight, still on Oxymizer at 15 L, complains of generalized weakness, refusing to have physical therapy otherwise awake and alert, does not appear to be in any apparent distress, pleasant and cooperative with physical examination. 04/25/2020. No acute events overnight. Patient alert and oriented in no apparent distress, stating that he is feeling better than yesterday, oxygen demand is steadily going down, hopefully patient can be weaned down where he can be transferred to rehab where he can continue his rehab. Denies any fever, chills, nausea, vomiting. P.o. tolerant. Having normal bowel movements. 04/26/2020. No acute events overnight. Patient oxygen demand is decreasing, he could potentially be discharged to SNF when possible, patient has been refusing physical therapy stating that he is too weak, I have encouraged him to participate in his physical therapy to recover some strength. Patient denies any fever, chills, nausea, vomiting, diarrhea, constipation or any urinary symptoms. 04/27/2020. No acute events overnight, patient complaining of severe fatigue weakness, has been refusing physical therapy and refusing to even sit in the recliner, patient looks very withdrawn and sad stating that the reason he is refusing to get out of bed and do physical therapy is because he feels like he has no energy, otherwise denies any fever, chills, nausea, vomiting. Pending transfer to rehab. 04/26/2020. No acute events overnight, patient still sleeps a lot, refused to get out of bed, has low appetite, and is stating that he is very depressed and has no energy to get out of bed, patient is strongly encouraged to get out of the bed at sit in his recliner much as possible and also cooperate with physical therapy, patient voiced understanding, patient is p.o. tolerant, denies any chest pain, nausea, vomiting diarrhea or constipation. Called his for update unfortunately no answer. Left a voicemail. 04/29/2020. Yesterday evening patient was noted to be hypotensive, and oxygen demand was going up, repeat chest x-ray showed increased patchy bilateral multifocal parenchymal opacities, and patient was started on IV cefepime and vancomycin for possible healthcare associated pneumonia, this morning patient is more alert and communicative, appetite is improving, still complaining of severe fatigue and weakness. Patient encouraged to get her recliner and also try to work with PT. Patient agreed with the plan. Reason For Visit: COVID 19 VIRUS INFECTION Physical Exam Vital Signs: Temp Pulse Resp BP Pulse Ox 99.1 F 80 16 119/70 99 04/29/20 05:01 04/29/20 07:00 04/29/20 05:01 04/29/20 05:01 04/29/20 05:01 Intake & Output 04/28/20 04/29/20 04/30/20 06:59 06:59 06:59 Intake Total 735 1690 729 Output Total 550 Balance 735 1140 729 Weight 85.2 kg 86.7 kg 86.7 kg Results Laboratory Results: 04/29/20 04:21 04/29/20 04:21 04/29/20 04/29/20 04:21 04:21 WBC 8.5 RBC 2.63 L Hgb 8.1 L Hct 23.9 L MCV 91 MCH 30.9 MCHC 34.1 RDW 15.4 H Plt Count 149 L Seg Neutrophils % 81.3 H Sodium 131.5 L Potassium 3.9 Chloride 100 Carbon Dioxide 29 Anion Gap 3 L BUN 19 Creatinine 0.86 Est GFR ( Amer) > 60 Glucose 117 H Calcium 7.8 L 04/03/20 04/03/20 15:00 15:00 Creatine Kinase 116 Troponin I 0.035 Impressions: Venous Doppler Study 04/03/20 00:00 IMPRESSION: No evidence of deep venous thrombosis in the bilateral upper extremities. KUB X-Ray 04/16/20 00:00 IMPRESSION: NON-SPECIFIC BOWEL GAS PATTERN WITHOUT EVIDENCE FOR OBSTRUCTION. Modified Barium Swallow 04/25/20 00:00 IMPRESSION: LARYNGEAL PENETRATION AND TRACE ASPIRATION OF THIN AND NECTAR THICK LIQUIDS. THIS HAS IMPROVED FROM PREVIOUS STUDY. PLEASE SEE SPEECH PATHOLOGIST REPORT FOR OTHER FINDINGS AND RECOMMENDATIONS. Chest X-Ray 04/28/20 14:19 IMPRESSION: Increased patchy bilateral multifocal parenchymal opacities. Assessment and Plan - Diagnosis (1) Acute hypoxemic respiratory failure Is this a current diagnosis for this admission?: Yes Plan: Due to COVID-19 pneumonia and possibly superimposed healthcare associated pneumonia. Currently on 5 to 7 L Oxymizer SPO2 WNL. Patient easily desaturates upon exertion. Has received 2 doses of ivermectin, high dose steroids, and convalescent plasma on this admission. Repeat chest x-ray on 04/29/2020 shows worsening bilateral opacification. Started on cefepime and vancomycin on 04/28/2020 to cover for possible healthcare associated pneumonia. Day 2 IV antibiotics. Day 2 IV cefepime. Day 2 IV vancomycin. Continue empiric IV antibiotics, follow-up sputum and blood cultures. Continue to wean down O2 as tolerated PRN goal >92% At baseline patient uses supplemental oxygen 2 L per nasal cannula. Pending transfer to rehab. (2) Pneumonia Qualifiers: Aspiration pneumonia type: unspecified Laterality: bilateral Lung location: unspecified part of lung Is this a current diagnosis for this admission?: Yes Plan: It is possible that patient has developed on top of COVID-19 pneumonia healthcare associated pneumonia. Plan as per #1. (3) Anxiety and depression Is this a current diagnosis for this admission?: Yes Plan: History of depression anxiety likely worsened due to acute illness. Denies any suicidal or homicidal ideations. Patient reporting mild increase in his energy and appetite. Was taking duloxetine and Celexa. Celexa switched to venlafaxine extended release. Continue duloxetine and venlafaxine. Hopefully patient gets better once he is moved to rehab. Outpatient PCP and psychiatry follow-up. (4) Failure to thrive in adult Is this a current diagnosis for this admission?: Yes Plan: Patient reports mild improvement of his energy level and appetite. Patient was reporting very low energy, low appetite, and depression. Patient may have had this problem before admission likely worsened due to acute illness and prolonged hospitalization. Continue Megace to stimulate appetite, registered dietitian and speech therapy on board. Continue PT OT. (5) Generalized weakness Is this a current diagnosis for this admission?: Yes Plan: Worsening. Most likely due to COVID-19 pneumonia and prolonged hospitalization. Refusing physical therapy or getting out of the bed. Patient was strongly encouraged to cooperate with PT, or at least sit in his recliner otherwise to prevent getting weaker, decubitus ulcers and possibly hospital-acquired pneumonia. Patient voiced understanding and stated that he will try to cooperate with PT OT. Continue encouraging to get out of the bed with assist, continue PT/OT, continue fall and aspiration precaution. Pending transfer to SNF. (6) Pneumonia due to COVID-19 virus Is this a current diagnosis for this admission?: Yes Plan: Plan as per #1. (7) Constipation Qualifiers: Constipation type: unspecified constipation type Qualified Code(s): K59.00 - Constipation, unspecified Is this a current diagnosis for this admission?: Yes Plan: Resolved. Continue current bowel regimen. (8) Dehydration Is this a current diagnosis for this admission?: Yes Plan: Euvolemic. Monitor volume status. Encourage p.o. intake. (9) Dementia Qualifiers: Dementia type: other frontotemporal dementia Dementia behavioral disturbance: without behavioral disturbance Qualified Code(s): G31.09 - Other frontotemporal dementia; F02.80 - Dementia in other diseases classified elsewhere without behavioral disturbance Is this a current diagnosis for this admission?: Yes Plan: Alert and oriented, pleasant, cooperative with physical examination. 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 Supportive measures. (10) Dysphagia Is this a current diagnosis for this admission?: Yes Plan: Due to dementia and possibly worsened with in-hospital delirium. Improving. Has been followed by speech therapy. 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 Speech therapy on board, recommendations noted. Aspiration precautions. (11) History of prostate cancer Is this a current diagnosis for this admission?: Yes Plan: Resume home meds. Outpatient PCP and oncology follow-up. (12) Hyperlipidemia Qualifiers: Hyperlipidemia type: unspecified Qualified Code(s): E78.5 - Hyperlipidemia, unspecified Is this a current diagnosis for this admission?: Yes Plan: Continue statins. (13) Hypertension Qualifiers: Hypertension type: essential hypertension Qualified Code(s): I10 - Essential (primary) hypertension Is this a current diagnosis for this admission?: Yes Plan: Euvolemic. Normotensive. Continue current meds. Adjust meds as needed. Monitor vitals. - Plan Summary Summary: Acute hypoxemic respiratory failure Pneumonia due to COVID-19 virus s/p 2 doses of ivermectin, high dose steroids, and convalescent plasma Fevers have resolved and oxygen needs are decreasing steadily D-dimer is trending down, but remains elevated, so he is on therapeutic Lovenox dose continue to wean down O2 as tolerated PRN goal >92% VLADISLAV-continue CPAP when sleeping Labile BP-very sensitive to medication adjustments Dehydration-resolved with IV fluids Dysphagia-due to dementia and possibly worsened with in-hospital delirium. 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 Remains on nectar thick liquids as he failed MBBS on 04/20/2020. Dementia-continue Aricept Anxiety depression-continue duloxetine, Tegretol and citalopram History prostate cancer-continue leuprolide Nausea and vomiting-was felt to be due to constipation. Instituted bowel regimen and reglan. Now resolved. Constipation-resolved with bowel regimen. - Time Time Spent with patient: 35 or more minutes Anticipated Discharge Disposition: [facility]way Facility Anticipated Discharge Timeframe: when bed available
[2020-04-29] MEDS: VANCOMYCIN HCL 1,250 MG in DEXTROSE 5%-WATER 250 ML IV SCH (18:07)
[2020-04-29] MEDS: ATORVASTATIN CALCIUM 10 MG TABLET PO SCH (21:12)
[2020-04-30] MEDS: IPRATROPIUM/ALBUTEROL 0.5-2.5 MG/3 ML AMPUL NEB SCH ×3 (02:03→15:56)
[2020-04-30] MEDS: DEXTROSE 5%-NORMAL SALINE 1,000 ML IV PRN ×2 (02:38→18:49)
[2020-04-30 05:42] LABS: HEMATOCRIT 22.9 % (37.9-51.0); MEAN CORPUSCULAR HEMOGLOBIN 30.4 pg (27.0-33.4); MEAN CORPUSCULAR HGB CONC 33.8 g/dL (32.0-36.0); MEAN CORPUSCULAR VOLUME 90 fl (80-97); PLATELET COUNT 159 10^3/uL (150-450); RED BLOOD COUNT 2.55 10^6/uL (4.35-5.55); RED CELL DISTRIBUTION WIDTH 15.4 % (11.5-14.0); WHITE BLOOD COUNT 7.7 10^3/uL (4.0-10.5)
[2020-04-30 05:43] LABS: HEMOGLOBIN 7.7 g/dL (13.5-17.0)
[2020-04-30 06:33] LABS: ALBUMIN 2.2 g/dL (3.5-5.0); ALKALINE PHOSPHATASE 68 U/L (38-126); ASPARTATE AMINO TRANSFERASE 22 U/L (17-59); BILIRUBIN,DIRECT 0.2 mg/dL (0.0-0.4); BILIRUBIN,TOTAL 0.3 mg/dL (0.2-1.3); BLOOD UREA NITROGEN 12 mg/dL (7-20); CALCIUM 7.8 mg/dL (8.4-10.2); GLUCOSE 97 mg/dL (75-110); POTASSIUM 3.8 mmol/L (3.6-5.0); TOTAL PROTEIN 5.1 g/dL (6.3-8.2)
[2020-04-30 06:38] LABS: CARBON DIOXIDE 26 mmol/L (22-30); CHLORIDE 102 mmol/L (98-107)
[2020-04-30 06:41] LABS: ANION GAP 2 (5-19)
[2020-04-30] MEDS: ENOXAPARIN SODIUM INJ 40 MG/0.4 ML DISP.SYRIN SUBCUT SCH (09:48)
[2020-04-30] MEDS: CARBAMAZEPINE SUSP 200 MG/10 ML UDCUP PO SCH ×2 (09:48→21:08)
[2020-04-30] MEDS: LISINOPRIL 10 MG TABLET PO SCH (09:49)
[2020-04-30] MEDS: DOCUSATE SODIUM 100 MG/10 ML UDC PO SCH ×2 (09:49→17:34)
[2020-04-30] MEDS: MEGESTROL ACETATE 20 MG TABLET PO SCH (09:49)
[2020-04-30] MEDS: VENLAFAXINE HCL 75 MG CAP.SR.24H PO SCH (09:49)
[2020-04-30] MEDS: ASPIRIN 81 MG TABLET, CHEWABLE PO SCH (09:49)
[2020-04-30] MEDS: CYANOCOBALAMIN (VITAMIN B-12) 1,000 MCG TABLET PO SCH (09:50)
[2020-04-30] MEDS: ASCORBIC ACID 500 MG TABLET PO SCH ×2 (09:50→17:34)
[2020-04-30] MEDS: DONEPEZIL HCL 5 MG TABLET PO SCH (09:50)
[2020-04-30] MEDS: CEFEPIME 1 GM/D5W RTU 1 GM/50 ML RTUPB IV SCH ×2 (09:50→21:08)
[2020-04-30] MEDS: CALCIUM CARBONATE 600 MG/VITAMIN D3 400 UNIT TABLET PO SCH (09:50)
[2020-04-30] MEDS: CHOLECALCIFEROL (D3) 1,000 UNIT (25 MCG) TABLET PO SCH (09:50)
[2020-04-30] MEDS: ZINC SULFATE 220 MG CAPSULE PO SCH (09:52)
[2020-04-30] MEDS: FLUTICASONE NASAL SPRAY 50 MCG/SPRY 120 SPRAY/16 GM NASL SCH ×2 (09:52→21:10)
[2020-04-30] MEDS: DULOXETINE HCL 30 MG CAPSULE.DR PO SCH (09:52)
--- NOTE | 2020-04-30 11:07 | PDOC PROGRESS REPORT ---
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 Most of the history taken from his because the patient has dementia from a head injury. According to the he started becoming weak and more lethargic 3 days prior with poor appetite. He has some minimal cough but no SOB. He developed a fever of 102 today and he was supposed to be taken to his PCP but he was very weak and could not get out of bed hence he was taken to the emergency room. In the ED, BP was 117/62, HR 77, RR 18, O2sat 96% on room air. CBC showed mild leukopenia. CMP showed a potassium of 3 .0, crea of 1.28. CXR did not show any pneumonia. Rapid COVID test was positive. Patient was given LR bolus, potassium supplements and hospitalist service was called to admit the patient. I spoke to the patients and told her that he will be admitted to the COVID unit for observation and if he requires oxygen he will be started on remdesivir. However, she does not want to be away from him as she is concerned that he will get agitated and confused if she is not with him. She would like to take him home however she cannot take care of him by herself as she has no one to help her and she is old as well. 04/22/2020. No acute events overnight. Patient resting in bed, on supplemental oxygen, alert and oriented, pleasant and cooperative with physical examination. Complaining of generalized weakness, easily gets winded upon exertion, denies any fever, chills, nausea, vomiting. 04/23/2020. No acute events overnight. Saw patient this morning, while wearing his BiPAP, complaining of generalized weakness, alert and oriented, denies any fever, chills, nausea, vomiting. Patient still on high oxygen demand, pending transfer to SNF. 04/24/2020. No acute events overnight, still on Oxymizer at 15 L, complains of generalized weakness, refusing to have physical therapy otherwise awake and alert, does not appear to be in any apparent distress, pleasant and cooperative with physical examination. 04/25/2020. No acute events overnight. Patient alert and oriented in no apparent distress, stating that he is feeling better than yesterday, oxygen demand is steadily going down, hopefully patient can be weaned down where he can be transferred to rehab where he can continue his rehab. Denies any fever, chills, nausea, vomiting. P.o. tolerant. Having normal bowel movements. 04/26/2020. No acute events overnight. Patient oxygen demand is decreasing, he could potentially be discharged to SNF when possible, patient has been refusing physical therapy stating that he is too weak, I have encouraged him to participate in his physical therapy to recover some strength. Patient denies any fever, chills, nausea, vomiting, diarrhea, constipation or any urinary symptoms. 04/27/2020. No acute events overnight, patient complaining of severe fatigue weakness, has been refusing physical therapy and refusing to even sit in the recliner, patient looks very withdrawn and sad stating that the reason he is refusing to get out of bed and do physical therapy is because he feels like he has no energy, otherwise denies any fever, chills, nausea, vomiting. Pending transfer to rehab. 04/26/2020. No acute events overnight, patient still sleeps a lot, refused to get out of bed, has low appetite, and is stating that he is very depressed and has no energy to get out of bed, patient is strongly encouraged to get out of the bed at sit in his recliner much as possible and also cooperate with physical therapy, patient voiced understanding, patient is p.o. tolerant, denies any chest pain, nausea, vomiting diarrhea or constipation. Called his for update unfortunately no answer. Left a voicemail. 04/29/2020. Yesterday evening patient was noted to be hypotensive, and oxygen demand was going up, repeat chest x-ray showed increased patchy bilateral multifocal parenchymal opacities, and patient was started on IV cefepime and vancomycin for possible healthcare associated pneumonia, this morning patient is more alert and communicative, appetite is improving, still complaining of severe fatigue and weakness. Patient encouraged to get her recliner and also try to work with PT. Patient agreed with the plan. 04/30/2020. No acute events overnight. Saw patient this morning, sitting in his recliner, enjoying his breakfast, appears more energetic, stating that he is feeling great, reports mild improvement of his depression, appetite is improving, currently on 5 L nasal cannula saturating 100%, patient has been talking to his family over the phone for the last 2 days which has helped him a lot. Patient is currently pending transfer to rehab. Reason For Visit: COVID 19 VIRUS INFECTION Physical Exam Vital Signs: Temp Pulse Resp BP Pulse Ox 98.5 F 88 18 107/62 100 04/30/20 09:09 04/30/20 09:09 04/30/20 09:09 04/30/20 09:09 04/30/20 09:09 Intake & Output 04/29/20 04/30/20 05/01/20 06:59 06:59 06:59 Intake Total 1690 2899 Output Total 550 1000 Balance 1140 1899 Weight 86.7 kg 87.8 kg General appearance: PRESENT: no acute distress, thin Head exam: PRESENT: atraumatic, normocephalic Neck exam: ABSENT: carotid bruit, JVD, lymphadenopathy, thyromegaly Respiratory exam: PRESENT: crackles - Bibasilar crackles. ABSENT: rales, rhon chi, wheezes Cardiovascular exam: PRESENT: RRR. ABSENT: diastolic murmur, rubs, systolic murmur GI/Abdominal exam: PRESENT: normal bowel sounds, soft. ABSENT: distended, guarding, mass, organolmegaly, rebound, tenderness Neurological exam: PRESENT: alert, awake, oriented to person, oriented to place, CN II-XII grossly intact. ABSENT: motor sensory deficit Results Laboratory Results: 04/30/20 04:22 04/30/20 04:22 04/30/20 04/30/20 04:22 04:22 WBC 7.7 RBC 2.55 L Hgb 7.7 L Hct 22.9 L MCV 90 MCH 30.4 MCHC 33.8 RDW 15.4 H Plt Count 159 Sodium 130.0 L Potassium 3.8 Chloride 102 Carbon Dioxide 26 Anion Gap 2 L BUN 12 Creatinine 0.73 Est GFR ( Amer) > 60 Glucose 97 Calcium 7.8 L Ferritin 755.00 H Total Bilirubin 0.3 AST 22 Alkaline Phosphatase 68 Total Protein 5.1 L Albumin 2.2 L 04/03/20 04/03/20 15:00 15:00 Creatine Kinase 116 Troponin I 0.035 Impressions: Venous Doppler Study 04/03/20 00:00 IMPRESSION: No evidence of deep venous thrombosis in the bilateral upper extremities. KUB X-Ray 04/16/20 00:00 IMPRESSION: NON-SPECIFIC BOWEL GAS PATTERN WITHOUT EVIDENCE FOR OBSTRUCTION. Modified Barium Swallow 04/25/20 00:00 IMPRESSION: LARYNGEAL PENETRATION AND TRACE ASPIRATION OF THIN AND NECTAR THICK LIQUIDS. THIS HAS IMPROVED FROM PREVIOUS STUDY. PLEASE SEE SPEECH PATHOLOGIST REPORT FOR OTHER FINDINGS AND RECOMMENDATIONS. Chest X-Ray 04/28/20 14:19 IMPRESSION: Increased patchy bilateral multifocal parenchymal opacities. Assessment and Plan - Diagnosis (1) Acute hypoxemic respiratory failure Is this a current diagnosis for this admission?: Yes Plan: Improving. SPO2 WNL on 5 L Oxymizer. Due to COVID-19 pneumonia and possibly superimposed healthcare associated pneumo carlos. Currently on 5 Oxymizer SPO2 WNL. Patient easily desaturates upon exertion. Has received 2 doses of ivermectin, high dose steroids, and convalescent plasma on this admission. Repeat chest x-ray on 04/29/2020 shows worsening bilateral opacification. Started on cefepime and vancomycin on 04/28/2020 to cover for possible healthcare associated pneumonia. Day 3 IV antibiotics. Day 3 IV cefepime. Day 3 IV vancomycin. Continue empiric IV antibiotics, follow-up sputum and blood cultures. Continue as needed DuoNebs, supplemental oxygen, aggressive pulmonary toileting. Continue to wean down O2 as tolerated PRN goal >92% At baseline patient uses supplemental oxygen 2 L per nasal cannula. Pending transfer to rehab. (2) Pneumonia Qualifiers: Aspiration pneumonia type: unspecified Laterality: bilateral Lung location: unspecified part of lung Is this a current diagnosis for this admission?: Yes Plan: It is possible that patient has developed on top of COVID-19 pneumonia healthcare associated pneumonia. Plan as per #1. (3) Anxiety and depression Is this a current diagnosis for this admission?: Yes Plan: Moderate improvement compared to 2 days ago. History of depression anxiety likely worsened due to acute illness. Denies any suicidal or homicidal ideations. Patient reporting mild increase in his energy and appetite. Was taking duloxetine and Celexa. Celexa switched to venlafaxine extended release. I have encouraged his to call him daily which she has been doing and it is has been helping him. Continue duloxetine and venlafaxine. Hopefully patient gets better once he is moved to rehab. Outpatient PCP and psychiatry follow-up. (4) Failure to thrive in adult Is this a current diagnosis for this admission?: Yes Plan: Improving, patient has been eating about 25 to 50% of his food. Patient reports mild improvement of his energy level and appetite. Patient was reporting very low energy, low appetite, and depression. Patient may have had this problem before admission likely worsened due to acute illness and prolonged hospitalization. Continue Megace to stimulate appetite, registered dietitian and speech therapy on board. Continue PT OT. (5) Generalized weakness Is this a current diagnosis for this admission?: Yes Plan: Improving. Patient getting out of bed more often sitting in his recliner. Working with PT. Most likely due to COVID-19 pneumonia and prolonged hospitalization. Initially he was refusing physical therapy or getting out of the bed. Patient was strongly encouraged to cooperate with PT, or at least sit in his recliner otherwise to prevent getting weaker, decubitus ulcers and possibly hospital-acquired pneumonia. Patient voiced understanding and stated that he will try to cooperate with PT OT. Continue encouraging to get out of the bed with assist, continue PT/OT, continue fall and aspiration precaution. Pending transfer to SNF. (6) Pneumonia due to COVID-19 virus Is this a current diagnosis for this admission?: Yes Plan: Plan as per #1. (7) Constipation Qualifiers: Constipation type: unspecified constipation type Qualified Code(s): K59.00 - Constipation, unspecified Is this a current diagnosis for this admission?: Yes Plan: Resolved. Continue current bowel regimen. (8) Dehydration Is this a current diagnosis for this admission?: Yes Plan: Euvolemic. Monitor volume status. Encourage p.o. intake. Continue IV fluids. (9) Dementia Qualifiers: Dementia type: other frontotemporal dementia Dementia behavioral disturbance: without behavioral disturbance Qualified Code(s): G31.09 - Other frontotemporal dementia; F02.80 - Dementia in other diseases classified elsewhere without behavioral disturbance Is this a current diagnosis for this admission?: Yes Plan: Alert and oriented, pleasant, cooperative with physical examination. 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 Supportive measures. (10) Dysphagia Is this a current diagnosis for this admission?: Yes Plan: Due to dementia and possibly worsened with in-hospital delirium. Improving. Has been followed by speech therapy. Would benefit from ongoing [facility] as outpatient. Speech therapy on board, recommendations noted. Aspiration precautions. (11) History of prostate cancer Is this a current diagnosis for this admission?: Yes Plan: Resume home meds. Outpatient PCP and oncology follow-up. (12) Hyperlipidemia Qualifiers: Hyperlipidemia type: unspecified Qualified Code(s): E78.5 - Hyperlipidemia, unspecified Is this a current diagnosis for this admission?: Yes Plan: Continue statins. (13) Hypertension Qualifiers: Hypertension type: essential hypertension Qualified Code(s): I10 - Essential (primary) hypertension Is this a current diagnosis for this admission?: Yes Plan: Euvolemic. Normotensive. Continue current meds. Adjust meds as needed. Monitor vitals. - Plan Summary Summary: Acute hypoxemic respiratory failure Pneumonia due to COVID-19 virus s/p 2 doses of ivermectin, high dose steroids, and convalescent plasma Fevers have resolved and oxygen needs are decreasing steadily D-dimer is trending down, but remains elevated, so he is on therapeutic Lovenox dose continue to wean down O2 as tolerated PRN goal >92% VLADISLAV-continue CPAP when sleeping Labile BP-very sensitive to medication adjustments Dehydration-resolved with IV fluids Dysphagia-due to dementia and possibly worsened with in-hospital delirium. Would benefit from ongoing [facility] as outpatient. Remains on nectar thick liquids as he failed MBBS on 04/20/2020. Dementia-continue Aricept Anxiety depression-continue duloxetine, Tegretol and citalopram History prostate cancer-continue leuprolide Nausea and vomiting-was felt to be due to constipation. Instituted bowel regimen and reglan. Now resolved. Constipation-resolved with bowel regimen. - Time Time Spent with patient: 35 or more minutes Anticipated Discharge Disposition: [facility] Anticipated Discharge Timeframe: when bed available
[2020-04-30] MEDS ORDERED: POLYETHYLENE GLYCOL 3350 POWDER 17 GM/1 PACKET PO ONE (12:00)
[2020-04-30] MEDS: VANCOMYCIN HCL 1,250 MG in DEXTROSE 5%-WATER 250 ML IV SCH (17:34)
[2020-04-30] MEDS: ATORVASTATIN CALCIUM 10 MG TABLET PO SCH (21:08)
[2020-05-01] MEDS: IPRATROPIUM/ALBUTEROL 0.5-2.5 MG/3 ML AMPUL NEB SCH ×3 (00:22→17:14)
--- NOTE | 2020-05-01 10:03 | PDOC PROGRESS REPORT ---
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 Most of the history taken from his because the patient has dementia from a head injury. According to the he started becoming weak and more lethargic 3 days prior with poor appetite. He has some minimal cough but no SOB. He developed a fever of 102 today and he was supposed to be taken to his PCP but he was very weak and could not get out of bed hence he was taken to the emergency room. In the ED, BP was 117/62, HR 77, RR 18, O2sat 96% on room air. CBC showed mild leukopenia. CMP showed a potassium of 3 .0, crea of 1.28. CXR did not show any pneumonia. Rapid COVID test was positive. Patient was given LR bolus, potassium supplements and hospitalist service was called to admit the patient. I spoke to the patients and told her that he will be admitted to the COVID unit for observation and if he requires oxygen he will be started on remdesivir. However, she does not want to be away from him as she is concerned that he will get agitated and confused if she is not with him. She would like to take him home however she cannot take care of him by herself as she has no one to help her and she is old as well. 04/22/2020. No acute events overnight. Patient resting in bed, on supplemental oxygen, alert and oriented, pleasant and cooperative with physical examination. Complaining of generalized weakness, easily gets winded upon exertion, denies any fever, chills, nausea, vomiting. 04/23/2020. No acute events overnight. Saw patient this morning, while wearing his BiPAP, complaining of generalized weakness, alert and oriented, denies any fever, chills, nausea, vomiting. Patient still on high oxygen demand, pending transfer to SNF. 04/24/2020. No acute events overnight, still on Oxymizer at 15 L, complains of generalized weakness, refusing to have physical therapy otherwise awake and alert, does not appear to be in any apparent distress, pleasant and cooperative with physical examination. 04/25/2020. No acute events overnight. Patient alert and oriented in no apparent distress, stating that he is feeling better than yesterday, oxygen demand is steadily going down, hopefully patient can be weaned down where he can be transferred to rehab where he can continue his rehab. Denies any fever, chills, nausea, vomiting. P.o. tolerant. Having normal bowel movements. 04/26/2020. No acute events overnight. Patient oxygen demand is decreasing, he could potentially be discharged to SNF when possible, patient has been refusing physical therapy stating that he is too weak, I have encouraged him to participate in his physical therapy to recover some strength. Patient denies any fever, chills, nausea, vomiting, diarrhea, constipation or any urinary symptoms. 04/27/2020. No acute events overnight, patient complaining of severe fatigue weakness, has been refusing physical therapy and refusing to even sit in the recliner, patient looks very withdrawn and sad stating that the reason he is refusing to get out of bed and do physical therapy is because he feels like he has no energy, otherwise denies any fever, chills, nausea, vomiting. Pending transfer to rehab. 04/26/2020. No acute events overnight, patient still sleeps a lot, refused to get out of bed, has low appetite, and is stating that he is very depressed and has no energy to get out of bed, patient is strongly encouraged to get out of the bed at sit in his recliner much as possible and also cooperate with physical therapy, patient voiced understanding, patient is p.o. tolerant, denies any chest pain, nausea, vomiting diarrhea or constipation. Called his for update unfortunately no answer. Left a voicemail. 04/29/2020. Yesterday evening patient was noted to be hypotensive, and oxygen demand was going up, repeat chest x-ray showed increased patchy bilateral multifocal parenchymal opacities, and patient was started on IV cefepime and vancomycin for possible healthcare associated pneumonia, this morning patient is more alert and communicative, appetite is improving, still complaining of severe fatigue and weakness. Patient encouraged to get her recliner and also try to work with PT. Patient agreed with the plan. 04/30/2020. No acute events overnight. Saw patient this morning, sitting in his recliner, enjoying his breakfast, appears more energetic, stating that he is feeling great, reports mild improvement of his depression, appetite is improving, currently on 5 L nasal cannula saturating 100%, patient has been talking to his family over the phone for the last 2 days which has helped him a lot. Patient is currently pending transfer to rehab. 05/01/2020. No acute events overnight. Patient's oxygen demand improving steadily, appetite is also improving and patient is willing to get out of bed more often, when asked how he is doing he stated he is doing great, and he has been talking to his daily, patient appetite improving mildly but is still stating that he feels depressed, denies any fever, chills, nausea, vomiting, diarrhea or any urinary symptoms. Reason For Visit: COVID 19 VIRUS INFECTION Physical Exam Vital Signs: Temp Pulse Resp BP Pulse Ox 98.8 F 88 14 132/82 H 95 05/01/20 04:08 05/01/20 07:59 05/01/20 07:59 05/01/20 04:08 05/01/20 07:59 Intake & Output 04/30/20 05/01/20 05/02/20 06:59 06:59 06:59 Intake Total 2899 1707 Output Total 1000 275 Balance 1899 1432 Weight 87.8 kg 89.7 kg General appearance: PRESENT: no acute distress, thin, other - Looks very quiet, withdrawn and weak. Head exam: PRESENT: atraumatic, normocephalic Respiratory exam: PRESENT: crackles - Bibasilar. ABSENT: rales, rhonchi, wheezes GI/Abdominal exam: PRESENT: normal bowel sounds, soft. ABSENT: distended, guarding, mass, organolmegaly, rebound, tenderness Neurological exam: PRESENT: alert, awake, oriented to person, oriented to place, CN II-XII grossly intact. ABSENT: motor sensory deficit Results Laboratory Results: 04/30/20 04:22 04/30/20 04:22 04/03/20 04/03/20 15:00 15:00 Creatine Kinase 116 Troponin I 0.035 Impressions: Venous Doppler Study 04/03/20 00:00 IMPRESSION: No evidence of deep venous thrombosis in the bilateral upper extremities. KUB X-Ray 04/16/20 00:00 IMPRESSION: NON-SPECIFIC BOWEL GAS PATTERN WITHOUT EVIDENCE FOR OBSTRUCTION. Modified Barium Swallow 04/25/20 00:00 IMPRESSION: LARYNGEAL PENETRATION AND TRACE ASPIRATION OF THIN AND NECTAR THICK LIQUIDS. THIS HAS IMPROVED FROM PREVIOUS STUDY. PLEASE SEE SPEECH PATHOLOGIST REPORT FOR OTHER FINDINGS AND RECOMMENDATIONS. Chest X-Ray 04/28/20 14:19 IMPRESSION: Increased patchy bilateral multifocal parenchymal opacities. Assessment and Plan - Diagnosis (1) Acute hypoxemic respiratory failure Is this a current diagnosis for this admission?: Yes Plan: Improving. SPO2 WNL on 3 L Oxymizer. Due to COVID-19 pneumonia and possibly superimposed healthcare associated pneumonia. Currently on 5 Oxymizer SPO2 WNL. Patient easily desaturates upon exertion. Has received 2 doses of ivermectin, high dose steroids, and convalescent plasma on this admission. Repeat chest x-ray on 04/29/2020 shows worsening bilateral opacification. Started on cefepime and vancomycin on 04/28/2020 to cover for possible healthcare associated pneumonia. Day 4 IV antibiotics. Day 4 IV cefepime. Day 4 IV vancomycin. Continue empiric IV antibiotics, follow-up sputum and blood cultures. Continue as needed DuoNebs, supplemental oxygen, aggressive pulmonary toileting. Continue to wean down O2 as tolerated PRN goal >92% At baseline patient uses supplemental oxygen 2 L per nasal cannula. Pending transfer to rehab. (2) Pneumonia Qualifiers: Aspiration pneumonia type: unspecified Laterality: bilateral Lung location: unspecified part of lung Is this a current diagnosis for this admission?: Yes Plan: It is possible that patient has developed on top of COVID-19 pneumonia healthcare associated pneumonia. Plan as per #1. (3) Anxiety and depression Is this a current diagnosis for this admission?: Yes Plan: Moderate improvement compared to 3 days ago. History of depression anxiety likely worsened due to acute illness. Denies any suicidal or homicidal ideations. Patient reporting mild increase in his energy and appetite. Was taking duloxetine and Celexa. Celexa switched to venlafaxine extended release. I have encouraged his to call him daily which she has been doing and it is has been helping him. Continue duloxetine and venlafaxine. Hopefully patient gets better once he is moved to rehab. Outpatient PCP and psychiatry follow-up. (4) Failure to thrive in adult Is this a current diagnosis for this admission?: Yes Plan: Improving, patient has been eating about 25 to 50% of his food. Patient reports mild improvement of his energy level and appetite. Patient was reporting very low energy, low appetite, and depression. Patient may have had this problem before admission likely worsened due to acute illness and prolonged hospitalization. Continue Megace to stimulate appetite, registered dietitian and speech therapy on board. Continue PT OT. (5) Generalized weakness Is this a current diagnosis for this admission?: Yes Plan: Improving. Patient getting out of bed more often sitting in his recliner. Working with PT. Most likely due to COVID-19 pneumonia and prolonged hospitalization. Initially he was refusing physical therapy or getting out of the bed. Patient was strongly encouraged to cooperate with PT, or at least sit in his recliner otherwise to prevent getting weaker, decubitus ulcers and possibly hospital-acquired pneumonia. Patient voiced understanding and stated that he will try to cooperate with PT OT. Continue encouraging to get out of the bed with assist, continue PT/OT, continue fall and aspiration precaution. Pending transfer to SNF. (6) Pneumonia due to COVID-19 virus Is this a current diagnosis for this admission?: Yes Plan: Plan as per #1. (7) Constipation Qualifiers: Constipation type: unspecified constipation type Qualified Code(s): K59.00 - Constipation, unspecified Is this a current diagnosis for this admission?: Yes Plan: Resolved. Continue current bowel regimen. (8) Dehydration Is this a current diagnosis for this admission?: Yes Plan: Euvolemic. Monitor volume status. Encourage p.o. intake. Continue IV fluids. (9) Dementia Qualifiers: Dementia type: other frontotemporal dementia Dementia behavioral disturbance: without behavioral disturbance Qualified Code(s): G31.09 - Other frontotemporal dementia; F02.80 - Dementia in other diseases classified elsewhere without behavioral disturbance Is this a current diagnosis for this admission?: Yes Plan: Alert and oriented, pleasant, cooperative with physical examination. 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 Supportive measures. (10) Dysphagia Is this a current diagnosis for this admission?: Yes Plan: Due to dementia and possibly worsened with in-hospital delirium. Improving. Has been followed by speech therapy. 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 Speech therapy on board, recommendations noted. Aspiration precautions. (11) History of prostate cancer Is this a current diagnosis for this admission?: Yes Plan: Resume home meds. Outpatient PCP and oncology follow-up. (12) Hyperlipidemia Qualifiers: Hyperlipidemia type: unspecified Qualified Code(s): E78.5 - Hyperlipidemia, unspecified Is this a current diagnosis for this admission?: Yes Plan: Continue statins. (13) Hypertension Qualifiers: Hypertension type: essential hypertension Qualified Code(s): I10 - Essential (primary) hypertension Is this a current diagnosis for this admission?: Yes Plan: Euvolemic. Normotensive. Continue current meds. Adjust meds as needed. Monitor vitals. - Plan Summary Summary: Acute hypoxemic respiratory failure Pneumonia due to COVID-19 virus s/p 2 doses of ivermectin, high dose steroids, and convalescent plasma Fevers have resolved and oxygen needs are decreasing steadily D-dimer is trending down, but remains elevated, so he is on therapeutic Lovenox dose continue to wean down O2 as tolerated PRN goal >92% VLADISLAV-continue CPAP when sleeping Labile BP-very sensitive to medication adjustments Dehydration-resolved with IV fluids Dysphagia-due to dementia and possibly worsened with in-hospital delirium. 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 Remains on nectar thick liquids as he failed MBBS on 04/20/2020. Dementia-continue Aricept Anxiety depression-continue duloxetine, Tegretol and citalopram History prostate cancer-continue leuprolide Nausea and vomiting-was felt to be due to constipation. Instituted bowel regimen and reglan. Now resolved. Constipation-resolved with bowel regimen. - Time Time Spent with patient: 35 or more minutes Anticipated Discharge Disposition: [facility] Anticipated Discharge Timeframe: when bed available
[2020-05-01] MEDS: CEFEPIME 1 GM/D5W RTU 1 GM/50 ML RTUPB IV SCH ×2 (10:58→22:39)
[2020-05-01] MEDS: CARBAMAZEPINE SUSP 200 MG/10 ML UDCUP PO SCH ×2 (10:59→22:39)
[2020-05-01] MEDS: CALCIUM CARBONATE 600 MG/VITAMIN D3 400 UNIT TABLET PO SCH (10:59)
[2020-05-01] MEDS: LISINOPRIL 10 MG TABLET PO SCH (10:59)
[2020-05-01] MEDS: DOCUSATE SODIUM 100 MG/10 ML UDC PO SCH ×2 (10:59→17:19)
[2020-05-01] MEDS: ZINC SULFATE 220 MG CAPSULE PO SCH (10:59)
[2020-05-01] MEDS: DONEPEZIL HCL 5 MG TABLET PO SCH (10:59)
[2020-05-01] MEDS: CHOLECALCIFEROL (D3) 1,000 UNIT (25 MCG) TABLET PO SCH (10:59)
[2020-05-01] MEDS: VENLAFAXINE HCL 75 MG CAP.SR.24H PO SCH (10:59)
[2020-05-01] MEDS: ASPIRIN 81 MG TABLET, CHEWABLE PO SCH (10:59)
[2020-05-01] MEDS: MEGESTROL ACETATE 20 MG TABLET PO SCH (10:59)
[2020-05-01] MEDS: ASCORBIC ACID 500 MG TABLET PO SCH ×2 (11:00→17:19)
[2020-05-01] MEDS: CYANOCOBALAMIN (VITAMIN B-12) 1,000 MCG TABLET PO SCH (11:00)
[2020-05-01] MEDS: ENOXAPARIN SODIUM INJ 40 MG/0.4 ML DISP.SYRIN SUBCUT SCH (11:00)
[2020-05-01] MEDS: FLUTICASONE NASAL SPRAY 50 MCG/SPRY 120 SPRAY/16 GM NASL SCH ×2 (11:01→22:41)
[2020-05-01] MEDS: DULOXETINE HCL 30 MG CAPSULE.DR PO SCH (11:01)
[2020-05-01] MEDS: VANCOMYCIN HCL 1,250 MG in DEXTROSE 5%-WATER 250 ML IV SCH (17:18)
[2020-05-01] MEDS: DEXTROSE 5%-NORMAL SALINE 1,000 ML IV PRN (17:47)
[2020-05-01] MEDS: ATORVASTATIN CALCIUM 10 MG TABLET PO SCH (22:38)
[2020-05-02] MEDS: IPRATROPIUM/ALBUTEROL 0.5-2.5 MG/3 ML AMPUL NEB SCH ×4 (00:01→23:48)
[2020-05-02 05:11] LABS: HEMATOCRIT 22.2 % (37.9-51.0); MEAN CORPUSCULAR HEMOGLOBIN 31.5 pg (27.0-33.4); MEAN CORPUSCULAR VOLUME 90 fl (80-97); PLATELET COUNT 170 10^3/uL (150-450); RED BLOOD COUNT 2.46 10^6/uL (4.35-5.55); RED CELL DISTRIBUTION WIDTH 15.1 % (11.5-14.0); WHITE BLOOD COUNT 5.9 10^3/uL (4.0-10.5)
[2020-05-02 05:12] LABS: HEMOGLOBIN 7.8 g/dL (13.5-17.0)
[2020-05-02 05:27] LABS: ALBUMIN 2.3 g/dL (3.5-5.0); ALKALINE PHOSPHATASE 67 U/L (38-126); ASPARTATE AMINO TRANSFERASE 19 U/L (17-59); BILIRUBIN,DIRECT 0.2 mg/dL (0.0-0.4); BILIRUBIN,TOTAL 0.4 mg/dL (0.2-1.3); BLOOD UREA NITROGEN 10 mg/dL (7-20); CARBON DIOXIDE 28 mmol/L (22-30); CHLORIDE 101 mmol/L (98-107); GLUCOSE 101 mg/dL (75-110); POTASSIUM 3.5 mmol/L (3.6-5.0); TOTAL PROTEIN 5.3 g/dL (6.3-8.2)
[2020-05-02 05:31] LABS: ANION GAP 1 (5-19)
[2020-05-02] MEDS: DONEPEZIL HCL 5 MG TABLET PO SCH (11:07)
[2020-05-02] MEDS: CALCIUM CARBONATE 600 MG/VITAMIN D3 400 UNIT TABLET PO SCH (11:07)
[2020-05-02] MEDS: ASCORBIC ACID 500 MG TABLET PO SCH ×2 (11:07→17:29)
[2020-05-02] MEDS: CHOLECALCIFEROL (D3) 1,000 UNIT (25 MCG) TABLET PO SCH (11:07)
[2020-05-02] MEDS: VENLAFAXINE HCL 75 MG CAP.SR.24H PO SCH (11:08)
[2020-05-02] MEDS: ZINC SULFATE 220 MG CAPSULE PO SCH (11:08)
[2020-05-02] MEDS: DULOXETINE HCL 30 MG CAPSULE.DR PO SCH (11:08)
[2020-05-02] MEDS: ASPIRIN 81 MG TABLET, CHEWABLE PO SCH (11:08)
[2020-05-02] MEDS: LISINOPRIL 10 MG TABLET PO SCH (11:08)
[2020-05-02] MEDS: CYANOCOBALAMIN (VITAMIN B-12) 1,000 MCG TABLET PO SCH (11:09)
[2020-05-02] MEDS: ENOXAPARIN SODIUM INJ 40 MG/0.4 ML DISP.SYRIN SUBCUT SCH (11:10)
[2020-05-02] MEDS: DOCUSATE SODIUM 100 MG/10 ML UDC PO SCH ×2 (11:10→17:29)
[2020-05-02] MEDS: MEGESTROL ACETATE 20 MG TABLET PO SCH (11:11)
[2020-05-02] MEDS: CARBAMAZEPINE SUSP 200 MG/10 ML UDCUP PO SCH ×2 (11:12→21:03)
[2020-05-02] MEDS: CEFEPIME 1 GM/D5W RTU 1 GM/50 ML RTUPB IV SCH ×2 (11:12→21:05)
[2020-05-02] MEDS: FLUTICASONE NASAL SPRAY 50 MCG/SPRY 120 SPRAY/16 GM NASL SCH ×2 (11:14→21:03)
--- NOTE | 2020-05-02 15:15 | PDOC PROGRESS REPORT ---
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 Progress day #24 assumed care. Patient was found resting in bed, comfortably, on supplemental oxygen via oxymizer at 3 L/min. He was sleeping but woke easily when I said his name. He denies all complaints today; states that he is just fatigued and resting. Specifically denies fever, chills, chest pain, palpitations, dyspnea, cough, abdominal pain, nausea. He denies questions or concerns at this time. Nursing reports fatigue and generalized weakness but otherwise no concerns. Reason For Visit: COVID 19 VIRUS INFECTION Physical Exam Vital Signs: Temp Pulse Resp BP Pulse Ox 99.1 F 95 18 123/78 96 05/02/20 08:07 05/02/20 08:07 05/02/20 08:07 05/02/20 08:07 05/02/20 08:07 Intake & Output 05/01/20 05/02/20 05/03/20 06:59 06:59 06:59 Intake Total 1707 1737 Output Total 275 Balance 1432 1737 Weight 89.7 kg 87.2 kg General appearance: PRESENT: no acute distress, cooperative, well-developed, well-nourished, other Head exam: PRESENT: atraumatic, normocephalic Eye exam: PRESENT: conjunctiva pink, EOMI, PERRLA. ABSENT: scleral icterus Mouth exam: PRESENT: moist, tongue midline Respiratory exam: PRESENT: clear to auscultation jenelle, symmetrical, unlabored, other. ABSENT: rales, rhonchi, wheezes Cardiovascular exam: PRESENT: RRR. ABSENT: diastolic murmur, rubs, systolic murmur Pulses: PRESENT: normal dorsalis pedis pul Vascular exam: PRESENT: normal capillary refill Extremities exam: PRESENT: full ROM. ABSENT: calf tenderness, clubbing, pedal edema Neurological exam: PRESENT: alert, awake, oriented to person, oriented to place, CN II-XII grossly intact, other. ABSENT: motor sensory deficit Psychiatric exam: PRESENT: normal mood. ABSENT: homicidal ideation, suicidal ideation Skin exam: PRESENT: dry, intact, warm. ABSENT: cyanosis, rash Results Laboratory Results: 05/02/20 04:31 05/02/20 04:31 05/02/20 05/02/20 04:31 04:31 WBC 5.9 RBC 2.46 L Hgb 7.8 L Hct 22.2 L MCV 90 MCH 31.5 MCHC 35.0 RDW 15.1 H Plt Count 170 Sodium 130.2 L Potassium 3.5 L Chloride 101 Carbon Dioxide 28 Anion Gap 1 L BUN 10 Creatinine 0.71 Est GFR ( Amer) > 60 Glucose 101 Calcium 8.0 L Total Bilirubin 0.4 AST 19 Alkaline Phosphatase 67 Total Protein 5.3 L Albumin 2.3 L 04/03/20 04/03/20 15:00 15:00 Creatine Kinase 116 Troponin I 0.035 Impressions: Venous Doppler Study 04/03/20 00:00 IMPRESSION: No evidence of deep venous thrombosis in the bilateral upper extremities. KUB X-Ray 04/16/20 00:00 IMPRESSION: NON-SPECIFIC BOWEL GAS PATTERN WITHOUT EVIDENCE FOR OBSTRUCTION. Modified Barium Swallow 04/25/20 00:00 IMPRESSION: LARYNGEAL PENETRATION AND TRACE ASPIRATION OF THIN AND NECTAR THICK LIQUIDS. THIS HAS IMPROVED FROM PREVIOUS STUDY. PLEASE SEE SPEECH PATHOLOGIST REPORT FOR OTHER FINDINGS AND RECOMMENDATIONS. Chest X-Ray 04/28/20 14:19 IMPRESSION: Increased patchy bilateral multifocal parenchymal opacities. Assessment and Plan - Diagnosis (1) Acute hypoxemic respiratory failure Is this a current diagnosis for this admission?: Yes Plan: Improving. SPO2 WNL on 3 L Oxymizer. TMax 100.2/24 hrs, WBCs nml At baseline patient uses supplemental oxygen 2 L per nasal cannula. Due to COVID-19 pneumonia and possibly superimposed healthcare associated pneumonia. Has received 2 doses of ivermectin, high dose steroids, and convalescent plasma on this admission. Repeat chest x-ray on 04/29/2020 shows worsening bilateral opacification. Started on cefepime and vancomycin on 04/28/2020 to cover for possible healthcare associated pneumonia. Day 5/7 IV antibiotics. Day 5 IV cefepime. Day 5 IV vancomycin; will d/c as patient's BCx are negative at 72 hrs and he does not have sputum production. Continue empiric IV antibiotics, follow-up sputum and blood cultures. Continue as needed DuoNebs, supplemental oxygen, aggressive pulmonary toileting. Continue to wean down O2 as tolerated PRN goal >92% (2) Pneumonia Qualifiers: Aspiration pneumonia type: unspecified Laterality: bilateral Lung location: unspecified part of lung Is this a current diagnosis for this admission?: Yes Plan: It is possible that patient has developed on top of COVID-19 pneumonia healthcare associated pneumonia. Plan as per #1. (3) Pneumonia due to COVID-19 virus Is this a current diagnosis for this admission?: Yes Plan: Plan as per #1. (4) Anxiety and depression Is this a current diagnosis for this admission?: Yes Plan: History of depression anxiety likely worsened due to acute illness. Denies any suicidal or homicidal ideations. Patient reporting mild increase in his energy and appetite. Was taking duloxetine and Celexa. Celexa switched to venlafaxine extended release. Encouraged his to call him daily which she has been doing and it is has been helping him. Continue duloxetine and venlafaxine. Hopefully patient gets better once he is moved to rehab. Outpatient PCP and psychiatry follow-up. (5) Dementia Qualifiers: Dementia type: other frontotemporal dementia Dementia behavioral disturbance: without behavioral disturbance Qualified Code(s): G31.09 - Other frontotemporal dementia; F02.80 - Dementia in other diseases classified elsewhere without behavioral disturbance Is this a current diagnosis for this admission?: Yes Plan: Alert and oriented, pleasant, cooperative with physical examination. 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 Supportive measures. (6) Dysphagia Is this a current diagnosis for this admission?: Yes Plan: Due to dementia and possibly worsened with in-hospital delirium. Improving. Has been followed by speech therapy. 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 Speech therapy on board, recommendations noted. Aspiration precautions. (7) Failure to thrive in adult Is this a current diagnosis for this admission?: Yes Plan: Improving, patient has been eating about 25 to 50% of his food. Patient reports mild improvement of his energy level and appetite. Patient was reporting very low energy, low appetite, and depression. Patient may have had this problem before admission likely worsened due to acute illness and prolonged hospitalization. Continue Megace to stimulate appetite, registered dietitian and speech therapy on board. Continue PT OT. (8) Generalized weakness Is this a current diagnosis for this admission?: Yes Plan: Improving. Patient getting out of bed more often sitting in his recliner. Working with PT. Most likely due to COVID-19 pneumonia and prolonged hospitalization. Continue encouraging to get out of the bed with assist, continue PT/OT, continue fall and aspiration precaution. Pending transfer to SNF. (9) History of prostate cancer Is this a current diagnosis for this admission?: Yes Plan: Resume home meds. Outpatient PCP and oncology follow-up. (10) Hyperlipidemia Qualifiers: Hyperlipidemia type: unspecified Qualified Code(s): E78.5 - Hyperlipidemia, unspecified Is this a current diagnosis for this admission?: Yes Plan: Continue statins. (11) Hypertension Qualifiers: Hypertension type: essential hypertension Qualified Code(s): I10 - Essential (primary) hypertension Is this a current diagnosis for this admission?: Yes Plan: Euvolemic. Normotensive. Continue current meds. Adjust meds as needed. Monitor vitals. (12) Dehydration Is this a current diagnosis for this admission?: Yes Plan: resolved. Euvolemic. Monitor volume status. Encourage p.o. intake. - Time Time Spent with patient: 35 or more minutes Medications reviewed and adjusted accordingly: Yes Anticipated Discharge Disposition: [facility] Facility Anticipated Discharge Timeframe: within 48 hours
[2020-05-02] MEDS: DEXTROSE 5%-NORMAL SALINE 1,000 ML IV PRN (16:00)
[2020-05-02] MEDS: ATORVASTATIN CALCIUM 10 MG TABLET PO SCH (21:02)
[2020-05-03 05:18] LABS: ABSOLUTE RETICS # 0.031 10^6/uL (0.028-0.122); HEMATOCRIT 22.1 % (37.9-51.0); MEAN CORPUSCULAR HEMOGLOBIN 30.9 pg (27.0-33.4); MEAN CORPUSCULAR HGB CONC 34.2 g/dL (32.0-36.0); MEAN CORPUSCULAR VOLUME 90 fl (80-97); PLATELET COUNT 177 10^3/uL (150-450); RED BLOOD COUNT 2.45 10^6/uL (4.35-5.55); RED CELL DISTRIBUTION WIDTH 15.2 % (11.5-14.0); RETICULOCYTE COUNT (AUTO) 1.26 % (0.66-2.85); WHITE BLOOD COUNT 5.6 10^3/uL (4.0-10.5)
[2020-05-03 05:23] LABS: HEMOGLOBIN 7.6 g/dL (13.5-17.0)
[2020-05-03 05:44] LABS: BLOOD UREA NITROGEN 13 mg/dL (7-20); GLUCOSE 109 mg/dL (75-110); IRON(TIBC) 23.9 ug/dL (49-181); POTASSIUM 3.7 mmol/L (3.6-5.0)
[2020-05-03 05:50] LABS: CARBON DIOXIDE 28 mmol/L (22-30); CHLORIDE 103 mmol/L (98-107)
[2020-05-03] MEDS: DEXTROSE 5%-NORMAL SALINE 1,000 ML IV PRN (06:29)
[2020-05-03 06:39] LABS: FOLATE 3.57 ng/mL (>2.76)
[2020-05-03 07:47] LABS: ANION GAP 3 (5-19)
[2020-05-03] MEDS: IPRATROPIUM/ALBUTEROL 0.5-2.5 MG/3 ML AMPUL NEB SCH ×3 (08:15→23:55)
[2020-05-03] MEDS: DOCUSATE SODIUM 100 MG/10 ML UDC PO SCH ×2 (11:10→17:12)
[2020-05-03] MEDS: ZINC SULFATE 220 MG CAPSULE PO SCH (11:11)
[2020-05-03] MEDS: ASCORBIC ACID 500 MG TABLET PO SCH ×2 (11:11→17:13)
[2020-05-03] MEDS: VENLAFAXINE HCL 75 MG CAP.SR.24H PO SCH (11:11)
[2020-05-03] MEDS: LISINOPRIL 10 MG TABLET PO SCH (11:11)
[2020-05-03] MEDS: ASPIRIN 81 MG TABLET, CHEWABLE PO SCH (11:11)
[2020-05-03] MEDS: DULOXETINE HCL 30 MG CAPSULE.DR PO SCH (11:11)
[2020-05-03] MEDS: CHOLECALCIFEROL (D3) 1,000 UNIT (25 MCG) TABLET PO SCH (11:11)
[2020-05-03] MEDS: DONEPEZIL HCL 5 MG TABLET PO SCH (11:12)
[2020-05-03] MEDS: CYANOCOBALAMIN (VITAMIN B-12) 1,000 MCG TABLET PO SCH (11:12)
[2020-05-03] MEDS: CALCIUM CARBONATE 600 MG/VITAMIN D3 400 UNIT TABLET PO SCH (11:12)
[2020-05-03] MEDS: FLUTICASONE NASAL SPRAY 50 MCG/SPRY 120 SPRAY/16 GM NASL SCH ×2 (11:19→21:29)
[2020-05-03] MEDS: ENOXAPARIN SODIUM INJ 40 MG/0.4 ML DISP.SYRIN SUBCUT SCH (11:20)
[2020-05-03] MEDS: CEFEPIME 1 GM/D5W RTU 1 GM/50 ML RTUPB IV SCH ×2 (11:23→21:29)
[2020-05-03] MEDS: CARBAMAZEPINE SUSP 200 MG/10 ML UDCUP PO SCH ×2 (11:25→21:29)
[2020-05-03] MEDS: MEGESTROL ACETATE 20 MG TABLET PO SCH (11:25)
[2020-05-03] MEDS ORDERED: MAGNESIUM HYDROXIDE SUSP 30 ML UDCUP PO PRN (14:51)
[2020-05-03] MEDS ORDERED: BISACODYL 10 MG SUPP.RECT PR PRN (14:51)
--- NOTE | 2020-05-03 18:19 | PDOC TRANSFER SUMMARY ---
Impression - Admit/DC Date/PCP Admission Date/Primary Care Provider: 04/08/20 14:04 TEJINDER LUKE MD Discharge Date: 05/03/20 - Discharge Diagnosis (1) Acute hypoxemic respiratory failure Is this a current diagnosis for this admission?: Yes (2) Pneumonia Is this a current diagnosis for this admission?: Yes (3) Pneumonia due to COVID-19 virus Is this a current diagnosis for this admission?: Yes (4) Anxiety and depression Is this a current diagnosis for this admission?: Yes (5) Dementia Is this a current diagnosis for this admission?: Yes (6) Dysphagia Is this a current diagnosis for this admission?: Yes (7) Failure to thrive in adult Is this a current diagnosis for this admission?: Yes (8) Generalized weakness Is this a current diagnosis for this admission?: Yes (9) History of prostate cancer Is this a current diagnosis for this admission?: Yes (10) Hyperlipidemia Is this a current diagnosis for this admission?: Yes (11) Hypertension Is this a current diagnosis for this admission?: Yes (12) Dehydration Is this a current diagnosis for this admission?: Yes - Additional Information Resuscitation Status: Do Not Resuscitate Discharge Diet: Cardiac - mech soft ground meats, regular liquids Discharge Activity: Activity As Tolerated Referrals: SHRUTHI LUKE MD [NO LOCAL MD] - 05/03/20 11:15 am Prescriptions: Ascorbic Acid [Vitamin C 500 mg Tablet] 500 mg PO BID 30 Days #60 tablet Zinc Sulfate [Zinc-220 Capsule] 220 mg PO DAILY 30 Days #30 capsule Home Medications: Aspirin 81 mg PO DAILY 04/11/16 Carbamazepine [Carbamazepine ER] 200 mg PO BID 04/11/16 Cyanocobalamin (Vitamin B-12) [B-12] 500 mcg PO DAILY 04/11/16 Duloxetine HCl 60 mg PO DAILY 04/11/16 Pravastatin Sodium 40 mg PO DAILY 04/11/16 Docusate Sodium [Colace 100 mg Capsule] 100 mg PO BID #60 capsule 04/12/16 Abiraterone Acetate [Zytiga] 1,000 mg PO DAILY 04/03/20 Acetaminophen [Tylenol 325 mg Tablet] 650 mg PO Q6HP PRN 04/03/20 Calcium Carbonate/Vitamin D3 [Calcium 600-Vit D3 400 Tablet] 1 each PO DAILY 04/03/20 Cholecalciferol (Vitamin D3) [Vitamin D3 1000 Unit Tablet] 2,000 unit PO DAILY 04/03/20 Citalopram Hydrobromide [Citalopram HBr] 10 mg PO DAILY 04/03/20 Donepezil HCl [Aricept] 5 mg PO DAILY 04/03/20 Duloxetine HCl [Cymbalta 30 mg Capsule.dr] 30 mg PO DAILY 04/03/20 Epinephrine [Epipen 2-Felipe] 0.3 mg IM ASDIR PRN 04/03/20 Ferrous Gluconate 324 mg PO BID 04/03/20 Fluticasone Propionate [Flonase Nasal [place] 50 Mcg/[place] 16 gm] 1 spray NASL Q12 04/03/20 Leuprolide Acetate [Eligard] 45 mg SQ ASDIR PRN 04/03/20 Prednisone [Deltasone 5 mg Tablet] 5 mg PO BID 04/03/20 Ascorbic Acid [Vitamin C 500 mg Tablet] 500 mg PO BID 30 Days #60 tablet 04/05/20 Zinc Sulfate [Zinc-220 Capsule] 220 mg PO DAILY 30 Days #30 capsule 04/05/20 Acetaminophen [Tylenol 325 mg Tablet] 650 mg PO Q4HP PRN tablet 05/03/20 Docusate Sodium [Colace Udc 100 mg/10 ml Oral Soln] 200 mg PO BID udc 05/03/20 Ipratropium/Albuterol Sulfate [Duoneb 3 ml Ampul] 3 ml NEB RTQ8 vial.neb 05/03/20 Lisinopril [Prinivil 10 mg Tablet] 10 mg PO DAILY #0 tablet 05/03/20 Megestrol Acetate [Megace 20 mg Tablet] 40 mg PO DAILY tablet 05/03/20 Polyethylene Glycol 3350 [Miralax Powder 17 gm/Packet] 17 gm PO DAILY powd.pack 05/03/20 Sodium Chloride [[place] Nasal [place] 44 ml Bottle] 1 spray NASL ACHSP PRN bottle 05/03/20 History of Present Illiness History of Present Illness: Per H&P by Dr. 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 Most of the history taken from his because the patient has dementia from a head injury. According to the he started becoming weak and more lethargic 3 days prior with poor appetite. He has some minimal cough but no SOB. He developed a fever of 102 today and he was supposed to be taken to his PCP but he was very weak and could not get out of bed hence he was taken to the emergency room. In the ED, BP was 117/62, HR 77, RR 18, O2sat 96% on room air. CBC showed mild leukopenia. CMP showed a potassium of 3.0, crea of 1.28. CXR did not show any pneumonia. Rapid COVID test was positive. Patient was given LR bolus, potassium supplements and hospitalist service was called to admit the patient. I spoke to the patients and told her that he will be admitted to the COVID unit for observation and if he requires oxygen he will be started on remdesivir. However, she does not want to be away from him as she is concerned that he will get agitated and confused if she is not with him. She would like to take him home however she cannot take care of him by herself as she has no one to help her and she is old as well. Hospital Course Hospital Course: (1) Acute hypoxemic respiratory failure Improving. SPO2 WNL on 2 L via standard NC TMax 100.2/48 hrs, Afebrile x 24 hrs, WBCs nml At baseline patient uses supplemental oxygen 2 L per nasal cannula. Repeat chest x-ray on 04/29/2020 shows worsening bilateral opacification. Due to COVID-19 pneumonia and possibly superimposed healthcare associated pneumonia. Has received 2 doses of ivermectin, high dose steroids, and convalescent plasma on this admission. Started on cefepime and vancomycin on 04/28/2020 to cover for possible healthcare associated pneumonia. Received 5 days of Vancomycin. Will complete 7 day course of Cefepime 05/03/20 prior to transfer to SNF in the morning. Continue as needed DuoNebs, supplemental oxygen, aggressive pulmonary toileting. (2) Pneumonia Plan as per #1. (3) Pneumonia due to COVID-19 virus Plan as per #1. (4) Anxiety and depression History of depression anxiety likely worsened due to acute illness. Denies any suicidal or homicidal ideations. Continue duloxetine and venlafaxine. Outpatient PCP and psychiatry follow-up. (5) Dementia Alert and oriented, pleasant, cooperative with physical examination. 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 Supportive measures. (6) Dysphagia Improving. Due to dementia and possibly worsened with in-hospital delirium. Has been followed by speech therapy. Would benefit from ongoing [employer] as outpatient. Aspiration precautions. (7) Failure to thrive in adult Improving, patient has been eating about 25 to 50% of most meals.. Patient reports mild improvement of his energy level and appetite. Patient was reporting very low energy, low appetite, and depression. Patient may have had this problem before admission likely worsened due to acute illness and prolonged hospitalization. Continue Megace to stimulate appetite, registered dietitian and speech therapy on board. Continue PT OT. (8) Generalized weakness Improving. Most likely due to COVID-19 pneumonia and prolonged hospitalization. PT/OT consulted. Fall and aspiration precautions. Pending transfer to SNF. (9) History of prostate cancer Continue home dose Eliguard and Zytiga. Outpatient PCP and oncology follow-up. (10) Hyperlipidemia Continue statins. Cardiac diet. (11) Hypertension Euvolemic. Normotensive. Continue lisinopril. Cardiac diet. (12) Dehydration Resolved. Euvolemic. Monitor volume status. Encourage p.o. intake. Physical Exam Vital Signs: Temp Pulse Resp BP Pulse Ox 97.9 F 92 18 110/65 94 05/03/20 12:05 05/03/20 12:05 05/03/20 12:05 05/03/20 12:05 05/03/20 12:05 Intake & Output 05/02/20 05/03/20 05/04/20 06:59 06:59 06:59 Intake Total 1737 2258 50 Balance 1737 2258 50 Weight 87.2 kg 86.3 kg General appearance: PRESENT: no acute distress, cooperative, well-developed, well-nourished, other - frail, elderly appearing Head exam: PRESENT: atraumatic, normocephalic Eye exam: PRESENT: conjunctiva pink, EOMI, PERRLA. ABSENT: scleral icterus Mouth exam: PRESENT: moist, tongue midline Respiratory exam: PRESENT: clear to auscultation jenelle, symmetrical, unlabored, other - supplemental oxygen via NC. ABSENT: rales, rhonchi, wheezes Cardiovascular exam: PRESENT: RRR. ABSENT: diastolic murmur, rubs, systolic murmur Pulses: PRESENT: normal dorsalis pedis pul Vascular exam: PRESENT: normal capillary refill Extremities exam: PRESENT: full ROM. ABSENT: calf tenderness, clubbing, pedal edema Neurological exam: PRESENT: alert, awake, oriented to person, oriented to place, oriented to time, oriented to situation, CN II-XII grossly intact. ABSENT: motor sensory deficit Psychiatric exam: PRESENT: depressed, flat affect. ABSENT: homicidal ideation, suicidal ideation Skin exam: PRESENT: dry, intact, warm. ABSENT: cyanosis, rash Results Laboratory Results: WBC 5.6 10^3/uL (4.0-10.5) 05/03/20 04:44 RBC 2.45 10^6/uL (4.35-5.55) L 05/03/20 04:44 Hgb 7.6 g/dL (13.5-17.0) L 05/03/20 04:44 Hct 22.1 % (37.9-51.0) L 05/03/20 04:44 MCV 90 fl (80-97) 05/03/20 04:44 MCH 30.9 pg (27.0-33.4) 05/03/20 04:44 MCHC 34.2 g/dL (32.0-36.0) 05/03/20 04:44 RDW 15.2 % (11.5-14.0) H 05/03/20 04:44 Plt Count 177 10^3/uL (150-450) 05/03/20 04:44 Lymph % (Auto) 10.8 % (13-45) L 04/29/20 04:21 [place] % (Auto) 5.2 % (3-13) 04/29/20 04:21 Eos % (Auto) 2.1 % (0-6) 04/29/20 04:21 Baso % (Auto) 0.6 % (0-2) 04/29/20 04:21 Reticulocyte # 0.031 10^6/uL (0.028-0.122) 05/03/20 04:44 Absolute Neuts (auto) 6.9 10^3/uL (1.7-8.2) 04/29/20 04:21 Absolute Lymphs (auto) 0.9 10^3/uL (0.5-4.7) 04/29/20 04:21 Absolute Monos (auto) 0.4 10^3/uL (0.1-1.4) 04/29/20 04:21 Absolute Eos (auto) 0.2 10^3/uL (0.0-0.6) 04/29/20 04:21 Absolute Basos (auto) 0.1 10^3/uL (0.0-0.2) 04/29/20 04:21 Total Counted 100 04/18/20 05:02 Seg Neutrophils % 81.3 % (42-78) H 04/29/20 04:21 Seg Neuts % (Manual) 92 % (42-78) H 04/18/20 05:02 Lymphocytes % (Manual) 6 % (13-45) L 04/18/20 05:02 Monocytes % (Manual) 2 % (3-13) L 04/18/20 05:02 Eosinophils % (Manual) 0 % (0-6) 04/18/20 05:02 Basophils % (Manual) 0 % (0-2) 04/18/20 05:02 Abs Neuts (Manual) 6.8 10^3/uL (1.7-8.2) 04/18/20 05:02 Abs Lymphs (Manual) 0.4 10^3/uL (0.5-4.7) L 04/18/20 05:02 Abs Monocytes (Manual) 0.1 10^3/uL (0.1-1.4) 04/18/20 05:02 Absolute Eos (Manual) 0.0 10^3/uL (0.0-0.6) 04/18/20 05:02 Abs Basophils (Manual) 0.0 10^3/uL (0.0-0.2) 04/18/20 05:02 Toxic Granulation 1+ 04/15/20 04:22 Platelet Comment ADEQUATE 04/18/20 05:02 Poikilocytosis SLIGHT 04/15/20 04:22 Anisocytosis SLIGHT 04/18/20 05:02 Tear Drop Cells SLIGHT 04/15/20 04:22 Ovalocytes SLIGHT 04/18/20 05:02 Retic Count (auto) 1.26 % (0.66-2.85) 05/03/20 04:44 D-Dimer 1.91 ug/mL (0.00-0.50) H 04/29/20 14:45 Carbonic Acid 1.14 mmol/L (1.05-1.35) 04/13/20 19:55 HCO3/H2CO3 Ratio 23:1 04/13/20 19:55 ABG pH 7.48 (7.35-7.45) H 04/13/20 19:55 ABG pCO2 37.8 mmHg (35-45) 04/13/20 19:55 ABG pO2 273.6 mmHg (80-100) H 04/13/20 19:55 ABG HCO3 27.2 mmol/L (20-24) H 04/13/20 19:55 ABG Total CO2 28.4 mmol/L (23-27) H 04/13/20 19:55 ABG O2 Saturation 99.7 % (94-98) H 04/13/20 19:55 ABG Base Excess 3.5 mmol/L 04/13/20 19:55 VBG pH 7.39 (7.30-7.42) 04/03/20 15:00 VBG pCO2 40.8 mmHg (35-63) 04/03/20 15:00 VBG HCO3 24.0 mmol/L (20-32) 04/03/20 15:00 VBG Base Excess -0.9 mmol/L 04/03/20 15:00 FiO2 100% 04/13/20 19:55 Sodium 133.6 mmol/L (137-145) L 05/03/20 04:44 Potassium 3.7 mmol/L (3.6-5.0) 05/03/20 04:44 Chloride 103 mmol/L (98-107) 05/03/20 04:44 Carbon Dioxide 28 mmol/L (22-30) 05/03/20 04:44 Anion Gap 3 (5-19) L 05/03/20 04:44 BUN 13 mg/dL (7-20) 05/03/20 04:44 Creatinine 0.77 mg/dL (0.52-1.25) 05/03/20 04:44 Est GFR ( Amer) > 60 (>60) 05/03/20 04:44 Est GFR (MDRD) Non-Af > 60 (>60) 05/03/20 04:44 Glucose 109 mg/dL (75-110) 05/03/20 04:44 Lactic Acid 1.4 mmol/L (0.7-2.1) 04/03/20 15:00 Calcium 8.0 mg/dL (8.4-10.2) L 05/03/20 04:44 Magnesium 2.0 mg/dL (1.6-2.3) 04/18/20 05:02 Iron 23.9 ug/dL (49-181) L 05/03/20 04:44 TIBC 193 ug/dL (250-450) L 05/03/20 04:44 % Saturation 12 % 05/03/20 04:44 Total Bilirubin 0.4 mg/dL (0.2-1.3) 05/02/20 04:31 Ferritin 546.00 ng/mL (17.9-464.0) H 05/03/20 04:44 Direct Bilirubin 0.2 mg/dL (0.0-0.4) 05/02/20 04:31 Neonat Total Bilirubin Not Reportable 05/02/20 04:31 Neonat Direct Bilirubin Not Reportable 05/02/20 04:31 Neonat Indirect Bili Not Reportable 05/02/20 04:31 AST 19 U/L (17-59) 05/02/20 04:31 ALT 9 U/L (<50) 05/02/20 04:31 Alkaline Phosphatase 67 U/L (38-126) 05/02/20 04:31 Lactate Dehydrogenase 225 U/L (120-246) 04/30/20 04:22 Creatine Kinase 116 U/L (55-170) 04/03/20 15:00 Troponin I 0.035 ng/mL 04/03/20 15:00 C-Reactive Protein 57.3 mg/L (<10.0) H 04/18/20 05:02 Total Protein 5.3 g/dL (6.3-8.2) L 05/02/20 04:31 Albumin 2.3 g/dL (3.5-5.0) L 05/02/20 04:31 Vitamin B12 922.0 pg/mL (239-931) 05/03/20 04:44 Folate 3.57 ng/mL (>2.76) 05/03/20 04:44 Urine Color YELLOW 04/27/20 06:10 Urine Appearance SLIGHTLY-CLOUDY 04/27/20 06:10 Urine pH 5.0 (5.0-9.0) 04/27/20 06:10 Ur Specific [place] 1.016 04/27/20 06:10 Urine Protein NEGATIVE mg/dL (NEGATIVE) 04/27/20 06:10 Urine Glucose (UA) NEGATIVE mg/dL (NEGATIVE) 04/27/20 06:10 Urine Ketones NEGATIVE mg/dL (NEGATIVE) 04/27/20 06:10 Urine Blood NEGATIVE (NEGATIVE) 04/27/20 06:10 Urine Nitrite POSITIVE (NEGATIVE) H 04/27/20 06:10 Urine Bilirubin NEGATIVE (NEGATIVE) 04/27/20 06:10 Urine Urobilinogen NEGATIVE mg/dL (<2.0) 04/27/20 06:10 Ur Leukocyte Esterase NEGATIVE (NEGATIVE) 04/27/20 06:10 Urine WBC (Auto) 4 /HPF 04/27/20 06:10 Urine RBC (Auto) 1 /HPF 04/27/20 06:10 Urine Bacteria (Auto) 3+ /HPF 04/27/20 06:10 Squamous Epi Cells Auto 1 /HPF 04/03/20 16:43 Urine Mucus (Auto) RARE /LPF 04/27/20 06:10 Urine Ascorbic Acid 40 (NEGATIVE) H 04/27/20 06:10 COVID-19 Source Cancelled 04/03/20 15:30 COVID-19 (SHERLY) Cancelled 04/03/20 15:30 Influenza A (Rapid) NEGATIVE (NEGATIVE) 04/03/20 15:30 Influenza A (RT-PCR) NEGATIVE (NEGATIVE) 04/03/20 15:30 Influenza B (Rapid) NEGATIVE (NEGATIVE) 04/03/20 15:30 Influenza B (RT-PCR) NEGATIVE (NEGATIVE) 04/03/20 15:30 RSV (RT-PCR) NEGATIVE (NEGATIVE) 04/03/20 15:30 SARS-CoV-2 Rap RNA(RT-PCR) POSITIVE (NEGATIVE) 04/03/20 15:30 Blood Type A POSITIVE 04/16/20 16:15 04/03/20 15:00 Troponin I 0.035 Impressions: Venous Doppler Study 04/03/20 00:00 IMPRESSION: No evidence of deep venous thrombosis in the bilateral upper extremities. Chest X-Ray 04/03/20 13:56 IMPRESSION: No focal airspace disease or other evidence of acute intrathoracic process. Chest X-Ray 04/12/20 00:00 IMPRESSION: Interval development of patchy airspace opacities suggests developing multi lobar pneumonia. Given distribution, recommend consideration for atypical etiologies to include viral/COVID in treatment planning. KUB X-Ray 04/16/20 00:00 IMPRESSION: NON-SPECIFIC BOWEL GAS PATTERN WITHOUT EVIDENCE FOR OBSTRUCTION. Modified Barium Swallow 04/20/20 00:00 IMPRESSION: INTERMITTENT TRACHEAL ASPIRATION WITH THIN BARIUM. LARYNGEAL PENETRATION WITH NECTAR THICK CONSISTENCY. PLEASE SEE SPEECH PATHOLOGIST REPORT FOR OTHER FINDINGS AND RECOMMENDATIONS. Modified Barium Swallow 04/25/20 00:00 IMPRESSION: LARYNGEAL PENETRATION AND TRACE ASPIRATION OF THIN AND NECTAR THICK LIQUIDS. THIS HAS IMPROVED FROM PREVIOUS STUDY. PLEASE SEE SPEECH PATHOLOGIST REPORT FOR OTHER FINDINGS AND RECOMMENDATIONS. Chest X-Ray 04/28/20 14:19 IMPRESSION: Increased patchy bilateral multifocal parenchymal opacities. Plan Plan of Treatment: Transfer to SNF for continued Rehab. Continue medications as prescribed. Continue to wean supplemental oxygen; currently requiring 1-2 lpm via standard NC to maintain saturations >90%. Continue to encourage CPAP (EPAP 12, FiO2 21%) qHS for VLADISLAV. Return to the emergency department, as needed, for concerning symptoms. Time Spent: Greater than 30 Minutes Stroke Is this a Stroke Patient?: No Acute Heart Failure Is this a Heart Failure Patient?: No
[2020-05-03] MEDS: ATORVASTATIN CALCIUM 10 MG TABLET PO SCH (21:29)
[2020-05-04] MEDS: IPRATROPIUM/ALBUTEROL 0.5-2.5 MG/3 ML AMPUL NEB SCH ×2 (08:25→16:42)
[2020-05-04] MEDS: CALCIUM CARBONATE 600 MG/VITAMIN D3 400 UNIT TABLET PO SCH (10:49)
[2020-05-04] MEDS: DULOXETINE HCL 30 MG CAPSULE.DR PO SCH (10:49)
[2020-05-04] MEDS: LISINOPRIL 10 MG TABLET PO SCH (10:49)
[2020-05-04] MEDS: VENLAFAXINE HCL 75 MG CAP.SR.24H PO SCH (10:49)
[2020-05-04] MEDS: DOCUSATE SODIUM 100 MG/10 ML UDC PO SCH ×3 (10:49→17:32)
[2020-05-04] MEDS: ASPIRIN 81 MG TABLET, CHEWABLE PO SCH (10:49)
[2020-05-04] MEDS: CHOLECALCIFEROL (D3) 1,000 UNIT (25 MCG) TABLET PO SCH (10:50)
[2020-05-04] MEDS: ENOXAPARIN SODIUM INJ 40 MG/0.4 ML DISP.SYRIN SUBCUT SCH (10:50)
[2020-05-04] MEDS: CEFEPIME 1 GM/D5W RTU 1 GM/50 ML RTUPB IV SCH ×2 (10:50→21:12)
[2020-05-04] MEDS: DONEPEZIL HCL 5 MG TABLET PO SCH (10:50)
[2020-05-04] MEDS: FLUTICASONE NASAL SPRAY 50 MCG/SPRY 120 SPRAY/16 GM NASL SCH (10:50)
[2020-05-04] MEDS: POLYETHYLENE GLYCOL 3350 POWDER 17 GM/1 PACKET PO SCH ×2 (10:51→11:24)
[2020-05-04] MEDS: CYANOCOBALAMIN (VITAMIN B-12) 1,000 MCG TABLET PO SCH (10:51)
[2020-05-04] MEDS: CARBAMAZEPINE SUSP 200 MG/10 ML UDCUP PO SCH ×2 (10:52→21:12)
[2020-05-04] MEDS: MEGESTROL ACETATE 20 MG TABLET PO SCH (10:52)
--- NOTE | 2020-05-04 15:29 | PDOC PROGRESS REPORT ---
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 Seen on morning rounds. Patient was found resting in bed, comfortably, on supplemental oxygen via oxymizer at 2 L/min. He was sleeping but woke easily when I said his name. He denies all complaints today; requests help setting up his breakfast tray and appears to have a very good appetite today. Specifically denies fever, chills, chest pain, palpitations, dyspnea, cough, abdominal pain, nausea. He denies questions or concerns at this time. No concerns per nursing. Reason For Visit: COVID 19 VIRUS INFECTION Physical Exam Vital Signs: Temp Pulse Resp BP Pulse Ox 97.9 F 89 16 135/81 H 96 05/04/20 08:24 05/04/20 08:25 05/04/20 08:25 05/04/20 08:24 05/04/20 08:25 Intake & Output 05/03/20 05/04/20 05/05/20 06:59 06:59 06:59 Intake Total 2258 893 50 Balance 2258 893 50 Weight 86.3 kg 86.9 kg General appearance: PRESENT: no acute distress, cooperative, well-developed, well-nourished, other - frail, elderly appearing Head exam: PRESENT: atraumatic, normocephalic Eye exam: PRESENT: conjunctiva pink, EOMI, PERRLA. ABSENT: scleral icterus Mouth exam: PRESENT: moist, tongue midline Respiratory exam: PRESENT: clear to auscultation jenelle, symmetrical, unlabored, other - Baseline oxygen requirement. ABSENT: rales, rhonchi, wheezes Cardiovascular exam: PRESENT: RRR. ABSENT: diastolic murmur, rubs, systolic murmur Vascular exam: PRESENT: normal capillary refill Rectal exam: PRESENT: deferred Extremities exam: PRESENT: full ROM. ABSENT: calf tenderness, clubbing, pedal edema Neurological exam: PRESENT: alert, awake, oriented to person, oriented to place, CN II-XII grossly intact, other - Pleasantly confused and conversational. ABSENT: motor sensory deficit Psychiatric exam: PRESENT: appropriate affect, normal mood. ABSENT: homicidal ideation, suicidal ideation Skin exam: PRESENT: dry, intact, warm. ABSENT: cyanosis, rash Results Laboratory Results: 05/03/20 04:44 05/03/20 04:44 04/28/20 15:08 Blood Blood Culture - Final NO GROWTH IN 5 DAYS 04/28/20 15:28 Blood Blood Culture - Final NO GROWTH IN 5 DAYS 04/03/20 04/03/20 15:00 15:00 Creatine Kinase 116 Troponin I 0.035 Impressions: Venous Doppler Study 04/03/20 00:00 IMPRESSION: No evidence of deep venous thrombosis in the bilateral upper extremities. KUB X-Ray 04/16/20 00:00 IMPRESSION: NON-SPECIFIC BOWEL GAS PATTERN WITHOUT EVIDENCE FOR OBSTRUCTION. Modified Barium Swallow 04/25/20 00:00 IMPRESSION: LARYNGEAL PENETRATION AND TRACE ASPIRATION OF THIN AND NECTAR THICK LIQUIDS. THIS HAS IMPROVED FROM PREVIOUS STUDY. PLEASE SEE SPEECH PATHOLOGIST REPORT FOR OTHER FINDINGS AND RECOMMENDATIONS. Chest X-Ray 04/28/20 14:19 IMPRESSION: Increased patchy bilateral multifocal parenchymal opacities. Assessment and Plan - Diagnosis (1) Acute hypoxemic respiratory failure Is this a current diagnosis for this admission?: Yes Plan: Resolved; now on his baseline oxygen. Due to COVID-19 pneumonia and possibly superimposed healthcare associated pneumonia. Has received 2 doses of ivermectin, high dose steroids, and convalescent plasma on this admission. Repeat chest x-ray on 04/29/2020 shows worsening bilateral opacification. Completed full course of IV vancomycin and cefepime for treatment of healthcare associated pneumonia. Continue as needed DuoNebs, supplemental oxygen, aggressive pulmonary toileting. (2) Pneumonia Qualifiers: Aspiration pneumonia type: unspecified Laterality: bilateral Lung location: unspecified part of lung Is this a current diagnosis for this admission?: Yes Plan: Resolved. Plan as per #1. (3) Pneumonia due to COVID-19 virus Is this a current diagnosis for this admission?: Yes Plan: Now asymptomatic. Initial positive test greater than 10 days ago. No longer requires isolation or quarantine. Management as plan as per #1. (4) Anxiety and depression Is this a current diagnosis for this admission?: Yes Plan: History of depression anxiety likely worsened due to acute illness. Denies any suicidal or homicidal ideations. Continue duloxetine and venlafaxine. Outpatient PCP and psychiatry follow-up. (5) Dementia Qualifiers: Dementia type: other frontotemporal dementia Dementia behavioral disturbance: without behavioral disturbance Qualified Code(s): G31.09 - Other frontotemporal dementia; F02.80 - Dementia in other diseases classified elsewhere without behavioral disturbance Is this a current diagnosis for this admission?: Yes Plan: Alert and oriented, pleasant, cooperative with physical examination. 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 Supportive measures. (6) Dysphagia Is this a current diagnosis for this admission?: Yes Plan: Improving. Due to dementia and possibly worsened with in-hospital delirium. Has been followed by speech therapy. (7) Failure to thrive in adult Is this a current diagnosis for this admission?: Yes Plan: Improving, patient has been eating about 25 to 50% of his food. Patient reports mild improvement of his energy level and appetite. Patient was reporting very low energy, low appetite, and depression. Patient may have had this problem before admission likely worsened due to acute illness and prolonged hospitalization. Continue Megace to stimulate appetite, registered dietitian and speech therapy on board. Continue PT OT. (8) Generalized weakness Is this a current diagnosis for this admission?: Yes Plan: Improving. Most likely due to COVID-19 pneumonia and prolonged hospitalization. PT/OT consulted. Fall and aspiration precautions. Pending transfer to SNF. (9) History of prostate cancer Is this a current diagnosis for this admission?: Yes Plan: Continue home dose Eliguard and Zytiga. Outpatient PCP and oncology follow-up. (10) Hyperlipidemia Qualifiers: Hyperlipidemia type: unspecified Qualified Code(s): E78.5 - Hyperlipidemia, unspecified Is this a current diagnosis for this admission?: Yes Plan: Continue statins. (11) Hypertension Qualifiers: Hypertension type: essential hypertension Qualified Code(s): I10 - Essential (primary) hypertension Is this a current diagnosis for this admission?: Yes Plan: Euvolemic. Normotensive. Continue current meds. Adjust meds as needed. Monitor vitals. (12) Dehydration Is this a current diagnosis for this admission?: Yes Plan: resolved. Euvolemic. Monitor volume status. Encourage p.o. intake. - Time Time Spent with patient: 15-24 minutes Medications reviewed and adjusted accordingly: Yes Anticipated Discharge Disposition: [facility] Facility Anticipated Discharge Timeframe: when bed available
[2020-05-05] MEDS: IPRATROPIUM/ALBUTEROL 0.5-2.5 MG/3 ML AMPUL NEB SCH ×2 (00:39→08:06)
[2020-05-05] MEDS: MEGESTROL ACETATE 20 MG TABLET PO SCH (09:48)
[2020-05-05] MEDS: CARBAMAZEPINE SUSP 200 MG/10 ML UDCUP PO SCH (09:48)
[2020-05-05] MEDS: CEFEPIME 1 GM/D5W RTU 1 GM/50 ML RTUPB IV SCH (09:48)
[2020-05-05] MEDS: ENOXAPARIN SODIUM INJ 40 MG/0.4 ML DISP.SYRIN SUBCUT SCH (09:48)
[2020-05-05] MEDS: VENLAFAXINE HCL 75 MG CAP.SR.24H PO SCH (09:48)
[2020-05-05] MEDS: LISINOPRIL 10 MG TABLET PO SCH (09:48)
[2020-05-05] MEDS: POLYETHYLENE GLYCOL 3350 POWDER 17 GM/1 PACKET PO SCH (10:07)
[2020-05-05] MEDS: DOCUSATE SODIUM 100 MG/10 ML UDC PO SCH (10:07)
[2020-05-05 10:18] VITALS: BP 129/78
== END 2020-05-05 13:10 | DRG 177 ==
LOC: ER 12:27 → INTOOBSV 17:47 → EH 17:47 → 3N 04-04 17:38 → OBSVTOIN 04-08 14:04
PROVIDERS: ADMIT Internal Medicine; ATTEND Registered Nurse
PROC: XW033F5 Introduction of Other New Technology Therapeutic Substance into Peripheral Vein, Percutaneous Approach, New Technology Group 5 (ICD-10-PCS; 2020-04-08)
PROC: XW13325 Transfusion of Convalescent Plasma (Nonautologous) into Peripheral Vein, Percutaneous Approach, New Technology Group 5 (ICD-10-PCS; principal; 2020-04-17)
DX: U07.1 COVID-19 (principal); J96.01 Acute respiratory failure with hypoxia; J12.82 Pneumonia due to coronavirus disease 2019; F02.80 Dementia in other diseases classified elsewhere, unspecified severity, without behavioral disturbance, psychotic disturbance, mood disturbance, and anxiety; C61 Malignant neoplasm of prostate; I48.91 Unspecified atrial fibrillation; G40.909 Epilepsy, unspecified, not intractable, without status epilepticus; F32.9 Major depressive disorder, single episode, unspecified; E78.5 Hyperlipidemia, unspecified; J06.9 Acute upper respiratory infection, unspecified; Z85.51 Personal history of malignant neoplasm of bladder; Z79.899 Other long term (current) drug therapy; Z87.820 Personal history of traumatic brain injury; Z95.0 Presence of cardiac pacemaker; R62.7 Adult failure to thrive; E86.0 Dehydration; Z66 Do not resuscitate; R13.10 Dysphagia, unspecified; R50.9 Fever, unspecified; Z82.3 Family history of stroke; Z82.49 Family history of ischemic heart disease and other diseases of the circulatory system; Z87.891 Personal history of nicotine dependence; E87.6 Hypokalemia; R53.1 Weakness; K59.00 Constipation, unspecified
CPT/HCPCS: 36415; 36430; 36600; 71045; 74018; 74230; 80048; 80053; 81001; 82550; 82607; 82728; 82746; 82803; 83540; 83550; 83605; 83615; 83735; 84484; 85025; 85027; 85045; 85379; 86140; 86900; 86901; 87040; 87804; 93005; 93010; 93970; 94660; 94667; 94799; 0241U; C9803; G0378; J0692; J1100; J1650; J2405; J2543; J2765; J2920; J2930; J3370; J3480; J3490; J7042; J7050; J7060; J7120; J7121